=== PATIENT | female | born 1960 | race Caucasian/White ===

== ENCOUNTER → 2016-05-30 | Outpatient (REF) | payer MEDICARE, MEDICAID ==
[~2016-05-30] MED LIST: BIRTH CONTROL PO; CITA20TA4 PO; ECOT81TA5 PO; ELIQ5TAB PO; EUCECRE3 TOP; FOLI1TAB2 PO; LIPI20TA PO; LISI40TA OR; LISI40TAB PO; MEGE40TA PO; MICR10CA PO; NIFE15CA PO; NYST100024 TOP; PROT1TAB2 PO; TRAM50TA2 PO; VITA200016 PO; ZOFR20TA PO
== END ==
LOC: M LAB REF 12:13
PROVIDERS: ATTEND Nurse Practitioner Family
DX: L02.415 Cutaneous abscess of right lower limb (principal)

== ENCOUNTER → 2016-08-08 | Outpatient (REF) | payer MEDICARE, MEDICAID ==
[~2016-08-08] MED LIST changes: -MEGE40TA PO; +MEGE40TA18 PO
== END ==
LOC: M LAB REF 13:10
PROVIDERS: ATTEND Nurse Practitioner Family
DX: R21 Rash and other nonspecific skin eruption (principal)

== ENCOUNTER → 2016-10-31 | Outpatient (REF) | payer MEDICARE, MEDICAID ==
[~2016-10-31] MED LIST changes: +BACI50OI TOP; +BACT800T5 PO; +FERR150C PO; -FOLI1TAB2 PO; +FOLI1TAB4 PO; +FURO40TA2 PO; +MEDR10TA PO; -NYST100024 TOP; +NYST1POW9 TOP; +POTA20TA PO; +TYLE325T5 PO; +VITMTA PO
== END ==
LOC: EEVIPCON 13:06 → M LAB REF 13:06
PROVIDERS: ATTEND Nurse Practitioner Family
DX: R21 Rash and other nonspecific skin eruption (principal)

== ENCOUNTER 2016-12-09 20:48 | Emergency (ER) | payer MEDICARE, MEDICAID ==
[~2016-12-09] VITALS: Ht 162.6 cm; Wt 281.4 kg
[~2016-12-09 20:48] MED LIST changes: -BACI50OI TOP; -BACT800T5 PO; -FERR150C PO; -FURO40TA2 PO; -MEDR10TA PO; -POTA20TA PO; -TYLE325T5 PO; -VITMTA PO
[2016-12-09] MEDS ORDERED: MEDR10TA PO (21:39)
[2016-12-09] MEDS ORDERED: VITMTA PO (21:39)
[2016-12-09] MEDS ORDERED: FERR150C PO (21:39)
[2016-12-09] MEDS ORDERED: FURO40TA2 PO (21:39)
[2016-12-09] MEDS ORDERED: TYLE325T5 PO ×2 (21:39)
[2016-12-09] MEDS ORDERED: BACI50OI TOP (21:39)
[2016-12-09] MEDS ORDERED: POTA20TA PO (21:41)
[2016-12-09] MEDS ORDERED: BACT800T5 PO (22:23)
[2016-12-09 22:30] VITALS: BP 149/64
[2016-12-09] MEDS ORDERED: BACTRIM 160MG/800MG DS TAB PO ONE (22:30)
== END 2016-12-09 23:04 | disposition home or self-care (01) ==
LOC: M ED 22:09
DX: L02.415 Cutaneous abscess of right lower limb (principal); L02.416 Cutaneous abscess of left lower limb; L03.115 Cellulitis of right lower limb; L03.116 Cellulitis of left lower limb; I11.9 Hypertensive heart disease without heart failure; Z88.0 Allergy status to penicillin; Z79.899 Other long term (current) drug therapy; Z79.01 Long term (current) use of anticoagulants

== ENCOUNTER 2016-12-28 10:00 | Outpatient (RCR) | payer MEDICARE, MEDICAID ==
[~2016-12-28 10:00] MED LIST changes: +BACI50OI TOP; +BACT800T5 PO; +FERR150C PO; +FURO40TA2 PO; +MEDR10TA PO; +POTA20TA PO; +TYLE325T5 PO; +VITMTA PO
== END 2017-01-23 ==
LOC: M PT 10:00
PROVIDERS: ATTEND Surgery
DX: Z51.89 Encounter for other specified aftercare (principal); S81.002A Unspecified open wound, left knee, initial encounter; X58.XXXA Exposure to other specified factors, initial encounter; Y92.89 Other specified places as the place of occurrence of the external cause; Y93.89 Activity, other specified; Y99.8 Other external cause status
CPT/HCPCS: 97162; G8990; G8991

== ENCOUNTER → 2017-03-02 | Outpatient (CLI) | payer MEDICARE, MEDICAID ==
--- NOTE | 2017-03-02 16:51 | REPMRS ---
Patient History The patient states she had a clinical breast exam in 01/09 Patient is postmenopausal and is nulliparous. No known family history of cancer. Took hormonal contraceptives for 20 years. Digital Woman Screen Mammo: March 02, 2017 - Exam #: [id number] Bilateral MLO, CC, and XCCL view(s) were taken. Technologist: Ramona Morocho, Technologist Prior study comparison: March 01, 2016, digital woman screen mammo performed at [facility]. January 20, 2015, digital woman screen mammo performed at [facility] to [facility]. FINDINGS: The breast tissue is almost entirely fat. There has been no change in the appearance of the mammogram from the prior studies. Only scant fibroglandular elements remain in these predominantly fatty breasts. There is no interval development of dominant mass, areas of architectural distortion, or clustered microcalcification typical of malignancy. Scattered lymph nodes are seen in the axilla. No significant changes when compared with prior studies. ASSESSMENT: BI-RADS/ACR category 2 mammogram. Benign finding(s). Recommendation Routine screening mammogram in 1 year. A. Negative x-ray reports should not delay biopsy if a dominant or clinically suspicious mass is present. B. Four to eight percent of cancers are not identified by mammography. C. Adenosis and dense breast may obscure an underlying neoplasm.(for women over age 40). This mammogram was interpreted with the aid of an FDA-approved computer-aided dectection system. Electronically Signed By: Delfino Hargrove MD 03/02/17 0427
== END ==
LOC: M WHC 10:41
PROVIDERS: ATTEND Nurse Practitioner Family
DX: Z12.31 Encounter for screening mammogram for malignant neoplasm of breast (principal)

== ENCOUNTER 2017-03-19 12:40 | Emergency (ER) | payer MEDICARE, MEDICAID ==
[2017-03-19] MEDS: ADACEL/BOOSTRIX VACCINE (DIPHTH/PERTUSS/ACELL/TETANUS)0.5ML SYR (90715) IM (13:15)
[2017-03-19 13:45] LABS: BASO % 0.3 % (0.0-1.0); EOS # 0.1 10^3/uL (0.0-0.50); EOS % 0.6 % (0.0-3.0); IMMATURE GRANULOCYTE # 0.1 10^3/uL (0-0); IMMATURE GRANULOCYTE % 0.4 % (0-0); LYMPH # 0.8 10^3/uL (1.5-4.5); LYMPH % 6.7 % (24.0-44.0); MEAN CORPUSCULAR HEMOGLOBIN 33.3 pg (27.0-33.0); MEAN CORPUSCULAR HGB CONC 35.9 g/dl (32.0-36.5); MEAN CORPUSCULAR VOLUME 92.8 fl (80.0-96.0); MONO # 0.7 10^3/uL (0.0-0.8); MONO % 5.8 % (0.0-5.0); NEUTROPHILS # 10.5 10^3/uL (1.8-7.7); NEUTROPHILS % 86.2 % (36.0-66.0); PLATELET COUNT, AUTOMATED 317 10^3/uL (150-450); RED CELL DISTRIBUTION WIDTH 13.5 % (11.5-14.5); WHITE BLOOD COUNT 12.2 10^3/uL (4.0-10.0)
[2017-03-19 13:58] LABS: INR 1.22
[2017-03-19 14:17] LABS: ANION GAP 9 MEQ/L (8-16); BLOOD UREA NITROGEN 15 MG/DL (7-18); CALCIUM LEVEL 8.8 MG/DL (8.5-10.1); CARBON DIOXIDE LEVEL 24 MEQ/L (21-32); CHLORIDE LEVEL 100 MEQ/L (98-107); CREATININE FOR GFR 0.96 MG/DL (0.55-1.02); GLOMERULAR FILTRATION RATE > 60.0 (>51); POTASSIUM SERUM 4.9 MEQ/L (3.5-5.1); SODIUM LEVEL 133 MEQ/L (136-145)
[2017-03-19 14:24] LABS: GLUCOSE, FASTING 535 MG/DL (70-105)
[2017-03-19] MEDS: HumuLIN R (REGULAR) INSULIN (NovoLIN R) **100U/ML** PER UNIT IV ×2 (15:06→16:30)
[2017-03-19] MEDS: ACETAMINOPHEN TAB 650MG DOSE (2X325MG) PO (15:07)
[2017-03-19] MEDS: LEVEMIR (INSULIN DETEMIR) 1 UNITS/0.01ML SC (17:57)
== END 2017-03-19 18:31 | disposition home or self-care (01) ==
LOC: M ED 12:40
DX: S59.901A Unspecified injury of right elbow, initial encounter (principal); W18.09XA Striking against other object with subsequent fall, initial encounter; Y92.129 Unspecified place in nursing home as the place of occurrence of the external cause; Y93.89 Activity, other specified; Y99.8 Other external cause status; R73.9 Hyperglycemia, unspecified; I12.9 Hypertensive chronic kidney disease with stage 1 through stage 4 chronic kidney disease, or unspecified chronic kidney disease; I87.2 Venous insufficiency (chronic) (peripheral); N18.9 Chronic kidney disease, unspecified; E78.9 Disorder of lipoprotein metabolism, unspecified; M19.90 Unspecified osteoarthritis, unspecified site; R73.01 Impaired fasting glucose; Z79.01 Long term (current) use of anticoagulants; Z79.2 Long term (current) use of antibiotics; Z79.899 Other long term (current) drug therapy; Z88.0 Allergy status to penicillin
CPT/HCPCS: 90715

== ENCOUNTER → 2017-05-29 | Outpatient (REF) | payer MEDICARE, MEDICAID ==
[2017-05-29 10:59] LABS: ALBUMIN 3.5 GM/DL (3.2-5.2); ALBUMIN/GLOBULIN RATIO 0.95 (1.00-1.93); ALKALINE PHOSPHATASE 223 U/L (45-117); ALT/SGPT 18 U/L (12-78); ANION GAP 12 MEQ/L (8-16); AST/SGOT 13 U/L (7-37); BILIRUBIN,TOTAL 0.4 MG/DL (0.2-1.0); BLOOD UREA NITROGEN 15 MG/DL (7-18); CARBON DIOXIDE LEVEL 24 MEQ/L (21-32); CHLORIDE LEVEL 102 MEQ/L (98-107); CREATININE FOR GFR 0.82 MG/DL (0.55-1.30); GLOMERULAR FILTRATION RATE > 60.0 (>51); GLUCOSE, FASTING 253 MG/DL (70-100); POTASSIUM SERUM 3.9 MEQ/L (3.5-5.1); SODIUM LEVEL 138 MEQ/L (136-145); TOTAL PROTEIN 7.2 GM/DL (6.4-8.2)
[2017-05-29 11:10] LABS: ESTIMATED AVERAGE GLUCOSE 286 MG/DL (60-110); HEMOGLOBIN A1c 11.6 %
== END ==
DX: E78.5 Hyperlipidemia, unspecified (principal); I48.91 Unspecified atrial fibrillation; I10 Essential (primary) hypertension; Z79.899 Other long term (current) drug therapy
CPT/HCPCS: 80053

== ENCOUNTER → 2017-09-11 | Outpatient (REF) | payer MEDICARE, MEDICAID ==
[2017-09-11 10:35] LABS: ALBUMIN 3.4 GM/DL (3.2-5.2); ALKALINE PHOSPHATASE 200 U/L (45-117); ALT/SGPT 17 U/L (12-78); ANION GAP 12 MEQ/L (8-16); AST/SGOT 8 U/L (7-37); BILIRUBIN,TOTAL 0.4 MG/DL (0.2-1.0); BLOOD UREA NITROGEN 18 MG/DL (7-18); CARBON DIOXIDE LEVEL 27 MEQ/L (21-32); CHLORIDE LEVEL 101 MEQ/L (98-107); CREATININE FOR GFR 0.84 MG/DL (0.55-1.30); GLOMERULAR FILTRATION RATE > 60.0 (>51); GLUCOSE, FASTING 227 MG/DL (70-100); POTASSIUM SERUM 4.2 MEQ/L (3.5-5.1); SODIUM LEVEL 140 MEQ/L (136-145); TOTAL PROTEIN 6.8 GM/DL (6.4-8.2)
[2017-09-11 18:10] LABS: ESTIMATED AVERAGE GLUCOSE 249 MG/DL (60-110); HEMOGLOBIN A1c 10.3 %
== END ==
DX: E11.9 Type 2 diabetes mellitus without complications (principal)
CPT/HCPCS: 80053

== ENCOUNTER → 2017-12-11 | Outpatient (REF) | payer MEDICARE, MEDICAID ==
[2017-12-11 10:10] LABS: HEMOGLOBIN 15.2 g/dl (12.0-15.5); MEAN CORPUSCULAR HGB CONC 33.8 g/dl (32.0-36.5); MEAN CORPUSCULAR VOLUME 91.6 fl (80.0-96.0); PLATELET COUNT, AUTOMATED 253 10^3/uL (150-450); RED BLOOD COUNT 4.91 10^6/uL (4.00-5.40); RED CELL DISTRIBUTION WIDTH 13.7 % (11.5-14.5); WHITE BLOOD COUNT 10.4 10^3/uL (4.0-10.0)
[2017-12-11 10:36] LABS: ESTIMATED AVERAGE GLUCOSE 272 MG/DL (60-110); HEMOGLOBIN A1c 11.1 %
[2017-12-11 10:40] LABS: ALBUMIN 3.5 GM/DL (3.2-5.2); ALBUMIN/GLOBULIN RATIO 1.09 (1.00-1.93); ALKALINE PHOSPHATASE 216 U/L (45-117); ALT/SGPT 17 U/L (12-78); ANION GAP 9 MEQ/L (8-16); AST/SGOT 13 U/L (7-37); BILIRUBIN,TOTAL 0.4 MG/DL (0.2-1.0); BLOOD UREA NITROGEN 14 MG/DL (7-18); CALCIUM LEVEL 8.9 MG/DL (8.5-10.1); CARBON DIOXIDE LEVEL 27 MEQ/L (21-32); CHLORIDE LEVEL 100 MEQ/L (98-107); GLOMERULAR FILTRATION RATE > 60.0 (>51); GLUCOSE, FASTING 383 MG/DL (70-100); POTASSIUM SERUM 4.2 MEQ/L (3.5-5.1); SODIUM LEVEL 136 MEQ/L (136-145); TOTAL PROTEIN 6.7 GM/DL (6.4-8.2)
== END ==
DX: E11.9 Type 2 diabetes mellitus without complications (principal)
CPT/HCPCS: 80053

== ENCOUNTER → 2018-05-07 | Outpatient (REF) | payer MEDICARE, MEDICAID ==
[~2018-05-07] MED LIST changes: -CITA20TA4 PO; +CITA20TA6 PO; +FOLI1TAB11 PO; -FOLI1TAB4 PO; +KLOR20TA42 PO; +LANTINJ4 SC; +LISI40TA52 PO; -LISI40TAB PO; -POTA20TA PO; -ZOFR20TA PO; +ZOFR4TAB16 PO; +[UNRECOGNIZED DRUG - CODE] XX
[2018-05-07 09:57] LABS: MEAN CORPUSCULAR HEMOGLOBIN 30.2 pg (27.0-33.0); MEAN CORPUSCULAR VOLUME 88.7 fl (80.0-96.0); PLATELET COUNT, AUTOMATED 330 10^3/uL (150-450)
[2018-05-07 10:15] LABS: ALBUMIN 3.4 GM/DL (3.2-5.2); ALT/SGPT 19 U/L (12-78); BILIRUBIN,TOTAL 0.4 MG/DL (0.2-1.0); BLOOD UREA NITROGEN 23 MG/DL (7-18); CALCIUM LEVEL 8.8 MG/DL (8.5-10.1); CARBON DIOXIDE LEVEL 26 MEQ/L (21-32); CHLORIDE LEVEL 97 MEQ/L (98-107); CHOLESTEROL LEVEL 178 MG/DL (<200); CHOLESTEROL RISK RATIO 4.045 (<5); CREATININE FOR GFR 0.92 MG/DL (0.55-1.30); GLOMERULAR FILTRATION RATE > 60.0 (>51); GLUCOSE, FASTING 235 MG/DL (70-100); HDL CHOLESTEROL 44 MG/DL (>40); LDL CHOLESTEROL 74 MG/DL (<100); NON-HDL-C 134 MG/DL; POTASSIUM SERUM 3.6 MEQ/L (3.5-5.1); SODIUM LEVEL 135 MEQ/L (136-145); TOTAL PROTEIN 6.3 GM/DL (6.4-8.2); TRIGLYCERIDES LEVEL 298 MG/DL (<150)
[2018-05-07 10:57] LABS: HEMOGLOBIN A1c 10.3 %
== END ==
PROVIDERS: ATTEND Nurse Practitioner Family
DX: E78.00 Pure hypercholesterolemia, unspecified (principal); I10 Essential (primary) hypertension; E11.9 Type 2 diabetes mellitus without complications

== ENCOUNTER → 2018-08-20 | Outpatient (CLI) | payer MEDICARE, MEDICAID ==
--- NOTE | 2018-08-20 15:17 | REPMRS ---
Patient History The patient states she had a clinical breast exam in 07/2018. No known family history of cancer. Took hormonal contraceptives for 20 years. 3D TOMOSYNTHESIS WAS PERFORMED. Digital Woman Screen Mammo: August 20, 2018 - Exam #: [id number] Bilateral CC and MLO view(s) were taken. Technologist: Concepcion Bauer, Technologist Prior study comparison: March 02, 2017, digital woman screen mammo performed at [facility]. March 01, 2016, digital woman screen mammo performed at [facility]. FINDINGS: There are scattered fibroglandular densities. There has been no change in the appearance of the mammogram from the prior studies. There is a mild amount of residual fibroglandular tissue which is fairly symmetric. There is no interval development of dominant mass, architectural distortion, or clustered microcalcification suggestive of malignancy. Assessment: BI-RADS/ACR category 1 mammogram. Negative Mammogram. Recommendation Routine screening mammogram in 1 year (for women over age 40). This mammogram was interpreted with the aid of an FDA-approved computer-aided dectection system. Electronically Signed By: Ruddy Gutierrez MD 08/20/18 [id number]
== END ==
LOC: M WHC 13:41
PROVIDERS: ATTEND Nurse Practitioner Women's Health
DX: Z12.31 Encounter for screening mammogram for malignant neoplasm of breast (principal); Z92.0 Personal history of contraception
CPT/HCPCS: 77063; 77067; G0463

== ENCOUNTER → 2018-10-23 | Outpatient (REF) | payer MEDICARE, MEDICAID ==
[2018-10-23 11:26] LABS: HEMATOCRIT 46.1 % (36.0-47.0); HEMOGLOBIN 14.7 g/dl (12.0-15.5); MEAN CORPUSCULAR HEMOGLOBIN 29.1 pg (27.0-33.0); MEAN CORPUSCULAR HGB CONC 31.9 g/dl (32.0-36.5); MEAN CORPUSCULAR VOLUME 91.3 fl (80.0-96.0); PLATELET COUNT, AUTOMATED 288 10^3/uL (150-450); RED BLOOD COUNT 5.05 10^6/uL (4.00-5.40); WHITE BLOOD COUNT 12.3 10^3/uL (4.0-10.0)
[2018-10-23 11:50] LABS: HEMOGLOBIN A1c 8.5 %
[2018-10-23 12:05] LABS: ALBUMIN 3.4 GM/DL (3.2-5.2); ALT/SGPT 15 U/L (12-78); BILIRUBIN,TOTAL 0.5 MG/DL (0.2-1.0); BLOOD UREA NITROGEN 17 MG/DL (7-18); CALCIUM LEVEL 9.1 MG/DL (8.5-10.1); CARBON DIOXIDE LEVEL 25 MEQ/L (21-32); CHLORIDE LEVEL 107 MEQ/L (98-107); CREATININE FOR GFR 0.74 MG/DL (0.55-1.30); FERRITIN 45 NG/ML (8-252); GLOMERULAR FILTRATION RATE > 60.0 (>51); GLUCOSE, FASTING 158 MG/DL (70-100); IRON (FE) 51 UG/DL (50-170); PERCENT SATURATION 18.5 % (13.2-45.0); POTASSIUM SERUM 3.9 MEQ/L (3.5-5.1); SODIUM LEVEL 141 MEQ/L (136-145); TOTAL IRON BINDING CAPACITY 276 UG/DL (250-450); TOTAL PROTEIN 6.5 GM/DL (6.4-8.2)
[2018-10-23 12:09] LABS: TOTAL 25(OH) VITAMIN D 42.1 NG/ML (30.0-100.0)
== END ==
PROVIDERS: ATTEND Nurse Practitioner Adult Health
DX: Z00.00 Encounter for general adult medical examination without abnormal findings (principal); D50.9 Iron deficiency anemia, unspecified; E11.65 Type 2 diabetes mellitus with hyperglycemia; E55.9 Vitamin D deficiency, unspecified; Z79.899 Other long term (current) drug therapy

== ENCOUNTER 2019-03-24 13:12 | Inpatient (IN) | payer MEDICARE, MEDICAID ==
[~2019-03-24] VITALS: Ht 162.6 cm; Wt 124.1 kg
[2019-03-24] MEDS ORDERED: ACETAMINOPHEN 325 MG TAB PO ONE (14:00)
[2019-03-24] MEDS ORDERED: [UNRECOGNIZED DRUG - CODE] PO (14:08)
[2019-03-24] MEDS ORDERED: HUMA100I5 SC (14:08)
[2019-03-24] MEDS ORDERED: TRAM50TA2 PO (14:08)
[2019-03-24] MEDS ORDERED: VITA200015 PO (14:08)
[2019-03-24] MEDS ORDERED: [UNRECOGNIZED DRUG - CODE] PO (14:08)
[2019-03-24] MEDS ORDERED: PROV10TA PO (14:08)
[2019-03-24] MEDS ORDERED: ACET-907 PO ×2 (14:08)
[2019-03-24] MEDS ORDERED: VITMTA PO (14:08)
[2019-03-24] MEDS ORDERED: JANU100T PO (14:08)
[2019-03-24] MEDS ORDERED: BACI28.43 TOP (14:08)
[2019-03-24] MEDS ORDERED: INVO300T PO (14:08)
[2019-03-24] MEDS ORDERED: FLUC150T PO (14:08)
[2019-03-24] MEDS ORDERED: CVS13CRE TOP (14:08)
[2019-03-24] MEDS ORDERED: FOLI1TAB11 PO (14:08)
[2019-03-24] MEDS ORDERED: TEMO0.0520 TOP (14:08)
[2019-03-24] MEDS ORDERED: ATOR1TAB21 PO (14:08)
[2019-03-24] MEDS ORDERED: ELIQ5TAB PO (14:08)
[2019-03-24] MEDS ORDERED: GLUM1000 PO (14:08)
[2019-03-24] MEDS ORDERED: POTA20EL PO (14:08)
[2019-03-24] MEDS ORDERED: FURO40TA2 PO (14:08)
[2019-03-24] MEDS ORDERED: LANTINJ4 SC (14:08)
[2019-03-24] MEDS ORDERED: CELE20TA PO (14:08)
[2019-03-24] MEDS ORDERED: PROT1TAB2 PO (14:08)
[2019-03-24] MEDS ORDERED: NS 1,000 ML IV ONE (14:15)
[2019-03-24 15:15] LABS: BASO # 0.1 10^3/uL (0.0-0.2); BASO % 0.3 % (0.0-1.0); EOS # 0.1 10^3/uL (0.0-0.5); EOS % 0.2 % (0.0-3.0); HEMATOCRIT 44.8 % (36.0-47.0); HEMOGLOBIN 14.1 g/dl (12.0-15.5); LYMPH % 4.7 % (24.0-44.0); MEAN CORPUSCULAR HEMOGLOBIN 27.6 pg (27.0-33.0); MEAN CORPUSCULAR HGB CONC 31.5 g/dl (32.0-36.5); MEAN CORPUSCULAR VOLUME 87.8 fl (80.0-96.0); MONO # 1.2 10^3/uL (0.0-0.8); MONO % 5.3 % (0.0-5.0); NEUTROPHILS # 19.5 10^3/uL (1.5-8.5); NEUTROPHILS % 88.5 % (36.0-66.0); PLATELET COUNT, AUTOMATED 369 10^3/uL (150-450)
[2019-03-24 15:45] LABS: ALBUMIN 3.1 GM/DL (3.2-5.2); ALT/SGPT 17 U/L (12-78); BILIRUBIN,DIRECT 0.1 MG/DL (0.0-0.2); BILIRUBIN,TOTAL 0.2 MG/DL (0.2-1.0); BLOOD UREA NITROGEN 25 MG/DL (7-18); CALCIUM LEVEL 9.4 MG/DL (8.5-10.1); CARBON DIOXIDE LEVEL 22 MEQ/L (21-32); CHLORIDE LEVEL 107 MEQ/L (98-107); CK-MB VALUE MASS 1.4 NG/ML (<3.6); CPK CREATINE PHOSPHOKINASE 73 U/L (26-192); CREATININE FOR GFR 0.82 MG/DL (0.55-1.30); FREE THYROXINE INDEX 3.6 % (1.3-4.8); GLOMERULAR FILTRATION RATE > 60.0 (>51); GLUCOSE, FASTING 144 MG/DL (70-100); MB/CK RELATIVE INDEX 1.92 (< OR =4); SODIUM LEVEL 140 MEQ/L (136-145); T UPTAKE 35 % (30-39); THYROXINE (T4) 10.3 UG/DL (4.5-12.0); TOTAL PROTEIN 6.2 GM/DL (6.4-8.2); TROPONIN I < 0.02 NG/ML (< 0.10)
--- NOTE | 2019-03-24 15:45 | REP ---
Clinical: Trauma. Fall. Technique: AP, lateral, bilateral oblique views of the left knee. Findings: There is a comminuted oblique fracture involving the distal femoral metaphysis. Osteopenia and degenerative changes noted. Impression: Comminuted oblique fracture of the distal femoral metaphysis. Electronically Signed by Karthikeyan Parra MD 03/24/2019 03:36 P
--- NOTE | 2019-03-24 15:45 | REP ---
Clinical: Preoperative assessment. Status post fall with femur fracture. Comparison: 03/19/2017 . Technique: PA and lateral. Findings: The mediastinum and cardiac silhouette are normal. The lung lopez are clear and without acute consolidation, effusion, or pneumothorax. The skeletal structures are intact and normal. Impression: 1. No acute cardiopulmonary process. Electronically Signed by Karthikeyan Parra MD 03/24/2019 03:37 P
[2019-03-24] MEDS ORDERED: MORPHINE 4 MG/ML 1ML VIAL/SYRINGE (J2270) As Ordered ONE (16:25)
[2019-03-24] MEDS ORDERED: MORPHINE 4 MG/ML 1ML VIAL/SYRINGE (J2270) IV ONE (16:30)
--- NOTE | 2019-03-24 17:12 | REP ---
Three views pelvis/left hip: 03/24/2019. Indication: Left hip trauma. Comparison: CT dated 07/14/2014. Findings: There is no acute fracture, subluxation or dislocation. Severe bilateral osteoarthritic sequelae of the hips are present more pronounced on the right. No lytic or blastic lesions are present. Impression: No acute osseous injuries of the left hip or pelvis. Marked osteoarthritic sequelae of the right greater than left hip joints. In the Electronically Signed by Roldan Monteiro DO 03/24/2019 05:03 P
--- NOTE | 2019-03-24 17:22 | REP ---
Clinical: Femur fracture. Technique: Axial images through the left knee with coronal and sagittal re-formations. Findings: There is a comminuted fracture through the distal femoral metaphysis with extension to the articular surface. Associated traumatic effusion and surrounding subcutaneous infiltration noted. Impression: Comminuted fracture of the distal femoral metaphysis extending to the articular surface with effusion and surrounding infiltration. Electronically Signed by Karthikeyan Parra MD 03/24/2019 05:13 P
--- NOTE | 2019-03-24 18:17 | HPEPDOC ---
General Date of Admission Mar 24, 2019 at 17:38 Date of Service: Mar 24, 2019 Chief Complaint The patient is a 58-year-old female admitted with a reason for visit of Fall, Fracture Of Distal End Of Left Femur. Source: Patient Exam Limitations: No limitations Timing/Duration: 4-6 hours Severity: Moderate Associated Symptoms: Mechanical fall History of Present Illness Patient is 58 years old female with past medical history of hypertension, hyperlipidemia, morbid obesity, diabetes, pulmonary embolism, DVT presented hospital with left distal femur fracture. Patient stated that she developed mechanical fall, she didn't hit her head, she didn't loss consciousness. In emergency room patient was found to have fracture of the distal femoral metaphysis extending to the articular surface with effusion and surrounding infiltration. Of note, patient took Eliquis in the morning around 8 am. Also patient was found to have white blood count of 22, glucose level 144. Patient is afebrile, tachycardic with BP 164/72. Patient denies fever, chills, nausea, vomiting, chest pain, palpitations, diarrhea or dysuria Home Medications Scheduled Apixaban (Eliquis) 5 Mg Tablet, 5 MG PO BID Atorvastatin Calcium (Atorvastatin Calcium) 20 Mg Tablet, 20 MG PO QHS, (Reported) Canagliflozin (Invokana) 300 Mg Tablet, 300 MG PO QPM, (Reported) Cholecalciferol (Vitamin D3) (Vitamin D3) 2,000 Unit Tablet, 2,000 UNIT PO DAILY, (Reported) Citalopram Hydrobromide (Celexa) 20 Mg Tablet, 20 MG PO DAILY, (Reported) Clobetasol Propionate (Temovate) 30 Gm Cream..g., 1 DOSE TOP BID, (Reported) APPLY TO LEFT EAR Fluconazole (Fluconazole) 150 Mg Tablet, 150 MG PO QWEEK, (Reported) SUNDAY AT BEDTIME Folic Acid (Folic Acid) 1 Mg Tablet, 1 MG PO DAILY, (Reported) Furosemide (Furosemide) 40 Mg Tablet, 40 MG PO DAILY, (Reported) Insulin Glargine,Hum.rec.anlog (Lantus Solostar) 100 Unit/1 Ml Insuln.pen, 60 UNITS SC QAM, (Reported) Insulin Lispro (Humalog Kwikpen U-100) 100 Unit/1 Ml Insuln.pen, 8 UNITS SC AC, (Reported) Iron Polysaccharide Complex (Polysaccharide Iron) 150 Mg Capsule, 150 MG PO DAILY, (Reported) Lisinopril (Lisinopril) 20 Mg Tablet, 40 MG PO DAILY Medroxyprogesterone Acetate (Provera) 10 Mg Tablet, 10 MG PO DAILY, (Reported) Metformin HCl (Glumetza) 1,000 Mg Sosloaz49j, 1,000 MG PO QPM, (Reported) 1500MG TOTAL DAILY Metformin HCl (Glumetza) 500 Mg Loniads85k, 500 MG PO QPM, (Reported) 1500MG TOTAL DAILY Metoprolol Tartrate (Lopressor) 50 Mg Tablet, 50 MG PO BID Multivitamins (Thera M Plus Tablet) 1 Each Tablet, 1 TAB PO DAILY, (Reported) Pantoprazole Sodium (Protonix) 40 Mg Tablet.dr, 40 MG PO DAILY, (Reported) Potassium Chloride (Potassium Chloride) 20 Meq/15 Ml Liquid, 15 ML PO BID, (Reported) MIX WITH 8OZ OF WATER Sitagliptin Phosphate (Januvia) 100 Mg Tablet, 100 MG PO DAILY, (Reported) Scheduled PRN Acetaminophen (Tylenol) 325 Mg Tablet, 650 MG PO Q4H PRN for PAIN / FEVER, (Reported) Bacitracin (Bacitracin) 28.4 Gm Oint...g., 1 DOSE TOP BID PRN for EXCORIATION, (Reported) APPLY TO EXCORIATED AREAS Tramadol HCl (Tramadol HCl) 50 Mg Tablet, 50 MG PO TID PRN for PAIN, (Reported) Tramadol HCl (Tramadol HCl) 50 Mg Tablet, 1-2 TAB PO Q4H PRN for PAIN Zinc Oxide (Diaper Rash) 113 Gm Cream..g., 1 DOSE TOP BID PRN for RASH, (Reported) APPLY TO INGUINAL FOLDS AND INNER THIGHS Allergies Coded Allergies: Penicillins (Verified Allergy, Unknown, 03/24/19) Past Medical History Medical History OBESITY, MORBID HYPERLIPIDEMIA 2B HYPERTENSION MENORRHAGIA-ENDOMETRIAL HYPERPLASIA 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 He within the last few years. Her mother is 78 years old and very active and healthy. Social History * Smoker: Denies Alcohol: Denies Drugs: denies A-FIB/CHADSVASC A-FIB History Current/History of A-Fib/PAF?: No Current PO Anticoag Therapy: No Review of Systems Constitutional: Denies: Chills, Fever Eyes: Denies: Pain, Vision change ENT: Denies: Head Aches Skin: Denies: Rash, Lesions Pulmonary: Denies: Dyspnea, Cough Gastrointestinal: Denies: Nausea, Vomiting Genitourinary: Denies: Dysuria, Frequency Endocrine: Denies: Polydipsia Musculoskeletal: Reports: Leg Pain Neurological: Denies: Weakness Psych: Reports: Mood Normal Physical Examination General Exam: Positive: Alert, Cooperative Eye Exam: Positive: PERRLA, Conjunctiva & lids normal, EOMI, Sclera icteric ENT Exam: Positive: Atraumatic Neck Exam: Positive: Supple; Negative: JVD Heart Exam: Positive: Tachycardic; Negative: Rate Normal Telemetry: Positive: Tachycardia Abdomen Exam: Positive: Normal bowel sounds Extremity Exam: Positive: Other (left distal hip tenderness, limited range of motion); Negative: Clubbing Skin Exam: Positive: Nl turgor and temperature Neuro Exam: Positive: Normal Gait, Cranial Nerves 3-12 NL Psych Exam: Positive: Mental status NL Vital Signs Vital Signs Date Time Temp Pulse Resp B/P (MAP) Pulse Ox O2 Delivery O2 Flow Rate FiO2 03/24/19 17:15 98.2 126 20 164/72 (102) 95 Room Air Laboratory Data Labs 24H Laboratory Tests 2 03/24/19 14:36: Immature Granulocyte % (Auto) 1.0, Neutrophils (%) (Auto) 88.5H, Lymphocytes (%) (Auto) 4.7L, Monocytes (%) (Auto) 5.3H, Eosinophils (%) (Auto) 0.2, Basophils (%) (Auto) 0.3, Neutrophils # (Auto) 19.5H, Lymphocytes # (Auto) 1.0L, Monocytes # (Auto) 1.2H, Eosinophils # (Auto) 0.1, Basophils # (Auto) 0.1, Nucleated Red Blood Cells % (auto) 0.0, Anion Gap 11, Glomerular Filtration Rate > 60.0, Calcium Level 9.4, Total Bilirubin 0.2, Direct Bilirubin 0.1, Aspartate Amino Transf (AST/SGOT) 19, Alanine Aminotransferase (ALT/SGPT) 17, Alkaline Phosp hatase 150H, Total Creatine Kinase 73, Creatine Kinase MB 1.4, Creatine Kinase MB Relative Index 1.92, Troponin I < 0.02, Total Protein 6.2L, Albumin 3.1L, Albumin/Globulin Ratio 1.00, Thyroid Stimulating Hormone (TSH) 2.390, Free Thyroxine Index 3.6, Thyroxine (T4) 10.3, Triiodothyronine (T3) Uptake 35 03/24/19 16:26: Urine Color STRAW, Urine Appearance CLEAR, Urine pH 6.0, Urine Specific [place] 1.009, Urine Protein NEGATIVE, Urine Glucose (UA) 3+H, Urine Ketones NEGATIVE, Urine Blood 1+H, Urine Nitrite NEGATIVE, Urine Bilirubin NEGATIVE, Urine Urobilinogen 0.2, Urine Leukocyte Esterase NEGATIVE, Urine WBC (Auto) 0, Urine RBC (Auto) 2, Urine Hyaline Casts (Auto) 0, Urine Bacteria (Auto) NEGATIVE, Urine Squamous Epithelial Cells 0, Urine Sperm (Auto) CBC/BMP Laboratory Tests 03/24/19 14:36 Assessment/Plan Patient is 58 years old female with past medical history of hypertension, hyperlipidemia, morbid obesity, diabetes, pulmonary embolism, DVT presented hospital with left distal femur fracture. Patient stated that she developed mechanical fall, she didn't hit her head, she didn't loss consciousness. In emergency room patient was found to have fracture of the distal femoral metaphysis extending to the articular surface with effusion and surrounding infiltration. Of note, patient took Eliquis in the morning around 8 am. Also patient was found to have white blood count of 22, glucose level 144. Patient is afebrile, tachycardic with BP 164/72. Patient denies fever, chills, nausea, vomiting, chest pain, palpitations, diarrhea or dysuria Problems (1) Fracture of distal end of left femur Status: Acute Problem Text: Pt took Eliquis at 8 am. The surgical intervention is contraindicated, pt should 3 days off Eliquis before hip surgery PT/OT Pain management (2) Diabetes mellitus Status: Chronic Problem Text: diabetes diet Levemir 30 u bid Insulin sliding scale (3) Hypertension Status: Chronic Problem Text: Patient was not on any antihypertensive medication I added metoprolol tartrate 25 mg twice a day to her medical regimen and lisinopril 20 mg (4) ANGI (obstructive sleep apnea) Status: Chronic Problem Text: CPAP overnight Plan / VTE VTE Prophylaxis Ordered?: Yes ALICIA FIERRO DO Mar 24, 2019 18:17
--- NOTE | 2019-03-24 19:26 | ECGEPIP ---
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
[2019-03-24 19:46] LABS: INR 1.37; PROTHROMBIN TIME 16.6 SECONDS (11.8-14.0)
[2019-03-24 19:47] LABS: PARTIAL THROMBOPLASTIN TIME 31.5 SECONDS (25.0-38.4)
[2019-03-24] MEDS ORDERED: DEXTROSE 50% 50 ML SYRINGE IV PRN (20:00)
[2019-03-24] MEDS ORDERED: GLUCOSE 4 GM CHEW TABLET PO PRN (20:00)
[2019-03-24] MEDS ORDERED: BACITRACIN OINT 30GM TOP PRN (20:00)
[2019-03-24] MEDS ORDERED: GLUCAGON FOR INJ 1 MG VIAL (J1610) SC PRN (20:00)
[2019-03-24] MEDS ORDERED: METOPROLOL 5 MG/5 ML VIAL IV STA (20:21)
[2019-03-24] MEDS ORDERED: lisinopriL 20 MG TAB PO ONE (20:30)
[2019-03-24] MEDS: HumaLOG INSULIN (NovoLOG) PER UNIT SC SCH (20:39)
[2019-03-24] MEDS: METOPROLOL TART 25 MG TABLET PO SCH (20:53)
[2019-03-24] MEDS: LEVEMIR (INSULIN DETEMIR) 1 UNITS/0.01ML SC SCH (21:00)
[2019-03-24] MEDS: CLOBETASOL PROP 0.05% OINT 30 GM TOP SCH (21:00)
[2019-03-24] MEDS: traMADol 50 MG TAB PO PRN ×2 (21:06→23:10)
[2019-03-24 22:25] VITALS: BP 127/58
[2019-03-24] MEDS: NS 1,000 ML IV SCH (23:03)
[2019-03-24] MEDS: ATORVASTATIN 20 MG TAB PO SCH (23:04)
[2019-03-24] MEDS: POTASSIUM CHLORIDE 10% LIQ 20 MEQ/15 ML UDC PO SCH (23:04)
[2019-03-24] MEDS: HEPARIN SOD (PORCINE) 5000 UNITS/ML VIAL SC SCH (23:05)
[2019-03-24 23:23] VITALS: O2SAT 98
[2019-03-25] MEDS: traMADol 50 MG TAB PO PRN ×2 (05:24→18:14)
[2019-03-25] MEDS: NS 1,000 ML IV SCH ×3 (05:25→23:08)
[2019-03-25 05:54] LABS: HEMATOCRIT 35.1 % (36.0-47.0); MEAN CORPUSCULAR HEMOGLOBIN 27.7 pg (27.0-33.0); MEAN CORPUSCULAR HGB CONC 31.3 g/dl (32.0-36.5); MEAN CORPUSCULAR VOLUME 88.4 fl (80.0-96.0); PLATELET COUNT, AUTOMATED 299 10^3/uL (150-450); RED BLOOD COUNT 3.97 10^6/uL (4.00-5.40); WHITE BLOOD COUNT 16.9 10^3/uL (4.0-10.0)
[2019-03-25 06:00] VITALS: BP 144/67
[2019-03-25 06:19] LABS: BLOOD UREA NITROGEN 23 MG/DL (7-18); CALCIUM LEVEL 9.1 MG/DL (8.5-10.1); CARBON DIOXIDE LEVEL 25 MEQ/L (21-32); CHLORIDE LEVEL 111 MEQ/L (98-107); CREATININE FOR GFR 0.67 MG/DL (0.55-1.30); GLOMERULAR FILTRATION RATE > 60.0 (>51); GLUCOSE, FASTING 113 MG/DL (70-100); MAGNESIUM LEVEL 2.1 MG/DL (1.8-2.4); POTASSIUM SERUM 3.7 MEQ/L (3.5-5.1); SODIUM LEVEL 143 MEQ/L (136-145)
[2019-03-25] MEDS: HumaLOG INSULIN (NovoLOG) PER UNIT SC SCH ×4 (07:30→20:22)
[2019-03-25] MEDS ORDERED: CLINDAMYCIN 900 MG in IV 1 EA IV ONE (08:15)
--- NOTE | 2019-03-25 08:48 | REP ---
Clinical: Fracture. Technique: AP and frog lateral views of the left femur. Findings: There is a angulated displaced comminuted fracture involving the distal femoral metaphysis extending to the articular surface. Early advanced arthritic changes at the left hip noted. Impression: Distal left femur fracture. Electronically Signed by Karthikeyan Parra MD 03/25/2019 08:39 A
[2019-03-25] MEDS ORDERED: FUROSEMIDE 40 MG TAB PO SCH (09:00)
--- NOTE | 2019-03-25 09:46 | REP ---
Clinical: Femur fracture. Technique: AP and cross-table lateral views of the left tibia / fibula. Findings: Distal femoral metaphyseal fracture noted. Osteopenia and degenerative changes at the knee and ankle joint noted. No further acute fracture or dislocation identified. Impression: 1. Osteopenia and degenerative changes. 2. No tibia / fibula fracture appreciated. Electronically Signed by Karthikeyan Parra MD 03/25/2019 09:38 A
[2019-03-25] MEDS: HEPARIN SOD (PORCINE) 5000 UNITS/ML VIAL SC SCH ×2 (10:11→20:17)
[2019-03-25] MEDS: POTASSIUM CHLORIDE 10% LIQ 20 MEQ/15 ML UDC PO SCH ×2 (10:11→20:16)
[2019-03-25] MEDS: PANTOPRAZOLE 40MG TAB (PROTONIX) PO SCH (10:12)
[2019-03-25] MEDS: VITAMIN D 1,000 INTERNATIONAL UNITS TABLET PO SCH (10:12)
[2019-03-25] MEDS: LEVEMIR (INSULIN DETEMIR) 1 UNITS/0.01ML SC SCH ×2 (10:13→20:17)
[2019-03-25] MEDS: lisinopriL 20 MG TAB PO SCH (10:13)
[2019-03-25] MEDS: CitaloPRAM (CeleXA) 20 MG TAB PO SCH (10:13)
[2019-03-25] MEDS: METOPROLOL TART 25 MG TABLET PO SCH ×2 (10:13→20:21)
[2019-03-25] MEDS: CLOBETASOL PROP 0.05% OINT 30 GM TOP SCH ×2 (10:14→20:17)
[2019-03-25] MEDS: FOLIC ACID 1 MG TAB PO SCH (10:14)
--- NOTE | 2019-03-25 13:46 | CR ---
DATE OF CONSULTATION: 03/24/2019 CHIEF COMPLAINT: Left knee pain. The patient presents today as a transfer from [facility] with left knee pain. The patient was ambulating today when she had a trip and fall. She immediately appreciated sharp left knee pain that was 10 out of 10, made worse with range of motion or mobilization and pain improved only with immobilization and pain medication. She denied hitting her head or loss of consciousness. Denies any pain elsewhere. She denies any fevers, chills, nausea, or vomiting. The patient took Eliquis around 8:00 a.m. for prior deep vein thrombosis (DVT). REVIEW OF SYSTEMS: Complete 10-system review was conducted and pertinent positives and negatives in the history of present illness. All other systems negative. HOME MEDICATIONS: - acetaminophen - Eliquis - atorvastatin - citalopram - clobetasol propionate - fluconazole - folic acid - furosemide - insulin glargine - insulin Lispro - medroxyprogesterone - metformin - pantoprazole - sitagliptin ALLERGIES: PENICILLIN. PAST MEDICAL HISTORY: 1. Obesity, morbid. 2. Hyperlipidemia. 3. Hypertension. 4. Menorrhagia. 5. Right hip arthritis. 6. Degenerative disc disease. 7. Chronic kidney disease. 8. Factor V Leiden negative. 9. Pulmonary embolism. 10. Obstructive sleep apnea. PAST SURGICAL HISTORY: 1. Colonoscopy. SOCIAL HISTORY: Lives at [facility]. Denies smoking, alcohol or drugs. PHYSICAL EXAMINATION: The patient is awake, alert, oriented. Well dressed, appropriate affect. Breathing comfortably in room air. Normocephalic, atraumatic. Morbidly obese. EXTREMITIES: Bilateral upper extremities with no tenderness to palpation. Full range of motion of the fingers, wrists, elbows without any pain. Skin is intact. Radial pulse 2+. Regular rate. Skin is intact. Sensation intact to light touch in superficial sensory branch, radial nerve, median nerve and ulnar nerve. Positive AIN, PIN, and ulnar motor nerve function. Radial pulse 2+ regular rate. Right lower extremity no tenderness to palpation. Full range of motion of the ankle and knee without pain. Skin is intact. Posterior tibial pulse 2+, regular rate, skin intact. Positive extensor hallucis longus (EHL), flexor hallucis longus (FHL), tibialis, gastroc motor function. Sensation is intact to light touch in superficial, peroneal, deep peroneal, sural, saphenous, and tibial distributions. Posterior tibial pulse 2+ regular rate. Skin is intact. Left lower extremity is tender to palpation about the knee. Skin is intact. Posterior tibial pulse 2+ regular rate. Positive EHL, FHL, tibialis, and gastroc motor function. Sensation is intact to light touch in superficial, peroneal, deep peroneal, sural, saphenous, and tibial distributions. IMAGING: Reviewed and demonstrating distal femur fracture and extension into the notch. DIAGNOSIS: 1. Left distal femur intrachondral femur fracture. I discussed with the and the mother that despite all of her medical comorbidities, I do unfortunately believe that surgery is the treatment of choice and given that without surgery the distal femur fracture unfortunately has a complication of eroding through the skin and becoming an open fracture leading to sepsis. Also, without operative intervention, I do not believe that the patient would ambulate again and has a significant malunion if healed. The patient and her mother expressed understanding. We discussed the risks, benefits, including infection, damage to surrounding structures, incomplete relief, malunion, nonunion, blood loss. I discussed with the patient that with her history of Eliquis and blood clots that she is at serious risk of developing another with her diabetes and obesity, infection and nonunion are a serious concern as well. Due to the Eliquis being taken, we should wait for 3 days. Therefore, the plan is to do the surgery of her left distal femur on afternoon. Please make her nothing by mouth Sunday night. Appreciate medicine for admission and preoperative clearance.
[2019-03-25 14:00] VITALS: BP 155/84
--- NOTE | 2019-03-25 15:38 | IPNPDOC ---
Text Note Date of Service The patient was seen on 03/25/19. NOTE Subjective: Patient stated that she has mild left leg pain. Patient denies fever, chills, nausea, vomiting, chest pain, palpitations, diarrhea or dysuria Objective: GENERAL APPEARANCE: Obese female HEENT: Normocephalic, atraumatic. Mucous members moist and pink CARDIOVASCULAR: Regular rate and rhythm. No murmurs, rubs or gallops. Radial pulses are intact. There is no lower extremity edema LUNGS: Diminished lung sounds, ABDOMEN: Abdomen is soft and nontender. MUSCULOSKELETAL: Limited range of motion of left leg NEUROLOGICAL: Cranial nerves II-12 are grossly intact. Speech is not dysarthric Patient is 58 years old female with past medical history of hypertension, h yperlipidemia, morbid obesity, diabetes, pulmonary embolism, DVT presented hospital with left distal femur fracture. Patient stated that she developed mechanical fall, she didn't hit her head, she didn't loss consciousness. In emergency room patient was found to have fracture of the distal femoral metaphysis extending to the articular surface with effusion and surrounding infiltration. Of note, patient took Eliquis in the morning around 8 am. Also patient was found to have white blood count of 22, glucose level 144. Patient is afebrile, tachycardic with BP 164/72. Patient denies fever, chills, nausea, vomiting, chest pain, palpitations, diarrhea or dysuria (1) Fracture of distal end of left femur Pt took Eliquis before admission Hip surgery planned on afternoon PT/OT Pain management (2) Diabetes mellitus Glucose levels under control diabetes diet Levemir 30 u bid Insulin sliding scale (3) Hypertension Patient was not on any antihypertensive medication I added metoprolol tartrate 25 mg twice a day to her medical regimen and lisinopril 20 mg (4) ANGI (obstructive sleep apnea) Status: Chronic Problem Text: CPAP overnight VS,Fishbone, I+O VS, Fishbone, I+O Laboratory Tests 03/25/19 05:14 Vital Signs Date Time Temp Pulse Resp B/P (MAP) Pulse Ox O2 Delivery O2 Flow Rate FiO2 03/25/19 10:13 96 03/25/19 06:06 17 NIPPV (BIPAP/CPAP) 03/25/19 06:00 97.3 144/67 (92) 95 03/24/19 23:23 2.0 28 I&O- Last 24 Hours up to 6 AM 03/25/19 05:59 Intake Total 100 ml Output Total 1000 ml Balance -900 ml ALICIA FIERRO DO Mar 25, 2019 15:38
[2019-03-25 19:00] VITALS: O2SAT 96
[2019-03-25] MEDS: ATORVASTATIN 20 MG TAB PO SCH (20:17)
[2019-03-25 22:00] VITALS: BP 141/67
[2019-03-26 06:00] VITALS: BP 145/65
[2019-03-26] MEDS: HumaLOG INSULIN (NovoLOG) PER UNIT SC SCH ×4 (07:30→21:00)
[2019-03-26] MEDS: LEVEMIR (INSULIN DETEMIR) 1 UNITS/0.01ML SC SCH ×2 (09:43→21:19)
[2019-03-26] MEDS: POTASSIUM CHLORIDE 10% LIQ 20 MEQ/15 ML UDC PO SCH ×2 (09:43→21:18)
[2019-03-26] MEDS: HEPARIN SOD (PORCINE) 5000 UNITS/ML VIAL SC SCH ×2 (09:43→21:18)
[2019-03-26] MEDS: VITAMIN D 1,000 INTERNATIONAL UNITS TABLET PO SCH (09:44)
[2019-03-26] MEDS: METOPROLOL TART 25 MG TABLET PO SCH ×3 (09:45→21:18)
[2019-03-26] MEDS: FOLIC ACID 1 MG TAB PO SCH (09:45)
[2019-03-26] MEDS: FUROSEMIDE 40 MG TAB PO SCH (09:45)
[2019-03-26] MEDS: PANTOPRAZOLE 40MG TAB (PROTONIX) PO SCH (09:45)
[2019-03-26] MEDS: lisinopriL 20 MG TAB PO SCH (09:45)
[2019-03-26] MEDS: CLOBETASOL PROP 0.05% OINT 30 GM TOP SCH ×2 (09:45→21:19)
[2019-03-26] MEDS: CitaloPRAM (CeleXA) 20 MG TAB PO SCH (09:45)
[2019-03-26] MEDS: NS 1,000 ML IV SCH ×2 (09:47→22:30)
[2019-03-26 10:00] VITALS: O2SAT 93
--- NOTE | 2019-03-26 11:49 | IPNPDOC ---
Text Note Date of Service The patient was seen on 03/26/19. NOTE Subjective: Patient stated that her left leg pain subsided. Patient denies fever, chills, nausea, vomiting, chest pain, palpitations, diarrhea or dysuria Objective: GENERAL APPEARANCE: Obese female HEENT: Normocephalic, atraumatic. Mucous members moist and pink CARDIOVASCULAR: Regular rate and rhythm. No murmurs, rubs or gallops. Radial pulses are intact. There is no lower extremity edema LUNGS: Diminished lung sounds, ABDOMEN: Abdomen is soft and nontender. MUSCULOSKELETAL: Limited range of motion of left leg NEUROLOGICAL: Cranial nerves II-12 are grossly intact. Speech is not dysarthric Patient is 58 years old female with past medical history of hypertension, hyperlipidemia, morbid obesity, diabetes, pulmonary embolism, DVT presented hospital with left distal femur fracture. Patient stated that she developed mechanical fall, she didn't hit her head, she didn't loss consciousness. In emergency room patient was found to have fracture of the distal femoral metaphysis extending to the articular surface with effusion and surrounding infiltration. Of note, patient took Eliquis in the morning around 8 am. Also patient was found to have white blood count of 22, glucose level 144. Patient is afebrile, tachycardic with BP 164/72. Patient denies fever, chills, nausea, vomiting, chest pain, palpitations, diarrhea or dysuria (1) Fracture of distal end of left femur Pt took Eliquis before admission Hip surgery planned on afternoon PT/OT Pain management (2) Diabetes mellitus Glucose levels under control diabetes diet Levemir 30 u bid Insulin sliding scale (3) Hypertension Patient was not on any antihypertensive medication I added metoprolol tartrate 25 mg twice a day to her medical regimen and lisinopril 20 mg (4) ANGI (obstructive sleep apnea) Status: Chronic Problem Text: CPAP overnight VS,Fishbone, I+O VS, Fishbone, I+O Vital Signs Date Time Temp Pulse Resp B/P (MAP) Pulse Ox O2 Delivery O2 Flow Rate FiO2 03/26/19 10:00 93 Room Air 03/26/19 09:45 105 165/81 03/26/19 06:00 97.8 20 03/26/19 04:01 28 03/25/19 21:42 2.0 I&O- Last 24 Hours up to 6 AM 03/26/19 06:00 Intake Total 2600 ml Output Total 1450 ml Balance 1150 ml LAICIA FIEROR DO Mar 26, 2019 11:49
[2019-03-26 11:54] VITALS: BP 183/90
[2019-03-26 14:30] VITALS: BP 181/87
[2019-03-26] MEDS: traMADol 50 MG TAB PO PRN (16:24)
[2019-03-26 20:27] VITALS: BP 175/84
[2019-03-26] MEDS: ATORVASTATIN 20 MG TAB PO SCH (21:17)
[2019-03-26] MEDS: ACETAMINOPHEN TAB 650MG DOSE (2X325MG) PO PRN (21:17)
[2019-03-27] MEDS ORDERED: CLINDAMYCIN 900 MG in IV 1 EA IV ONE (06:00)
[2019-03-27 06:08] VITALS: BP 170/84
[2019-03-27] MEDS: HumaLOG INSULIN (NovoLOG) PER UNIT SC SCH ×4 (07:24→21:00)
[2019-03-27] MEDS: PANTOPRAZOLE 40MG TAB (PROTONIX) PO SCH (08:07)
[2019-03-27] MEDS: VITAMIN D 1,000 INTERNATIONAL UNITS TABLET PO SCH (08:07)
[2019-03-27] MEDS: amLODIPine 5 MG TAB PO SCH (08:09)
[2019-03-27] MEDS: FUROSEMIDE 40 MG TAB PO SCH (08:10)
[2019-03-27] MEDS: POTASSIUM CHLORIDE 10% LIQ 20 MEQ/15 ML UDC PO SCH ×2 (08:10→21:27)
[2019-03-27] MEDS: FOLIC ACID 1 MG TAB PO SCH (08:10)
[2019-03-27] MEDS: lisinopriL 20 MG TAB PO SCH (08:10)
[2019-03-27] MEDS: METOPROLOL TART 25 MG TABLET PO SCH ×3 (08:11→21:28)
[2019-03-27] MEDS: CitaloPRAM (CeleXA) 20 MG TAB PO SCH (08:11)
[2019-03-27] MEDS: HEPARIN SOD (PORCINE) 5000 UNITS/ML VIAL SC SCH ×2 (08:12→21:27)
[2019-03-27] MEDS: CLOBETASOL PROP 0.05% OINT 30 GM TOP SCH ×2 (08:15→21:29)
[2019-03-27] MEDS: NS 1,000 ML IV SCH ×2 (08:30→21:27)
[2019-03-27 09:00] LABS: HEMATOCRIT 33.2 % (36.0-47.0); HEMOGLOBIN 10.4 g/dl (12.0-15.5); MEAN CORPUSCULAR HEMOGLOBIN 27.9 pg (27.0-33.0); MEAN CORPUSCULAR HGB CONC 31.3 g/dl (32.0-36.5); PLATELET COUNT, AUTOMATED 294 10^3/uL (150-450); RED BLOOD COUNT 3.73 10^6/uL (4.00-5.40); WHITE BLOOD COUNT 15.3 10^3/uL (4.0-10.0)
[2019-03-27 09:22] LABS: BLOOD UREA NITROGEN 14 MG/DL (7-18); CALCIUM LEVEL 8.7 MG/DL (8.5-10.1); CARBON DIOXIDE LEVEL 24 MEQ/L (21-32); CHLORIDE LEVEL 112 MEQ/L (98-107); CREATININE FOR GFR 0.54 MG/DL (0.55-1.30); GLOMERULAR FILTRATION RATE > 60.0 (>51); GLUCOSE, FASTING 84 MG/DL (70-100); POTASSIUM SERUM 4.6 MEQ/L (3.5-5.1); SODIUM LEVEL 143 MEQ/L (136-145)
--- NOTE | 2019-03-27 09:44 | IPNPDOC ---
Text Note Date of Service The patient was seen on 03/27/19. NOTE Subjective: Patient stated that she has mild left leg pain. Patient denies f ever, chills, nausea, vomiting, chest pain, palpitations, diarrhea or dysuria Objective: GENERAL APPEARANCE: Obese female HEENT: Normocephalic, atraumatic. Mucous members moist and pink CARDIOVASCULAR: Regular rate and rhythm. No murmurs, rubs or gallops. Radial pulses are intact. There is no lower extremity edema LUNGS: Diminished lung sounds, ABDOMEN: Abdomen is soft and nontender. MUSCULOSKELETAL: Limited range of motion of left leg NEUROLOGICAL: Cranial nerves II-12 are grossly intact. Speech is not dysarthric Patient is 58 years old female with past medical history of hypertension, hy perlipidemia, morbid obesity, diabetes, pulmonary embolism, DVT presented hospital with left distal femur fracture. Patient stated that she developed mechanical fall, she didn't hit her head, she didn't loss consciousness. In emergency room patient was found to have fracture of the distal femoral m etaphysis extending to the articular surface with effusion and surrounding infiltration. Of note, patient took Eliquis in the morning around 8 am. Also patient was found to have white blood count of 22, glucose level 144. Patient is afebrile, tachycardic with BP 164/72. Patient denies fever, chills, nausea, vomiting, chest pain, palpitations, diarrhea or dysuria (1) Fracture of distal end of left femur Pt took Eliquis before admission Hip surgery planned today afternoon PT/OT Pain management Patient is hemodynamically stable. Ortho team can proceed with surgery (2) Diabetes mellitus Glucose levels under control diabetes diet Levemir bid Insulin sliding scale (3) Hypertension Patient was not on any antihypertensive medication. Blood pressure has been elevated for past 24 hours. I increased the dose of antihypertensive medications - metoprolol tartrate 25 mg TID and lisinopril 40 mg -Amlodipine 5 mg daily (4) ANGI (obstructive sleep apnea) Status: Chronic Problem Text: CPAP overnight Leukocytosis Most likely reactive secondary to hip fracture Patient is afebrile, does not have cough, sputum, diarrhea, dysuria VS,Fishbone, I+O VS, Fishbone, I+O Laboratory Tests 03/27/19 08:40 Vital Signs Date Time Temp Pulse Resp B/P (MAP) Pulse Ox O2 Delivery O2 Flow Rate FiO2 1/2/20 08:11 97 142/67 03/27/19 06:08 98.1 16 95 Room Air 03/26/19 04:01 28 03/25/19 21:42 2.0 I&O- Last 24 Hours up to 6 AM 03/27/19 06:00 Intake Total 1980 ml Output Total 2900 ml Balance -920 ml ALICIA FIERRO DO Mar 27, 2019 09:44
[2019-03-27 14:00] VITALS: BP 167/82
[2019-03-27] MEDS ORDERED: ROCURONIUM BROMIDE 50 MG/5 ML VIAL As Ordered ONE (14:39)
[2019-03-27] MEDS ORDERED: MIDAZOLAM INJ 2 MG/2 ML VIAL (J2250) As Ordered ONE (14:39)
[2019-03-27] MEDS ORDERED: PROPOFOL 200 MG/20 ML VIAL As Ordered ONE (14:39)
[2019-03-27] MEDS ORDERED: LIDOCAINE 2% INJ 100 MG/5 ML SDV (FOR ANES.) As Ordered ONE (14:39)
[2019-03-27] MEDS ORDERED: dexameTHASONE 4 MG/ML 1ML VIAL (J1100) As Ordered ONE (14:39)
[2019-03-27] MEDS ORDERED: ONDANSETRON 4MG/2ML VIAL (J2405) As Ordered ONE ×2 (14:39→20:21)
[2019-03-27] MEDS ORDERED: fentaNYL 100 MCG/2 ML INJECTION (J3010) As Ordered ONE ×2 (14:40→20:21)
[2019-03-27] MEDS ORDERED: PROPOFOL 500 MG/50 ML VIAL As Ordered ONE (15:57)
[2019-03-27] MEDS ORDERED: KETAMINE HCL 200 MG/20 ML VIAL As Ordered ONE (15:57)
[2019-03-27] MEDS ORDERED: ceFAZolin 1GM INJ (J0690 PER 500MG) As Ordered ONE (17:07)
[2019-03-27] MEDS ORDERED: ceFAZolin 2 GM/D5W 50 ML IV BAG (J0690 PER 500MG) As Ordered ONE (17:07)
[2019-03-27] MEDS ORDERED: PHENYLephrine HCL 500 MCG/5 ML (100MCG/ML) SYRINGE (J2370) As Ordered ONE (17:33)
[2019-03-27] MEDS ORDERED: PHENYLEPHRINE INJ 10MG/ML VIAL (J2370) As Ordered ONE (17:33)
[2019-03-27] MEDS ORDERED: ePHEDrine SULFATE 25 MG/5 ML(5MG/ML) SYRINGE As Ordered ONE (17:33)
[2019-03-27] MEDS ORDERED: PERCOCET 5MG/325MG TAB As Ordered ONE ×2 (20:21→20:40)
[2019-03-27] MEDS: fentaNYL 100 MCG/2 ML INJECTION (J3010) IV PRN ×4 (20:23→20:45)
[2019-03-27] MEDS: PERCOCET 5MG/325MG TAB PO PRN ×2 (20:23→20:47)
[2019-03-27 20:30] VITALS: O2SAT 95
[2019-03-27] MEDS ORDERED: LR 1,000 ML IV SCH (20:30)
[2019-03-27] MEDS ORDERED: ONDANSETRON 4MG/2ML VIAL (J2405) IV PRN (20:30)
--- NOTE | 2019-03-27 20:30 | REP ---
HISTORY: ORIF distal femoral fracture. Eight spot views were obtained using a portable C-Arm device in my absent[place] during ORIF distal femoral fracture. The previously described distal femoral fracture has been openly reduced and internally fixed. The fixation plate and screws are noted. The alignment appears to be near anatomical. 3 minutes and 28 seconds of fluoroscopy time was provided for the procedure. Electronically Signed by Sid Connelly DO 03/28/2019 12:33 P
[2019-03-27 21:15] VITALS: BP 154/95
[2019-03-27] MEDS: ATORVASTATIN 20 MG TAB PO SCH (21:27)
[2019-03-27 21:45] VITALS: BP 145/65
[2019-03-27 22:45] VITALS: BP 145/66
--- NOTE | 2019-03-28 00:39 | RO ---
DATE OF PROCEDURE: 03/27/2019 PREOPERATIVE DIAGNOSIS: Left distal femur fracture, intra-articular. POSTOPERATIVE DIAGNOSIS: Left distal femur fracture, intra-articular. PROCEDURE: Open reduction, internal fixation of left distal femur fracture. SURGEON: Ervin Reid MD RECONCILIATION COORDINATOR: None. ANESTHESIA: Spinal. COMPLICATIONS: None. BLOOD LOSS: 350 mL. INDICATIONS: This is a 58-year-old female who suffered this fracture while at [facility]. We discussed operative and nonoperative intervention. Unfortunately, in order to increase mobility and also decrease the risk of this eroding through skin in anteriorly, discussed operative intervention. Patient and family agreed. We discussed the risks and benefits, including, but not limited to, infection, damage to surrounding structures, malunion, nonunion. Patient expressed understanding and wished to proceed. DESCRIPTION OF PROCEDURE: Patient was brought back to the operating room (OR) in the supine position, underwent spinal anesthesia, at which point the left leg was prepped and draped in the usual fashion. We then had a time-out confirming site, side, and surgery. Once in agreement, due to the patient's severe obesity, we had to use x-ray in order to identify the knee joint. Once this was done, we made a longitudinal incision along the line of femur, dissecting sharply through subcutaneous tissue, careful to identify and coagulate any superficial bleeding. We the encountered the iliotibial (IT) band. We split this in line with the fibers. We then did a subvastus approach, elevating, being careful for any sort of perforating bleeders and appropriately coagulating them, at which point we identified the fracture site, irrigated, and debrided it thoroughly. We then used a turkey claw reduction clamp to obtain the fracture of the medial spike to the proximal shaft using x-ray, AP and lateral. Once this was adequately done, we used two cerclage cables and secured them and tensioned them to replace the clamp. This was once again confirmed on AP and lateral. We then chose our 10-hole distal femur variable angle [employer]ynthe[employer] plate. I used the conical pin to align the plate distally, parallel to the femoral condyles. We then formed a box by inserting the percutaneous guide after sliding the plate submuscularly more proximally while we made a stab incision and secured our box with a K-wire. We then placed our distal locking screws under guidance on C-arm, confirming the placement outside the joint and in good bone, at which point we then secured the plate to the bone through a cortical screw. We were happy with this. We placed three additional locking screws in place. We confirmed our reduction and fixation on AP and lateral films. We were quite happy with this. We irrigated the wound thoroughly, closed the IT band with #0 Vicryl and deep fat stitches. We then did superficial stitch with #2-0 Vicryl and teo for skin. We also placed a negative pressure vacuum over the incision to help with wound healing given the patient's long history of diabetes and obesity, increased risk for infection and fluid collections. This was set to mmHg continuously and will be taken off after 5 days. At that point, the patient was taken to the postanesthesia care unit (PACU) in stable condition. POSTOPERATIVE PLAN: The patient will be nonweightbearing on the affected leg, resume her Eliquis, placed on Surgical Care Improvement Project (SCIP) antibiotic prophylaxis, and work on ambulation with physical therapy. The incisional VAC will be removed in 5 days.
[2019-03-28 00:45] VITALS: BP 146/68
[2019-03-28] MEDS: traMADol 50 MG TAB PO PRN ×3 (01:02→18:37)
[2019-03-28 01:45] VITALS: BP 144/65
[2019-03-28] MEDS: ceFAZolin SOD 1 GM in D5W MINI-BAG PLUS 50 ML IV SCH ×3 (02:28→18:36)
[2019-03-28 05:21] VITALS: BP 144/69
[2019-03-28] MEDS: ACETAMINOPHEN TAB 650MG DOSE (2X325MG) PO PRN (05:27)
[2019-03-28] MEDS: NS 1,000 ML IV SCH (05:28)
[2019-03-28] MEDS: MOM 30ML SUSPENSION UDC PO SCH ×3 (06:32→14:09)
[2019-03-28] MEDS: HumaLOG INSULIN (NovoLOG) PER UNIT SC SCH ×4 (07:30→20:48)
[2019-03-28 08:29] LABS: HEMATOCRIT 33.3 % (36.0-47.0); HEMOGLOBIN 10.1 g/dl (12.0-15.5); MEAN CORPUSCULAR HEMOGLOBIN 27.4 pg (27.0-33.0); MEAN CORPUSCULAR HGB CONC 30.3 g/dl (32.0-36.5); MEAN CORPUSCULAR VOLUME 90.2 fl (80.0-96.0); PLATELET COUNT, AUTOMATED 324 10^3/uL (150-450); RED BLOOD COUNT 3.69 10^6/uL (4.00-5.40); WHITE BLOOD COUNT 18.1 10^3/uL (4.0-10.0)
[2019-03-28 08:49] LABS: BLOOD UREA NITROGEN 14 MG/DL (7-18); CALCIUM LEVEL 8.7 MG/DL (8.5-10.1); CARBON DIOXIDE LEVEL 24 MEQ/L (21-32); CHLORIDE LEVEL 109 MEQ/L (98-107); CREATININE FOR GFR 0.64 MG/DL (0.55-1.30); GLOMERULAR FILTRATION RATE > 60.0 (>51); GLUCOSE, FASTING 159 MG/DL (70-100); POTASSIUM SERUM 4.3 MEQ/L (3.5-5.1); SODIUM LEVEL 141 MEQ/L (136-145)
[2019-03-28] MEDS: APIXABAN 5 MG TAB (ELIQUIS) PO SCH ×2 (09:50→20:54)
[2019-03-28] MEDS: VITAMIN D 1,000 INTERNATIONAL UNITS TABLET PO SCH (09:50)
[2019-03-28] MEDS: PANTOPRAZOLE 40MG TAB (PROTONIX) PO SCH (09:50)
[2019-03-28] MEDS: SENOKOT S TAB PO SCH ×2 (09:50→20:54)
[2019-03-28] MEDS: POTASSIUM CHLORIDE 10% LIQ 20 MEQ/15 ML UDC PO SCH ×2 (09:50→20:54)
[2019-03-28] MEDS: METOPROLOL TART 50 MG TAB PO SCH ×2 (09:51→20:58)
[2019-03-28] MEDS: CitaloPRAM (CeleXA) 20 MG TAB PO SCH (09:51)
[2019-03-28] MEDS: lisinopriL 20 MG TAB PO SCH (09:51)
[2019-03-28] MEDS: FOLIC ACID 1 MG TAB PO SCH (09:51)
[2019-03-28] MEDS: CLOBETASOL PROP 0.05% OINT 30 GM TOP SCH ×2 (09:52→20:55)
[2019-03-28] MEDS: MIRALAX *UNIT DOSE* 17GM PACKET PO SCH (09:52)
[2019-03-28] MEDS: LEVEMIR (INSULIN DETEMIR) 1 UNITS/0.01ML SC SCH ×2 (09:52→20:55)
[2019-03-28] MEDS: amLODIPine 5 MG TAB PO SCH (09:52)
[2019-03-28] MEDS: FUROSEMIDE 40 MG TAB PO SCH (09:54)
[2019-03-28 10:00] VITALS: BP 118/46
[2019-03-28 14:51] VITALS: BP 135/60
[2019-03-28] MEDS: ATORVASTATIN 20 MG TAB PO SCH (20:54)
[2019-03-28] MEDS: NYSTATIN 100,000 UNITS/GM TOPICAL PWD 15 GM TOP SCH (20:55)
[2019-03-28 22:00] VITALS: BP 137/66
[2019-03-29 06:00] VITALS: BP 127/57
[2019-03-29] MEDS: HumaLOG INSULIN (NovoLOG) PER UNIT SC SCH ×4 (07:30→20:54)
[2019-03-29] MEDS: MIRALAX *UNIT DOSE* 17GM PACKET PO SCH (09:01)
[2019-03-29] MEDS: VITAMIN D 1,000 INTERNATIONAL UNITS TABLET PO SCH (09:01)
[2019-03-29] MEDS: POTASSIUM CHLORIDE 10% LIQ 20 MEQ/15 ML UDC PO SCH ×2 (09:01→21:04)
[2019-03-29] MEDS: MOM 30ML SUSPENSION UDC PO SCH (09:01)
[2019-03-29] MEDS: lisinopriL 20 MG TAB PO SCH (09:01)
[2019-03-29] MEDS: SENOKOT S TAB PO SCH ×2 (09:02→20:03)
[2019-03-29] MEDS: METOPROLOL TART 50 MG TAB PO SCH ×2 (09:02→21:08)
[2019-03-29] MEDS: CitaloPRAM (CeleXA) 20 MG TAB PO SCH (09:02)
[2019-03-29] MEDS: amLODIPine 5 MG TAB PO SCH (09:02)
[2019-03-29] MEDS: APIXABAN 5 MG TAB (ELIQUIS) PO SCH ×2 (09:02→21:05)
[2019-03-29] MEDS: PANTOPRAZOLE 40MG TAB (PROTONIX) PO SCH (09:02)
[2019-03-29] MEDS: FOLIC ACID 1 MG TAB PO SCH (09:02)
[2019-03-29] MEDS: NYSTATIN 100,000 UNITS/GM TOPICAL PWD 15 GM TOP SCH ×2 (09:02→21:03)
[2019-03-29] MEDS: FUROSEMIDE 40 MG TAB PO SCH (09:02)
[2019-03-29 10:02] VITALS: O2SAT 98
[2019-03-29] MEDS: CLOBETASOL PROP 0.05% OINT 30 GM TOP SCH ×2 (10:53→21:04)
[2019-03-29 14:12] VITALS: BP 126/57
[2019-03-29] MEDS ORDERED: MAGNESIUM CITRATE 300 ML BTL PO ONE ×2 (15:30→20:00)
[2019-03-29] MEDS: LEVEMIR (INSULIN DETEMIR) 1 UNITS/0.01ML SC SCH (21:03)
[2019-03-29] MEDS: ATORVASTATIN 20 MG TAB PO SCH (21:05)
[2019-03-29 22:00] VITALS: BP 137/70
[2019-03-30] MEDS: ACETAMINOPHEN TAB 650MG DOSE (2X325MG) PO PRN (05:43)
[2019-03-30 06:00] VITALS: BP 137/68
[2019-03-30 08:14] VITALS: O2SAT 94
[2019-03-30] MEDS: POTASSIUM CHLORIDE 10% LIQ 20 MEQ/15 ML UDC PO SCH ×2 (08:25→21:10)
[2019-03-30] MEDS: FOLIC ACID 1 MG TAB PO SCH (08:25)
[2019-03-30] MEDS: APIXABAN 5 MG TAB (ELIQUIS) PO SCH ×2 (08:25→21:11)
[2019-03-30] MEDS: PANTOPRAZOLE 40MG TAB (PROTONIX) PO SCH (08:25)
[2019-03-30] MEDS: FUROSEMIDE 40 MG TAB PO SCH (08:26)
[2019-03-30] MEDS: lisinopriL 20 MG TAB PO SCH (08:26)
[2019-03-30] MEDS: VITAMIN D 1,000 INTERNATIONAL UNITS TABLET PO SCH (08:26)
[2019-03-30] MEDS: amLODIPine 5 MG TAB PO SCH (08:26)
[2019-03-30] MEDS: METOPROLOL TART 50 MG TAB PO SCH ×2 (08:26→21:11)
[2019-03-30] MEDS: CitaloPRAM (CeleXA) 20 MG TAB PO SCH (08:26)
[2019-03-30] MEDS: LEVEMIR (INSULIN DETEMIR) 1 UNITS/0.01ML SC SCH ×2 (08:27→21:10)
[2019-03-30] MEDS: HumaLOG INSULIN (NovoLOG) PER UNIT SC SCH ×4 (08:27→21:00)
[2019-03-30] MEDS: NYSTATIN 100,000 UNITS/GM TOPICAL PWD 15 GM TOP SCH ×2 (08:28→21:11)
[2019-03-30] MEDS: MIRALAX *UNIT DOSE* 17GM PACKET PO SCH (08:28)
[2019-03-30] MEDS: SENOKOT S TAB PO SCH ×2 (08:28→21:11)
[2019-03-30] MEDS: CLOBETASOL PROP 0.05% OINT 30 GM TOP SCH ×2 (08:28→21:12)
[2019-03-30] MEDS: MOM 30ML SUSPENSION UDC PO SCH (08:28)
[2019-03-30 14:00] VITALS: BP 119/52
[2019-03-30 19:56] VITALS: BP 141/76
[2019-03-30] MEDS: ATORVASTATIN 20 MG TAB PO SCH (21:11)
[2019-03-31 06:00] VITALS: BP 135/67
[2019-03-31] MEDS ORDERED: TRAM50TA2 PO (07:23)
[2019-03-31] MEDS: HumaLOG INSULIN (NovoLOG) PER UNIT SC SCH ×4 (07:30→20:26)
[2019-03-31] MEDS: POTASSIUM CHLORIDE 10% LIQ 20 MEQ/15 ML UDC PO SCH ×2 (08:42→20:21)
[2019-03-31] MEDS: VITAMIN D 1,000 INTERNATIONAL UNITS TABLET PO SCH (08:42)
[2019-03-31] MEDS: CitaloPRAM (CeleXA) 20 MG TAB PO SCH (08:42)
[2019-03-31] MEDS: SENOKOT S TAB PO SCH ×2 (08:43→20:22)
[2019-03-31] MEDS: PANTOPRAZOLE 40MG TAB (PROTONIX) PO SCH (08:43)
[2019-03-31] MEDS: amLODIPine 5 MG TAB PO SCH (08:43)
[2019-03-31] MEDS: FOLIC ACID 1 MG TAB PO SCH (08:43)
[2019-03-31] MEDS: APIXABAN 5 MG TAB (ELIQUIS) PO SCH ×2 (08:43→20:22)
[2019-03-31] MEDS: METOPROLOL TART 50 MG TAB PO SCH ×2 (08:43→20:22)
[2019-03-31] MEDS: NYSTATIN 100,000 UNITS/GM TOPICAL PWD 15 GM TOP SCH ×3 (08:44→20:26)
[2019-03-31] MEDS: LEVEMIR (INSULIN DETEMIR) 1 UNITS/0.01ML SC SCH ×2 (08:44→20:22)
[2019-03-31] MEDS: lisinopriL 20 MG TAB PO SCH (08:44)
[2019-03-31] MEDS: FUROSEMIDE 40 MG TAB PO SCH (08:44)
[2019-03-31] MEDS: CLOBETASOL PROP 0.05% OINT 30 GM TOP SCH ×2 (08:48→20:23)
[2019-03-31] MEDS: MOM 30ML SUSPENSION UDC PO SCH (08:48)
[2019-03-31] MEDS: MIRALAX *UNIT DOSE* 17GM PACKET PO SCH (08:48)
[2019-03-31 20:07] VITALS: BP 139/80
[2019-03-31] MEDS: ATORVASTATIN 20 MG TAB PO SCH (20:22)
[2019-03-31] MEDS: ACETAMINOPHEN TAB 650MG DOSE (2X325MG) PO PRN (20:37)
[2019-04-01 06:34] VITALS: BP 139/79
[2019-04-01] MEDS: HumaLOG INSULIN (NovoLOG) PER UNIT SC SCH (08:17)
[2019-04-01] MEDS: LEVEMIR (INSULIN DETEMIR) 1 UNITS/0.01ML SC SCH (08:17)
[2019-04-01] MEDS: POTASSIUM CHLORIDE 10% LIQ 20 MEQ/15 ML UDC PO SCH (08:18)
[2019-04-01] MEDS: METOPROLOL TART 50 MG TAB PO SCH (08:18)
[2019-04-01] MEDS: VITAMIN D 1,000 INTERNATIONAL UNITS TABLET PO SCH (08:18)
[2019-04-01] MEDS: FUROSEMIDE 40 MG TAB PO SCH (08:18)
[2019-04-01] MEDS: lisinopriL 20 MG TAB PO SCH (08:18)
[2019-04-01] MEDS: FOLIC ACID 1 MG TAB PO SCH (08:18)
[2019-04-01] MEDS: CitaloPRAM (CeleXA) 20 MG TAB PO SCH (08:18)
[2019-04-01] MEDS: PANTOPRAZOLE 40MG TAB (PROTONIX) PO SCH (08:18)
[2019-04-01 08:19] VITALS: BP 139/79
[2019-04-01] MEDS: amLODIPine 5 MG TAB PO SCH (08:19)
[2019-04-01] MEDS: CLOBETASOL PROP 0.05% OINT 30 GM TOP SCH (08:19)
[2019-04-01] MEDS: MOM 30ML SUSPENSION UDC PO SCH (08:19)
[2019-04-01] MEDS: MIRALAX *UNIT DOSE* 17GM PACKET PO SCH (08:19)
[2019-04-01] MEDS: APIXABAN 5 MG TAB (ELIQUIS) PO SCH (08:19)
[2019-04-01] MEDS: SENOKOT S TAB PO SCH (08:19)
[2019-04-01] MEDS: NYSTATIN 100,000 UNITS/GM TOPICAL PWD 15 GM TOP SCH (08:19)
[2019-04-01 09:48] LABS: HEMATOCRIT 35.1 % (36.0-47.0); HEMOGLOBIN 10.6 g/dl (12.0-15.5); MEAN CORPUSCULAR HEMOGLOBIN 26.8 pg (27.0-33.0); MEAN CORPUSCULAR HGB CONC 30.2 g/dl (32.0-36.5); MEAN CORPUSCULAR VOLUME 88.9 fl (80.0-96.0); PLATELET COUNT, AUTOMATED 506 10^3/uL (150-450); RED BLOOD COUNT 3.95 10^6/uL (4.00-5.40); WHITE BLOOD COUNT 16.7 10^3/uL (4.0-10.0)
[2019-04-01] MEDS ORDERED: LOPR1TAB6 PO (10:11)
[2019-04-01] MEDS ORDERED: ELIQ5TAB PO (10:11)
[2019-04-01] MEDS ORDERED: LISI-538 PO (10:11)
--- NOTE | 2019-04-01 16:29 | DS.PDOC ---
Discharge Summary General Date of Admission Mar 24, 2019 at 17:38 Date of Discharge 04/01/19 Discharge Summary PROCEDURES PERFORMED DURING STAY: surgical treatment of Left distal femur intrachondral femur fracture ADMITTING DIAGNOSES: Fracture of distal end of left femur Diabetes mellitus Hypertension ANGI (obstructive sleep apnea) Leukocytosis DISCHARGE DIAGNOSES: Fracture of distal end of left femur Diabetes mellitus Hypertension ANGI (obstructive sleep apnea) Leukocytosis COMPLICATIONS/CHIEF COMPLAINT: Fall, Fracture Of Distal End Of Left Femur. HISTORY OF PRESENT ILLNESS: Patient is 58 years old female with past medical history of hypertension, hyperlipidemia, morbid obesity, diabetes, pulmonary embolism, DVT presented hospital with left distal femur fracture. Patient stated that she developed mechanical fall, she didn't hit her head, she didn't loss consciousness. In emergency room patient was found to have fracture of the distal femoral metaphysis extending to the articular surface with effusion and surrounding infiltration. Of note, patient took Eliquis in the morning around 8 am. Also patient was found to have white blood count of 22, glucose level 144. Patient is afebrile, tachycardic with BP 164/72. Patient denies fever, chills, nausea, vomiting, chest pain, palpitations, diarrhea or dysuria HOSPITAL COURSE: During hospital stay surgical treatment of Left distal femur intrachondral femur fracture was done. Postoperative was w/o any complications During hospital stay the following issue addressed (1) Fracture of distal end of left femur surgical treatment of Left distal femur intrachondral femur fracture was done. Postoperative was w/o any complications (2) Diabetes mellitus Glucose levels under control diabetes diet Levemir bid Insulin sliding scale (3) Hypertension Patient was not on any antihypertensive medication. Blood pressure has been elevated for past 24 hours. I increased the dose of antihypertensive medications - metoprolol tartrate 25 mg TID and lisinopril 40 mg -Amlodipine 5 mg daily (4) ANGI (obstructive sleep apnea) Status: Chronic Problem Text: CPAP overnight Leukocytosis Most likely reactive secondary to hip fracture Patient is afebrile, does not have cough, sputum, diarrhea, dysuria DISCHARGE MEDICATIONS: Please see below. ALLERGIES: Please see below. PHYSICAL EXAMINATION ON DISCHARGE: VITAL SIGNS: Please see below. GENERAL APPEARANCE: Obese female HEENT: Normocephalic, atraumatic. Mucous members moist and pink CARDIOVASCULAR: Regular rate and rhythm. No murmurs, rubs or gallops. Radial pulses are intact. There is no lower extremity edema LUNGS: Diminished lung sounds, ABDOMEN: Abdomen is soft and nontender. MUSCULOSKELETAL: Limited range of motion of left leg NEUROLOGICAL: Cranial nerves II-12 are grossly intact. Speech is not dysarthric LABORATORY DATA: Please see below. IMAGING: Clinical: Femur fracture. Technique: Axial images through the left knee with coronal and sagittal re-formations. Findings: There is a comminuted fracture through the distal femoral metaphysis with extension to the articular surface. Associated traumatic effusion and surrounding subcutaneous infiltration noted. Impression: Comminuted fracture of the distal femoral metaphysis extending to the articular surface with effusion and surrounding infiltration. PROGNOSIS: Favorable ACTIVITY:As tolerated] DIET: Cardiac DISPOSITION: [facility]. DISCHARGE INSTRUCTIONS: Given by orthopedic team ITEMS TO FOLLOWUP ON ON OUTPATIENT: With PCP DISCHARGE CONDITION:Stable TIME SPENT ON DISCHARGE: Greater than 20 minutes. Vital Signs/I&Os Vital Signs Date Time Temp Pulse Resp B/P (MAP) Pulse Ox O2 Delivery O2 Flow Rate FiO2 04/01/19 08:19 98 139/79 04/01/19 06:34 96.5 18 96 Room Air 03/27/19 20:06 3 03/26/19 04:01 28 I&O- Last 24 Hours up to 6 AM 04/01/19 06:00 Intake Total 1410 ml Output Total 0 ml Balance 1410 ml Laboratory Data Labs 24H Laboratory Tests 2 03/31/19 17:09: Bedside Glucose (Misc Panel) 117H 03/31/19 20:10: Bedside Glucose (Misc Panel) 140H 04/01/19 08:11: Bedside Glucose (Misc Panel) 116H 04/01/19 09:39: Nucleated Red Blood Cells % (auto) 0.0 CBC/BMP Laboratory Tests 04/01/19 09:39 FSBS Laboratory Tests Test 03/31/19 17:09 03/31/19 20:10 04/01/19 08:11 Range/Units Bedside Glucose (Misc Panel) 117 140 116 70-105 MG/DL Discharge Medications Scheduled Apixaban (Eliquis) 5 Mg Tablet, 5 MG PO BID Atorvastatin Calcium (Atorvastatin Calcium) 20 Mg Tablet, 20 MG PO QHS, (Reported) Canagliflozin (Invokana) 300 Mg Tablet, 300 MG PO QPM, (Reported) Cholecalciferol (Vitamin D3) (Vitamin D3) 2,000 Unit Tablet, 2,000 UNIT PO DAILY, (Reported) Citalopram Hydrobromide (Celexa) 20 Mg Tablet, 20 MG PO DAILY, (Reported) Clobetasol Propionate (Temovate) 30 Gm Cream..g., 1 DOSE TOP BID, (Reported) APPLY TO LEFT EAR Fluconazole (Fluconazole) 150 Mg Tablet, 150 MG PO QWEEK, (Reported) SUNDAY AT BEDTIME Folic Acid (Folic Acid) 1 Mg Tablet, 1 MG PO DAILY, (Reported) Furosemide (Furosemide) 40 Mg Tablet, 40 MG PO DAILY, (Reported) Insulin Glargine,Hum.rec.anlog (Lantus Solostar) 100 Unit/1 Ml Insuln.pen, 60 UNITS SC QAM, (Reported) Insulin Lispro (Humalog Kwikpen U-100) 100 Unit/1 Ml Insuln.pen, 8 UNITS SC AC, (Reported) Iron Polysaccharide Complex (Polysaccharide Iron) 150 Mg Capsule, 150 MG PO DAILY, (Reported) Lisinopril (Lisinopril) 20 Mg Tablet, 40 MG PO DAILY Medroxyprogesterone Acetate (Provera) 10 Mg Tablet, 10 MG PO DAILY, (Reported) Metformin HCl (Glumetza) 1,000 Mg [id number], 1,000 MG PO QPM, (Reported) 1500MG TOTAL DAILY Metformin HCl (Glumetza) 500 Mg [id number], 500 MG PO QPM, (Reported) 1500MG TOTAL DAILY Metoprolol Tartrate (Lopressor) 50 Mg Tablet, 50 MG PO BID Multivitamins (Thera M Plus Tablet) 1 Each Tablet, 1 TAB PO DAILY, (Reported) Pantoprazole Sodium (Protonix) 40 Mg Tablet.dr, 40 MG PO DAILY, (Reported) Potassium Chloride (Potassium Chloride) 20 Meq/15 Ml Liquid, 15 ML PO BID, (Reported) MIX WITH 8OZ OF WATER Sitagliptin Phosphate (Januvia) 100 Mg Tablet, 100 MG PO DAILY, (Reported) Scheduled PRN Acetaminophen (Tylenol) 325 Mg Tablet, 650 MG PO Q4H PRN for PAIN / FEVER, (Reported) Bacitracin (Bacitracin) 28.4 Gm Oint...g., 1 DOSE TOP BID PRN for EXCORIATION, (Reported) APPLY TO EXCORIATED AREAS Tramadol HCl (Tramadol HCl) 50 Mg Tablet, 50 MG PO TID PRN for PAIN, (Reported) Tramadol HCl (Tramadol HCl) 50 Mg Tablet, 1-2 TAB PO Q4H PRN for PAIN Zinc Oxide (Diaper Rash) 113 Gm Cream..g., 1 DOSE TOP BID PRN for RASH, (Reported) APPLY TO INGUINAL FOLDS AND INNER THIGHS Allergies Coded Allergies: Penicillins (Verified Allergy, Unknown, 03/24/19) ALICIA FIERRO DO Apr 01, 2019 16:29
== END 2019-04-01 11:15 | DRG 481 ==
LOC: EDBD 13:12 → M ED 13:12 → M ED INP 17:38 → M MSPAV 22:25 → M MS5PR 03-26 11:17
PROVIDERS: ADMIT Internal Medicine; ATTEND Internal Medicine
PROC: 0QSC04Z Reposition Left Lower Femur with Internal Fixation Device, Open Approach (ICD-10-PCS; principal; 2019-03-27 16:00)
DX: S72.352A Displaced comminuted fracture of shaft of left femur, initial encounter for closed fracture (principal); Z68.42 Body mass index [BMI] 45.0-49.9, adult; I10 Essential (primary) hypertension; E78.5 Hyperlipidemia, unspecified; E66.01 Morbid (severe) obesity due to excess calories; G47.33 Obstructive sleep apnea (adult) (pediatric); M51.36 Other intervertebral disc degeneration, lumbar region; D72.829 Elevated white blood cell count, unspecified; N18.3 Chronic kidney disease, stage 3 (moderate); M16.11 Unilateral primary osteoarthritis, right hip; E11.22 Type 2 diabetes mellitus with diabetic chronic kidney disease; Z86.711 Personal history of pulmonary embolism; Z86.718 Personal history of other venous thrombosis and embolism; Z79.01 Long term (current) use of anticoagulants; Z79.4 Long term (current) use of insulin; Z79.899 Other long term (current) drug therapy; Z88.0 Allergy status to penicillin; Z86.14 Personal history of Methicillin resistant Staphylococcus aureus infection; W18.09XA Striking against other object with subsequent fall, initial encounter; Y92.129 Unspecified place in nursing home as the place of occurrence of the external cause

== ENCOUNTER → 2019-04-02 | Outpatient (REF) ==
[~2019-04-02] MED LIST changes: +ACET-907 PO; +ATOR1TAB21 PO; +BACI28.43 TOP; +CELE20TA PO; +CVS13CRE TOP; +FLUC150T PO; +GLUM1000 PO; +HUMA100I5 SC; +INVO300T PO; +JANU100T PO; +LISI-538 PO; +LOPR1TAB6 PO; +POTA20EL PO; +PROV10TA PO; +TEMO0.0520 TOP; +VITA200015 PO; +[UNRECOGNIZED DRUG - CODE] PO; +[UNRECOGNIZED DRUG - CODE] PO
== END ==
PROVIDERS: ATTEND Family Medicine
DX: Z22.322 Carrier or suspected carrier of Methicillin resistant Staphylococcus aureus (principal)

== ENCOUNTER → 2019-04-08 | Outpatient (REF) ==
[2019-04-08 11:38] LABS: HEMATOCRIT 39.8 % (36.0-47.0); HEMOGLOBIN 12.4 g/dl (12.0-15.5); MEAN CORPUSCULAR HEMOGLOBIN 27.2 pg (27.0-33.0); MEAN CORPUSCULAR HGB CONC 31.2 g/dl (32.0-36.5); MEAN CORPUSCULAR VOLUME 87.3 fl (80.0-96.0); PLATELET COUNT, AUTOMATED 671 10^3/uL (150-450); RED BLOOD COUNT 4.56 10^6/uL (4.00-5.40); WHITE BLOOD COUNT 17.3 10^3/uL (4.0-10.0)
[2019-04-08 12:37] LABS: CALCIUM LEVEL 9.7 MG/DL (8.5-10.1); CREATININE FOR GFR 2.13 MG/DL (0.55-1.30); GLOMERULAR FILTRATION RATE 25.4 (>51); POTASSIUM SERUM 6.1 MEQ/L (3.5-5.1)
== END ==
PROVIDERS: ATTEND Family Medicine
DX: I10 Essential (primary) hypertension (principal)

== ENCOUNTER → 2019-04-09 | Outpatient (REF) ==
[2019-04-09 08:48] LABS: HEMATOCRIT 37.8 % (36.0-47.0); HEMOGLOBIN 11.5 g/dl (12.0-15.5); MEAN CORPUSCULAR HEMOGLOBIN 27.1 pg (27.0-33.0); MEAN CORPUSCULAR HGB CONC 30.4 g/dl (32.0-36.5); MEAN CORPUSCULAR VOLUME 89.2 fl (80.0-96.0); PLATELET COUNT, AUTOMATED 575 10^3/uL (150-450); RED BLOOD COUNT 4.24 10^6/uL (4.00-5.40); WHITE BLOOD COUNT 12.5 10^3/uL (4.0-10.0)
[2019-04-09 09:02] LABS: CALCIUM LEVEL 9.2 MG/DL (8.5-10.1); CREATININE FOR GFR 1.95 MG/DL (0.55-1.30); GLOMERULAR FILTRATION RATE 28.1 (>51); POTASSIUM SERUM 5.1 MEQ/L (3.5-5.1)
== END ==
PROVIDERS: ATTEND Family Medicine
DX: N17.9 Acute kidney failure, unspecified (principal)

== ENCOUNTER → 2019-04-10 | Outpatient (REF) ==
[2019-04-10 10:17] LABS: CALCIUM LEVEL 8.7 MG/DL (8.5-10.1); CREATININE FOR GFR 1.23 MG/DL (0.55-1.30); GLOMERULAR FILTRATION RATE 47.9 (>51); POTASSIUM SERUM 4.9 MEQ/L (3.5-5.1)
== END ==
PROVIDERS: ATTEND Family Medicine
DX: N17.9 Acute kidney failure, unspecified (principal)

== ENCOUNTER → 2019-04-11 | Outpatient (REF) ==
[2019-04-11 10:18] LABS: BLOOD UREA NITROGEN 36 MG/DL (7-18); CALCIUM LEVEL 9.1 MG/DL (8.5-10.1); CARBON DIOXIDE LEVEL 19 MEQ/L (21-32); CHLORIDE LEVEL 112 MEQ/L (98-107); CREATININE FOR GFR 0.88 MG/DL (0.55-1.30); GLOMERULAR FILTRATION RATE > 60.0 (>51); GLUCOSE, FASTING 115 MG/DL (70-100); POTASSIUM SERUM 5.2 MEQ/L (3.5-5.1); SODIUM LEVEL 141 MEQ/L (136-145)
== END ==
PROVIDERS: ATTEND Family Medicine
DX: N17.9 Acute kidney failure, unspecified (principal)

== ENCOUNTER → 2019-04-12 | Outpatient (REF) | PROVIDERS: ATTEND Family Medicine | DX: E87.5 Hyperkalemia (principal) ==

== ENCOUNTER → 2019-04-14 | Outpatient (REF) ==
[2019-04-14 13:47] LABS: BLOOD UREA NITROGEN 20 MG/DL (7-18); CALCIUM LEVEL 9.8 MG/DL (8.5-10.1); CARBON DIOXIDE LEVEL 22 MEQ/L (21-32); CHLORIDE LEVEL 106 MEQ/L (98-107); CREATININE FOR GFR 0.92 MG/DL (0.55-1.30); GLOMERULAR FILTRATION RATE > 60.0 (>51); GLUCOSE, FASTING 150 MG/DL (70-100); POTASSIUM SERUM 4.9 MEQ/L (3.5-5.1); SODIUM LEVEL 139 MEQ/L (136-145)
== END ==
PROVIDERS: ATTEND Family Medicine
DX: N17.9 Acute kidney failure, unspecified (principal)

== ENCOUNTER → 2019-04-17 | Outpatient (REF) ==
[2019-04-17 10:01] LABS: HEMATOCRIT 42.2 % (36.0-47.0); HEMOGLOBIN 12.5 g/dl (12.0-15.5); MEAN CORPUSCULAR HEMOGLOBIN 27.2 pg (27.0-33.0); MEAN CORPUSCULAR HGB CONC 29.6 g/dl (32.0-36.5); MEAN CORPUSCULAR VOLUME 91.9 fl (80.0-96.0); PLATELET COUNT, AUTOMATED 349 10^3/uL (150-450); RED BLOOD COUNT 4.59 10^6/uL (4.00-5.40); WHITE BLOOD COUNT 8.9 10^3/uL (4.0-10.0)
[2019-04-17 10:41] LABS: BLOOD UREA NITROGEN 37 MG/DL (7-18); CALCIUM LEVEL 9.8 MG/DL (8.5-10.1); CARBON DIOXIDE LEVEL 23 MEQ/L (21-32); CHLORIDE LEVEL 106 MEQ/L (98-107); CREATININE FOR GFR 0.86 MG/DL (0.55-1.30); GLOMERULAR FILTRATION RATE > 60.0 (>51); GLUCOSE, FASTING 113 MG/DL (70-100); POTASSIUM SERUM 4.7 MEQ/L (3.5-5.1); SODIUM LEVEL 140 MEQ/L (136-145)
== END ==
PROVIDERS: ATTEND Family Medicine
DX: I10 Essential (primary) hypertension (principal)

== ENCOUNTER → 2019-04-24 | Outpatient (REF) ==
[2019-04-24 12:14] LABS: HEMOGLOBIN 11.8 g/dl (12.0-15.5); MEAN CORPUSCULAR HEMOGLOBIN 27.8 pg (27.0-33.0); MEAN CORPUSCULAR HGB CONC 30.3 g/dl (32.0-36.5); PLATELET COUNT, AUTOMATED 291 10^3/uL (150-450); RED BLOOD COUNT 4.24 10^6/uL (4.00-5.40); WHITE BLOOD COUNT 9.5 10^3/uL (4.0-10.0)
[2019-04-24 13:06] LABS: BLOOD UREA NITROGEN 44 MG/DL (7-18); CALCIUM LEVEL 9.3 MG/DL (8.5-10.1); CARBON DIOXIDE LEVEL 26 MEQ/L (21-32); CHLORIDE LEVEL 107 MEQ/L (98-107); CREATININE FOR GFR 0.91 MG/DL (0.55-1.30); GLOMERULAR FILTRATION RATE > 60.0 (>51); GLUCOSE, FASTING 130 MG/DL (70-100); SODIUM LEVEL 140 MEQ/L (136-145)
== END ==
PROVIDERS: ATTEND Family Medicine
DX: Z79.899 Other long term (current) drug therapy (principal)

== ENCOUNTER → 2019-04-30 | Outpatient (REF) ==
[2019-04-30 10:15] LABS: BLOOD UREA NITROGEN 30 MG/DL (7-18); CALCIUM LEVEL 9.1 MG/DL (8.5-10.1); CARBON DIOXIDE LEVEL 26 MEQ/L (21-32); CHLORIDE LEVEL 107 MEQ/L (98-107); GLOMERULAR FILTRATION RATE > 60.0 (>51); GLUCOSE, FASTING 156 MG/DL (70-100); POTASSIUM SERUM 4.6 MEQ/L (3.5-5.1); SODIUM LEVEL 140 MEQ/L (136-145)
== END ==
PROVIDERS: ATTEND Family Medicine
DX: Z79.899 Other long term (current) drug therapy (principal)

== ENCOUNTER → 2019-05-07 | Outpatient (REF) ==
[2019-05-07 11:42] LABS: BLOOD UREA NITROGEN 38 MG/DL (7-18); CALCIUM LEVEL 9.5 MG/DL (8.5-10.1); CARBON DIOXIDE LEVEL 27 MEQ/L (21-32); CHLORIDE LEVEL 103 MEQ/L (98-107); CREATININE FOR GFR 0.85 MG/DL (0.55-1.30); GLOMERULAR FILTRATION RATE > 60.0 (>51); GLUCOSE, FASTING 126 MG/DL (70-100); POTASSIUM SERUM 4.4 MEQ/L (3.5-5.1); SODIUM LEVEL 139 MEQ/L (136-145)
== END ==
PROVIDERS: ATTEND Family Medicine
DX: E11.9 Type 2 diabetes mellitus without complications (principal)

== ENCOUNTER → 2019-05-14 | Outpatient (REF) ==
[2019-05-14 13:09] LABS: BLOOD UREA NITROGEN 23 MG/DL (7-18); CALCIUM LEVEL 9.4 MG/DL (8.5-10.1); CARBON DIOXIDE LEVEL 26 MEQ/L (21-32); CHLORIDE LEVEL 103 MEQ/L (98-107); CREATININE FOR GFR 0.79 MG/DL (0.55-1.30); GLOMERULAR FILTRATION RATE > 60.0 (>51); GLUCOSE, FASTING 143 MG/DL (70-100); POTASSIUM SERUM 4.6 MEQ/L (3.5-5.1); SODIUM LEVEL 135 MEQ/L (136-145)
== END ==
PROVIDERS: ATTEND Family Medicine
DX: E11.9 Type 2 diabetes mellitus without complications (principal)

== ENCOUNTER 2019-05-17 02:13 | Inpatient (IN) | payer MEDICARE, MEDICAID ==
[2019-05-17] VITALS (8 sets, daily range): BP systolic 104–114; BP diastolic 52–64
[~2019-05-17] VITALS: Ht 160 cm; Wt 118.4 kg
[2019-05-17] MEDS ORDERED: [UNRECOGNIZED DRUG - CODE] PR (03:14)
[2019-05-17] MEDS ORDERED: GLUC1KIT IM (03:14)
[2019-05-17] MEDS ORDERED: OSEL75CA PO (03:14)
[2019-05-17] MEDS ORDERED: LISI10TA4 PO (03:14)
[2019-05-17] MEDS ORDERED: FURO20TA2 PO (03:14)
[2019-05-17] MEDS ORDERED: ELIQ5TAB PO (03:14)
[2019-05-17] MEDS ORDERED: MILKSUS3 PO (03:14)
[2019-05-17] MEDS ORDERED: PROV10TA PO (03:14)
[2019-05-17] MEDS ORDERED: METO50TA7 PO (03:14)
[2019-05-17] MEDS ORDERED: VITA1CHW7 PO (03:14)
[2019-05-17] MEDS ORDERED: GLUC1LIQ18 PO (03:14)
[2019-05-17] MEDS ORDERED: DULC10SU2 PR (03:14)
[2019-05-17] MEDS ORDERED: FERR150C PO (03:14)
[2019-05-17] MEDS ORDERED: SITA50TAB PO (03:14)
[2019-05-17] MEDS ORDERED: JUVEPOW4 PO (03:14)
[2019-05-17] MEDS ORDERED: NS 1,000 ML IV ONE ×4 (03:15→08:00)
[2019-05-17 03:16] LABS: BASO # 0.1 10^3/uL (0.0-0.2); BASO % 0.4 % (0.0-1.0); EOS # 0.2 10^3/uL (0.0-0.5); EOS % 0.8 % (0.0-3.0); HEMATOCRIT 30.2 % (36.0-47.0); HEMOGLOBIN 9.8 g/dl (12.0-15.5); LYMPH # 0.9 10^3/uL (1.5-5.0); LYMPH % 4.8 % (24.0-44.0); MEAN CORPUSCULAR HEMOGLOBIN 28.9 pg (27.0-33.0); MEAN CORPUSCULAR HGB CONC 32.5 g/dl (32.0-36.5); MEAN CORPUSCULAR VOLUME 89.1 fl (80.0-96.0); MONO # 1.1 10^3/uL (0.0-0.8); MONO % 5.8 % (0.0-5.0); NEUTROPHILS # 16.8 10^3/uL (1.5-8.5); NEUTROPHILS % 86.2 % (36.0-66.0); PLATELET COUNT, AUTOMATED 449 10^3/uL (150-450); RED BLOOD COUNT 3.39 10^6/uL (4.00-5.40); WHITE BLOOD COUNT 19.5 10^3/uL (4.0-10.0)
[2019-05-17 03:27] LABS: INR 2.01; PROTHROMBIN TIME 22.5 SECONDS (11.8-14.0)
[2019-05-17] MEDS ORDERED: VANCOMYCIN HCL 1,000 MG, VIAL MATE ADAPTER 1 EACH in D5W 250 ML IV ONE ×3 (03:30→07:00)
[2019-05-17] MEDS ORDERED: cefTRIAXone SOD 2 GM in D5W MINI-BAG PLUS 50 ML IV ONE (03:30)
[2019-05-17 04:00] LABS: ERYTHROCYTE SEDIMENTATION RATE > 140 mm/hr (0-30)
[2019-05-17 04:02] LABS: ALBUMIN 1.7 GM/DL (3.2-5.2); ALT/SGPT 46 U/L (12-78); BILIRUBIN,DIRECT 0.2 MG/DL (0.0-0.2); BILIRUBIN,TOTAL 0.4 MG/DL (0.2-1.0); BLOOD UREA NITROGEN 29 MG/DL (7-18); CALCIUM LEVEL 9.9 MG/DL (8.5-10.1); CARBON DIOXIDE LEVEL 24 MEQ/L (21-32); CHLORIDE LEVEL 102 MEQ/L (98-107); CREATININE FOR GFR 0.77 MG/DL (0.55-1.30); GLOMERULAR FILTRATION RATE > 60.0 (>51); GLUCOSE, FASTING 96 MG/DL (70-100); POTASSIUM SERUM 4.3 MEQ/L (3.5-5.1); SODIUM LEVEL 134 MEQ/L (136-145); TOTAL PROTEIN 5.1 GM/DL (6.4-8.2)
--- NOTE | 2019-05-17 04:03 | REPVR ---
PROCEDURE INFORMATION: Exam: CT Left Lower Extremity Without Contrast; Thigh Exam date and time: 05/17/2019 3:29 AM Age: 58 years old Clinical indication: Pain; Thigh; Left; Patient HX: Recent ortho; Additional info: Pain, discharge, recent rodding TECHNIQUE: Imaging protocol: CT of the Left lower extremity without contrast was performed. Exam focused on the thigh. Radiation optimization: All CT scans at this facility use at least one of these dose optimization techniques: automated exposure control; mA and/or kV adjustment per patient size (includes targeted exams where dose is matched to clinical indication); or iterative reconstruction. COMPARISON: CR Femur 03/25/2019 8:29 AM FINDINGS: Bones/joints: There is a plate along the distal femur with a wire banding and multiple screws extending through the plate and into the distal femoral condyles with slight displacement of some fragments. Degenerative narrowing and remodeling of the knee joint. Prominent degenerative joint narrowing of the left hip with subchondral sclerosis and cystic changes and near ecva-do-tana articulation both medially and superiorly. Soft tissues: Mild fat filled umbilical hernia. Evidence of the an incision lateral to the distal femur with soft tissue confluence and induration and foci of gas consistent with recent procedure. Infection is not excluded. Bowel: Colonic diverticulosis. IMPRESSION: 1. Residua of distal femoral comminuted fracture with ORIF. There is a plate along the lateral aspect with screws extending through the femoral condyles and metallic bands and screws along the diaphysis. There is suggestion of an incision laterally with soft tissue confluence and induration and foci of gas suggesting recent procedure. Infection is not excluded. 2. Degenerative osteoarthritis of the left knee and left hip. Electronically signed by: David Delacruz On 05/17/2019 04:03:05 AM
[2019-05-17] MEDS ORDERED: NS 3,350 ML in IV 1 EA IV ONE (04:30)
[2019-05-17] MEDS ORDERED: GLUCOSE 4 GM CHEW TABLET PO PRN (05:30)
[2019-05-17] MEDS ORDERED: MOM 30ML SUSPENSION UDC PO PRN (05:30)
[2019-05-17] MEDS ORDERED: DEXTROSE 50% 50 ML SYRINGE IV PRN (05:30)
[2019-05-17] MEDS ORDERED: BISACODYL 10 MG SUPP PR PRN (05:30)
[2019-05-17] MEDS ORDERED: GLUCAGON FOR INJ 1 MG VIAL (J1610) IM SCH (05:30)
[2019-05-17] MEDS ORDERED: FLEET ENEMA PR PRN (05:30)
[2019-05-17] MEDS ORDERED: NOREPINEPHRINE BITARTRATE 8 MG in D5W 492 ML IV SCH (05:30)
[2019-05-17] MEDS ORDERED: MORPHINE 4 MG/ML 1ML VIAL/SYRINGE (J2270) IV ONE (06:15)
[2019-05-17] MEDS ORDERED: traMADol 50 MG TAB PO ONE (06:15)
[2019-05-17] MEDS ORDERED: KETOROLAC 30 MG/ML VIAL (J1885) IV ONE (06:15)
[2019-05-17] MEDS: traMADol 50 MG TAB PO PRN ×2 (06:16→13:50)
--- NOTE | 2019-05-17 07:19 | PHACANCOPD ---
PHARMACY VANCOMYCIN DOSING Pt Demographics Demographics Patient Age:58 , Weight:111.820 , Gender: female Adjusted Body Weight Date: 05/17/19, Adjusted Body Weight: [76.2] Kg Vancomycin Vancomycin indication: SEPTIC JOINT/ABCESS Vancomycin Target Ranges: 15-20 mcg/ml Vancomycin Load Y/N: Yes Load Dose Date Time Vancomycin Load Dose: 2GM Date: 05/17 Time:04-0600 Vancomycin Dose Date: 05/17/19. Current Vancomycin Dose: [1GM Q8H] Intermittent Dosing?: No Labs Micro Microbiology 05/17/19 Blood Culture, Received Pending 05/17/19 Blood Culture, Received Pending 05/17/19 Gram Stain - Final, Resulted 05/17/19 Wound Culture, Resulted Pending Creatinine Clearance Date:05/17/19. Creatinine Clearance: [96.9].CALCULATED USING ABW Assessment and Plan Maintaining Current Dose?: Yes Reason for dose change: No Dose Change Pharmacist Note Pharmacist Note Date: 05/17/19. Pharmacist note:[id number] ADMITTED W/SEPTIC JOINT/ABCESS.HT:63",WT:111.82KG,ALLERGY:PENICILLIN,scr=0.77,crcl=96.9(YANNI CULATED)(TROUGH GOAL=15-20),vANCO 2GM ADMINISTERED IN ed 04:00-06:00, THEN WILL BEGIN 1 GRAM IV Q8h REGIMEN @1500. fIRST TROUGH IS SCHEDULED FOR 05/18@0600 (PRIOR TO THE 4TH DOSE) [facility] May 17, 2019 07:19
[2019-05-17] MEDS: HumaLOG INSULIN (NovoLOG) PER UNIT SC SCH ×7 (07:30→21:00)
[2019-05-17] MEDS ORDERED: MEROPENEM INJ 1 GM in IV 1 EA IV SCH (08:00)
[2019-05-17] MEDS: PANTOPRAZOLE 40MG TAB (PROTONIX) PO SCH (08:36)
[2019-05-17] MEDS: CitaloPRAM (CeleXA) 20 MG TAB PO SCH (08:36)
[2019-05-17] MEDS: FOLIC ACID 1 MG TAB PO SCH (08:37)
[2019-05-17] MEDS: MULTIVITAMINS/MINERALS THERAP 1 TAB PO SCH (08:37)
[2019-05-17] MEDS: CLOBETASOL PROP 0.05% OINT 30 GM TOP SCH ×2 (09:00→21:00)
--- NOTE | 2019-05-17 09:03 | HPE ---
DATE OF ADMISSION: 05/17/2019 CHIEF COMPLAINT: Left leg abscess. HISTORY OF PRESENT ILLNESS: This is a 58-year-old developmentally delayed female who lives at [facility] who was brought in due to purulent drainage at the left suture site with yellow-brownish malodorous purulent discharge which was noted yesterday. Patient denied any fever or chills. She was seen by Dr. Reid on with pain at the suture site, but was told everything was okay. She was afebrile. She had an episode of vomiting at that time. She now presented to the emergency room with a blood pressure of 78/40, white count of 19.5 with infected hardware and purulent drainage. CT of the left lower extremity shows soft tissue confluence and induration with foci of gas suggesting a recent procedure on the lateral aspect of the left distal femur. Hospitalist was asked to admit for infected hardware status post left hip fracture ORIF (open reduction internal fixation). Patient denies any abdominal pain, diarrhea, dysuria, urgency, or frequency, shortness of breath, chest pain, pressure, tightness, or cough. Denies weight gain or weight loss. Stated that the area was reddened with a 2 cm circular lesion that was very painful and tender that burst yesterday with purulent and brownish material exuding out of area. Patient did not receive any antibiotics at [facility]. Was given tramadol for pain. The pain was 6 out of 10, diminishes to about 5 out of 10 with tramadol prompting her to come to the ER for evaluation of the abscess. After 2 liters of intravenous fluids patient's blood pressure improved to 143/63. She was given a dose of vancomycin and ceftriaxone due to prior history of methicillin-resistant Staphylococcus aureus (MRSA) and Klebsiella in the past. Wound culture had been sent. Hospitalist was called to admit for postoperative infection. PAST MEDICAL HISTORY: Factor V Leiden mutation with recurrent deep venous thromboses (DVT) on chronic Warfarin. History of pulmonary embolisms (PEs). Hypertension. Hyperlipidemia. Developmental delayed. Morbid obesity. Diabetes. Left hip fracture secondary to fall. Menorrhagia with endometrial hyperplasia. Chronic venous insufficiency. Right hip osteoarthritis. 2010 lumbar disc disease at L4-S1 with anterolisthesis L4-L5. Chronic kidney disease stage 3. Obstructive sleep apnea on continuous positive airway pressure (CPAP). Methicillin-resistant Staphylococcus aureus (MRSA) infection of the left thigh in 2017 along with Klebsiella. PAST SURGICAL HISTORY: 03/28/2019 - open reduction internal fixation of left distal femoral fracture. Colonoscopy 2011 and 2014. EGD 2104. ALLERGIES: PENICILLIN - causing hives. HOME MEDICATIONS: - tramadol 50 mg by mouth every 4 hours as needed for pain - atorvastatin 20 mg at bedtime - acetaminophen 650 every 4 as needed - Lipitor 20 at bedtime - Dulcolax 10 mg per rectum daily as needed - Celexa 20 mg daily - clobetasol topically twice a day - folic acid 1 mg daily - lispro insulin 8 units before food - Milk of Magnesium 10 mL daily as needed - multivitamin one tablet daily - Tamiflu 75 mg at bedtime prophylactically - Protonix 40 daily - Fleet enema daily as needed - Invokana 300 mg every evening - Reinaldo one packet twice a day - vitamin D 2000 units daily - Ferrex 150 mg daily - Provera 10 mg daily -Glucerna twice a day - zinc oxide topically twice a day as needed - Januvia 50 daily - metoprolol 50 twice a day - lisinopril 10 mg at bedtime - Lantus insulin 60 units every morning - Lasix 20 mg daily - fluconazole 150 weekly - Eliquis 5 mg twice a day REVIEW OF SYSTEMS: Per history of present illness. Twelve point system otherwise negative. SOCIAL HISTORY: Denies any smoking history. Drinks beer about twice a month. Previously worked in [employer] in the [employer]. Worked for [employer] in [place]. FAMILY HISTORY: Mother alive age 78 with hypercholesteremia, hypertension and anxiety. Father age 76 with congestive heart failure, systolic dysfunction, had a defibrillator and biventricular pacer placed and of heart failure with kidney failure. Two brothers age 61 and 52 with hypercholesteremia and hypertension. Sister age 60 with hypertension. PHYSICAL EXAMINATION: VITALS: Temperature 98.2, pulse 91, respiratory rate 18, blood pressure 78/40, 95% on room air. GENERALLY: Patient is awake, alert, oriented to person, place, and time. Dry mucous membranes. Poor dentition. Patient is developmentally delayed, but is appropriately with speaking, but is appropriate in answering questions. She has a thick neck. No jugular venous distention (JVD). No thyromegaly. No cervical lymphadenopathy. No tonsil exudates. LUNGS: Clear to auscultation; no wheezing, rales, or rhonchi. HEART: S1, S2, sinus rhythm. No murmurs, rubs, or gallops. ABDOMEN: Obese, soft, nontender, nondistended, positive bowel sounds in all four quadrants. No rebound or guarding. No hepatosplenomegaly. No abdominal bruits. EXTREMITIES: Chronic venous insufficiency with 1+ edema. Patient has a 2 cm open lesion with purulent drainage along the lateral aspect of her leg where she had significant erythema from the mid leg to the mid thigh. MICROBIOLOGY: Blood cultures, wound culture shows gram positive cocci in pairs and clusters. IMAGING STUDY: 05/15/2019 - residual of distal femoral comminuted fracture with ORIF (open reduction internal fixation). There is a plate along the lateral aspect with screws extending through the femoral condyles and metallic bands and screws along the diaphysis. There is suggestion of an incision laterally with soft tissue confluence and induration and foci of gas suggesting a recent procedure and infection is not excluded. Degenerative osteoarthritis of the left knee and left hip. LABORATORY DATA: White count 19.5, hemoglobin 9.8, hematocrit 30, platelet count 449, 86% neutrophils, sed rate greater than 140, sodium 134, potassium 4.3, chloride 102, bicarbonate 24, BUN 29, creatinine 0.77, glucose of 96, lactic acid of 1, calcium 9.9, total bilirubin 0.4, direct bilirubin 0.2, AST 40, ALT 46, alkaline phosphatase 203, c reactive protein 23.3, total protein 5.1, albumin 1.7. ASSESSMENT AND PLAN: This is a 58-year-old, developmentally delayed, female with history of Factor V Leiden mutation with recurrent deep venous thrombosis (DVT), pulmonary embolism (PE) on chronic Warfarin had a left open reduction internal fixation of femoral fracture in the distal femur presents with 2 day history of redness, swelling, and purulent drainage along the left lateral leg at the site of her previous ORIF (open reduction internal fixation) with pain rated at 6 out of 10 and unable to ambulate well. Active issues are as follows: 1. Left ORIF (open reduction internal fixation) postoperative wound infection. Patient had a history of methicillin-resistant Staphylococcus aureus (MRSA) and Klebsiella infection. She has been given intravenous vancomycin and ceftriaxone by the emergency room. 3 liters of IV fluids have been ordered. She had improvement with 1-1/2 liters increasing to 90s systolic. Continue with broad spectrum antibiotics until wound culture has been finalized. Orthopedic surgeon, Dr. Cm Flores, has been consulted by the emergency room to see the patient for acceleration of infected hardware washout and patient has been kept nothing by mouth due to INR of 2.0 from known history of Factor V Leiden mutation as well as recurrent deep venous thrombosis (DVT) and pulmonary embolism (PE). Patient is to be reversed with FSP and placed on intravenous Heparin drip depending on the operating room (OR) schedule and plans by orthopedic surgery. The morning attending physician for hospitalist will coordinate this with the patient's surgeon. Patient will be given tramadol 50 mg as needed for pain. She has been given morphine and Percocet if there is no improvement, one dose of Toradol. 2. Factor V Leiden mutation with her current pulmonary embolism (PE) and deep venous thrombosis (DVT) due to recent infected hardware with abscess. Patient's Warfarin has been held. She will need to be placed on intravenous Heparin which is to be held prior to surgery. At this time she is off of the Warfarin and we will continue to recheck the INR and we will need consent from her healthcare proxy for fresh frozen plasma transfusion if patient is going to the operating room today. 3. Hypertension. Patient came in with severe sepsis from and infected hardware. Patient's blood pressure medications lisinopril, metoprolol, and Lasix have be held. 4. Diabetes. Patient's oral hyperglycemics will be held. She will be placed on an insulin sliding scale, due to nothing by mouth status we will not resume her long acting insulin at this time. We will continue to monitor with a sliding scale and may resume a low dose long acting insulin if glucose levels are above 200. 5. Flu prophylaxis at [facility]. She is to be continued on Tamiflu. MTDD
--- NOTE | 2019-05-17 13:15 | HPE ---
DATE OF ADMISSION: 05/17/2019 CHIEF COMPLAINT: Left femur wound drainage and dehiscence. HISTORY OF PRESENT ILLNESS: This 58-year-old female appears to have had a distal femur fracture fixed by lateral open reduction internal fixation, tight plating, and cerclage wiring by Dr. Reid on March 27, 2019 now about 7 weeks ago. The patient's a little bit of a poor historian, but it sounds like she has had wound dehiscence and drainage now over the last 24 hours distally. She does say that she has no fevers, chills, sweats or other constitutional symptoms. She feels perfectly fine. She normally lives at the [facility]. PAST MEDICAL HISTORY: Includes: Developmental delay, Factor V Leiden, recurrent deep venous thrombosis (DVT) on chronic warfarin, history of pulmonary embolisms (PEs), hypertension, hyperlipidemia, morbid obesity, diabetes, left hip fracture secondary to fall, menorrhagia, with endometrial hyperplasia, chronic venous insufficiency, right hip osteoarthritis, 2010 lumbar disc disease at L4-S1 with anterolisthesis at L4-L5, chronic kidney disease stage 2, obstructive sleep apnea (ANGI) on continuous positive airway pressure (CPAP), methicillin-resistant Staphylococcus aureus (MRSA) infection left thigh in 2016 with Klebsiella. HOME MEDICATIONS: Include: - tramadol - atorvastatin - acetaminophen - Lipitor - Dulcolax - Celexa - clobetasol - folic acid - lispro - insulin - Milk of Magnesia - multivitamin - Protonix - Fleet's enema - Invokana - Reinaldo - vitamin D - Ferrex - Provera - Glucerna - zinc oxide - Januvia - metoprolol - lisinopril - Lantus insulin - Lasix - fluconazole - Eliquis ALLERGIES: PENICILLIN with hives. PAST SURGICAL HISTORY: ORIF (open reduction internal fixation) left distal femur fracture on 03/27/2019. Colonoscopy and EGD. SOCIAL HISTORY: Denies smoking. Previously worked at [employer] and [employer]. PHYSICAL EXAMINATION: Vital signs: Temperature 97.4. Pulse rate 93. Blood pressure 99/49. She is alert and oriented times three. She appears comfortable. She responds appropriately. In terms of the left lower extremities there is a incision on the lateral distal aspect of the femur. It has an area of wound dehiscence distally about an inch long. There is mild surrounding redness and copious amount of brown purulent foul-smelling drainage. There is no obvious pain to palpation and the thigh compartments are soft. Normal sensation in her foot. Foot is warm and well perfused. Good pedal pulses. She does wiggle her toes, dorsiflex, plantar flex her foot. CT scan has been performed of her left femur. This shows hardware to be in good position, free of complication. There is soft tissue confluence and induration, postoperative gas suggesting a recent procedure laterally. Hardware does not appear to have failed nor is there any screw backing out. ASSESSMENT AND PLAN: 58-year-old female who would benefit from irrigation and debridement given the active purulent infection. She has history of methicillin-resistant Staphylococcus aureus (MRSA). She will likely need quite strong antibiotics to try and treat this infection. We will have infectious disease actively involved in her care as well as the hospitalist service. We will see if she is an appropriate candidate to get an anesthetic today to perform the washout although she does not appear septic, it would be in her best interest to perform this as soon as possible. She has been placed on vancomycin for now. We will send cultures during surgery, although I suspect if she had an MRSA infection in the past this may be something similar. She is also on meropenem. Her INR is high at 2.0 so ideally that would come down but if she were to become more septic not holding her blood pressure then she would benefit from urgent debridement. I will be in active communication with the practice or student teacher team to see what the best course of action from their opinion would be as well.
[2019-05-17] MEDS ORDERED: ONDANSETRON 4MG/2ML VIAL (J2405) As Ordered ONE (14:23)
[2019-05-17] MEDS ORDERED: fentaNYL 100 MCG/2 ML INJECTION (J3010) As Ordered ONE (14:23)
[2019-05-17] MEDS ORDERED: LIDOCAINE 2% INJ 100 MG/5 ML SDV (FOR ANES.) As Ordered ONE (14:23)
[2019-05-17] MEDS ORDERED: MIDAZOLAM INJ 2 MG/2 ML VIAL (J2250) As Ordered ONE (14:23)
[2019-05-17] MEDS ORDERED: propofoL 200 MG/20 ML VIAL As Ordered ONE ×2 (14:23→16:28)
[2019-05-17] MEDS: VANCOMYCIN HCL 1,000 MG, VIAL MATE ADAPTER 1 EACH in D5W 250 ML IV SCH ×2 (15:58→23:46)
[2019-05-17] MEDS: PHENYLephrine HCL 500 MCG/5 ML (100MCG/ML) SYRINGE (J2370) IV SCH ×3 (16:54→17:04)
[2019-05-17] MEDS: ePHEDrine SULFATE 25 MG/5 ML(5MG/ML) SYRINGE IV PRN ×5 (17:11→17:24)
[2019-05-17] MEDS ORDERED: fentaNYL 100 MCG/2 ML INJECTION (J3010) IV PRN (17:15)
[2019-05-17] MEDS ORDERED: ONDANSETRON 4MG/2ML VIAL (J2405) IV PRN (17:15)
[2019-05-17] MEDS ORDERED: LR 1,000 ML IV SCH (17:15)
[2019-05-17] MEDS ORDERED: LR 500 ML IV SCH (17:30)
[2019-05-17] MEDS ORDERED: ePHEDrine SULFATE 25 MG/5 ML(5MG/ML) SYRINGE ONE (20:11)
[2019-05-17] MEDS: OSELTAMIVIR PHOSPHATE 75 MG CAP (TAMIFLU) PO SCH (21:54)
[2019-05-17] MEDS: MEROPENEM INJ 1 GM in IV 1 EA IV SCH (21:54)
[2019-05-17] MEDS: ATORVASTATIN 20 MG TAB PO SCH (21:54)
[2019-05-18 02:00] VITALS: BP 108/57
[2019-05-18] MEDS: traMADol 50 MG TAB PO PRN ×2 (02:27→10:10)
[2019-05-18] MEDS: MEROPENEM INJ 1 GM in IV 1 EA IV SCH ×3 (04:55→21:32)
[2019-05-18 06:00] VITALS: BP 107/59
[2019-05-18] MEDS: VANCOMYCIN HCL 1,000 MG, VIAL MATE ADAPTER 1 EACH in D5W 250 ML IV SCH (06:23)
[2019-05-18 06:33] LABS: BASO # 0.1 10^3/uL (0.0-0.2); BASO % 0.4 % (0.0-1.0); EOS # 0.1 10^3/uL (0.0-0.5); HEMATOCRIT 27.3 % (36.0-47.0); HEMOGLOBIN 8.6 g/dl (12.0-15.5); LYMPH # 0.9 10^3/uL (1.5-5.0); LYMPH % 6.1 % (24.0-44.0); MEAN CORPUSCULAR HEMOGLOBIN 29.2 pg (27.0-33.0); MEAN CORPUSCULAR HGB CONC 31.5 g/dl (32.0-36.5); MEAN CORPUSCULAR VOLUME 92.5 fl (80.0-96.0); MONO # 0.7 10^3/uL (0.0-0.8); MONO % 5.1 % (0.0-5.0); NEUTROPHILS # 11.9 10^3/uL (1.5-8.5); NEUTROPHILS % 84.9 % (36.0-66.0); PLATELET COUNT, AUTOMATED 388 10^3/uL (150-450); RED BLOOD COUNT 2.95 10^6/uL (4.00-5.40)
[2019-05-18 06:43] LABS: INR 1.57; PROTHROMBIN TIME 18.5 SECONDS (11.8-14.0)
[2019-05-18 06:48] LABS: BLOOD UREA NITROGEN 17 MG/DL (7-18); CALCIUM LEVEL 9.1 MG/DL (8.5-10.1); CARBON DIOXIDE LEVEL 24 MEQ/L (21-32); CHLORIDE LEVEL 108 MEQ/L (98-107); CREATININE FOR GFR 0.68 MG/DL (0.55-1.30); GLOMERULAR FILTRATION RATE > 60.0 (>51); GLUCOSE, FASTING 93 MG/DL (70-100); POTASSIUM SERUM 4.3 MEQ/L (3.5-5.1); SODIUM LEVEL 138 MEQ/L (136-145)
[2019-05-18 06:51] LABS: VANCOMYCIN LEVEL TROUGH 25.9 UG/ML (10.0-20.0)
--- NOTE | 2019-05-18 07:11 | PHACANCOPD ---
PHARMACY VANCOMYCIN DOSING Pt Demographics Demographics Patient Age:58 , Weight:118.400 , Gender: female Adjusted Body Weight Date: 05/17/19, Adjusted Body Weight: [76.2] Kg Vancomycin Vancomycin indication: SEPTIC JOINT/ABCESS Vancomycin Target Ranges: 15-20 mcg/ml Vancomycin Load Y/N: Yes Load Dose Date Time Vancomycin Load Dose: 2GM Date: 05/17 Time:04-0600 Vancomycin Dose Date: 05/18/19. Current Vancomycin Dose: [1 GM Q12] Date: 05/17/19. Current Vancomycin Dose: [1GM Q8H] Intermittent Dosing?: No Labs Micro Microbiology 05/17/19 Gram Stain - Final, Resulted 05/17/19 Wound Culture, Resulted Pending 05/17/19 Anaerobic Culture, Resulted Pending 05/17/19 Gram Stain - Final, Resulted 05/17/19 Wound Culture, Resulted Pending 05/17/19 Anaerobic Culture, Resulted Pending 05/17/19 Blood Culture - Preliminary, Resulted No growth after 24 hours . All specim... 05/17/19 Blood Culture - Preliminary, Resulted No growth after 24 hours . All specim... 05/17/19 Gram Stain - Final, Resulted 05/17/19 Wound Culture - Preliminary, Resulted Staphylococcus Aureus Creatinine Clearance Date:05/17/19. Creatinine Clearance: [96.9].CALCULATED USING ABW Assessment and Plan Maintaining Current Dose?: No Reason for dose change: Trough too high Pharmacist Note Pharmacist Note Date: 05/18/19. Pharmacist note:VANCOMYCIN TROUGH DRAWN THIS MORNING REPORTED 25.9(GOAL=15-20)(RN ADMINISTERED 0700 DOSE)WILL ADJUST CURRENT REGIMEN TO 1 GRAM IV Q12H TO BEGIN TONIGHT@2200-RANDOM LEVEL IS SCHEDULED FOR 2099-WILL CONTINUE TO FOLLOW Date: 05/17/19. Pharmacist note:[id number] ADMITTED W/SEPTIC JOINT/ABCESS.HT:63",WT:111.82KG,ALLERGY:PENICILLIN,scr=0.77,crcl=96.9(CALCULATED )(TROUGH GOAL=15-20),vANCO 2GM ADMINISTERED IN ed 04:00-06:00, THEN WILL BEGIN 1 GRAM IV Q8h REGIMEN @1500. fIRST TROUGH IS SCHEDULED FOR 05/18@0600 (PRIOR TO THE 4TH DOSE) LETICIA HARMAN [facility] May 18, 2019 07:11
[2019-05-18] MEDS: HumaLOG INSULIN (NovoLOG) PER UNIT SC SCH ×7 (07:30→21:00)
[2019-05-18] MEDS: FOLIC ACID 1 MG TAB PO SCH (10:09)
[2019-05-18] MEDS: MULTIVITAMINS/MINERALS THERAP 1 TAB PO SCH (10:09)
[2019-05-18] MEDS: PANTOPRAZOLE 40MG TAB (PROTONIX) PO SCH (10:09)
[2019-05-18] MEDS: MIRALAX *UNIT DOSE* 17GM PACKET PO SCH (10:09)
[2019-05-18] MEDS: SENOKOT S TAB PO SCH ×2 (10:09→21:26)
[2019-05-18] MEDS: CitaloPRAM (CeleXA) 20 MG TAB PO SCH (10:09)
[2019-05-18] MEDS: CLOBETASOL PROP 0.05% OINT 30 GM TOP SCH ×2 (10:10→21:27)
--- NOTE | 2019-05-18 10:39 | RO ---
DATE OF PROCEDURE: 05/17/2019 PREPROCEDURE DIAGNOSIS: Left femur postoperative infection after open reduction, internal fixation (ORIF). POSTPROCEDURE DIAGNOSIS: Left femur postoperative infection after open reduction, internal fixation (ORIF). PLANNED PROCEDURE: Left femur irrigation, debridement and vacuum dressing negative pressure wound application. PROCEDURE PERFORMED: Left femur irrigation, debridement and vacuum dressing negative pressure wound application. SURGEON: Cm Flores MD ENGRAVER WOOD: Dr. Ferraro ANESTHESIA: Sedation. OPERATIVE PREAMBLE: This 58-year-old female underwent left distal femur fracture ORIF now about 7 weeks ago. Over the last 24 hours she developed wound dehiscence and purulent drainage. We talked about pros, cons, risks, benefits of going ahead with irrigation, debridement, vacuum dressing application. She wished to proceed. I signed consent form for surgery and marked left lower extremity. DESCRIPTION OF PROCEDURE: The patient was brought to the operating theater, placed supine on the operating table. All bony prominences were padded. Bump placed under the left hip. Sedation was achieved by the anesthesiology team. The patient was already on IV antibiotics. Preoperative time-out was performed to confirm the site, the patient, the surgery. I began by taking two wound swabs and these await for cultures. I then probed the area of dehiscence, which was about an inch long in the distal aspect of the incision. I evacuated about 20 mL of purulent fluid. I took superficial and deep cultures and sent these away for Gram stain, culture and sensitivity, as well as aerobes, anaerobes and fungus. I thoroughly irrigated the wound using copious amounts of normal saline. There was about 30 mL of a hematoma that came out as well. With the wound dehiscence and infection, I probed down deep down to the plate and I slid my finger up proximally to the area where this stopped. I then placed a negative pressure dressing inside the wound and then using the clear plastic, placed a dressing over top of that and then made a small hole over top of the foam and placed the wound VAC suction hose to set up over top of that. She had good suction without leaks. The patient was transferred off the operating table and taken to the postanesthesia care unit (PACU) in stable condition. PLAN: The patient is be followed by the hospitalist service and readmitted under them, followed by the infectious disease team. Remain on the antibiotics that she is on. Followup on the wound cultures. I have already communicated to the surgeon, who will perform the next case, Dr. Reid, about this case. She will need a secondary irrigation debridement in the operating room and possible wound closure at some point in the future as well.
--- NOTE | 2019-05-18 10:45 | IPN ---
DATE: 05/18/2019 CHIEF COMPLAINT: Postoperative day #1 left distal femur incision and drainage negative pressure wound dressing application. HISTORY OF PRESENT ILLNESS: This 58-year-old female underwent open reduction, internal fixation (ORIF) left femur fracture with long plate. She developed postoperative wound infection about 7 weeks after. I performed irrigation and debridement yesterday. She is seen today on the hui [facility] at [facility]. She is doing well. No concerns or complaints. PHYSICAL EXAMINATION: Well-appearing 58-year-old female. She is lying supine in bed. The vacuum dressing is functioning well. There is no drainage or loss of suction from around the negative pressure dressing. She is able to wiggle toes, dorsiflex and plantar flex the foot. The foot is warm and well perfused. She had unfortunately urinated in the bed but there was no leakage from the dressing. She also has a right heel ulcer that was apparently present on admission. This is about 1 inch in diameter on the right heel, it is black. No drainage or surrounding redness. ASSESSMENT/PLAN: This is a 58-year-old female. We will keep the vacuum dressing in place for the next at least few days. Plan for Dr. Reid to see and assess the patient on Sunday as he is apparently branch operations coordinator tomorrow. She will need a repeat irrigation and debridement, follow up on the cultures, consult from infectious disease specialist, as well as a consult to wound care, which we have asked the nursing staff to put in, as well as a heel float boot on her right side. The patient had no further questions.
[2019-05-18 14:00] VITALS: BP 109/59
[2019-05-18] MEDS ORDERED: HEPARIN DRIP 25,000 UNITS in IV 1 EA IV SCH ×4 (19:58)
[2019-05-18] MEDS ORDERED: HEPARIN SOD (PORCINE) 5000 UNITS/ML VIAL (J1644 PER 1000UNITS) IV PRN (20:00)
[2019-05-18] MEDS ORDERED: HEPARIN SOD (PORCINE) 5000 UNITS/ML VIAL (J1644 PER 1000UNITS) IV ONE (20:00)
--- NOTE | 2019-05-18 20:47 | IPNPDOC ---
Date Seen The patient was seen on 05/18/19. Progress Note SUBJECTIVE: 58-year-old female with past medical history of factor V Leiden deficiency, (on Eliquis), DVT/PE, diabetes, hypertension and hyperlipidemia was admitted for postop hardware infection. Patient had a left hip fracture and underwent ORIF and presented with wound dehiscence and pustular discharge. Patient underwent washout yesterday, seen in the morning, without any complaints at this time. Patient has a wound VAC in place, denies any shortness of breath, chest pain, nausea, vomiting, abdominal pain or diarrhea. 10 point review of system is negative except for above PHYSICAL EXAMINATION: VITAL SIGNS: Please see below. GENERAL: Morbidly obese HEENT: Normocephalic, atraumatic, moist mucous membranes NECK: Supple CARDIOVASCULAR EXAMINATION: S1, S2, no murmurs RESPIRATORY EXAMINATION: Diminished, scattered rhonchi ABDOMINAL EXAMINATION: Soft, nontender, nondistended, positive bowel sounds EXTREMITIES: Left lower extremity range of motion limited due to pain, wound VAC in place, pitting edema SKIN: Right heel with pressure ulcer NEUROLOGICAL EXAMINATION: Alert and oriented 3, no focal deficits PSYCHIATRIC EXAMINATION: Calm and cooperative LABORATORY DATA, IMAGING STUDIES, MICROBIOLOGY: Please see below. ASSESSMENT AND PLAN: 58-year-old female with past medical history of factor V Leiden deficiency, DVT/PE, hypertension, diabetes and hyperlipidemia who underwent recent ORIF presented with postop hardware infection. PROBLEMS: 1. Recent ORIF hardware infection: Status post washout yesterday, cultures pending, continue empiric antibiotics, may require repeat washout, orthopedic surgery following, wound VAC in place. 2. Factor V Leiden deficiency: History of DVT/PE, on Eliquis in the outpatient setting, will start heparin GTT for now as patient may require further surgery. 3. Diabetes mellitus: Slightly scaliness and coverage with meals and at bedtime. 4. Hypertension: Start home lisinopril and metoprolol 5. Hyperlipidemia: Continue atorvastatin DVT prophylaxis: On heparin drip. GI prophylaxis: PPI VS, I&O, 24H, Fishbone Vital Signs/I&O Vital Signs Date Time Temp Pulse Resp B/P (MAP) Pulse Ox O2 Delivery O2 Flow Rate FiO2 05/18/19 14:00 98.2 102 17 109/59 (76) 97 Room Air 05/18/19 08:00 2.0 I&O- Last 24 Hours up to 6 AM 05/18/19 06:00 Intake Total 2360.0 ml Output Total 825 ml Balance 1535.0 ml Laboratory Data 24H LABS Laboratory Tests 2 05/17/19 20:47: Bedside Glucose (Misc Panel) 123H 05/18/19 06:02: Immature Granulocyte % (Auto) 2.5, Neutrophils (%) (Auto) 84.9H, Lymphocytes (%) (Auto) 6.1L, Monocytes (%) (Auto) 5.1H, Eosinophils (%) (Auto) 1.0, Basophils (%) (Auto) 0.4, Neutrophils # (Auto) 11.9H, Lymphocytes # (Auto) 0.9L, Monocytes # (Auto) 0.7, Eosinophils # (Auto) 0.1, Basophils # (Auto) 0.1, Nucleated Red Blood Cells % (auto) 0.0, Prothrombin Time 18.5H, Prothromb Time International Ratio 1.57, Anion Gap 6L, Glomerular Filtration Rate > 60.0, Calcium Level 9.1, Vancomycin Level Trough 25.9*H 05/18/19 11:47: Bedside Glucose (Misc Panel) 120H 05/18/19 17:10: Bedside Glucose (Misc Panel) 87 CBC/BMP Laboratory Tests 05/18/19 06:02 Microbiology Microbiology 05/17/19 Gram Stain - Final, Resulted 05/17/19 Wound Culture - Preliminary, Resulted Staphylococcus Aureus 05/17/19 Anaerobic Culture, Resulted Pending 05/17/19 Gram Stain - Final, Resulted 05/17/19 Wound Culture - Preliminary, Resulted Staphylococcus Aureus 05/17/19 Anaerobic Culture, Resulted Pending 05/17/19 Blood Culture - Preliminary, Resulted No growth after 24 hours . All specim... 05/17/19 Blood Culture - Preliminary, Resulted No growth after 24 hours . All specim... 05/17/19 Gram Stain - Final, Resulted 05/17/19 Wound Culture - Preliminary, Resulted Staphylococcus Aureus ZANA LINDSEY MD May 18, 2019 20:47
[2019-05-18 21:03] LABS: HEMATOCRIT 30.8 % (36.0-47.0); HEMOGLOBIN 9.5 g/dl (12.0-15.5); MEAN CORPUSCULAR HEMOGLOBIN 28.6 pg (27.0-33.0); MEAN CORPUSCULAR HGB CONC 30.8 g/dl (32.0-36.5); MEAN CORPUSCULAR VOLUME 92.8 fl (80.0-96.0); PLATELET COUNT, AUTOMATED 418 10^3/uL (150-450); RED BLOOD COUNT 3.32 10^6/uL (4.00-5.40); WHITE BLOOD COUNT 14.2 10^3/uL (4.0-10.0)
[2019-05-18] MEDS: ATORVASTATIN 20 MG TAB PO SCH (21:26)
[2019-05-18] MEDS: OSELTAMIVIR PHOSPHATE 75 MG CAP (TAMIFLU) PO SCH (21:27)
[2019-05-18] MEDS: METOPROLOL TART 50 MG TAB PO SCH (21:38)
[2019-05-18] MEDS: lisinopriL 10 MG TAB PO SCH (21:38)
[2019-05-18 22:00] VITALS: BP 111/64
[2019-05-18] MEDS ORDERED: VANCOMYCIN HCL 1,000 MG, VIAL MATE ADAPTER 1 EACH in D5W 250 ML IV SCH (22:00)
[2019-05-19] VITALS (9 sets, daily range): BP systolic 104–122; BP diastolic 44–78
[2019-05-19] MEDS ORDERED: VANCOMYCIN HCL 1,000 MG, VIAL MATE ADAPTER 1 EACH in D5W 250 ML IV SCH ×3
--- NOTE | 2019-05-19 03:29 | IPNPDOC ---
Date Seen The patient was seen on 05/19/19. Progress Note LOST IV ACCESS PLAN: -midline insertion for iv antibiotics and ivf. VS, I&O, 24H, [facility] Vital Signs/I&O Vital Signs Date Time Temp Pulse Resp B/P (MAP) Pulse Ox O2 Delivery O2 Flow Rate FiO2 05/19/19 02:00 98.0 86 18 108/58 (75) 98 NIPPV (BIPAP/CPAP) 05/18/19 21:35 2.0 I&O- Last 24 Hours up to 6 AM 05/19/19 06:00 Intake Total 1590 ml Balance 1590 ml Laboratory Data 24H LABS Laboratory Tests 2 05/18/19 06:02: Immature Granulocyte % (Auto) 2.5, Neutrophils (%) (Auto) 84.9H, Lymphocytes (%) (Auto) 6.1L, Monocytes (%) (Auto) 5.1H, Eosinophils (%) (Auto) 1.0, Basophils (%) (Auto) 0.4, Neutrophils # (Auto) 11.9H, Lymphocytes # (Auto) 0.9L, Monocytes # (Auto) 0.7, Eosinophils # (Auto) 0.1, Basophils # (Auto) 0.1, Nucleated Red Blood Cells % (auto) 0.0, Prothrombin Time 18.5H, Prothromb Time International Ratio 1.57, Anion Gap 6L, Glomerular Filtration Rate > 60.0, Calcium Level 9.1, Vancomycin Level Trough 25.9*H 05/18/19 11:47: Bedside Glucose (Misc Panel) 120H 05/18/19 17:10: Bedside Glucose (Misc Panel) 87 05/18/19 20:55: Nucleated Red Blood Cells % (auto) 0.0, Vancomycin Level Trough 20.7H, Activated Partial Thromboplast Time 31.8 05/18/19 21:29: Bedside Glucose (Misc Panel) 129H CBC/BMP Laboratory Tests 05/18/19 06:02 05/18/19 20:55 Microbiology Microbiology 05/17/19 Gram Stain - Final, Resulted 05/17/19 Wound Culture - Preliminary, Resulted Staphylococcus Aureus 05/17/19 Anaerobic Culture, Resulted Pending 05/17/19 Gram Stain - Final, Resulted 05/17/19 Wound Culture - Preliminary, Resulted Staphylococcus Aureus 05/17/19 Anaerobic Culture, Resulted Pending 05/17/19 Blood Culture - Preliminary, Resulted No Growth after 48 hours. All Specime... 05/17/19 Blood Culture - Preliminary, Resulted No Growth after 48 hours. All Specime... 05/17/19 Gram Stain - Final, Resulted 05/17/19 Wound Culture - Preliminary, Resulted Staphylococcus Aureus XAVIER RODRIGUEZ MD May 19, 2019 03:29
[2019-05-19] MEDS: MEROPENEM INJ 1 GM in IV 1 EA IV SCH (04:05)
[2019-05-19 06:51] LABS: BASO # 0.1 10^3/uL (0.0-0.2); BASO % 0.6 % (0.0-1.0); EOS # 0.2 10^3/uL (0.0-0.5); EOS % 1.2 % (0.0-3.0); HEMATOCRIT 30.7 % (36.0-47.0); HEMOGLOBIN 9.6 g/dl (12.0-15.5); LYMPH # 1.3 10^3/uL (1.5-5.0); LYMPH % 8.2 % (24.0-44.0); MEAN CORPUSCULAR HEMOGLOBIN 28.8 pg (27.0-33.0); MEAN CORPUSCULAR HGB CONC 31.3 g/dl (32.0-36.5); MEAN CORPUSCULAR VOLUME 92.2 fl (80.0-96.0); MONO # 0.8 10^3/uL (0.0-0.8); MONO % 4.7 % (0.0-5.0); NEUTROPHILS % 81.2 % (36.0-66.0); PLATELET COUNT, AUTOMATED 477 10^3/uL (150-450); RED BLOOD COUNT 3.33 10^6/uL (4.00-5.40)
[2019-05-19 07:30] LABS: BLOOD UREA NITROGEN 12 MG/DL (7-18); CALCIUM LEVEL 9.4 MG/DL (8.5-10.1); CARBON DIOXIDE LEVEL 26 MEQ/L (21-32); CHLORIDE LEVEL 105 MEQ/L (98-107); CREATININE FOR GFR 0.63 MG/DL (0.55-1.30); GLOMERULAR FILTRATION RATE > 60.0 (>51); GLUCOSE, FASTING 115 MG/DL (70-100); POTASSIUM SERUM 4.7 MEQ/L (3.5-5.1); SODIUM LEVEL 137 MEQ/L (136-145)
[2019-05-19] MEDS: HumaLOG INSULIN (NovoLOG) PER UNIT SC SCH ×7 (07:30→22:01)
[2019-05-19] MEDS: METOPROLOL TART 50 MG TAB PO SCH ×2 (08:47→21:50)
[2019-05-19] MEDS: CLOBETASOL PROP 0.05% OINT 30 GM TOP SCH ×2 (08:47→21:00)
[2019-05-19] MEDS: CitaloPRAM (CeleXA) 20 MG TAB PO SCH (08:47)
[2019-05-19] MEDS: MULTIVITAMINS/MINERALS THERAP 1 TAB PO SCH (08:47)
[2019-05-19] MEDS: PANTOPRAZOLE 40MG TAB (PROTONIX) PO SCH (08:47)
[2019-05-19] MEDS: FOLIC ACID 1 MG TAB PO SCH (08:47)
[2019-05-19] MEDS: SENOKOT S TAB PO SCH ×2 (08:48→21:50)
[2019-05-19] MEDS: MIRALAX *UNIT DOSE* 17GM PACKET PO SCH (08:48)
[2019-05-19] MEDS ORDERED: fentaNYL 100 MCG/2 ML INJECTION (J3010) As Ordered ONE ×3 (13:04→16:24)
[2019-05-19] MEDS ORDERED: propofoL 200 MG/20 ML VIAL As Ordered ONE (13:04)
[2019-05-19] MEDS ORDERED: LIDOCAINE 2% INJ 100 MG/5 ML SDV (FOR ANES.) As Ordered ONE (13:04)
[2019-05-19] MEDS ORDERED: MIDAZOLAM INJ 2 MG/2 ML VIAL (J2250) As Ordered ONE (13:04)
[2019-05-19] MEDS ORDERED: ONDANSETRON 4MG/2ML VIAL (J2405) As Ordered ONE (13:04)
[2019-05-19] MEDS: ceFAZolin SOD 2 GM in IV 1 EA IV SCH ×2 (13:23→21:51)
[2019-05-19] MEDS ORDERED: dexameTHASONE 4 MG/ML 1ML VIAL (J1100) As Ordered ONE (14:47)
[2019-05-19] MEDS ORDERED: PHENYLephrine HCL 500 MCG/5 ML (100MCG/ML) SYRINGE (J2370) As Ordered ONE (14:56)
[2019-05-19] MEDS ORDERED: KETAMINE HCL 200 MG/20 ML VIAL As Ordered ONE (15:02)
[2019-05-19] MEDS ORDERED: LACRILUBE (AKWA TEARS) OPHTH OINT 3.5 GM As Ordered ONE (15:17)
--- NOTE | 2019-05-19 15:32 | IPNPDOC ---
Date Seen The patient was seen on 05/19/19. Progress Note SUBJECTIVE: 58-year-old female with past medical history of factor V Leiden deficiency, (on Eliquis), DVT/PE, diabetes, hypertension and hyperlipidemia was admitted for postop hardware infection. Patient had a left hip fracture and underwent ORIF and presented with wound dehiscence and pustular discharge. Patient underwent washout yesterday, seen in the morning, without any complaints at this time. Patient has a wound VAC in place, denies any shortness of breath, chest pain, nausea, vomiting, abdominal pain or diarrhea. 05/19/19 Patient seen in the morning, without complaints, scheduled for repeat washout later today, heparin drip being held, cultures grew MSSA. 10 point review of system is negative except for above PHYSICAL EXAMINATION: VITAL SIGNS: Please see below. GENERAL: Morbidly obese HEENT: Normocephalic, atraumatic, moist mucous membranes NECK: Supple CARDIOVASCULAR EXAMINATION: S1, S2, no murmurs RESPIRATORY EXAMINATION: Diminished, scattered rhonchi ABDOMINAL EXAMINATION: Soft, nontender, nondistended, positive bowel sounds EXTREMITIES: Left lower extremity range of motion limited due to pain, wound VAC in place, pitting edema SKIN: Right heel with pressure ulcer NEUROLOGICAL EXAMINATION: Alert and oriented 3, no focal deficits PSYCHIATRIC EXAMINATION: Calm and cooperative LABORATORY DATA, IMAGING STUDIES, MICROBIOLOGY: Please see below. ASSESSMENT AND PLAN: 58-year-old female with past medical history of factor V Leiden deficiency, DVT/PE, hypertension, diabetes and hyperlipidemia who underwent recent ORIF presented with postop hardware infection. PROBLEMS: 1. Recent ORIF with hardware infection: Status post washout 1, scheduled for repeat washout later today, heparin drip, being held, cultures grew MSSA, antibiotics, switched to Ancef, orthopedic surgery following, wound VAC in place. 2. Factor V Leiden deficiency: History of DVT/PE, on Eliquis in the outpatient setting, was on heparin GTT, currently being held for procedure. 3. Diabetes mellitus: Sliding scale insulin coverage with meals and at bedtime. 4. Hypertension: Continue lisinopril and metoprolol 5. Hyperlipidemia: Continue atorvastatin DVT prophylaxis: None GI prophylaxis: PPI VS, I&O, 24H, Fishbone Vital Signs/I&O Vital Signs Date Time Temp Pulse Resp B/P (MAP) Pulse Ox O2 Delivery O2 Flow Rate FiO2 05/19/19 10:00 98.6 80 17 106/44 (64) 96 Room Air 05/19/19 09:00 2.0 I&O- Last 24 Hours up to 6 AM 05/19/19 06:00 Intake Total 2276 ml Output Total 1100 ml Balance 1176 ml Laboratory Data 24H LABS Laboratory Tests 2 05/18/19 17:10: Bedside Glucose (Misc Panel) 87 05/18/19 20:55: Nucleated Red Blood Cells % (auto) 0.0, Activated Partial Thromboplast Time 31.8, Vancomycin Level Trough 20.7H 05/18/19 21:29: Bedside Glucose (Misc Panel) 129H 05/19/19 03:27: Activated Partial Thromboplast Time 52.7H 05/19/19 06:33: Immature Granulocyte % (Auto) 4.1H, Neutrophils (%) (Auto) 81.2H, Lymphocytes (%) (Auto) 8.2L, Monocytes (%) (Auto) 4.7, Eosinophils (%) (Auto) 1.2, Basophils (%) (Auto) 0.6, Neutrophils # (Auto) 13.0H, Lymphocytes # (Auto) 1.3L, Monocytes # (Auto) 0.8, Eosinophils # (Auto) 0.2, Basophils # (Auto) 0.1, Nucleated Red Blood Cells % (auto) 0.0, Activated Partial Thromboplast Time 88.5H, Anion Gap 6L, Glomerular Filtration Rate > 60.0, Calcium Level 9.4 05/19/19 10:57: Vancomycin Level Trough 28.3*H 05/19/19 11:36: Bedside Glucose (Misc Panel) 103 05/19/19 14:01: Bedside Glucose (Misc Panel) 95 CBC/BMP Laboratory Tests 05/18/19 20:55 05/19/19 06:33 Microbiology Microbiology 05/17/19 Gram Stain - Final, Complete 05/17/19 Wound Culture - Final, Complete Staphylococcus Aureus 05/17/19 Anaerobic Culture - Final, Complete 05/17/19 Gram Stain - Final, Complete 05/17/19 Wound Culture - Final, Complete Staphylococcus Aureus 05/17/19 Anaerobic Culture - Final, Complete 05/17/19 Blood Culture - Preliminary, Resulted No Growth after 48 hours. All Specime... 05/17/19 Blood Culture - Preliminary, Resulted No Growth after 48 hours. All Specime... 05/17/19 Gram Stain - Final, Complete 05/17/19 Wound Culture - Final, Complete Staphylococcus Aureus ZANA LINDSEY MD May 19, 2019 15:32
[2019-05-19] MEDS: fentaNYL 100 MCG/2 ML INJECTION (J3010) IV PRN ×4 (16:26→16:41)
[2019-05-19] MEDS ORDERED: LR 1,000 ML IV SCH (16:30)
[2019-05-19] MEDS ORDERED: ONDANSETRON 4MG/2ML VIAL (J2405) IV PRN (16:30)
[2019-05-19] MEDS ORDERED: HEPARIN DRIP 25,000 UNITS in IV 1 EA IV SCH (18:04)
[2019-05-19] MEDS ORDERED: HEPARIN SOD (PORCINE) 5000 UNITS/ML VIAL (J1644 PER 1000UNITS) IV PRN (18:15)
[2019-05-19] MEDS ORDERED: HEPARIN SOD (PORCINE) 5000 UNITS/ML VIAL (J1644 PER 1000UNITS) IV ONE (18:15)
[2019-05-19] MEDS: traMADol 50 MG TAB PO PRN (19:12)
[2019-05-19] MEDS: ATORVASTATIN 20 MG TAB PO SCH (21:50)
[2019-05-19] MEDS: lisinopriL 10 MG TAB PO SCH (21:51)
[2019-05-19] MEDS: OSELTAMIVIR PHOSPHATE 75 MG CAP (TAMIFLU) PO SCH (21:51)
[2019-05-20 02:29] VITALS: BP 117/78
[2019-05-20] MEDS: ceFAZolin SOD 2 GM in IV 1 EA IV SCH ×3 (05:34→21:13)
[2019-05-20 06:15] VITALS: BP 114/75
[2019-05-20] MEDS: HumaLOG INSULIN (NovoLOG) PER UNIT SC SCH ×7 (07:30→21:00)
[2019-05-20 08:33] LABS: BASO # 0.1 10^3/uL (0.0-0.2); BASO % 0.3 % (0.0-1.0); HEMATOCRIT 29.4 % (36.0-47.0); HEMOGLOBIN 9.4 g/dl (12.0-15.5); LYMPH # 0.9 10^3/uL (1.5-5.0); LYMPH % 3.8 % (24.0-44.0); MEAN CORPUSCULAR HEMOGLOBIN 29.2 pg (27.0-33.0); MEAN CORPUSCULAR VOLUME 91.3 fl (80.0-96.0); MONO # 0.6 10^3/uL (0.0-0.8); MONO % 2.7 % (0.0-5.0); NEUTROPHILS # 20.6 10^3/uL (1.5-8.5); NEUTROPHILS % 89.6 % (36.0-66.0); PLATELET COUNT, AUTOMATED 538 10^3/uL (150-450); RED BLOOD COUNT 3.22 10^6/uL (4.00-5.40); WHITE BLOOD COUNT 22.9 10^3/uL (4.0-10.0)
[2019-05-20 08:52] LABS: BLOOD UREA NITROGEN 18 MG/DL (7-18); CALCIUM LEVEL 9.7 MG/DL (8.5-10.1); CARBON DIOXIDE LEVEL 25 MEQ/L (21-32); CHLORIDE LEVEL 105 MEQ/L (98-107); CREATININE FOR GFR 0.76 MG/DL (0.55-1.30); GLOMERULAR FILTRATION RATE > 60.0 (>51); GLUCOSE, FASTING 193 MG/DL (70-100); MAGNESIUM LEVEL 2.1 MG/DL (1.8-2.4); PHOSPHORUS LEVEL 3.1 MG/DL (2.5-4.9); POTASSIUM SERUM 4.5 MEQ/L (3.5-5.1); SODIUM LEVEL 137 MEQ/L (136-145)
[2019-05-20] MEDS: MIRALAX *UNIT DOSE* 17GM PACKET PO SCH (09:00)
[2019-05-20] MEDS: CLOBETASOL PROP 0.05% OINT 30 GM TOP SCH ×2 (09:00→21:00)
[2019-05-20] MEDS: SENOKOT S TAB PO SCH ×2 (09:00→21:16)
[2019-05-20] MEDS: CitaloPRAM (CeleXA) 20 MG TAB PO SCH (09:54)
[2019-05-20] MEDS: FOLIC ACID 1 MG TAB PO SCH (09:54)
[2019-05-20] MEDS: PANTOPRAZOLE 40MG TAB (PROTONIX) PO SCH (09:55)
[2019-05-20] MEDS: METOPROLOL TART 50 MG TAB PO SCH ×2 (09:55→21:16)
[2019-05-20] MEDS: MULTIVITAMINS/MINERALS THERAP 1 TAB PO SCH (09:55)
[2019-05-20 10:00] VITALS: BP 117/62
[2019-05-20] MEDS ORDERED: HEPARIN DRIP 25,000 UNITS in IV 1 EA IV SCH (11:07)
[2019-05-20] MEDS ORDERED: HEPARIN SOD (PORCINE) 5000 UNITS/ML VIAL (J1644 PER 1000UNITS) IV ONE (11:15)
[2019-05-20 11:37] LABS: HEMATOCRIT 29.6 % (36.0-47.0); HEMOGLOBIN 9.2 g/dl (12.0-15.5); MEAN CORPUSCULAR HEMOGLOBIN 28.8 pg (27.0-33.0); MEAN CORPUSCULAR HGB CONC 31.1 g/dl (32.0-36.5); MEAN CORPUSCULAR VOLUME 92.8 fl (80.0-96.0); PLATELET COUNT, AUTOMATED 554 10^3/uL (150-450); RED BLOOD COUNT 3.19 10^6/uL (4.00-5.40); WHITE BLOOD COUNT 22.8 10^3/uL (4.0-10.0)
[2019-05-20] MEDS: HEPARIN DRIP 25,000 UNITS in IV 1 EA IV SCH (11:44)
[2019-05-20] MEDS ORDERED: LIDOCAINE 1% MDV 20ML VIAL As Ordered ONE (13:13)
[2019-05-20 14:30] VITALS: BP 99/49
--- NOTE | 2019-05-20 16:06 | RO ---
DATE OF PROCEDURE: 05/19/2019 PREPROCEDURE DIAGNOSIS: Postoperative infection approximately 2 months status post open reduction internal fixation of her left intra-articular femur fracture. POSTPROCEDURE DIAGNOSIS: Postoperative infection approximately 2 months status post open reduction internal fixation of her left intra-articular femur fracture. PROCEDURE: Irrigation and debridement of left femur postoperative wound, skin, subcutaneous tissue, muscle and bone along with arthrotomy and irrigation and debridement of the joints. SURGEON: Ervin Reid MD GANG KNIFE [employer] CHOPPER: None. ANESTHESIA: INDICATIONS: This is a 58-year-old female who suffered an intra-articular distal femur fracture approximately 2 months ago with a notable history of Factor V Leiden, morbidly obese, deep vein thrombosis (DVT), pulmonary embolism (PE), long-term on Eliquis, currently on a heparin drip, hypertension, hyperlipidemia, is a long-term resident of [facility]. Underwent operative fixation 2 months ago; however, this past weekend she presented to the emergency room (ER) after having wound dehiscence distally and purulent drainage. She was taken back by my partner for irrigation and debridement, and we agreed to a second look today to work on our local control of the infection. We discussed the risks and benefits, including, but not limited to, infection, damage to surrounding structures, incomplete relief, malunion, nonunion, and patient consented to proceed. PREOPERATIVE ANTIBIOTICS: The patient was given any scheduled antibiotics that she was due. COMPLICATIONS: None. BLOOD LOSS: 100 mL. DESCRIPTION OF PROCEDURE: The patient was brought back to the operating room in the supine position. She underwent general anesthesia at which point the wound VAC from the previous surgery was removed. There was approximately a 2 cm incision at the distal extent of the healed scar. When we pulled out the sponge, purulence readily pooled out of the incision. We then prepped and draped the left leg in the usual fashion. At this point, the decision was made to extend to the full length of the incision plus an additional 1-2 cm on each proximally and distally. We sharply went through subcutaneous tissue. This was easy to do given the amount of fat necrosis we encountered. Distally the wound went straight down to the plate, proximally the iliotibial (IT) band has healed; however, we could liberate this in order to irrigate and debride along the plate. Once the wound was thoroughly opened, we then removed the skin edges, took it to healing bleeding skin, and used a combination of curettes, Dixon elevator, and rongeur to debride the subcutaneous tissue, muscle, tendon, and bone, along with knife sharply in order to obtain local control. Once we had gone the entire length of the plate, we investigated distally at which point we used a Dixon to elevate the suprapatellar pouch into the knee joint where we encountered more purulence, at which point we irrigated 9 liters of saline through the wound to adequately debride the area and cleanse it with intermittent sharp debridement of skin, muscle, subcutaneous tissue and bone. Once the 9 liters was complete, we placed a deep sponge deep to the IT band along the plate and over top of the femur and distal patellar pouch, and then careful not to damage articular cartilage, we then placed a second sponge over top of the IT band in the subcutaneous tissue. This was then stapled to the surrounding skin and placed an Ioban dressing over top with a wound VAC suction set to 125 mmHg. We had good seal at this point and draining well. Preps and drapes were removed and the patient was awakened and taken to the post-anesthesia care unit (PACU) in stable condition. POSTOPERATIVE PLAN: Will obtain a peripherally inserted central catheter (PICC) line for long-term IV antibiotics. At this point, will work on suppression of the infection. The long-term goal is fracture union. If we are able to unite at least a portion of the fracture, we can discuss either alternative hardware versus removal of hardware in the distant future. However, currently we need more local control. Will return to the operating room (OR) within a week for another irrigation and debridement, and make a decision on wound closure at that point. The patient can be weightbearing as tolerated and will continue the IV antibiotics per infectious disease. ADDENDUM: Wound VAC placement, wound description is 18 cm in length and 12 cm in width, and a depth of about 4 cm was placed at the end of the surgery. HERNANDEZ
[2019-05-20] MEDS: SODIUM CHLORIDE 0.9% INJ 10 ML SYR IV SCH (17:43)
--- NOTE | 2019-05-20 17:52 | REP ---
PICC line insertion under ultrasound guidance. The procedure was performed by GABRIELLE Magaña, under the direct supervision of Dr. Harkins. The risks and benefits of the procedure were explained to the patient and informed consent was obtained both verbally and written. Directly prior to the start of the procedure, a formal timeout was completed in the procedure room. The right basilic vein was localized using ultrasound guidance. The skin was prepped and draped in the sterile fashion. 1 ml 1% lidocaine 10 mg/ml was used as a local anesthetic. Using ultrasound guidance the right basilic vein was cannulated and a 0.018 guidewire was inserted and advanced to the SVC using fluoroscopic guidance. The needle was removed and a 5.5 Martiniquais dilator and peel-away sheath was inserted over the guidewire. A 5.5 Martiniquais dual lumen catheter was cut to the length of 40 cm. The dilator was removed and the catheter was inserted over the guide wire with the tip ending in the SVC. The peel-away sheath was removed and the catheter was flushed with heparinized saline as per hospital protocol. The catheter was affixed to the skin and a sterile dressing was applied. The patient tolerated the procedure well and there were no immediate complications. 0.3 minutes of fluoroscopy time was utilized for this procedure. Some fluoroscopic images are performed with last image hold technology. These images require no additional radiation. Reviewed by GABRIELLE Iraheta 05/20/2019 03:49 P Electronically Signed by Raimundo Harkins MD 05/20/2019 05:43 P
--- NOTE | 2019-05-20 18:12 | CR ---
DATE OF CONSULTATION: 05/20/2019 CONSULTATION REPORT FOR: Dr. Reid REASON FOR CONSULTATION: Evaluation of postoperative wound infection status post open reduction internal fixation (ORIF) of the left femur. HISTORY OF PRESENT ILLNESS: Nelsy is a 58-year-old female with a history of morbid obesity who fell on 03/27/2019, had a comminuted intra-articular distal femur fracture. She underwent a left ORIF on 03/27/[address] Reid. The patient was at [facility] for rehabilitation when she developed wound dehiscence, increased purulence, and was hypotensive. She had a white count of 19,000. There was a copious amount of purulent drainage. She was taken to the operating room (OR) by Dr. Flores initially and again on 05/19/[address] Reid for incision and drainage. There was purulence all the way into the intra-articular space of the knee joint. CT of the lower extremity showed soft tissue confluence, induration and foci of gas. The fracture was not completely healed yet and therefore the hardware could not be removed. She denied any nausea, vomiting, diarrhea, abdominal pain, fever or chills. She has remained afebrile throughout this admission. She has no chest pain or shortness of breath. PAST MEDICAL HISTORY: The patient has a past medical history of factor V Leiden mutation with recurrent deep vein thromboses (DVTs) on chronic warfarin, history of pulmonary embolism currently on heparin, hypertension, hyperlipidemia, developmental delay, morbid obesity, diabetes, left hip fracture after a fall, endometrial hyperplasia, sleep apnea, history of methicillin-resistant Staphylococcus aureus (MRSA) infection of the left thigh in 2017. PAST SURGICAL HISTORY: Open reduction internal fixation (ORIF) done on 03/27/2019 of the left distal femur fracture, colonoscopy 2011 and 2014, and esophagogastroduodenoscopy (EGD) in 2014. ALLERGIES: PENICILLIN causing hives. MEDICATIONS: - cefazolin 2 grams IV every eight hours - lisinopril 10 mg by mouth at bedtime - metoprolol 50 mg by mouth twice a day - Senokot one tablet by mouth twice a day - MiraLax one packet by mouth daily, patient has refused - Lipitor 20 mg by mouth at bedtime - citalopram 20 mg by mouth daily - clobetasol twice a day, patient refused - folic acid 1 mg daily - multivitamin one tablet daily - pantoprazole 40 mg daily - insulin 88 units before meals and at bedtime - tramadol 50 mg by mouth every four hours as needed PHYSICAL EXAMINATION: GENERAL APPEARANCE: She is a pleasant female, morbidly obese, in no acute distress, looks older than stated age. HEART: Normal S1, S2. No murmurs, rubs or gallops. LUNGS: Clear. No wheezes, rales, or rhonchi. ABDOMEN: Morbidly obese, soft, nontender. EXTREMITIES: No clubbing, cyanosis or edema. She has a decubitus ulcer on the right heel measuring about 6 x 4 cm, necrotic, black eschar, dry. No surrounding cellulitis. Left knee has a wound vacuum-assisted closure (VAC) in place. She has tenderness to touch but the wound could not be seen underneath the wound VAC dressing. The patient is not able to bend her left knee. She has limited range of motion of the right hip and knee as well due to her morbid obesity. NECK: Supple. No jugular venous distention (JVD). No carotid bruits. No adenopathy. Oropharynx is clear with no thrush. Pupils equal and reactive. LABORATORY DATA: White count on admission was 14,000, today it was 22.8, hemoglobin 9.2, hematocrit 29.6, platelets 554. ESR was over 140. Sodium 137, potassium 4.5, chloride 105, bicarbonate 25, BUN 18, creatinine 0.76, glucose 193, calcium 9.7, phosphorus 3.1, magnesium 2.1, CRP 23.3, albumin 1.7, vancomycin trough was 28.3 today. Her last dose of vancomycin was 224 at midnight. Meropenem 05/17/2019 to 05/19/2019, the patient received a total of four doses. IMAGING STUDIES: Extremity CT shows distal femoral comminuted fracture with ORIF placed along the lateral aspect with screws. There is soft tissue induration and foci of gas suggestive of infection, degenerative osteoarthritis of the left knee. IMPRESSION: This is a 58-year-old morbidly obese female with developmental delay status post left knee intra-articular fracture of the distal femur, status post open reduction internal fixation (ORIF) who presents with a postoperative wound infection. Blood cultures two sets were negative on 05/17/2019, left femur culture was positive for methicillin-sensitive Staphylococcus aureus (MSSA) on all three specimens resistant to penicillin G. The patient has been switched from IV vancomycin and meropenem to cefazolin 2 grams every eight hours. A peripherally inserted central catheter (PICC) line has been placed by interventional radiology in the right arm. The patient had a septic arthritis postoperatively with Staphylococcus aureus and will need prolonged IV antibiotic. She also has hardware in place and is at risk of developing acute osteomyelitis. She will be treated with at least 4-6 weeks of IV cefazolin. PLAN: Case has been discussed with Dr. Reid who agrees with the plan. Cefazolin 2 grams IV every eight hours. Peripherally inserted central catheter (PICC) line has been placed today. Monitor complete blood count (CBC), basic, C-reactive protein (CRP), sedimentation rate weekly. The patient is going back to the operating room (OR) for another change of wound vacuum-assisted vacuum (VAC) and debridement in a couple of days. HERNANDEZ
[2019-05-20 18:30] VITALS: BP 103/48
--- NOTE | 2019-05-20 20:52 | IPNPDOC ---
Date Seen The patient was seen on 05/20/19. Progress Note SUBJECTIVE: 58-year-old female with past medical history of factor V Leiden deficiency, (on Eliquis), DVT/PE, diabetes, hypertension and hyperlipidemia was admitted for postop hardware infection. Patient had a left hip fracture and underwent ORIF and presented with wound dehiscence and pustular discharge. Patient underwent washout yesterday, seen in the morning, without any complaints at this time. Patient has a wound VAC in place, denies any shortness of breath, chest pain, nausea, vomiting, abdominal pain or diarrhea. 05/19/19 Patient seen in the morning, without complaints, scheduled for repeat washout later today, heparin drip being held, cultures grew MSSA. 05/20/19 Resting comfortably in bed, no acute events overnight, no complaints at this time, hesitant to work w/ PT & getting out of bed. 10 point review of system is negative except for above PHYSICAL EXAMINATION: VITAL SIGNS: Please see below. GENERAL: Morbidly obese HEENT: Normocephalic, atraumatic, moist mucous membranes NECK: Supple CARDIOVASCULAR EXAMINATION: S1, S2, no murmurs RESPIRATORY EXAMINATION: Limited anteriorly, diminished ABDOMINAL EXAMINATION: Soft, nontender, nondistended, positive bowel sounds EXTREMITIES: Left lower extremity range of motion limited due to pain, wound VAC in place, pitting edema SKIN: Right heel with pressure ulcer NEUROLOGICAL EXAMINATION: Alert and oriented 3, no focal deficits PSYCHIATRIC EXAMINATION: Calm and cooperative LABORATORY DATA, IMAGING STUDIES, MICROBIOLOGY: Please see below. ASSESSMENT AND PLAN: 58-year-old female with past medical history of factor V Le iden deficiency, DVT/PE, hypertension, diabetes and hyperlipidemia who underwent recent ORIF presented with postop hardware infection. PROBLEMS: 1. Septic arthritis: recent ORIF now admitted w/ infected hardware, status post washout 2, cultures grew MSSA, continue Ancef, now with wound vac, orthopedic surgery & ID following. PICC line placed, will require 4-6 weeks of antibiotics. 2. Factor V Leiden deficiency: History of DVT/PE, on Eliquis in the outpatient setting, continue heparin gtt for now in case more surgical intervention is needed. 3. Diabetes mellitus: Sliding scale insulin coverage with meals and at bedtime. 4. Hypertension: Continue lisinopril and metoprolol 5. Hyperlipidemia: Continue atorvastatin DVT prophylaxis: on heparin gtt GI prophylaxis: PPI VS, I&O, 24H, Fishbone Vital Signs/I&O Vital Signs Date Time Temp Pulse Resp B/P (MAP) Pulse Ox O2 Delivery O2 Flow Rate FiO2 05/20/19 18:30 98.3 79 18 103/48 (66) 98 Room Air 05/20/19 14:45 0.0 I&O- Last 24 Hours up to 6 AM 05/20/19 06:00 Intake Total 1809 ml Output Total 125 ml Balance 1684 ml Laboratory Data 24H LABS Laboratory Tests 2 05/19/19 22:01: Bedside Glucose (Misc Panel) 198H 05/20/19 01:30: Activated Partial Thromboplast Time 64.8H 05/20/19 08:04: Bedside Glucose (Misc Panel) 183H 05/20/19 08:20: Immature Granulocyte % (Auto) 3.6H, Neutrophils (%) (Auto) 89.6H, Lymphocytes (%) (Auto) 3.8L, Monocytes (%) (Auto) 2.7, Eosinophils (%) (Auto) 0.0, Basophils (%) (Auto) 0.3, Neutrophils # (Auto) 20.6H, Lymphocytes # (Auto) 0.9L, Monocytes # (Auto) 0.6, Eosinophils # (Auto) 0.0, Basophils # (Auto) 0.1, Nucleated Red Blood Cells % (auto) 0.0, Anion Gap 7L, Glomerular Filtration Rate > 60.0, Calcium Level 9.7, Phosphorus Level 3.1, Magnesium Level 2.1 05/20/19 11:23: Nucleated Red Blood Cells % (auto) 0.0, Activated Partial Thromboplast Time 28.7 05/20/19 11:32: Bedside Glucose (Misc Panel) 147H 05/20/19 16:25: Bedside Glucose (Misc Panel) 249H CBC/BMP Laboratory Tests 05/20/19 08:20 05/20/19 11:23 Microbiology Microbiology 05/20/19 Stool Occult Blood (MACI) - Final, Complete 05/17/19 Gram Stain - Final, Complete 05/17/19 Wound Culture - Final, Complete Staphylococcus Aureus 05/17/19 Anaerobic Culture - Final, Complete 05/17/19 Gram Stain - Final, Complete 05/17/19 Wound Culture - Final, Complete Staphylococcus Aureus 05/17/19 Anaerobic Culture - Final, Complete 05/17/19 Blood Culture - Preliminary, Resulted No Growth after 72 hours. All specime... 05/17/19 Blood Culture - Preliminary, Resulted No Growth after 72 hours. All specime... 05/17/19 Gram Stain - Final, Complete 05/17/19 Wound Culture - Final, Complete Staphylococcus Aureus ZANA LINDSEY MD May 20, 2019 20:52
[2019-05-20] MEDS: lisinopriL 10 MG TAB PO SCH (21:15)
[2019-05-20] MEDS: ATORVASTATIN 20 MG TAB PO SCH (21:16)
[2019-05-20 22:00] VITALS: BP 103/51
[2019-05-20] MEDS: HEPARIN SOD (PORCINE) 5000 UNITS/ML VIAL (J1644 PER 1000UNITS) IV PRN (22:01)
[2019-05-21] VITALS (8 sets, daily range): BP systolic 95–123; BP diastolic 50–63
[2019-05-21 04:00] LABS: BASO % 0.3 % (0.0-1.0); EOS # 0.1 10^3/uL (0.0-0.5); EOS % 0.4 % (0.0-3.0); HEMATOCRIT 27.5 % (36.0-47.0); HEMOGLOBIN 8.8 g/dl (12.0-15.5); LYMPH # 2.2 10^3/uL (1.5-5.0); LYMPH % 14.6 % (24.0-44.0); MEAN CORPUSCULAR VOLUME 90.8 fl (80.0-96.0); MONO # 1.2 10^3/uL (0.0-0.8); NEUTROPHILS # 10.7 10^3/uL (1.5-8.5); NEUTROPHILS % 72.4 % (36.0-66.0); PLATELET COUNT, AUTOMATED 514 10^3/uL (150-450); RED BLOOD COUNT 3.03 10^6/uL (4.00-5.40); WHITE BLOOD COUNT 14.8 10^3/uL (4.0-10.0)
[2019-05-21 04:52] LABS: BLOOD UREA NITROGEN 19 MG/DL (7-18); CALCIUM LEVEL 8.7 MG/DL (8.5-10.1); CARBON DIOXIDE LEVEL 27 MEQ/L (21-32); CHLORIDE LEVEL 107 MEQ/L (98-107); CREATININE FOR GFR 0.66 MG/DL (0.55-1.30); GLOMERULAR FILTRATION RATE > 60.0 (>51); GLUCOSE, FASTING 145 MG/DL (70-100); POTASSIUM SERUM 4.2 MEQ/L (3.5-5.1); SODIUM LEVEL 140 MEQ/L (136-145)
[2019-05-21] MEDS: ceFAZolin SOD 2 GM in IV 1 EA IV SCH ×3 (05:02→21:31)
[2019-05-21] MEDS: SODIUM CHLORIDE 0.9% INJ 10 ML SYR IV SCH ×2 (06:02→17:23)
[2019-05-21] MEDS: HEPARIN DRIP 25,000 UNITS in IV 1 EA IV SCH ×2 (06:49→21:51)
[2019-05-21] MEDS: HumaLOG INSULIN (NovoLOG) PER UNIT SC SCH ×7 (07:30→21:00)
[2019-05-21] MEDS: SENOKOT S TAB PO SCH ×2 (08:43→21:30)
[2019-05-21] MEDS: CitaloPRAM (CeleXA) 20 MG TAB PO SCH (08:43)
[2019-05-21] MEDS: MULTIVITAMINS/MINERALS THERAP 1 TAB PO SCH (08:43)
[2019-05-21] MEDS: PANTOPRAZOLE 40MG TAB (PROTONIX) PO SCH (08:43)
[2019-05-21] MEDS: FOLIC ACID 1 MG TAB PO SCH (08:43)
[2019-05-21] MEDS: METOPROLOL TART 50 MG TAB PO SCH ×2 (08:44→21:30)
[2019-05-21] MEDS: ACETAMINOPHEN TAB 650MG DOSE (2X325MG) PO PRN (09:59)
[2019-05-21] MEDS: CLOBETASOL PROP 0.05% OINT 30 GM TOP SCH ×2 (09:59→21:00)
[2019-05-21] MEDS: HEPARIN SOD (PORCINE) 5000 UNITS/ML VIAL (J1644 PER 1000UNITS) IV PRN (11:57)
--- NOTE | 2019-05-21 21:22 | IPNPDOC ---
Date Seen The patient was seen on 05/21/19. Progress Note SUBJECTIVE: 58-year-old female with past medical history of factor V Leiden deficiency, (on Eliquis), DVT/PE, diabetes, hypertension and hyperlipidemia was admitted for postop hardware infection. Patient had a left hip fracture and underwent ORIF and presented with wound dehiscence and pustular discharge. Patient underwent washout yesterday, seen in the morning, without any complaints at this time. Patient has a wound VAC in place, denies any shortness of breath, chest pain, nausea, vomiting, abdominal pain or diarrhea. 05/19/19 Patient seen in the morning, without complaints, scheduled for repeat washout later today, heparin drip being held, cultures grew MSSA. 05/20/19 Resting comfortably in bed, no acute events overnight, no complaints at this time, hesitant to work w/ PT & getting out of bed. 05/21/19 Comfortable in bed, no acute events overnight, no complaints, scheduled for fu rther surgery tomorrow. 10 point review of system is negative except for above PHYSICAL EXAMINATION: VITAL SIGNS: Please see below. GENERAL: Morbidly obese HEENT: Normocephalic, atraumatic, moist mucous membranes NECK: Supple CARDIOVASCULAR EXAMINATION: S1, S2, no murmurs RESPIRATORY EXAMINATION: Limited anteriorly, diminished ABDOMINAL EXAMINATION: Soft, nontender, nondistended, positive bowel sounds EXTREMITIES: Left lower extremity range of motion limited due to pain, wound VAC in place, pitting edema SKIN: Right heel with pressure ulcer NEUROLOGICAL EXAMINATION: Alert and oriented 3, no focal deficits PSYCHIATRIC EXAMINATION: Calm and cooperative LABORATORY DATA, IMAGING STUDIES, MICROBIOLOGY: Please see below. ASSESSMENT AND PLAN: 58-year-old female with past medical history of factor V Leiden deficiency, DVT/PE, hypertension, diabetes and hyperlipidemia who underwent recent ORIF presented with postop hardware infection. PROBLEMS: 1. Septic arthritis: recent ORIF now admitted w/ infected hardware, status post washout 2, cultures grew MSSA, continue Ancef, wound vac, further surgical intervention as per orthopedic surgery, ID following. PICC line placed, will require 4-6 weeks of antibiotics. 2. Factor V Leiden deficiency: History of DVT/PE, on Eliquis in the outpatient setting, continue heparin gtt for now as long as surgical intervention is needed. 3. Diabetes mellitus: Sliding scale insulin coverage with meals and at bedtime. 4. Hypertension: Continue lisinopril and metoprolol w/ hold parameters 5. Hyperlipidemia: Continue atorvastatin DVT prophylaxis: on heparin gtt GI prophylaxis: PPI VS, I&O, 24H, Fishbone Vital Signs/I&O Vital Signs Date Time Temp Pulse Resp B/P (MAP) Pulse Ox O2 Delivery O2 Flow Rate FiO2 05/21/19 18:00 97.9 97 17 120/53 (75) 97 05/21/19 14:01 Room Air 05/20/19 14:45 0.0 I&O- Last 24 Hours up to 6 AM 05/21/19 06:00 Intake Total 1894 ml Balance 1894 ml Laboratory Data 24H LABS Laboratory Tests 2 05/21/19 03:51: Immature Granulocyte % (Auto) 4.3H, Neutrophils (%) (Auto) 72.4H, Lymphocytes (%) (Auto) 14.6L, Monocytes (%) (Auto) 8.0H, Eosinophils (%) (Auto) 0.4, Basophils (%) (Auto) 0.3, Neutrophils # (Auto) 10.7H, Lymphocytes # (Auto) 2.2, Monocytes # (Auto) 1.2H, Eosinophils # (Auto) 0.1, Basophils # (Auto) 0.0, Nucleated Red Blood Cells % (auto) 0.0, Activated Partial Thromboplast Time 100.5H, Anion Gap 6L, Glomerular Filtration Rate > 60.0, Calcium Level 8.7 05/21/19 05:59: Bedside Glucose (Misc Panel) 127H 05/21/19 10:18: Activated Partial Thromboplast Time 51.2H 05/21/19 12:29: Bedside Glucose (Misc Panel) 115H 05/21/19 16:46: Bedside Glucose (Misc Panel) 127H 05/21/19 17:54: Activated Partial Thromboplast Time 96.4H CBC/BMP Laboratory Tests 05/21/19 03:51 Microbiology Microbiology 05/20/19 Stool Occult Blood (MACI) - Final, Complete 05/17/19 Gram Stain - Final, Complete 05/17/19 Wound Culture - Final, Complete Staphylococcus Aureus 05/17/19 Anaerobic Culture - Final, Complete 05/17/19 Gram Stain - Final, Complete 05/17/19 Wound Culture - Final, Complete Staphylococcus Aureus 05/17/19 Anaerobic Culture - Final, Complete 05/17/19 Blood Culture - Preliminary, Resulted No Growth after 72 hours. All specime... 05/17/19 Blood Culture - Preliminary, Resulted No Growth after 72 hours. All specime... 05/17/19 Gram Stain - Final, Complete 05/17/19 Wound Culture - Final, Complete Staphylococcus Aureus ZANA LINDSEY MD May 21, 2019 21:22
[2019-05-21] MEDS: lisinopriL 10 MG TAB PO SCH (21:30)
[2019-05-21] MEDS: ATORVASTATIN 20 MG TAB PO SCH (21:31)
[2019-05-21] MEDS: traMADol 50 MG TAB PO PRN (21:31)
[2019-05-22] MEDS ORDERED: ONDANSETRON 4 MG ORAL DISINTEGRATING TAB (Q0162 PER 1MG) PO ONE
[2019-05-22 02:00] VITALS: BP 121/66
[2019-05-22] MEDS: ceFAZolin SOD 2 GM in IV 1 EA IV SCH ×3 (05:02→20:09)
[2019-05-22] MEDS: SODIUM CHLORIDE 0.9% INJ 10 ML SYR IV SCH ×2 (05:53→20:00)
[2019-05-22 06:00] VITALS: BP 130/67
[2019-05-22 06:47] LABS: BASO # 0.1 10^3/uL (0.0-0.2); BASO % 0.5 % (0.0-1.0); EOS # 0.1 10^3/uL (0.0-0.5); EOS % 0.8 % (0.0-3.0); HEMATOCRIT 27.5 % (36.0-47.0); HEMOGLOBIN 8.7 g/dl (12.0-15.5); LYMPH # 1.8 10^3/uL (1.5-5.0); LYMPH % 13.3 % (24.0-44.0); MEAN CORPUSCULAR HGB CONC 31.6 g/dl (32.0-36.5); MEAN CORPUSCULAR VOLUME 91.7 fl (80.0-96.0); MONO # 0.9 10^3/uL (0.0-0.8); MONO % 6.5 % (0.0-5.0); NEUTROPHILS # 9.9 10^3/uL (1.5-8.5); NEUTROPHILS % 74.4 % (36.0-66.0); PLATELET COUNT, AUTOMATED 499 10^3/uL (150-450); WHITE BLOOD COUNT 13.3 10^3/uL (4.0-10.0)
[2019-05-22 07:12] LABS: BLOOD UREA NITROGEN 12 MG/DL (7-18); CALCIUM LEVEL 9.5 MG/DL (8.5-10.1); CARBON DIOXIDE LEVEL 26 MEQ/L (21-32); CHLORIDE LEVEL 105 MEQ/L (98-107); CREATININE FOR GFR 0.65 MG/DL (0.55-1.30); GLOMERULAR FILTRATION RATE > 60.0 (>51); GLUCOSE, FASTING 136 MG/DL (70-100); POTASSIUM SERUM 4.1 MEQ/L (3.5-5.1); SODIUM LEVEL 136 MEQ/L (136-145)
[2019-05-22] MEDS: FOLIC ACID 1 MG TAB PO SCH (08:46)
[2019-05-22] MEDS: CitaloPRAM (CeleXA) 20 MG TAB PO SCH (08:46)
[2019-05-22] MEDS: PANTOPRAZOLE 40MG TAB (PROTONIX) PO SCH (08:46)
[2019-05-22] MEDS: MULTIVITAMINS/MINERALS THERAP 1 TAB PO SCH (08:46)
[2019-05-22] MEDS: SENOKOT S TAB PO SCH ×2 (08:46→20:09)
[2019-05-22] MEDS: METOPROLOL TART 50 MG TAB PO SCH ×2 (08:46→20:09)
[2019-05-22] MEDS: HumaLOG INSULIN (NovoLOG) PER UNIT SC SCH ×4 (08:46→20:11)
[2019-05-22] MEDS: NYSTATIN 100,000 UNITS/GM TOPICAL PWD 15 GM TOP SCH ×3 (08:47→20:12)
[2019-05-22] MEDS: CLOBETASOL PROP 0.05% OINT 30 GM TOP SCH ×2 (08:47→20:12)
[2019-05-22] MEDS ORDERED: fentaNYL 100 MCG/2 ML INJECTION (J3010) As Ordered ONE ×3 (14:31→16:54)
[2019-05-22] MEDS ORDERED: MIDAZOLAM INJ 2 MG/2 ML VIAL (J2250) As Ordered ONE (14:31)
[2019-05-22] MEDS ORDERED: propofoL 200 MG/20 ML VIAL As Ordered ONE ×2 (14:31→16:07)
[2019-05-22] MEDS ORDERED: dexameTHASONE 4 MG/ML 1ML VIAL (J1100) As Ordered ONE (14:32)
[2019-05-22] MEDS ORDERED: LIDOCAINE 2% INJ 100 MG/5 ML SDV (FOR ANES.) As Ordered ONE (14:32)
[2019-05-22] MEDS ORDERED: ONDANSETRON 4MG/2ML VIAL (J2405) As Ordered ONE (14:32)
[2019-05-22] MEDS ORDERED: KETAMINE HCL 200 MG/20 ML VIAL As Ordered ONE ×2 (15:31→16:45)
[2019-05-22] MEDS ORDERED: PHENYLephrine HCL 500 MCG/5 ML (100MCG/ML) SYRINGE (J2370) As Ordered ONE (16:10)
[2019-05-22] MEDS: fentaNYL 100 MCG/2 ML INJECTION (J3010) IV PRN ×4 (16:57→17:13)
[2019-05-22] MEDS ORDERED: LR 1,000 ML IV SCH (17:30)
[2019-05-22] MEDS ORDERED: ONDANSETRON 4MG/2ML VIAL (J2405) IV PRN (17:30)
--- NOTE | 2019-05-22 17:48 | RO ---
DATE OF PROCEDURE: 05/22/2019 PREPROCEDURE DIAGNOSIS: Left distal femur postoperative infection, status post multiple debridements. POSTPROCEDURE DIAGNOSIS: Left distal femur postoperative infection, status post multiple debridements. PROCEDURE: SURGEON: Ervin Reid MD DIRECTOR MEDICAL WRITING: None. ANESTHESIA: Sedation. ESTIMATED BLOOD LOSS: 50 mL. COMPLICATIONS: None. SPECIMENS: None. INDICATIONS: This is a 58-year-old female who suffered a distal femur fracture approximately 2 months ago. After approximately 2 months, had a distal wound dehiscence and subsequent purulent drainage. Cultures came back methicillin-sensitive Staphylococcus aureus (MSSA). Unfortunately, at this point, the fracture is not healed; therefore, we are attempting antibiotic suppression but first we need to do local control. At this point, she has already been washed out and back twice, so today's endeavor is to return to the operating room (OR) for an irrigation and debridement to obtain local control. We discussed the risks and benefits, including, but not limited, to infection, damage to surrounding structures, incomplete relief, need for further surgery, and nonunion, malunion, patient agreed. PREOPERATIVE ANTIBIOTICS: The patient is currently on cefazolin for her MSSA bacteria. DESCRIPTION OF PROCEDURE: The patient was brought back to the OR in the supine position and under monitored sedation, the left leg was prepped and draped in the usual fashion. We then removed the wound VAC, at which point we took a Dixon curette and elevator and rongeur to debride the surrounding tissue. Overall the subcutaneous tissue and fascia appear to be healthy and bleeding. There were no signs of necrotic muscle. We used the Dixon to go the entire extent of the plate. We removed some film along the femur and the plate as well. The cerclage wires at this point appeared to be somewhat loose, so at this point we decided to remove this portion of the hardware, which allowed better access to both sides of the plate and the bone to debride it. We irrigated it with 9 liters of saline. Once this was done, we packed one large sponge deep and one long sponge superficially with a measurement of about 20 cm in length x 10 cm anterior to posterior and about 5 cm deep. We placed a wound VAC at 125 mmHg. The patient was awakened and taken to the post-anesthesia care unit (PACU) in stable condition. POSTOPERATIVE PLAN: The patient will be getting antibiotic suppression with a plan to return to the OR next Sunday for repeat debridement and hopeful starting of wound closure, pain control, and patient's heparin drip will be restarted.
[2019-05-22 19:53] VITALS: BP 136/65
--- NOTE | 2019-05-22 20:05 | IPN ---
DATE OF SERVICE: 05/22/2019 The patient's pain under control in bed with a functioning wound vacuum-assisted closure (VAC). Does complain of some right heel pain where she has the heel ulcer. The patient's vital signs most recently are afebrile 98.8, pulse 84, blood pressure 130/67, on room air 97 pulse oximetry. PHYSICAL EXAMINATION: The patient is awake, alert and oriented, well-dressed, appropriate affect. Breathing unlabored on room air. Normocephalic, atraumatic. Left lower extremity: Wound VAC is in place and functioning well with some serosanguineous drainage from the wound. Neurovascularly intact distally. Right lower extremity: Neurovascularly intact. However, a large area of eschar on the back of the right heel. RECENT LABORATORY WORK: Most recently today is at 6:30 a.m. 13.3 white count down from 22.8 two days prior. Cultures are positive for methicillin-susceptible Staphylococcus aureus (MSSA). ASSESSMENT: This is a 58-year-old female with a postoperative infection after undergoing an open reduction, internal fixation of the left femur. At this point, the patient may remain weightbearing as tolerated left lower extremity. Will keep the wound VAC in place for 125 mg of mercury for suction. Change the canisters as needed but do not change the sponge. This will be done in the operating room (OR). She is currently nothing by mouth for planned incision and drainage (I and D) and wound VAC change today. If the tissues look nice and healthy today, then will take her back early next week on Sunday for a repeat I and D and wound VAC change with planned closure, then placement of an incisional wound VAC. I appreciate the infectious disease (ID) evaluating the patient. Thank you, Dr. Howell, who has recommended 2 grams of cefazolin every 8 hours. Peripherally inserted central catheter (PICC) line is in place. Our plan will be for antibiotic suppression of the distal femur fracture until we can get fracture union or at least improved fracture healing prior to any removal of any hardware at this point. Also appreciate the hospitalist's admission and medical management. The heparin drip has been held today and will be restarted postoperatively. With regard to her right heel ulcer, I will place a consult out to wound care.
[2019-05-22] MEDS: ATORVASTATIN 20 MG TAB PO SCH (20:09)
[2019-05-22] MEDS: traMADol 50 MG TAB PO PRN (20:10)
[2019-05-22] MEDS: lisinopriL 10 MG TAB PO SCH (20:10)
--- NOTE | 2019-05-22 20:10 | IPNPDOC ---
Date Seen The patient was seen on 05/22/19. Progress Note SUBJECTIVE: 58-year-old female with past medical history of factor V Leiden deficiency, (on Eliquis), DVT/PE, diabetes, hypertension and hyperlipidemia was admitted for postop hardware infection. Patient had a left hip fracture and underwent ORIF and presented with wound dehiscence and pustular discharge. Patient underwent washout yesterday, seen in the morning, without any complaints at this time. Patient has a wound VAC in place, denies any shortness of breath, chest pain, nausea, vomiting, abdominal pain or diarrhea. 05/19/19 Patient seen in the morning, without complaints, scheduled for repeat washout later today, heparin drip being held, cultures grew MSSA. 05/20/19 Resting comfortably in bed, no acute events overnight, no complaints at this time, hesitant to work w/ PT & getting out of bed. 05/21/19 Comfortable in bed, no acute events overnight, no complaints, scheduled for fu rther surgery tomorrow. 05/22/19 Resting in bed, no complaints at this time, no acute events overnight, scheduled for OR later today. 10 point review of system is negative except for above PHYSICAL EXAMINATION: VITAL SIGNS: Please see below. GENERAL: Morbidly obese HEENT: Normocephalic, atraumatic, moist mucous membranes NECK: Supple CARDIOVASCULAR EXAMINATION: S1, S2, no murmurs RESPIRATORY EXAMINATION: Limited anteriorly, diminished ABDOMINAL EXAMINATION: Soft, nontender, nondistended, positive bowel sounds EXTREMITIES: Left lower extremity range of motion limited due to pain, wound VAC in place, pitting edema SKIN: Right heel with pressure ulcer NEUROLOGICAL EXAMINATION: Alert and oriented 3, no focal deficits PSYCHIATRIC EXAMINATION: Calm and cooperative LABORATORY DATA, IMAGING STUDIES, MICROBIOLOGY: Please see below. ASSESSMENT AND PLAN: 58-year-old female with past medical history of factor V Leiden deficiency, DVT/PE, hypertension, diabetes and hyperlipidemia who underw ent recent ORIF presented with postop hardware infection. PROBLEMS: 1. Septic arthritis: recent ORIF now admitted w/ infected hardware, status post washout 2, cultures grew MSSA, continue Ancef, wound vac, scheduled for OR today, ID following. PICC line placed, will require 4-6 weeks of antibiotics. 2. Factor V Leiden deficiency: History of DVT/PE, on Eliquis in the outpatient setting, heparin gtt held last night for procedure, will start after procedure. 3. Diabetes mellitus: Sliding scale insulin coverage with meals and at bedtime. 4. Hypertension: Continue lisinopril and metoprolol w/ hold parameters 5. Hyperlipidemia: Continue atorvastatin DVT prophylaxis: anti-coagulated GI prophylaxis: PPI VS, I&O, 24H, Fishbone Vital Signs/I&O Vital Signs Date Time Temp Pulse Resp B/P (MAP) Pulse Ox O2 Delivery O2 Flow Rate FiO2 05/22/19 17:30 77 18 167/58 (94) 96 Room Air 05/22/19 17:15 96.8 05/22/19 16:33 10 I&O- Last 24 Hours up to 6 AM 05/22/19 06:00 Intake Total 2638 ml Output Total 450 ml Balance 2188 ml Laboratory Data 24H LABS Laboratory Tests 2 05/21/19 21:12: Bedside Glucose (Misc Panel) 139H 05/22/19 01:06: Activated Partial Thromboplast Time 71.2H 05/22/19 06:26: Activated Partial Thromboplast Time 90.3H, Immature Granulocyte % (Auto) 4.5H, Neutrophils (%) (Auto) 74.4H, Lymphocytes (%) (Auto) 13.3L, Monocytes (%) (Auto) 6.5H, Eosinophils (%) (Auto) 0.8, Basophils (%) (Auto) 0.5, Neutrophils # (Auto) 9.9H, Lymphocytes # (Auto) 1.8, Monocytes # (Auto) 0.9H, Eosinophils # (Auto) 0.1, Basophils # (Auto) 0.1, Nucleated Red Blood Cells % (auto) 0.0, Anion Gap 5L, Glomerular Filtration Rate > 60.0, Calcium Level 9.5 05/22/19 12:01: Bedside Glucose (Misc Panel) 114H 05/22/19 12:14: Activated Partial Thromboplast Time > 240.0*H 05/22/19 17:00: Bedside Glucose (Misc Panel) 135H 05/22/19 18:32: Activated Partial Thromboplast Time 26.7 CBC/BMP Laboratory Tests 05/22/19 06:26 Microbiology Microbiology 05/22/19 Stool Occult Blood (MACI) - Final, Complete 05/20/19 Stool Occult Blood (MACI) - Final, Complete 05/17/19 Gram Stain - Final, Complete 05/17/19 Wound Culture - Final, Complete Staphylococcus Aureus 05/17/19 Anaerobic Culture - Final, Complete 05/17/19 Gram Stain - Final, Complete 05/17/19 Wound Culture - Final, Complete Staphylococcus Aureus 05/17/19 Anaerobic Culture - Final, Complete 05/17/19 Blood Culture - Final, Complete NO GROWTH AFTER 5 DAYS 05/17/19 Blood Culture - Final, Complete NO GROWTH AFTER 5 DAYS 05/17/19 Gram Stain - Final, Complete 05/17/19 Wound Culture - Final, Complete Staphylococcus Aureus ZANA LINDSEY MD May 22, 2019 20:10
[2019-05-22 21:17] VITALS: BP 135/70
[2019-05-22 22:08] VITALS: BP 130/66
[2019-05-22 23:00] VITALS: BP 127/65
[2019-05-23] MEDS: HEPARIN DRIP 25,000 UNITS in IV 1 EA IV SCH ×3 (00:44→14:35)
[2019-05-23] MEDS: traMADol 50 MG TAB PO PRN ×3 (00:48→21:22)
[2019-05-23 02:00] VITALS: BP 125/63
[2019-05-23] MEDS: ceFAZolin SOD 2 GM in IV 1 EA IV SCH ×3 (05:04→21:12)
[2019-05-23 06:00] VITALS: BP 119/58
[2019-05-23] MEDS: SODIUM CHLORIDE 0.9% INJ 10 ML SYR IV SCH ×2 (06:27→18:15)
--- NOTE | 2019-05-23 08:31 | IPNPDOC ---
Date Seen The patient was seen on 05/23/19. Progress Note SUBJECTIVE: 58-year-old female with past medical history of factor V Leiden deficiency, (on Eliquis), DVT/PE, diabetes, hypertension and hyperlipidemia was admitted for postop hardware infection. Patient had a left hip fracture and underwent ORIF and presented with wound dehiscence and pustular discharge. Patient underwent washout yesterday, seen in the morning, without any complaints at this time. Patient has a wound VAC in place, denies any shortness of breath, chest pain, nausea, vomiting, abdominal pain or diarrhea. 05/19/19 Patient seen in the morning, without complaints, scheduled for repeat washout later today, heparin drip being held, cultures grew MSSA. 05/20/19 Resting comfortably in bed, no acute events overnight, no complaints at this time, hesitant to work w/ PT & getting out of bed. 05/21/19 Comfortable in bed, no acute events overnight, no complaints, scheduled for further surgery tomorrow. 05/22/19 Resting in bed, no complaints at this time, no acute events overnight, scheduled for OR later today. 05/23/19 Patient seen in the morning, resting comfortably in bed, no acute events overnight, underwent surgical debridement yesterday, reports mild to moderate left leg pain, no other complaints, heparin drip has been restarted. 10 point review of system is negative except for above PHYSICAL EXAMINATION: VITAL SIGNS: Please see below. GENERAL: Morbidly obese HEENT: Normocephalic, atraumatic, moist mucous membranes NECK: Supple CARDIOVASCULAR EXAMINATION: S1, S2, no murmurs RESPIRATORY EXAMINATION: Limited anteriorly, clear to auscultation ABDOMINAL EXAMINATION: Soft, nontender, nondistended, positive bowel sounds EXTREMITIES: Left lower extremity range of motion limited due to pain, wound VAC in place, mild pitting edema SKIN: Right heel with pressure ulcer NEUROLOGICAL EXAMINATION: Alert and oriented 3, no focal deficits PSYCHIATRIC EXAMINATION: Calm and cooperative LABORATORY DATA, IMAGING STUDIES, MICROBIOLOGY: Please see below. ASSESSMENT AND PLAN: 58-year-old female with past medical history of factor V Leiden deficiency, DVT/PE, hypertension, diabetes and hyperlipidemia who underwent recent ORIF presented with postop hardware infection. PROBLEMS: 1. Septic arthritis: recent ORIF now admitted w/ infected hardware, status post washout/debridement 3, cultures grew MSSA, continue Ancef, wound vac, next debridement tentatively scheduled for Sunday, ID following. PICC line placed, will require 4-6 weeks of antibiotics. 2. Factor V Leiden deficiency: History of DVT/PE, on Eliquis in the outpatient setting, continue heparin GTT. 3. Diabetes mellitus: Sliding scale insulin coverage with meals and at bedtime. 4. Hypertension: Continue lisinopril and metoprolol w/ hold parameters 5. Hyperlipidemia: Continue atorvastatin DVT prophylaxis: On heparin GTT GI prophylaxis: PPI VS, I&O, 24H, Fishbone Vital Signs/I&O Vital Signs Date Time Temp Pulse Resp B/P (MAP) Pulse Ox O2 Delivery O2 Flow Rate FiO2 05/23/19 06:00 97.9 73 18 119/58 (78) 96 Room Air 05/22/19 16:33 10 I&O- Last 24 Hours up to 6 AM 05/23/19 06:00 Intake Total 1010 ml Output Total 975 ml Balance 35 ml Laboratory Data 24H LABS Laboratory Tests 2 05/22/19 12:01: Bedside Glucose (Misc Panel) 114H 05/22/19 12:14: Activated Partial Thromboplast Time > 240.0*H 05/22/19 17:00: Bedside Glucose (Misc Panel) 135H 05/22/19 18:32: Activated Partial Thromboplast Time 26.7 05/22/19 20:07: Bedside Glucose (Misc Panel) 223H 05/23/19 01:41: Activated Partial Thromboplast Time 82.9H Microbiology Microbiology 05/22/19 Stool Occult Blood (MACI) - Final, Complete 05/20/19 Stool Occult Blood (MACI) - Final, Complete 05/17/19 Gram Stain - Final, Complete 05/17/19 Wound Culture - Final, Complete Staphylococcus Aureus 05/17/19 Anaerobic Culture - Final, Complete 05/17/19 Gram Stain - Final, Complete 05/17/19 Wound Culture - Final, Complete Staphylococcus Aureus 05/17/19 Anaerobic Culture - Final, Complete 05/17/19 Blood Culture - Final, Complete NO GROWTH AFTER 5 DAYS 05/17/19 Blood Culture - Final, Complete NO GROWTH AFTER 5 DAYS 05/17/19 Gram Stain - Final, Complete 05/17/19 Wound Culture - Final, Complete Staphylococcus Aureus ZANA LINDSEY MD May 23, 2019 08:31
[2019-05-23 08:44] LABS: BASO # 0.1 10^3/uL (0.0-0.2); BASO % 0.2 % (0.0-1.0); EOS % 0.1 % (0.0-3.0); HEMATOCRIT 24.1 % (36.0-47.0); HEMOGLOBIN 7.8 g/dl (12.0-15.5); LYMPH # 1.8 10^3/uL (1.5-5.0); LYMPH % 7.9 % (24.0-44.0); MEAN CORPUSCULAR HEMOGLOBIN 29.4 pg (27.0-33.0); MEAN CORPUSCULAR HGB CONC 32.4 g/dl (32.0-36.5); MEAN CORPUSCULAR VOLUME 90.9 fl (80.0-96.0); MONO # 1.1 10^3/uL (0.0-0.8); MONO % 4.7 % (0.0-5.0); NEUTROPHILS # 19.4 10^3/uL (1.5-8.5); NEUTROPHILS % 84.4 % (36.0-66.0); PLATELET COUNT, AUTOMATED 521 10^3/uL (150-450); RED BLOOD COUNT 2.65 10^6/uL (4.00-5.40)
[2019-05-23 09:02] LABS: BLOOD UREA NITROGEN 12 MG/DL (7-18); CALCIUM LEVEL 8.6 MG/DL (8.5-10.1); CARBON DIOXIDE LEVEL 24 MEQ/L (21-32); CHLORIDE LEVEL 104 MEQ/L (98-107); CREATININE FOR GFR 0.67 MG/DL (0.55-1.30); GLOMERULAR FILTRATION RATE > 60.0 (>51); GLUCOSE, FASTING 239 MG/DL (70-100); POTASSIUM SERUM 3.9 MEQ/L (3.5-5.1); SODIUM LEVEL 135 MEQ/L (136-145)
[2019-05-23] MEDS: METOPROLOL TART 50 MG TAB PO SCH ×2 (09:31→21:36)
[2019-05-23] MEDS: PANTOPRAZOLE 40MG TAB (PROTONIX) PO SCH (09:31)
[2019-05-23] MEDS: CitaloPRAM (CeleXA) 20 MG TAB PO SCH (09:31)
[2019-05-23] MEDS: HumaLOG INSULIN (NovoLOG) PER UNIT SC SCH ×4 (09:31→20:44)
[2019-05-23] MEDS: MULTIVITAMINS/MINERALS THERAP 1 TAB PO SCH (09:31)
[2019-05-23] MEDS: FOLIC ACID 1 MG TAB PO SCH (09:32)
[2019-05-23] MEDS: SENOKOT S TAB PO SCH ×2 (09:32→21:20)
[2019-05-23] MEDS: NYSTATIN 100,000 UNITS/GM TOPICAL PWD 15 GM TOP SCH ×2 (09:32→21:12)
[2019-05-23] MEDS: CLOBETASOL PROP 0.05% OINT 30 GM TOP SCH ×2 (09:33→21:00)
[2019-05-23 14:00] VITALS: BP 120/58
[2019-05-23 15:53] LABS: HEMATOCRIT 24.5 % (36.0-47.0); HEMOGLOBIN 7.8 g/dl (12.0-15.5); MEAN CORPUSCULAR HGB CONC 31.8 g/dl (32.0-36.5); MEAN CORPUSCULAR VOLUME 91.1 fl (80.0-96.0); PLATELET COUNT, AUTOMATED 540 10^3/uL (150-450); RED BLOOD COUNT 2.69 10^6/uL (4.00-5.40); WHITE BLOOD COUNT 26.3 10^3/uL (4.0-10.0)
[2019-05-23 16:15] LABS: HEMOGLOBIN A1c 6.3 %
[2019-05-23] MEDS: ATORVASTATIN 20 MG TAB PO SCH (21:19)
[2019-05-23 21:28] VITALS: BP 104/56
[2019-05-23] MEDS: lisinopriL 10 MG TAB PO SCH (21:36)
[2019-05-23 22:00] VITALS: BP 118/58
[2019-05-23] MEDS: SODIUM CHLORIDE 0.9% INJ 10 ML SYR IV PRN (22:37)
[2019-05-24 02:00] VITALS: BP 109/53
[2019-05-24] MEDS: ceFAZolin SOD 2 GM in IV 1 EA IV SCH ×3 (04:29→20:58)
[2019-05-24] MEDS: HEPARIN DRIP 25,000 UNITS in IV 1 EA IV SCH ×3 (05:15→23:26)
[2019-05-24] MEDS: SODIUM CHLORIDE 0.9% INJ 10 ML SYR IV SCH ×2 (05:16→17:36)
[2019-05-24 06:00] VITALS: BP 114/53
[2019-05-24 06:42] LABS: BASO # 0.1 10^3/uL (0.0-0.2); BASO % 0.4 % (0.0-1.0); EOS # 0.1 10^3/uL (0.0-0.5); EOS % 0.6 % (0.0-3.0); HEMOGLOBIN 7.5 g/dl (12.0-15.5); LYMPH # 1.9 10^3/uL (1.5-5.0); MEAN CORPUSCULAR HEMOGLOBIN 29.2 pg (27.0-33.0); MEAN CORPUSCULAR HGB CONC 31.3 g/dl (32.0-36.5); MEAN CORPUSCULAR VOLUME 93.4 fl (80.0-96.0); MONO # 1.1 10^3/uL (0.0-0.8); MONO % 6.4 % (0.0-5.0); NEUTROPHILS # 13.7 10^3/uL (1.5-8.5); NEUTROPHILS % 79.4 % (36.0-66.0); PLATELET COUNT, AUTOMATED 499 10^3/uL (150-450); RED BLOOD COUNT 2.57 10^6/uL (4.00-5.40); WHITE BLOOD COUNT 17.2 10^3/uL (4.0-10.0)
[2019-05-24 07:00] LABS: INR 1.45; PROTHROMBIN TIME 17.3 SECONDS (11.8-14.0)
[2019-05-24 07:02] LABS: PARTIAL THROMBOPLASTIN TIME 119.8 SECONDS (25.0-38.4)
[2019-05-24 07:26] LABS: BLOOD UREA NITROGEN 13 MG/DL (7-18); CALCIUM LEVEL 8.9 MG/DL (8.5-10.1); CARBON DIOXIDE LEVEL 27 MEQ/L (21-32); CHLORIDE LEVEL 107 MEQ/L (98-107); CREATININE FOR GFR 0.69 MG/DL (0.55-1.30); GLOMERULAR FILTRATION RATE > 60.0 (>51); GLUCOSE, FASTING 158 MG/DL (70-100); POTASSIUM SERUM 4.3 MEQ/L (3.5-5.1); SODIUM LEVEL 140 MEQ/L (136-145)
[2019-05-24] MEDS: PANTOPRAZOLE 40MG TAB (PROTONIX) PO SCH (07:56)
[2019-05-24] MEDS: MULTIVITAMINS/MINERALS THERAP 1 TAB PO SCH (07:56)
[2019-05-24] MEDS: FOLIC ACID 1 MG TAB PO SCH (07:56)
[2019-05-24] MEDS: CitaloPRAM (CeleXA) 20 MG TAB PO SCH (07:56)
[2019-05-24] MEDS: SENOKOT S TAB PO SCH ×2 (07:58→20:57)
[2019-05-24] MEDS: NYSTATIN 100,000 UNITS/GM TOPICAL PWD 15 GM TOP SCH ×2 (07:59→21:00)
[2019-05-24] MEDS: HumaLOG INSULIN (NovoLOG) PER UNIT SC SCH ×4 (07:59→20:46)
[2019-05-24] MEDS: CLOBETASOL PROP 0.05% OINT 30 GM TOP SCH ×2 (08:00→21:00)
[2019-05-24] MEDS: METOPROLOL TART 50 MG TAB PO SCH ×2 (08:02→21:00)
[2019-05-24 10:00] VITALS: BP 108/43
--- NOTE | 2019-05-24 12:32 | CR ---
DATE OF CONSULTATION: 05/23/2019 CONSULTATION REQUESTED BY: CHAVA Barraza for Dr. Reid, the orthopedic surgeon involved in this case. She called me directly requesting this consultation regarding advanced wound care. The reason for the consult stated left hip wound and heel ulcer. This was entered on 05/22/2019 The patient is on [address] and when I spoke to them about arranging telemedicine, there was confusion with the camera operation and the ability to utilize it. With this in mind, I called the attending physician directly to discuss the case. Dr. Reid indicated that he was treating a surgical site infection related to a recent orthopedic procedure for a fractured left femur. He wished to handle this himself and indicated that the consult was only for treatment recommendations regarding the patient's right heel wound. I referred him to the wound [employer] company's bellperson's recommendations and guidelines for its use if he had any questions. In terms of the patient's left heel wound it was described by the nurse in attendance as a black,fixed eschar which measures 3.0 cm x 3.0 cm. She stated that it was dry, nonfluctuant and without drainage. The periwound did not show any erythema. This is an unstageable pressure injury of the left heel. Treatment for this type of wound is offloading using a heel float boot at all times, paint the eschar with Betadine and cover the eschar with a protective foam dressing.. Dressing change can be performed on an every other day basis or as needed. This wound requires continual observation as it has the potential for further deterioration. Indication for surgical debridement and removal of the eschar would be erythema involving the periwound, local drainage from the wound and fluctuation involving the eschar itself. This would indicate liquefication and underlying necrosis of the wound base. It should be noted that an unstageable pressure injury when debrided often results in a deep, advanced wound such as a stage III or 4 pressure injury and that wound progression does not always follow numerical order. For example when an unstageable pressure injury is debrided could result in a stage III or IV pressure injury The patient is also an uncontrolled diabetic with a fasting glucose of 235 and no hemoglobin A1c on the chart. This test should be ordered. Optimal wound healing requires a patient's blood glucose to be 180 or less. Her diet should be supplemented with Glucerna and Reinaldo, protein and amino acid supplements. A smoking cessation program should be started in an effort to control her smoking habit. HERNANDEZ
[2019-05-24 14:00] VITALS: BP 110/44
[2019-05-24] MEDS: HEPARIN SOD (PORCINE) 5000 UNITS/ML VIAL (J1644 PER 1000UNITS) IV PRN (19:22)
[2019-05-24 20:47] VITALS: BP 112/45
[2019-05-24] MEDS: traMADol 50 MG TAB PO PRN (20:58)
[2019-05-24] MEDS: ATORVASTATIN 20 MG TAB PO SCH (20:58)
[2019-05-24] MEDS: lisinopriL 10 MG TAB PO SCH (21:01)
--- NOTE | 2019-05-24 21:37 | IPNPDOC ---
Date Seen The patient was seen on 05/24/19. Progress Note SUBJECTIVE: 58-year-old female with past medical history of factor V Leiden deficiency, (on Eliquis), DVT/PE, diabetes, hypertension and hyperlipidemia was admitted for postop hardware infection. Patient had a left hip fracture and underwent ORIF and presented with wound dehiscence and pustular discharge. Patient underwent washout yesterday, seen in the morning, without any complaints at this time. Patient has a wound VAC in place, denies any shortness of breath, chest pain, nausea, vomiting, abdominal pain or diarrhea. 05/24/19 No acute events overnight, comfortable in bed, without complaints at this time, pain is well controlled. 10 point review of system is negative except for above PHYSICAL EXAMINATION: VITAL SIGNS: Please see below. GENERAL: Morbidly obese HEENT: Normocephalic, atraumatic, moist mucous membranes NECK: Supple CARDIOVASCULAR EXAMINATION: S1, S2, no murmurs RESPIRATORY EXAMINATION: Limited anteriorly, clear to auscultation ABDOMINAL EXAMINATION: Soft, nontender, nondistended, positive bowel sounds EXTREMITIES: Left lower extremity range of motion limited due to pain, wound VAC in place, mild pitting edema SKIN: Right heel with pressure ulcer NEUROLOGICAL EXAMINATION: Alert and oriented 3, no focal deficits PSYCHIATRIC EXAMINATION: Calm and cooperative LABORATORY DATA, IMAGING STUDIES, MICROBIOLOGY: Please see below. ASSESSMENT AND PLAN: 58-year-old female with past medical history of factor V Leiden deficiency, DVT/PE, hypertension, diabetes and hyperlipidemia who underwent recent ORIF presented with postop hardware infection. PROBLEMS: 1. Septic arthritis: recent ORIF now admitted w/ infected hardware, status post washout/debridement 3, cultures grew MSSA, continue Ancef, wound vac, next debridement tentatively scheduled for Sunday, following. PICC line placed, will require 4-6 weeks of antibiotics. 2. Factor V Leiden deficiency: History of DVT/PE, on Eliquis in the outpatient setting, continue heparin GTT. 3. Diabetes mellitus: Sliding scale insulin coverage with meals and at bedtime. 4. Hypertension: Continue lisinopril and metoprolol w/ hold parameters 5. Hyperlipidemia: Continue atorvastatin DVT prophylaxis: On heparin GTT GI prophylaxis: PPI VS, I&O, 24H, Fishbone Vital Signs/I&O Vital Signs Date Time Temp Pulse Resp B/P (MAP) Pulse Ox O2 Delivery O2 Flow Rate FiO2 05/24/19 21:01 131/63 05/24/19 21:00 86 05/24/19 20:58 16 05/24/19 20:47 97.8 100 Room Air 05/22/19 16:33 10 I&O- Last 24 Hours up to 6 AM 05/24/19 06:00 Intake Total 1740 ml Output Total 2750 ml Balance -1010 ml Laboratory Data 24H LABS Laboratory Tests 2 05/24/19 06:27: Immature Granulocyte % (Auto) 2.2, Neutrophils (%) (Auto) 79.4H, Lymphocytes (%) (Auto) 11.0L, Monocytes (%) (Auto) 6.4H, Eosinophils (%) (Auto) 0.6, Basophils (%) (Auto) 0.4, Neutrophils # (Auto) 13.7H, Lymphocytes # (Auto) 1.9, Monocytes # (Auto) 1.1H, Eosinophils # (Auto) 0.1, Basophils # (Auto) 0.1, Nucleated Red Blood Cells % (auto) 0.1H, Prothrombin Time 17.3H, Prothromb Time International Ratio 1.45, Activated Partial Thromboplast Time 119.8H, Anion Gap 6L, Glomerular Filtration Rate > 60.0, Calcium Level 8.9 05/24/19 13:47: Bedside Glucose (Misc Panel) 167H 05/24/19 15:08: Activated Partial Thromboplast Time 62.8H 05/24/19 16:45: Bedside Glucose (Misc Panel) 127H 05/24/19 20:45: Bedside Glucose (Misc Panel) 165H CBC/BMP Laboratory Tests 05/24/19 06:27 Microbiology Microbiology 05/22/19 Stool Occult Blood (MACI) - Final, Complete 05/20/19 Stool Occult Blood (MACI) - Final, Complete 05/17/19 Gram Stain - Final, Complete 05/17/19 Wound Culture - Final, Complete Staphylococcus Aureus 05/17/19 Anaerobic Culture - Final, Complete 05/17/19 Gram Stain - Final, Complete 05/17/19 Wound Culture - Final, Complete Staphylococcus Aureus 05/17/19 Anaerobic Culture - Final, Complete 05/17/19 Blood Culture - Final, Complete NO GROWTH AFTER 5 DAYS 05/17/19 Blood Culture - Final, Complete NO GROWTH AFTER 5 DAYS 05/17/19 Gram Stain - Final, Complete 05/17/19 Wound Culture - Final, Complete Staphylococcus Aureus ZANA LINDSEY MD May 24, 2019 21:37
[2019-05-25] MEDS: ceFAZolin SOD 2 GM in IV 1 EA IV SCH ×3 (05:02→21:13)
[2019-05-25 05:54] VITALS: BP 126/64
[2019-05-25] MEDS: SODIUM CHLORIDE 0.9% INJ 10 ML SYR IV SCH ×2 (06:00→17:39)
[2019-05-25] MEDS: HumaLOG INSULIN (NovoLOG) PER UNIT SC SCH ×4 (08:22→21:00)
[2019-05-25] MEDS: MULTIVITAMINS/MINERALS THERAP 1 TAB PO SCH (08:23)
[2019-05-25] MEDS: PANTOPRAZOLE 40MG TAB (PROTONIX) PO SCH (08:23)
[2019-05-25] MEDS: CitaloPRAM (CeleXA) 20 MG TAB PO SCH (08:23)
[2019-05-25] MEDS: SENOKOT S TAB PO SCH ×2 (08:23→21:00)
[2019-05-25] MEDS: FOLIC ACID 1 MG TAB PO SCH (08:23)
[2019-05-25] MEDS: CLOBETASOL PROP 0.05% OINT 30 GM TOP SCH ×2 (08:25→21:00)
[2019-05-25] MEDS: NYSTATIN 100,000 UNITS/GM TOPICAL PWD 15 GM TOP SCH ×2 (08:25→21:00)
[2019-05-25] MEDS: METOPROLOL TART 50 MG TAB PO SCH ×2 (08:27→21:13)
[2019-05-25] MEDS: HEPARIN SOD (PORCINE) 5000 UNITS/ML VIAL (J1644 PER 1000UNITS) IV PRN (10:27)
[2019-05-25] MEDS: HEPARIN DRIP 25,000 UNITS in IV 1 EA IV SCH ×2 (10:29→17:35)
[2019-05-25 14:00] VITALS: BP 112/59
--- NOTE | 2019-05-25 20:45 | IPNPDOC ---
Date Seen The patient was seen on 05/25/19. Progress Note SUBJECTIVE: 58-year-old female with past medical history of factor V Leiden deficiency, (on Eliquis), DVT/PE, diabetes, hypertension and hyperlipidemia was admitted for postop hardware infection. Patient had a left hip fracture and underwent ORIF and presented with wound dehiscence and pustular discharge. Patient underwent washout yesterday, seen in the morning, without any complaints at this time. Patient has a wound VAC in place, denies any shortness of breath, chest pain, nausea, vomiting, abdominal pain or diarrhea. 05/24/19 No acute events overnight, comfortable in bed, without complaints at this time, pain is well controlled. 05/25/19 No acute events overnight, tolerated breakfast, working w/ PT, comfortable, no complaints at this time, awaiting further surgery on Sunday. 10 point review of system is negative except for above PHYSICAL EXAMINATION: VITAL SIGNS: Please see below. GENERAL: Morbidly obese HEENT: Normocephalic, atraumatic, moist mucous membranes NECK: Supple CARDIOVASCULAR EXAMINATION: S1, S2, no murmurs RESPIRATORY EXAMINATION: Limited anteriorly, clear to auscultation ABDOMINAL EXAMINATION: Soft, nontender, nondistended, positive bowel sounds EXTREMITIES: Left lower extremity range of motion limited due to pain, wound VAC in place, mild pitting edema SKIN: Right heel with pressure ulcer NEUROLOGICAL EXAMINATION: Alert and oriented 3, no focal deficits PSYCHIATRIC EXAMINATION: Calm and cooperative LABORATORY DATA, IMAGING STUDIES, MICROBIOLOGY: Please see below. ASSESSMENT AND PLAN: 58-year-old female with past medical history of factor V Leiden deficiency, DVT/PE, hypertension, diabetes and hyperlipidemia who underwent recent ORIF presented with postop hardware infection. PROBLEMS: 1. Septic arthritis: recent ORIF now admitted w/ infected hardware, status post washout/debridement 3, cultures grew MSSA, continue Ancef, wound vac, next debridement tentatively scheduled for Sunday, ID following. PICC line placed, will require 4-6 weeks of antibiotics. 2. Factor V Leiden deficiency: History of DVT/PE, on Eliquis in the outpatient setting, continue heparin GTT. 3. Diabetes mellitus: Sliding scale insulin coverage with meals and at bedtime. 4. Hypertension: Continue lisinopril and metoprolol w/ hold parameters 5. Hyperlipidemia: Continue atorvastatin DVT prophylaxis: On heparin GTT GI prophylaxis: PPI VS, I&O, 24H, Fishbone Vital Signs/I&O Vital Signs Date Time Temp Pulse Resp B/P (MAP) Pulse Ox O2 Delivery O2 Flow Rate FiO2 05/25/19 14:00 97.9 71 18 112/59 (76) 100 Room Air 05/22/19 16:33 10 I&O- Last 24 Hours up to 6 AM 05/25/19 06:00 Intake Total 2276 ml Output Total 1000 ml Balance 1276 ml Laboratory Data 24H LABS Laboratory Tests 2 05/24/19 20:45: Bedside Glucose (Misc Panel) 165H 05/25/19 01:35: Activated Partial Thromboplast Time 131.7*H 05/25/19 07:56: Bedside Glucose (Misc Panel) 216H 05/25/19 09:50: Activated Partial Thromboplast Time 26.9 05/25/19 11:23: Bedside Glucose (Misc Panel) 142H 05/25/19 16:44: Activated Partial Thromboplast Time 100.0H 05/25/19 17:05: Bedside Glucose (Misc Panel) 220H Microbiology Microbiology 05/25/19 Stool Occult Blood (MACI) - Final, Complete 05/22/19 Stool Occult Blood (MACI) - Final, Complete 05/20/19 Stool Occult Blood (MACI) - Final, Complete 05/17/19 Gram Stain - Final, Complete 05/17/19 Wound Culture - Final, Complete Staphylococcus Aureus 05/17/19 Anaerobic Culture - Final, Complete 05/17/19 Gram Stain - Final, Complete 05/17/19 Wound Culture - Final, Complete Staphylococcus Aureus 05/17/19 Anaerobic Culture - Final, Complete 05/17/19 Blood Culture - Final, Complete NO GROWTH AFTER 5 DAYS 05/17/19 Blood Culture - Final, Complete NO GROWTH AFTER 5 DAYS 05/17/19 Gram Stain - Final, Complete 05/17/19 Wound Culture - Final, Complete Staphylococcus Aureus ZANA LINDSEY MD May 25, 2019 20:45
[2019-05-25 20:46] VITALS: BP 117/60
[2019-05-25] MEDS: ATORVASTATIN 20 MG TAB PO SCH (21:13)
[2019-05-25] MEDS: lisinopriL 10 MG TAB PO SCH (21:13)
[2019-05-26] MEDS: SODIUM CHLORIDE 0.9% INJ 10 ML SYR IV PRN (03:34)
[2019-05-26] MEDS: ceFAZolin SOD 2 GM in IV 1 EA IV SCH ×3 (05:40→20:51)
[2019-05-26 05:55] VITALS: BP 148/71
[2019-05-26] MEDS: SODIUM CHLORIDE 0.9% INJ 10 ML SYR IV SCH ×2 (06:41→18:16)
[2019-05-26] MEDS: MULTIVITAMINS/MINERALS THERAP 1 TAB PO SCH (08:13)
[2019-05-26] MEDS: PANTOPRAZOLE 40MG TAB (PROTONIX) PO SCH (08:13)
[2019-05-26] MEDS: CLOBETASOL PROP 0.05% OINT 30 GM TOP SCH ×2 (08:13→20:52)
[2019-05-26] MEDS: SENOKOT S TAB PO SCH ×2 (08:13→20:51)
[2019-05-26] MEDS: METOPROLOL TART 50 MG TAB PO SCH ×2 (08:13→20:52)
[2019-05-26] MEDS: CitaloPRAM (CeleXA) 20 MG TAB PO SCH (08:13)
[2019-05-26] MEDS: FOLIC ACID 1 MG TAB PO SCH (08:13)
[2019-05-26] MEDS: HumaLOG INSULIN (NovoLOG) PER UNIT SC SCH ×4 (08:13→20:28)
[2019-05-26] MEDS: NYSTATIN 100,000 UNITS/GM TOPICAL PWD 15 GM TOP SCH ×2 (08:14→20:51)
[2019-05-26] MEDS: HEPARIN DRIP 25,000 UNITS in IV 1 EA IV SCH ×2 (08:28→23:20)
--- NOTE | 2019-05-26 08:37 | IPNPDOC ---
Date Seen The patient was seen on 05/26/19. Progress Note SUBJECTIVE: 58-year-old female with past medical history of factor V Leiden deficiency, (on Eliquis), DVT/PE, diabetes, hypertension and hyperlipidemia was admitted for postop hardware infection. Patient had a left hip fracture and underwent ORIF and presented with wound dehiscence and pustular discharge. Patient underwent washout yesterday, seen in the morning, without any complaints at this time. Patient has a wound VAC in place, denies any shortness of breath, chest pain, nausea, vomiting, abdominal pain or diarrhea. 05/24/19 No acute events overnight, comfortable in bed, without complaints at this time, pain is well controlled. 05/25/19 No acute events overnight, tolerated breakfast, working w/ PT, comfortable, no complaints at this time, awaiting further surgery on Sunday. 05/26/19 No acute events overnight, tolerated CPAP, no complaints at this time, scheduled for surgery tomorrow, heparin drip will be held prior to procedure. 10 point review of system is negative except for above PHYSICAL EXAMINATION: VITAL SIGNS: Please see below. GENERAL: Morbidly obese HEENT: Normocephalic, atraumatic, moist mucous membranes NECK: Supple CARDIOVASCULAR EXAMINATION: S1, S2, no murmurs RESPIRATORY EXAMINATION: Limited anteriorly, clear to auscultation ABDOMINAL EXAMINATION: Soft, nontender, nondistended, positive bowel sounds EXTREMITIES: Left lower extremity range of motion limited due to pain, wound VAC in place, mild pitting edema SKIN: Right heel with pressure ulcer NEUROLOGICAL EXAMINATION: Alert and oriented 3, no focal deficits PSYCHIATRIC EXAMINATION: Calm and cooperative LABORATORY DATA, IMAGING STUDIES, MICROBIOLOGY: Please see below. ASSESSMENT AND PLAN: 58-year-old female with past medical history of factor V Leiden deficiency, DVT/PE, hypertension, diabetes and hyperlipidemia who underwent recent ORIF presented with postop hardware infection. PROBLEMS: 1. Septic arthritis: recent ORIF now admitted w/ infected hardware, status post washout/debridement 3, cultures grew MSSA, continue Ancef, wound vac, next debridement tentatively scheduled for Sunday, ID following. PICC line placed, will require 4-6 weeks of antibiotics. 2. Factor V Leiden deficiency: History of DVT/PE, on Eliquis in the outpatient setting, continue heparin GTT. 3. Diabetes mellitus: Sliding scale insulin coverage with meals and at bedtime. 4. Hypertension: Continue lisinopril and metoprolol w/ hold parameters 5. Hyperlipidemia: Continue atorvastatin DVT prophylaxis: On heparin GTT GI prophylaxis: PPI VS, I&O, 24H, Fishbone Vital Signs/I&O Vital Signs Date Time Temp Pulse Resp B/P (MAP) Pulse Ox O2 Delivery O2 Flow Rate FiO2 05/26/19 08:13 81 148/71 05/26/19 05:55 97.6 20 100 Room Air 05/22/19 16:33 10 I&O- Last 24 Hours up to 6 AM 05/26/19 06:00 Intake Total 2580 ml Output Total 2675 ml Balance -95 ml Laboratory Data 24H LABS Laboratory Tests 2 05/25/19 09:50: Activated Partial Thromboplast Time 26.9 05/25/19 11:23: Bedside Glucose (Misc Panel) 142H 05/25/19 16:44: Activated Partial Thromboplast Time 100.0H 05/25/19 17:05: Bedside Glucose (Misc Panel) 220H 05/25/19 20:50: Bedside Glucose (Misc Panel) 169H 05/26/19 03:29: Activated Partial Thromboplast Time 78.3H 05/26/19 05:42: Bedside Glucose (Misc Panel) 158H Microbiology Microbiology 05/26/19 Stool Occult Blood (MACI) - Final, Complete 05/25/19 Stool Occult Blood (MACI) - Final, Complete 05/22/19 Stool Occult Blood (MACI) - Final, Complete 05/20/19 Stool Occult Blood (MACI) - Final, Complete 05/17/19 Gram Stain - Final, Complete 05/17/19 Wound Culture - Final, Complete Staphylococcus Aureus 05/17/19 Anaerobic Culture - Final, Complete 05/17/19 Gram Stain - Final, Complete 05/17/19 Wound Culture - Final, Complete Staphylococcus Aureus 05/17/19 Anaerobic Culture - Final, Complete 05/17/19 Blood Culture - Final, Complete NO GROWTH AFTER 5 DAYS 05/17/19 Blood Culture - Final, Complete NO GROWTH AFTER 5 DAYS 05/17/19 Gram Stain - Final, Complete 05/17/19 Wound Culture - Final, Complete Staphylococcus Aureus ZANA LINDSEY MD May 26, 2019 08:37
--- NOTE | 2019-05-26 09:52 | IPN ---
DATE OF SERVICE: 05/26/2019 The patient is complaining of no significant pain today. She is in bed, comfortable. There are no acute issues and no issues with her wound vacuum-assisted closure (VAC) as yet. Vital signs most recently from 8 a.m. this morning are pulse 81, blood pressure of 148/71, pulse oximetry 100% on room air. She has been afebrile for the last few days. PHYSICAL EXAM: The patient is awake, alert and oriented, well-dressed, appropriate affect. Breathing unlabored on room air. Normocephalic, atraumatic. Left lower extremity wound VAC is intact and functioning well, serosanguineous drainage in the canister, neurovascularly intact distally. There is a right heel eschar pressure ulcer. LABORATORY VALUES: White count postoperatively most recent white count on 05/24/2019 of 17.2. They have been up to 26.3 on 05/23/2019. ASSESSMENT AND PLAN: This is a 58-year-old female with postoperative infection after open reduction, internal fixation (ORIF) of her left distal femur has undergone numerous operative debridement and wound VAC placement. Plan at this point is to take her back to the operating room (OR) tomorrow, Sunday, around noon, for repeat irrigation, debridement, possibly wound closure versus repeat wound VAC depending on the wound VAC. Cultures have grown methicillin-susceptible Staphylococcus aureus (MSSA). Appreciate Dr. Howell's involvement for long-term antibiotics. The patient has a peripherally inserted central catheter (PICC) line in place. Our goal will be for antibiotic suppression of the infection in order to obtain fracture healing. I appreciate Dr. Arshad's advisement for right knee heel ulcer and also his guidance for wound VAC care on the left leg. However, throughout my training standard of care was wound VAC to be placed for 4-5 days. I understand this is longer than recommended within the seat joiner's guidelines but this is how I was trained through the orthopedic and plastic departments at [facility]. Also, for the surgery tomorrow we will not hold the heparin drip as I believe the risk of repeatedly holding her heparin drip is greater than the risk of blood loss during the wound VAC procedure and irrigation, debridement procedure. So, she will be nothing by mouth at midnight with planned operative intervention tomorrow. HERNANDEZ
[2019-05-26 10:00] VITALS: BP 117/58
[2019-05-26 11:24] LABS: HEMOGLOBIN 7.8 g/dl (12.0-15.5); MEAN CORPUSCULAR HEMOGLOBIN 29.4 pg (27.0-33.0); MEAN CORPUSCULAR HGB CONC 31.2 g/dl (32.0-36.5); MEAN CORPUSCULAR VOLUME 94.3 fl (80.0-96.0); PLATELET COUNT, AUTOMATED 575 10^3/uL (150-450); RED BLOOD COUNT 2.65 10^6/uL (4.00-5.40)
[2019-05-26 14:00] VITALS: BP 114/56
[2019-05-26 16:00] VITALS: BP 120/62
[2019-05-26] MEDS: ATORVASTATIN 20 MG TAB PO SCH (20:51)
[2019-05-26] MEDS: lisinopriL 10 MG TAB PO SCH (20:52)
[2019-05-26 22:00] VITALS: BP 112/57
[2019-05-27] VITALS (13 sets, daily range): BP systolic 95–137; BP diastolic 53–108
[2019-05-27] MEDS: ceFAZolin SOD 2 GM in IV 1 EA IV SCH ×3 (05:21→20:55)
[2019-05-27] MEDS: SODIUM CHLORIDE 0.9% INJ 10 ML SYR IV SCH ×2 (05:22→16:45)
[2019-05-27 07:02] LABS: HEMATOCRIT 22.4 % (36.0-47.0); HEMOGLOBIN 7.1 g/dl (12.0-15.5); MEAN CORPUSCULAR HEMOGLOBIN 29.3 pg (27.0-33.0); MEAN CORPUSCULAR HGB CONC 31.7 g/dl (32.0-36.5); MEAN CORPUSCULAR VOLUME 92.6 fl (80.0-96.0); PLATELET COUNT, AUTOMATED 512 10^3/uL (150-450); RED BLOOD COUNT 2.42 10^6/uL (4.00-5.40); WHITE BLOOD COUNT 15.7 10^3/uL (4.0-10.0)
--- NOTE | 2019-05-27 07:23 | IPN ---
DATE: 05/26/2019 Mrs. Crews is doing well. She denies any complaint except for some pain in her left knee. She has no nausea, vomiting or diarrhea. No abdominal pain, fever or chills. Her appetite is good. No rashes. She has been afebrile throughout this admission. Temperature is 98.5, pulse 76, respirations 20, blood pressure 117/58, O2 sat 99% on room air. Heart: Normal S1, S2. No murmurs. Lungs are clear. No wheezes or rhonchi. Abdomen: Morbidly obese, soft, nontender. Extremities: Trace ankle edema. Decubitus heel ulcer on the right heel with a black eschar measuring about 4 x 3 cm, dry with no purulent discharge and no surrounding cellulitis left heel. No open sores. She has a bilateral heel floats. Left knee has a wound VAC in place with some tenderness to touch. The incision measures about 10 cm. I have not seen the wound opened because the wound VAC gets changed in the OR. LABS: White count 17, hemoglobin 7.8, hematocrit 25, platelets 575, CRP 8.19. Sodium 140, potassium 4.3, chloride 107, bicarb 27, BUN 13, creatinine 0.69, glucose 159. HbA1c 6.3, CRP is down from 23.3 to 8.19. Wound culture was positive for MSSA on 05/17/2019 three sets. Stool hemoccult has been negative times three. IMPRESSION: 1. Septic arthritis of the left knee status post open reduction internal fixation (ORIF), culture positive for methicillin sensitive Staphylococcus aureus (MSSA) on IV cefazolin 2 grams every 8 hours. The patient will need 4-6 weeks of IV antibiotics at the snf. The dose will remain at every 8 hours. I did discuss the case with Dr. Luque who stated that he will make sure the snf is able to give her every 8-hour dosing. 2. Persistent leukocytosis: Probably related to persistent infection. 3. Anemia most likely due to blood loss from surgery and anemia of chronic disease. No evidence of GI bleeding. PLAN: Continue IV cefazolin for at least 4 weeks from surgical date on 05/17/2019 and until CRP and sed rate are normal. Monitor CBC, ESR, CRP weekly while at the snf. MTDD
[2019-05-27 07:27] LABS: ERYTHROCYTE SEDIMENTATION RATE 127 mm/hr (0-30)
[2019-05-27] MEDS: HumaLOG INSULIN (NovoLOG) PER UNIT SC SCH ×4 (07:30→20:57)
[2019-05-27] MEDS ORDERED: fentaNYL 100 MCG/2 ML INJECTION (J3010) As Ordered ONE ×3 (08:28→14:35)
[2019-05-27] MEDS ORDERED: MIDAZOLAM INJ 2 MG/2 ML VIAL (J2250) As Ordered ONE (08:28)
[2019-05-27] MEDS ORDERED: ONDANSETRON 4MG/2ML VIAL (J2405) As Ordered ONE (08:29)
[2019-05-27] MEDS ORDERED: LIDOCAINE 2% INJ 100 MG/5 ML SDV (FOR ANES.) As Ordered ONE (08:29)
[2019-05-27] MEDS ORDERED: dexameTHASONE 4 MG/ML 1ML VIAL (J1100) As Ordered ONE (08:29)
[2019-05-27] MEDS ORDERED: propofoL 200 MG/20 ML VIAL As Ordered ONE ×2 (08:29→11:52)
[2019-05-27] MEDS: METOPROLOL TART 50 MG TAB PO SCH ×2 (09:00→20:56)
[2019-05-27] MEDS: CLOBETASOL PROP 0.05% OINT 30 GM TOP SCH ×2 (09:00→20:58)
[2019-05-27] MEDS: NYSTATIN 100,000 UNITS/GM TOPICAL PWD 15 GM TOP SCH ×2 (09:00→20:56)
[2019-05-27] MEDS: SENOKOT S TAB PO SCH ×2 (09:00→20:56)
[2019-05-27] MEDS: MULTIVITAMINS/MINERALS THERAP 1 TAB PO SCH (10:24)
[2019-05-27] MEDS: FOLIC ACID 1 MG TAB PO SCH (10:24)
[2019-05-27] MEDS: PANTOPRAZOLE 40MG TAB (PROTONIX) PO SCH (10:24)
[2019-05-27] MEDS: CitaloPRAM (CeleXA) 20 MG TAB PO SCH (10:24)
[2019-05-27] MEDS ORDERED: ACETAMINOPHEN 1000MG 100ML IV BTL (OFIRMEV) (J0131 PER 10MG) As Ordered ONE (12:55)
[2019-05-27] MEDS ORDERED: ceFAZolin 2 GM/D5W 50 ML IV BAG (J0690 PER 500MG) As Ordered ONE (13:13)
[2019-05-27] MEDS ORDERED: PHENYLephrine HCL 500 MCG/5 ML (100MCG/ML) SYRINGE (J2370) As Ordered ONE (13:26)
[2019-05-27] MEDS ORDERED: KETOROLAC 60 MG/2 ML VIAL (J1885) As Ordered ONE (13:47)
[2019-05-27] MEDS: fentaNYL 100 MCG/2 ML INJECTION (J3010) IV PRN ×4 (14:39→14:56)
[2019-05-27] MEDS ORDERED: LR 1,000 ML IV SCH (14:45)
--- NOTE | 2019-05-27 17:35 | IPNPDOC ---
Date Seen The patient was seen on 05/27/19. Progress Note SUBJECTIVE: 58-year-old female with past medical history of factor V Leiden deficiency, (on Eliquis), DVT/PE, diabetes, hypertension and hyperlipidemia was admitted for postop hardware infection. Patient had a left hip fracture and underwent ORIF and presented with wound dehiscence and pustular discharge. Patient underwent washout yesterday, seen in the morning, without any complaints at this time. Patient has a wound VAC in place, denies any shortness of breath, chest pain, nausea, vomiting, abdominal pain or diarrhea. 05/24/19 No acute events overnight, comfortable in bed, without complaints at this time, pain is well controlled. 05/25/19 No acute events overnight, tolerated breakfast, working w/ PT, comfortable, no complaints at this time, awaiting further surgery on Sunday. 05/26/19 No acute events overnight, tolerated CPAP, no complaints at this time, scheduled for surgery tomorrow, heparin drip will be held prior to procedure. 05/27/19 Comfortable, without complaints, hgb down to 7.1, persistent low/moderate volume bloody fluid draining from wound vac, scheduled for debridement later today. 10 point review of system is negative except for above PHYSICAL EXAMINATION: VITAL SIGNS: Please see below. GENERAL: Morbidly obese HEENT: Normocephalic, atraumatic, moist mucous membranes NECK: Supple CARDIOVASCULAR EXAMINATION: S1, S2, no murmurs RESPIRATORY EXAMINATION: Limited anteriorly, clear to auscultation ABDOMINAL EXAMINATION: Soft, nontender, nondistended, positive bowel sounds EXTREMITIES: Left lower extremity range of motion limited due to pain, wound VAC in place SKIN: Right heel with pressure ulcer NEUROLOGICAL EXAMINATION: Alert and oriented 3, no focal deficits PSYCHIATRIC EXAMINATION: Calm and cooperative LABORATORY DATA, IMAGING STUDIES, MICROBIOLOGY: Please see below. ASSESSMENT AND PLAN: 58-year-old female with past medical history of factor V L eiden deficiency, DVT/PE, hypertension, diabetes and hyperlipidemia who underwent recent ORIF presented with postop hardware infection. PROBLEMS: 1. Septic arthritis: recent ORIF now admitted w/ infected hardware, status post washout/debridement 3, cultures grew MSSA, continue Ancef, wound vac, next debridement/washout later today, ID following. PICC line placed, will require 4- 6 weeks of antibiotics. 2. Factor V Leiden deficiency: History of DVT/PE, on Eliquis in the outpatient setting, heparin held prior to surgery today as patient has had bloody drainage from wound vac w/ persistent drop in hemoglobin. Will transfuse 2 units of PRBC to be given prior/during procedure. 3. Diabetes mellitus: Sliding scale insulin coverage with meals and at bedtime. 4. Hypertension: Continue lisinopril and metoprolol w/ hold parameters 5. Hyperlipidemia: Continue atorvastatin DVT prophylaxis: anti-coagulated w/ heparin GI prophylaxis: PPI VS, I&O, 24H, Fishbone Vital Signs/I&O Vital Signs Date Time Temp Pulse Resp B/P (MAP) Pulse Ox O2 Delivery O2 Flow Rate FiO2 05/27/19 15:15 97.2 85 14 101/57 (72) 98 Room Air 05/27/19 14:56 10.0 I&O- Last 24 Hours up to 6 AM 05/27/19 05:59 Intake Total 2007 ml Output Total 950 ml Balance 1057 ml Laboratory Data 24H LABS Laboratory Tests 2 05/26/19 20:00: Bedside Glucose (Misc Panel) 141H 05/27/19 06:52: Nucleated Red Blood Cells % (auto) 0.0, Erythrocyte Sedimentation Rate 127H 05/27/19 08:56: Activated Partial Thromboplast Time 88.7H 05/27/19 09:03: Bedside Glucose (Misc Panel) 152H 05/27/19 16:26: Bedside Glucose (Misc Panel) 226H CBC/BMP Laboratory Tests 05/27/19 06:52 Microbiology Microbiology 05/27/19 Stool Occult Blood (MACI) - Final, Complete 05/26/19 Stool Occult Blood (MACI) - Final, Complete 05/25/19 Stool Occult Blood (MACI) - Final, Complete 05/22/19 Stool Occult Blood (MACI) - Final, Complete 05/20/19 Stool Occult Blood (MACI) - Final, Complete 05/17/19 Gram Stain - Final, Complete 05/17/19 Wound Culture - Final, Complete Staphylococcus Aureus 05/17/19 Anaerobic Culture - Final, Complete 05/17/19 Gram Stain - Final, Complete 05/17/19 Wound Culture - Final, Complete Staphylococcus Aureus 05/17/19 Anaerobic Culture - Final, Complete 05/17/19 Blood Culture - Final, Complete NO GROWTH AFTER 5 DAYS 05/17/19 Blood Culture - Final, Complete NO GROWTH AFTER 5 DAYS 05/17/19 Gram Stain - Final, Complete 05/17/19 Wound Culture - Final, Complete Staphylococcus Aureus ZANA LINDSEY MD May 27, 2019 17:35
[2019-05-27 17:40] LABS: HEMATOCRIT 29.3 % (36.0-47.0); HEMOGLOBIN 9.5 g/dl (12.0-15.5); MEAN CORPUSCULAR HEMOGLOBIN 29.3 pg (27.0-33.0); MEAN CORPUSCULAR HGB CONC 32.4 g/dl (32.0-36.5); MEAN CORPUSCULAR VOLUME 90.4 fl (80.0-96.0); PLATELET COUNT, AUTOMATED 465 10^3/uL (150-450); RED BLOOD COUNT 3.24 10^6/uL (4.00-5.40); WHITE BLOOD COUNT 26.2 10^3/uL (4.0-10.0)
[2019-05-27] MEDS: HEPARIN DRIP 25,000 UNITS in IV 1 EA IV SCH ×2 (18:03→21:51)
[2019-05-27] MEDS: lisinopriL 10 MG TAB PO SCH (20:56)
[2019-05-27] MEDS: ATORVASTATIN 20 MG TAB PO SCH (20:56)
[2019-05-27] MEDS: traMADol 50 MG TAB PO PRN (20:57)
[2019-05-28 02:00] VITALS: BP 111/60
[2019-05-28] MEDS: ceFAZolin SOD 2 GM in IV 1 EA IV SCH ×3 (05:08→20:13)
[2019-05-28] MEDS: SODIUM CHLORIDE 0.9% INJ 10 ML SYR IV SCH ×2 (05:08→17:49)
[2019-05-28 06:00] VITALS: BP 111/58
[2019-05-28 06:23] LABS: HEMATOCRIT 25.2 % (36.0-47.0); HEMOGLOBIN 8.2 g/dl (12.0-15.5); MEAN CORPUSCULAR HEMOGLOBIN 29.4 pg (27.0-33.0); MEAN CORPUSCULAR HGB CONC 32.5 g/dl (32.0-36.5); MEAN CORPUSCULAR VOLUME 90.3 fl (80.0-96.0); PLATELET COUNT, AUTOMATED 413 10^3/uL (150-450); RED BLOOD COUNT 2.79 10^6/uL (4.00-5.40)
[2019-05-28 06:47] LABS: BLOOD UREA NITROGEN 12 MG/DL (7-18); CALCIUM LEVEL 8.4 MG/DL (8.5-10.1); CARBON DIOXIDE LEVEL 26 MEQ/L (21-32); CHLORIDE LEVEL 106 MEQ/L (98-107); CREATININE FOR GFR 0.79 MG/DL (0.55-1.30); GLOMERULAR FILTRATION RATE > 60.0 (>51); GLUCOSE, FASTING 189 MG/DL (70-100); MAGNESIUM LEVEL 1.8 MG/DL (1.8-2.4); POTASSIUM SERUM 4.6 MEQ/L (3.5-5.1); SODIUM LEVEL 138 MEQ/L (136-145)
[2019-05-28 07:30] VITALS: BP 102/54
[2019-05-28] MEDS: FOLIC ACID 1 MG TAB PO SCH (08:26)
[2019-05-28] MEDS: CitaloPRAM (CeleXA) 20 MG TAB PO SCH (08:27)
[2019-05-28] MEDS: PANTOPRAZOLE 40MG TAB (PROTONIX) PO SCH (08:27)
[2019-05-28] MEDS: MULTIVITAMINS/MINERALS THERAP 1 TAB PO SCH (08:27)
[2019-05-28] MEDS: SENOKOT S TAB PO SCH ×2 (08:27→20:15)
[2019-05-28] MEDS: METOPROLOL TART 50 MG TAB PO SCH ×2 (08:27→20:13)
[2019-05-28] MEDS: NYSTATIN 100,000 UNITS/GM TOPICAL PWD 15 GM TOP SCH ×2 (09:00→21:27)
[2019-05-28] MEDS: CLOBETASOL PROP 0.05% OINT 30 GM TOP SCH ×2 (09:00→21:27)
[2019-05-28] MEDS: HumaLOG INSULIN (NovoLOG) PER UNIT SC SCH ×4 (09:05→20:15)
[2019-05-28 10:29] VITALS: BP 100/52
--- NOTE | 2019-05-28 10:58 | IPN ---
DATE OF SERVICE: 05/28/2019 He is postoperative day one status post irrigation and debridement (I and D) wound Vac removal, wound closure, and IVAC placement. Her pain is well tolerated at this time. She denies any issues with pain. She has been in bed. No acute issues. Her vital signs are stable at 98 degrees, 80 pulse, 18 respiratory rate, 102/54, and 98%. Recent lab work with 20 WBC, hemoglobin 8.2, hematocrit 25. PHYSICAL EXAMINATION: The patient is awake, alert and oriented. Appropriate affect. Breathing in room air. Left lower extremity IVAC is in place and working. There is no output at this time. She has three J-P drains, each one putting out regularly serosanguineous fluid. Most recent emptying recorded at midnight 45, 10 and 30. She is neurovascularly intact distally. I explained to the patient at this point in time her wound is closed. I would like to keep the incisional VAC in place for five days. Will keep the J-P drains in place until the drain output diminishes significantly and until we have multiple shifts of 5 mL or less in each in order to try to prevent a deep collection. At this point, will keep her at bedrest while the IVAC and drains are in place. Of note, the J-P drains are sewn in. Will continue the antibiotic for her deep infection with a plan of antibiotic suppression for effects of healing for MSSA infection. Appreciate the multidisciplinary management of medicine, infectious disease and wound care. Please call if any questions.
[2019-05-28] MEDS: traMADol 50 MG TAB PO PRN ×2 (13:28→20:14)
[2019-05-28 13:49] VITALS: BP 110/58
[2019-05-28] MEDS: HEPARIN SOD (PORCINE) 5000 UNITS/ML VIAL (J1644 PER 1000UNITS) IV PRN (15:39)
[2019-05-28] MEDS: HEPARIN DRIP 25,000 UNITS in IV 1 EA IV SCH (15:43)
[2019-05-28] MEDS: ACETAMINOPHEN TAB 650MG DOSE (2X325MG) PO PRN (15:49)
--- NOTE | 2019-05-28 18:56 | IPNPDOC ---
Date Seen The patient was seen on 05/28/19. Progress Note SUBJECTIVE: 58-year-old female with past medical history of factor V Leiden deficiency, (on Eliquis), DVT/PE, diabetes, hypertension and hyperlipidemia was admitted for postop hardware infection. Patient had a left hip fracture and underwent ORIF and presented with wound dehiscence and pustular discharge. Patient underwent washout yesterday, seen in the morning, without any complaints at this time. Patient has a wound VAC in place, denies any shortness of breath, chest pain, nausea, vomiting, abdominal pain or diarrhea. 05/24/19 No acute events overnight, comfortable in bed, without complaints at this time, pain is well controlled. 05/25/19 No acute events overnight, tolerated breakfast, working w/ PT, comfortable, no complaints at this time, awaiting further surgery on Sunday. 05/26/19 No acute events overnight, tolerated CPAP, no complaints at this time, scheduled for surgery tomorrow, heparin drip will be held prior to procedure. 05/27/19 Comfortable, without complaints, hgb down to 7.1, persistent low/moderate volume bloody fluid draining from wound vac, scheduled for debridement later today. 05/28/19 Underwent debridement yesterday, comfortable in the morning, without any c omplaints other than mild leg discomfort. Patient now has 3 ALYSIA drains with serosanguineous output, in addition to wound VAC. 10 point review of system is negative except for above PHYSICAL EXAMINATION: VITAL SIGNS: Please see below. GENERAL: Morbidly obese HEENT: Normocephalic, atraumatic, moist mucous membranes NECK: Supple CARDIOVASCULAR EXAMINATION: S1, S2, no murmurs RESPIRATORY EXAMINATION: Limited anteriorly, clear to auscultation ABDOMINAL EXAMINATION: Soft, nontender, nondistended, positive bowel sounds EXTREMITIES: Left lower extremity range of motion limited due to pain, 3 ALYSIA drains noted with small amount of serosanguineous drainage, wound VAC in place SKIN: Right heel with pressure ulcer NEUROLOGICAL EXAMINATION: Alert and oriented 3, no focal deficits PSYCHIATRIC EXAMINATION: Calm and cooperative LABORATORY DATA, IMAGING STUDIES, MICROBIOLOGY: Please see below. ASSESSMENT AND PLAN: 58-year-old female with past medical history of factor V Leiden deficiency, DVT/PE, hypertension, diabetes and hyperlipidemia who underwent recent ORIF presented with postop hardware infection. PROBLEMS: 1. Septic arthritis: recent ORIF now admitted w/ infected hardware, status post washout/debridement 4, cultures grew MSSA, continue Ancef, wound vac, further management as per orthopedic surgery, ID following. PICC line placed, will require 4-6 weeks of antibiotics. 2. Factor V Leiden deficiency: History of DVT/PE, on Eliquis in the outpatient setting, continue heparin GTT, H&H has gradually been downtrending, possibly related to intraoperative blood loss along with bloody output from wound VAC, will trend H&H and transfuse as needed. 3. Diabetes mellitus: Sliding scale insulin coverage with meals and at bedtime. 4. Hypertension: Continue lisinopril and metoprolol w/ hold parameters 5. Hyperlipidemia: Continue atorvastatin DVT prophylaxis: anti-coagulated w/ heparin GI prophylaxis: PPI VS, I&O, 24H, Fishbone Vital Signs/I&O Vital Signs Date Time Temp Pulse Resp B/P (MAP) Pulse Ox O2 Delivery O2 Flow Rate FiO2 05/28/19 13:58 18 05/28/19 13:49 97.9 72 110/58 (75) 97 Room Air 05/27/19 14:56 10.0 I&O- Last 24 Hours up to 6 AM 05/28/19 06:00 Intake Total 2474 ml Output Total 1440 ml Balance 1034 ml Laboratory Data 24H LABS Laboratory Tests 2 05/27/19 20:31: Bedside Glucose (Misc Panel) 273H 05/28/19 00:34: Activated Partial Thromboplast Time 96.4H 05/28/19 06:06: Activated Partial Thromboplast Time 118.3H, Nucleated Red Blood Cells % (auto) 0.0, Anion Gap 6L, Glomerular Filtration Rate > 60.0, Calcium Level 8.4L, Magnesium Level 1.8 05/28/19 11:20: Bedside Glucose (Misc Panel) 145H 05/28/19 13:31: Activated Partial Thromboplast Time 42.2H 05/28/19 17:33: Bedside Glucose (Misc Panel) 158H CBC/BMP Laboratory Tests 05/28/19 06:06 Microbiology Microbiology 05/27/19 Stool Occult Blood (MACI) - Final, Complete 05/26/19 Stool Occult Blood (MACI) - Final, Complete 05/25/19 Stool Occult Blood (MACI) - Final, Complete 05/22/19 Stool Occult Blood (MACI) - Final, Complete 05/20/19 Stool Occult Blood (MACI) - Final, Complete ZANA LINDSEY MD May 28, 2019 18:56
[2019-05-28] MEDS: lisinopriL 10 MG TAB PO SCH (20:14)
[2019-05-28] MEDS: ATORVASTATIN 20 MG TAB PO SCH (20:15)
[2019-05-28 22:00] VITALS: BP 105/53
[2019-05-29] MEDS: HEPARIN DRIP 25,000 UNITS in IV 1 EA IV SCH ×3 (02:52→15:56)
[2019-05-29 05:08] VITALS: BP 103/54
[2019-05-29 05:09] VITALS: BP 103/54
[2019-05-29] MEDS: ceFAZolin SOD 2 GM in IV 1 EA IV SCH ×3 (05:56→21:01)
[2019-05-29] MEDS: SODIUM CHLORIDE 0.9% INJ 10 ML SYR IV SCH ×2 (05:56→18:30)
[2019-05-29 07:13] LABS: HEMATOCRIT 25.8 % (36.0-47.0); HEMOGLOBIN 8.3 g/dl (12.0-15.5); MEAN CORPUSCULAR HEMOGLOBIN 29.5 pg (27.0-33.0); MEAN CORPUSCULAR HGB CONC 32.2 g/dl (32.0-36.5); MEAN CORPUSCULAR VOLUME 91.8 fl (80.0-96.0); PLATELET COUNT, AUTOMATED 392 10^3/uL (150-450); RED BLOOD COUNT 2.81 10^6/uL (4.00-5.40); WHITE BLOOD COUNT 13.5 10^3/uL (4.0-10.0)
[2019-05-29] MEDS: HumaLOG INSULIN (NovoLOG) PER UNIT SC SCH ×4 (07:30→21:00)
[2019-05-29 08:16] LABS: BLOOD UREA NITROGEN 10 MG/DL (7-18); CALCIUM LEVEL 8.7 MG/DL (8.5-10.1); CARBON DIOXIDE LEVEL 26 MEQ/L (21-32); CHLORIDE LEVEL 107 MEQ/L (98-107); GLOMERULAR FILTRATION RATE > 60.0 (>51); GLUCOSE, FASTING 161 MG/DL (70-100); POTASSIUM SERUM 4.1 MEQ/L (3.5-5.1); SODIUM LEVEL 139 MEQ/L (136-145)
[2019-05-29 08:30] VITALS: BP 107/54
[2019-05-29] MEDS: CLOBETASOL PROP 0.05% OINT 30 GM TOP SCH ×2 (09:00→21:00)
[2019-05-29] MEDS: SENOKOT S TAB PO SCH ×3 (09:00→21:02)
[2019-05-29] MEDS: traMADol 50 MG TAB PO PRN ×2 (09:48→21:00)
[2019-05-29] MEDS: METOPROLOL TART 50 MG TAB PO SCH ×2 (10:28→21:00)
[2019-05-29] MEDS: FOLIC ACID 1 MG TAB PO SCH (10:29)
[2019-05-29] MEDS: CitaloPRAM (CeleXA) 20 MG TAB PO SCH (10:30)
[2019-05-29] MEDS: MULTIVITAMINS/MINERALS THERAP 1 TAB PO SCH (10:31)
[2019-05-29] MEDS: PANTOPRAZOLE 40MG TAB (PROTONIX) PO SCH (10:31)
[2019-05-29] MEDS: NYSTATIN 100,000 UNITS/GM TOPICAL PWD 15 GM TOP SCH ×2 (10:34→21:00)
[2019-05-29] MEDS: ACETAMINOPHEN TAB 650MG DOSE (2X325MG) PO PRN (12:54)
[2019-05-29] MEDS: SODIUM CHLORIDE 0.9% INJ 10 ML SYR IV PRN ×2 (13:08→14:17)
[2019-05-29 14:00] VITALS: BP 96/56
[2019-05-29 15:20] VITALS: BP 110/60
[2019-05-29] MEDS: HEPARIN SOD (PORCINE) 5000 UNITS/ML VIAL (J1644 PER 1000UNITS) IV PRN (15:53)
--- NOTE | 2019-05-29 20:36 | IPNPDOC ---
Date Seen The patient was seen on 05/29/19. Progress Note SUBJECTIVE: 58-year-old female with past medical history of factor V Leiden deficiency, (on Eliquis), DVT/PE, diabetes, hypertension and hyperlipidemia was admitted for postop hardware infection. Patient had a left hip fracture and underwent ORIF and presented with wound dehiscence and pustular discharge. Patient underwent washout yesterday, seen in the morning, without any complaints at this time. Patient has a wound VAC in place, denies any shortness of breath, chest pain, nausea, vomiting, abdominal pain or diarrhea. 05/24/19 No acute events overnight, comfortable in bed, without complaints at this time, pain is well controlled. 05/25/19 No acute events overnight, tolerated breakfast, working w/ PT, comfortable, no complaints at this time, awaiting further surgery on Sunday. 05/26/19 No acute events overnight, tolerated CPAP, no complaints at this time, scheduled for surgery tomorrow, heparin drip will be held prior to procedure. 05/27/19 Comfortable, without complaints, hgb down to 7.1, persistent low/moderate volume bloody fluid draining from wound vac, scheduled for debridement later today. 05/28/19 Underwent debridement yesterday, comfortable in the morning, without any c omplaints other than mild leg discomfort. Patient now has 3 ALYSIA drains with serosanguineous output, in addition to wound VAC. 05/29/19 Comfortable in bed, without complaints, pain well controlled. 10 point review of system is negative except for above PHYSICAL EXAMINATION: VITAL SIGNS: Please see below. GENERAL: Morbidly obese HEENT: Normocephalic, atraumatic, moist mucous membranes NECK: Supple CARDIOVASCULAR EXAMINATION: S1, S2, no murmurs RESPIRATORY EXAMINATION: Limited anteriorly, clear to auscultation ABDOMINAL EXAMINATION: Soft, nontender, nondistended, positive bowel sounds EXTREMITIES: Left lower extremity range of motion limited due to pain, 3 ALYSIA drains noted with small amount of serosanguineous drainage, wound VAC in place SKIN: Right heel with pressure ulcer NEUROLOGICAL EXAMINATION: Alert and oriented 3, no focal deficits PSYCHIATRIC EXAMINATION: Calm and cooperative LABORATORY DATA, IMAGING STUDIES, MICROBIOLOGY: Please see below. ASSESSMENT AND PLAN: 58-year-old female with past medical history of factor V Leiden deficiency, DVT/PE, hypertension, diabetes and hyperlipidemia who underwent recent ORIF presented with postop hardware infection. PROBLEMS: 1. Septic arthritis: recent ORIF now admitted w/ infected hardware, status post washout/debridement 4, cultures grew MSSA, continue Ancef, wound vac, further management as per orthopedic surgery, ID following. PICC line placed, will require 4-6 weeks of antibiotics. 2. Factor V Leiden deficiency: History of DVT/PE, restart Eliquis. 3. Diabetes mellitus: Sliding scale insulin coverage with meals and at bedtime. 4. Hypertension: Continue lisinopril and metoprolol w/ hold parameters 5. Hyperlipidemia: Continue atorvastatin DVT prophylaxis: on Eliquis GI prophylaxis: PPI VS, I&O, 24H, Fishbone Vital Signs/I&O Vital Signs Date Time Temp Pulse Resp B/P (MAP) Pulse Ox O2 Delivery O2 Flow Rate FiO2 05/29/19 15:20 110/60 (77) 05/29/19 14:00 98.4 86 18 96 Room Air 05/27/19 14:56 10.0 I&O- Last 24 Hours up to 6 AM 05/29/19 06:00 Intake Total 2204 ml Output Total 47338 ml Balance -9136 ml Laboratory Data 24H LABS Laboratory Tests 2 05/28/19 23:50: Activated Partial Thromboplast Time 175.0*H 05/29/19 07:03: Activated Partial Thromboplast Time 77.1H, Nucleated Red Blood Cells % (auto) 0.0, Anion Gap 6L, Glomerular Filtration Rate > 60.0, Calcium Level 8.7 05/29/19 11:21: Bedside Glucose (Misc Panel) 159H 05/29/19 11:57: Activated Partial Thromboplast Time 51.0H 05/29/19 16:25: Bedside Glucose (Misc Panel) 132H CBC/BMP Laboratory Tests 05/29/19 07:03 Microbiology Microbiology 05/29/19 Stool Occult Blood (MACI) - Final, Complete 05/27/19 Stool Occult Blood (MACI) - Final, Complete 05/26/19 Stool Occult Blood (MACI) - Final, Complete 05/25/19 Stool Occult Blood (MACI) - Final, Complete 05/22/19 Stool Occult Blood (MACI) - Final, Complete 05/20/19 Stool Occult Blood (MACI) - Final, Complete ZANA LINDSEY MD May 29, 2019 20:35
[2019-05-29 20:44] VITALS: BP 99/55
[2019-05-29] MEDS: APIXABAN 5 MG TAB (ELIQUIS) PO SCH (20:59)
[2019-05-29] MEDS: lisinopriL 10 MG TAB PO SCH (21:00)
[2019-05-29] MEDS: ATORVASTATIN 20 MG TAB PO SCH (21:01)
[2019-05-30] MEDS: SODIUM CHLORIDE 0.9% INJ 10 ML SYR IV PRN ×2 (00:04→21:02)
--- NOTE | 2019-05-30 05:27 | RO ---
DATE OF PROCEDURE: 05/27/2019 PREOPERATIVE DIAGNOSIS: Left distal femur postoperative infection. POSTOPERATIVE DIAGNOSIS: Left distal femur postoperative infection. PROCEDURE: Left irrigation and debridement of skin, subcutaneous tissue, muscle, and bone along with wound VAC removal and incisional VAC placement. SURGEON: Ervin Reid MD PREDATOR CONTROL TRAPPER: Margarita Soto PA-C, who was essential for retraction of soft tissue. ANESTHESIA: General. INDICATIONS: This is a 58-year-old female who we are working on getting local control of a deep postoperative infection with plans for antibiotic suppression fracture healing. We discussed the risks and benefits of the procedure with the patient including the need for further surgery, infection, damage to surrounding structures, incomplete relief, malunion, nonunion. Patient agreed to proceed. PREOPERATIVE ANTIBIOTICS: None. She did have her routine dose of her cefazolin. BLOOD LOSS: 100 mL. COMPLICATIONS: None. DRAINS: Three Endy-Estrada (ALYSIA) drains were plains, two superficial and one deep. OPERATIVE DESCRIPTION: Patient was brought to the operating room (OR) in the supine position, underwent general anesthesia, at which point the left leg was prepped and draped in the usual fashion. At this point, we had a time-out confirming site, side, and surgery. Once this was done, we removed the wound VAC, exposing deep tissue. Wound measurement 10cmx 20 cmAt this point, about 95% appeared to be nice and healthy with granulation tissue. There was some superficial maceration of the skin. This was quickly excised using a #10 blade of the skin and subcutaneous tissue until we had nice healthy bleeding tissue. Deep did not appear to find anymore purulence or necrotic tissue. Appeared to be good local control, at which point we debrided sharply skin, subcutaneous tissue, muscle, and bone using knife and Dixon. I then used 9 liters of saline to use the Pulsavac to irrigate the wound the entire length of the plate up to deep proximal femur along with distally to the joints within the knee and along with into a subcutaneous pouch at the distal extent of the incision. Once this was complete, we then placed a deep ALYSIA drain deep to the fascia. We then closed the iliotibial (IT) band fascia with #0 Prolene, at which point we placed two superficial drains within the subcutaneous fat as this was a large space given the patient's significant morbid obesity, with one exiting distally and one proximally. We then did a deep subcutaneous layer of adipose tissue with #0 Prolene. We then did trauma vertical sutures through the skin and deep subcutaneous tissue to try to close down the space along with intermittent #2-0 Prolene vertical mattress sutures as well. Once this was complete, we attached our ALYSIA drains, which drained nicely and were sutured into place with #2-0 nylon. We then placed an incisional VAC, the black sponge on top of Adaptic so there was no direct contact of the black sponge on the skin, covered it with Ioban to obtain a tight seal. Once this was done, we took down the drapes. The patient was awakened and taken to postanesthesia care unit (PACU) in stable condition. POSTOPERATIVE PLAN: Patient will have the incisional VAC in place for 5 days, at which point we will make the decision on whether or not to discharge the patient with a Prevena overtop. We will also maintain our three drain placement until we have at least two shifts of zero output. Given that she is on a heparin drip and has significant space, I want to minimize any chance of a collection developing. 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 HERNANDEZ
[2019-05-30] MEDS: SODIUM CHLORIDE 0.9% INJ 10 ML SYR IV SCH ×2 (05:34→17:43)
[2019-05-30] MEDS: ceFAZolin SOD 2 GM in IV 1 EA IV SCH ×3 (05:35→21:02)
[2019-05-30 06:38] VITALS: BP 102/64
[2019-05-30] MEDS: METOPROLOL TART 50 MG TAB PO SCH ×2 (09:00→21:02)
[2019-05-30] MEDS: PANTOPRAZOLE 40MG TAB (PROTONIX) PO SCH (09:39)
[2019-05-30] MEDS: APIXABAN 5 MG TAB (ELIQUIS) PO SCH ×2 (09:39→21:01)
[2019-05-30] MEDS: SENOKOT S TAB PO SCH ×2 (09:39→21:01)
[2019-05-30] MEDS: CitaloPRAM (CeleXA) 20 MG TAB PO SCH (09:42)
[2019-05-30] MEDS: MULTIVITAMINS/MINERALS THERAP 1 TAB PO SCH (09:42)
[2019-05-30] MEDS: FOLIC ACID 1 MG TAB PO SCH (09:42)
[2019-05-30] MEDS: NYSTATIN 100,000 UNITS/GM TOPICAL PWD 15 GM TOP SCH ×2 (09:43→21:03)
[2019-05-30] MEDS: CLOBETASOL PROP 0.05% OINT 30 GM TOP SCH ×2 (09:43→21:03)
[2019-05-30] MEDS: traMADol 50 MG TAB PO PRN ×2 (09:43→17:49)
[2019-05-30] MEDS: HumaLOG INSULIN (NovoLOG) PER UNIT SC SCH ×4 (09:44→20:44)
[2019-05-30 14:00] VITALS: BP 133/62
[2019-05-30 20:06] VITALS: BP 125/57
[2019-05-30] MEDS: lisinopriL 10 MG TAB PO SCH (21:02)
[2019-05-30] MEDS: ATORVASTATIN 20 MG TAB PO SCH (21:02)
--- NOTE | 2019-05-30 21:30 | IPNPDOC ---
Date Seen The patient was seen on 05/30/19. Progress Note SUBJECTIVE: 58-year-old female with past medical history of factor V Leiden deficiency, (on Eliquis), DVT/PE, diabetes, hypertension and hyperlipidemia was admitted for postop hardware infection. Patient had a left hip fracture and underwent ORIF and presented with wound dehiscence and pustular discharge. Patient underwent washout yesterday, seen in the morning, without any complaints at this time. Patient has a wound VAC in place, denies any shortness of breath, chest pain, nausea, vomiting, abdominal pain or diarrhea. 05/24/19 No acute events overnight, comfortable in bed, without complaints at this time, pain is well controlled. 05/25/19 No acute events overnight, tolerated breakfast, working w/ PT, comfortable, no complaints at this time, awaiting further surgery on Sunday. 05/26/19 No acute events overnight, tolerated CPAP, no complaints at this time, scheduled for surgery tomorrow, heparin drip will be held prior to procedure. 05/27/19 Comfortable, without complaints, hgb down to 7.1, persistent low/moderate volume bloody fluid draining from wound vac, scheduled for debridement later today. 05/28/19 Underwent debridement yesterday, comfortable in the morning, without any complaints other than mild leg discomfort. Patient now has 3 ALYSIA drains with serosanguineous output, in addition to wound VAC. 05/29/19 Comfortable in bed, without complaints, pain well controlled. 05/30/19 No acute events overnight, comfortable in bed, without any complaints at this time. 10 point review of system is negative except for above PHYSICAL EXAMINATION: VITAL SIGNS: Please see below. GENERAL: Morbidly obese HEENT: Normocephalic, atraumatic, moist mucous membranes NECK: Supple CARDIOVASCULAR EXAMINATION: S1, S2, no murmurs RESPIRATORY EXAMINATION: Limited anteriorly, clear to auscultation ABDOMINAL EXAMINATION: Soft, nontender, nondistended, positive bowel sounds EXTREMITIES: Left lower extremity range of motion limited due to pain, 3 ALYSIA drains noted with small amount of serosanguineous drainage, wound VAC in place SKIN: Right heel with pressure ulcer NEUROLOGICAL EXAMINATION: Alert and oriented 3, no focal deficits PSYCHIATRIC EXAMINATION: Calm and cooperative LABORATORY DATA, IMAGING STUDIES, MICROBIOLOGY: Please see below. ASSESSMENT AND PLAN: 58-year-old female with past medical history of factor V Leiden deficiency, DVT/PE, hypertension, diabetes and hyperlipidemia who underwent recent ORIF presented with postop hardware infection. PROBLEMS: 1. Septic arthritis: recent ORIF now admitted w/ infected hardware, status post washout/debridement 4, cultures grew MSSA, continue Ancef, wound vac, further management as per orthopedic surgery, ID following. PICC line placed, will require 4-6 weeks of antibiotics. 2. Factor V Leiden deficiency: History of DVT/PE, continue Eliquis. 3. Diabetes mellitus: Sliding scale insulin coverage with meals and at bedtime. 4. Hypertension: Continue lisinopril and metoprolol w/ hold parameters 5. Hyperlipidemia: Continue atorvastatin DVT prophylaxis: on Eliquis GI prophylaxis: PPI VS, I&O, 24H, Fishbone Vital Signs/I&O Vital Signs Date Time Temp Pulse Resp B/P (MAP) Pulse Ox O2 Delivery O2 Flow Rate FiO2 05/30/19 21:02 118 125/57 05/30/19 20:06 98.7 18 99 Room Air 05/27/19 14:56 10.0 I&O- Last 24 Hours up to 6 AM 05/30/19 06:00 Intake Total 2000 ml Output Total 2030 ml Balance -30 ml Laboratory Data 24H LABS Laboratory Tests 2 05/30/19 06:42: Bedside Glucose (Misc Panel) 132H 05/30/19 11:43: Bedside Glucose (Misc Panel) 117H 05/30/19 17:33: Bedside Glucose (Misc Panel) 132H 05/30/19 20:07: Bedside Glucose (Misc Panel) 181H Microbiology Microbiology 05/29/19 Stool Occult Blood (MACI) - Final, Complete 05/27/19 Stool Occult Blood (MACI) - Final, Complete 05/26/19 Stool Occult Blood (MACI) - Final, Complete 05/25/19 Stool Occult Blood (MACI) - Final, Complete 05/22/19 Stool Occult Blood (MACI) - Final, Complete 05/20/19 Stool Occult Blood (MACI) - Final, Complete ZANA LINDSEY MD May 30, 2019 21:30
[2019-05-31] MEDS: ceFAZolin SOD 2 GM in IV 1 EA IV SCH ×3 (05:06→20:14)
[2019-05-31] MEDS: SODIUM CHLORIDE 0.9% INJ 10 ML SYR IV SCH ×2 (05:06→17:34)
[2019-05-31 06:45] VITALS: BP 105/63
[2019-05-31 07:05] LABS: BLOOD UREA NITROGEN 7 MG/DL (7-18); CALCIUM LEVEL 8.1 MG/DL (8.5-10.1); CARBON DIOXIDE LEVEL 23 MEQ/L (21-32); CHLORIDE LEVEL 107 MEQ/L (98-107); CREATININE FOR GFR 0.51 MG/DL (0.55-1.30); GLOMERULAR FILTRATION RATE > 60.0 (>51); GLUCOSE, FASTING 156 MG/DL (70-100); MAGNESIUM LEVEL 1.7 MG/DL (1.8-2.4); PHOSPHORUS LEVEL 2.9 MG/DL (2.5-4.9); POTASSIUM SERUM 4.4 MEQ/L (3.5-5.1); SODIUM LEVEL 138 MEQ/L (136-145)
[2019-05-31 07:44] LABS: HEMATOCRIT 26.3 % (36.0-47.0); HEMOGLOBIN 8.2 g/dl (12.0-15.5); MEAN CORPUSCULAR HEMOGLOBIN 28.7 pg (27.0-33.0); MEAN CORPUSCULAR HGB CONC 31.2 g/dl (32.0-36.5); PLATELET COUNT, AUTOMATED 407 10^3/uL (150-450); RED BLOOD COUNT 2.86 10^6/uL (4.00-5.40); WHITE BLOOD COUNT 8.5 10^3/uL (4.0-10.0)
[2019-05-31] MEDS: HumaLOG INSULIN (NovoLOG) PER UNIT SC SCH ×4 (07:45→20:13)
--- NOTE | 2019-05-31 08:22 | IPN ---
DATE OF SERVICE: 05/30/2019 Nelsy is doing well. She is excited not to have to go back to the operating room and go back to the group home next week. She had no fever or chills. No nausea, vomiting, or diarrhea. No abdominal pain. No chest pain. No shortness of breath. No side effect from medication, including rashes or yeast infection. She has been afebrile. Temperature is 98, pulse 92, respirations 20, blood pressure 102/64, oxygen (O2) saturation 98% on room air. Heart: Normal S1, S2. No murmurs, rubs, or gallops. Lungs: Clear anteriorly. No wheezes, rales, or rhonchi. Abdomen: Morbidly obese, soft, nontender. Extremities: Trace ankle edema with a healed decubitus ulcer on the right side. Dry eschar left knee. Surgical incision wound vacuum-assisted closure (VAC) in place. She has three Endy-Estrada (ALYSIA) drains with serosanguineous fluid. No purulence. Mild tenderness to touch. The wound was not examined as there is a wound VAC. LABORATORIES: White count is 13.5, hemoglobin 8.3, hematocrit 25.8, platelets 392. Sodium 139, potassium 4.1, chloride 107, bicarbonate 26, BUN 10, creatinine 0.7, glucose 161, calcium 8.7. No laboratories from today. IMPRESSION: 1. Postoperative wound infection with secondary septic arthritis, status post open reduction and internal fixation (ORIF) with retained hardware. Has had multiple irrigation and debridement and wound VAC placement in the operating room (OR). Doing well with intravenous (IV) cefazolin 2 grams every 8 hours. White count improving. Pain improving. 2. Factor V Leiden deficiency with a history of deep venous thrombosis (DVT) and pulmonary embolism (PE). The patient had been on IV heparin 3. Multiple comorbidities, including morbid obesity, diabetes, hypertension, hyperlipidemia, increasing her risk of operative infections. PLAN: Continue IV cefazoli for 6weeks from her operative date. End of therapy will be 06/29/2019 with IV cefazolin, and then she may need to be switched to oral antibiotic as she has retained hardware. Please make sure she goes to the group home. She needs to followup with infectious disease in 2-3 weeks. Monitor complete blood count (CBC), sedimentation rate, C-reactive protein (CRP) weekly. Fax to my office at [facility]. [facility] HOSPITALVíctor
[2019-05-31 08:27] VITALS: BP 112/60
[2019-05-31] MEDS: PANTOPRAZOLE 40MG TAB (PROTONIX) PO SCH (09:43)
[2019-05-31] MEDS: CitaloPRAM (CeleXA) 20 MG TAB PO SCH (09:43)
[2019-05-31] MEDS: APIXABAN 5 MG TAB (ELIQUIS) PO SCH ×2 (09:44→20:12)
[2019-05-31] MEDS: MULTIVITAMINS/MINERALS THERAP 1 TAB PO SCH (09:44)
[2019-05-31] MEDS: SENOKOT S TAB PO SCH ×2 (09:44→20:13)
[2019-05-31] MEDS: FOLIC ACID 1 MG TAB PO SCH (09:45)
[2019-05-31] MEDS: ACETAMINOPHEN TAB 650MG DOSE (2X325MG) PO PRN (09:47)
[2019-05-31] MEDS: METOPROLOL TART 50 MG TAB PO SCH ×2 (09:48→20:13)
[2019-05-31] MEDS: NYSTATIN 100,000 UNITS/GM TOPICAL PWD 15 GM TOP SCH ×2 (09:49→20:14)
[2019-05-31] MEDS: MAG SULF 1GM/100ML (MAG RUN) 1 GM in IV 1 EA IV SCH ×2 (09:50→11:27)
[2019-05-31] MEDS: SODIUM CHLORIDE 0.9% INJ 10 ML SYR IV PRN ×3 (09:51→20:14)
[2019-05-31 10:37] VITALS: BP 112/60
[2019-05-31] MEDS: traMADol 50 MG TAB PO PRN ×2 (11:52→20:12)
[2019-05-31 14:00] VITALS: BP 106/53
--- NOTE | 2019-05-31 15:02 | IPNPDOC ---
Date Seen The patient was seen on 05/31/19. Progress Note SUBJECTIVE: 58-year-old female with past medical history of factor V Leiden deficiency, (on Eliquis), DVT/PE, diabetes, hypertension and hyperlipidemia was admitted for postop hardware infection. Patient had a left hip fracture and underwent ORIF and presented with wound dehiscence and pustular discharge. Patient underwent washout yesterday, seen in the morning, without any complaints at this time. Patient has a wound VAC in place, denies any shortness of breath, chest pain, nausea, vomiting, abdominal pain or diarrhea. 05/24/19 No acute events overnight, comfortable in bed, without complaints at this time, pain is well controlled. 05/25/19 No acute events overnight, tolerated breakfast, working w/ PT, comfortable, no complaints at this time, awaiting further surgery on Sunday. 05/26/19 No acute events overnight, tolerated CPAP, no complaints at this time, scheduled for surgery tomorrow, heparin drip will be held prior to procedure. 05/27/19 Comfortable, without complaints, hgb down to 7.1, persistent low/moderate volume bloody fluid draining from wound vac, scheduled for debridement later today. 05/28/19 Underwent debridement yesterday, comfortable in the morning, without any c omplaints other than mild leg discomfort. Patient now has 3 ALYSIA drains with serosanguineous output, in addition to wound VAC. 05/29/19 Comfortable in bed, without complaints, pain well controlled. 05/30/19 No acute events overnight, comfortable in bed, without any complaints at this time. 05/31/19 Unchanged from yesterday, no acute events overnight, comfortable, without any complaints at this time. 10 point review of system is negative except for above PHYSICAL EXAMINATION: VITAL SIGNS: Please see below. GENERAL: Morbidly obese HEENT: Normocephalic, atraumatic, moist mucous membranes NECK: Supple CARDIOVASCULAR EXAMINATION: S1, S2, no murmurs RESPIRATORY EXAMINATION: Limited anteriorly, clear to auscultation ABDOMINAL EXAMINATION: Soft, nontender, nondistended, positive bowel sounds EXTREMITIES: Left lower extremity range of motion limited due to pain, 3 ALYSIA drains noted with small amount of serosanguineous drainage, wound VAC in place SKIN: Right heel with pressure ulcer NEUROLOGICAL EXAMINATION: Alert and oriented 3, no focal deficits PSYCHIATRIC EXAMINATION: Calm and cooperative LABORATORY DATA, IMAGING STUDIES, MICROBIOLOGY: Please see below. ASSESSMENT AND PLAN: 58-year-old female with past medical history of factor V Leiden deficiency, DVT/PE, hypertension, diabetes and hyperlipidemia who underwent recent ORIF presented with postop hardware infection. PROBLEMS: 1. Septic arthritis: recent ORIF now admitted w/ infected hardware, status post washout/debridement 4, cultures grew MSSA, continue Ancef, wound vac, further management as per orthopedic surgery, ID following. PICC line placed, continue Ancef until 06/29/19, may require PO antibiotics afterwards. Likely removal of wound vac & ALYSIA drains on Sunday with discharge back to [facility]. 2. Factor V Leiden deficiency: History of DVT/PE, continue Eliquis. 3. Diabetes mellitus: Sliding scale insulin coverage with meals and at bedtime. 4. Hypertension: Continue lisinopril and metoprolol w/ hold parameters 5. Hyperlipidemia: Continue atorvastatin DVT prophylaxis: on Eliquis GI prophylaxis: PPI VS, I&O, 24H, Fishbone Vital Signs/I&O Vital Signs Date Time Temp Pulse Resp B/P (MAP) Pulse Ox O2 Delivery O2 Flow Rate FiO2 05/31/19 12:22 18 05/31/19 10:37 98.2 112/60 97 Room Air 05/31/19 09:48 92 05/27/19 14:56 10.0 I&O- Last 24 Hours up to 6 AM 05/31/19 06:00 Intake Total 1390 ml Output Total 875 ml Balance 515 ml Laboratory Data 24H LABS Laboratory Tests 2 05/30/19 17:33: Bedside Glucose (Misc Panel) 132H 05/30/19 20:07: Bedside Glucose (Misc Panel) 181H 05/31/19 06:34: Anion Gap 8, Glomerular Filtration Rate > 60.0, Calcium Level 8.1L, Phosphorus Level 2.9, Magnesium Level 1.7L 05/31/19 07:10: Nucleated Red Blood Cells % (auto) 0.0 05/31/19 11:33: Bedside Glucose (Misc Panel) 150H CBC/BMP Laboratory Tests 05/31/19 06:34 05/31/19 07:10 Microbiology Microbiology 05/29/19 Stool Occult Blood (MACI) - Final, Complete 05/27/19 Stool Occult Blood (MACI) - Final, Complete 05/26/19 Stool Occult Blood (MACI) - Final, Complete 05/25/19 Stool Occult Blood (MACI) - Final, Complete 05/22/19 Stool Occult Blood (MACI) - Final, Complete ZANA LINDSEY MD May 31, 2019 15:02
[2019-05-31 20:00] VITALS: BP 118/65
[2019-05-31] MEDS: ATORVASTATIN 20 MG TAB PO SCH (20:12)
[2019-05-31] MEDS: lisinopriL 10 MG TAB PO SCH (20:13)
[2019-06-01 05:53] VITALS: BP 117/68
[2019-06-01] MEDS: ceFAZolin SOD 2 GM in IV 1 EA IV SCH ×3 (06:10→21:13)
[2019-06-01] MEDS: traMADol 50 MG TAB PO PRN ×2 (06:10→21:12)
[2019-06-01] MEDS: SODIUM CHLORIDE 0.9% INJ 10 ML SYR IV SCH ×2 (06:11→17:46)
[2019-06-01] MEDS: HumaLOG INSULIN (NovoLOG) PER UNIT SC SCH ×4 (07:36→21:00)
[2019-06-01] MEDS: PANTOPRAZOLE 40MG TAB (PROTONIX) PO SCH (07:37)
[2019-06-01] MEDS: METOPROLOL TART 50 MG TAB PO SCH ×2 (07:37→21:11)
[2019-06-01] MEDS: CitaloPRAM (CeleXA) 20 MG TAB PO SCH (07:37)
[2019-06-01] MEDS: APIXABAN 5 MG TAB (ELIQUIS) PO SCH ×2 (07:37→21:11)
[2019-06-01] MEDS: SENOKOT S TAB PO SCH ×2 (07:37→21:00)
[2019-06-01] MEDS: FOLIC ACID 1 MG TAB PO SCH (07:37)
[2019-06-01] MEDS: MULTIVITAMINS/MINERALS THERAP 1 TAB PO SCH (07:37)
[2019-06-01] MEDS: NYSTATIN 100,000 UNITS/GM TOPICAL PWD 15 GM TOP SCH ×2 (07:38→21:13)
[2019-06-01 14:00] VITALS: BP 110/59
--- NOTE | 2019-06-01 18:41 | IPNPDOC ---
Date Seen The patient was seen on 06/01/19. Progress Note SUBJECTIVE: 58-year-old female with past medical history of factor V Leiden deficiency, (on Eliquis), DVT/PE, diabetes, hypertension and hyperlipidemia was admitted for postop hardware infection. Patient had a left hip fracture and underwent ORIF and presented with wound dehiscence and pustular discharge. Patient underwent washout yesterday, seen in the morning, without any complaints at this time. Patient has a wound VAC in place, denies any shortness of breath, chest pain, nausea, vomiting, abdominal pain or diarrhea. 05/24/19 No acute events overnight, comfortable in bed, without complaints at this time, pain is well controlled. 05/25/19 No acute events overnight, tolerated breakfast, working w/ PT, comfortable, no complaints at this time, awaiting further surgery on Sunday. 05/26/19 No acute events overnight, tolerated CPAP, no complaints at this time, scheduled for surgery tomorrow, heparin drip will be held prior to procedure. 05/27/19 Comfortable, without complaints, hgb down to 7.1, persistent low/moderate volume bloody fluid draining from wound vac, scheduled for debridement later today. 05/28/19 Underwent debridement yesterday, comfortable in the morning, without any complaints other than mild leg discomfort. Patient now has 3 ALYSIA drains with serosanguineous output, in addition to wound VAC. 05/29/19 Comfortable in bed, without complaints, pain well controlled. 05/30/19 No acute events overnight, comfortable in bed, without any complaints at this time. 05/31/19 Unchanged from yesterday, no acute events overnight, comfortable, without any complaints at this time. 06/01/19 Comfortable in bed, no acute events overnight, awaiting removal of Wound vac/ALYSIA drains tomorrow with discharge back to [facility]. 10 point review of system is negative except for above PHYSICAL EXAMINATION: VITAL SIGNS: Please see below. GENERAL: Morbidly obese HEENT: Normocephalic, atraumatic, moist mucous membranes NECK: Supple CARDIOVASCULAR EXAMINATION: S1, S2, no murmurs RESPIRATORY EXAMINATION: Limited anteriorly, clear to auscultation ABDOMINAL EXAMINATION: Soft, nontender, nondistended, positive bowel sounds EXTREMITIES: Left lower extremity range of motion limited due to pain, 3 ALYSIA drains noted with small amount of serosanguineous drainage, wound VAC in place SKIN: Right heel with pressure ulcer NEUROLOGICAL EXAMINATION: Alert and oriented 3, no focal deficits PSYCHIATRIC EXAMINATION: Calm and cooperative LABORATORY DATA, IMAGING STUDIES, MICROBIOLOGY: Please see below. ASSESSMENT AND PLAN: 58-year-old female with past medical history of factor V Leiden deficiency, DVT/PE, hypertension, diabetes and hyperlipidemia who underwent recent ORIF presented with postop hardware infection. PROBLEMS: 1. Septic arthritis: recent ORIF now admitted w/ infected hardware, status post washout/debridement 4, cultures grew MSSA, continue Ancef, wound vac, further management as per orthopedic surgery, ID following. PICC line placed, continue Ancef until 06/29/19, may require PO antibiotics afterwards. Likely removal of wound vac & ALYSIA drains tomorrow with discharge back to [facility]. 2. Factor V Leiden deficiency: History of DVT/PE, continue Eliquis. 3. Diabetes mellitus: Sliding scale insulin coverage with meals and at bedtime. 4. Hypertension: Continue lisinopril and metoprolol w/ hold parameters 5. Hyperlipidemia: Continue atorvastatin DVT prophylaxis: on Eliquis GI prophylaxis: PPI VS, I&O, 24H, Fishbone Vital Signs/I&O Vital Signs Date Time Temp Pulse Resp B/P (MAP) Pulse Ox O2 Delivery O2 Flow Rate FiO2 06/01/19 14:00 98.6 53 17 110/59 (76) 97 Room Air 05/27/19 14:56 10.0 I&O- Last 24 Hours up to 6 AM 06/01/19 05:59 Intake Total 2330 ml Output Total 2615 ml Balance -285 ml Laboratory Data 24H LABS Laboratory Tests 2 05/31/19 19:44: Bedside Glucose (Misc Panel) 159H 06/01/19 11:18: Bedside Glucose (Misc Panel) 134H 06/01/19 16:40: Bedside Glucose (Misc Panel) 197H Microbiology Microbiology 05/29/19 Stool Occult Blood (MACI) - Final, Complete 05/27/19 Stool Occult Blood (MACI) - Final, Complete 05/26/19 Stool Occult Blood (MACI) - Final, Complete 05/25/19 Stool Occult Blood (MACI) - Final, Complete 05/22/19 Stool Occult Blood (MACI) - Final, Complete ZANA LINDSEY MD Jun 01, 2019 18:41
[2019-06-01] MEDS: lisinopriL 10 MG TAB PO SCH (21:11)
[2019-06-01] MEDS: ATORVASTATIN 20 MG TAB PO SCH (21:12)
[2019-06-01 21:20] VITALS: BP 109/58
[2019-06-02] MEDS: ceFAZolin SOD 2 GM in IV 1 EA IV SCH ×3 (05:28→21:56)
[2019-06-02] MEDS: SODIUM CHLORIDE 0.9% INJ 10 ML SYR IV SCH ×2 (05:29→16:42)
[2019-06-02 06:04] LABS: HEMOGLOBIN 8.2 g/dl (12.0-15.5); MEAN CORPUSCULAR HEMOGLOBIN 28.6 pg (27.0-33.0); MEAN CORPUSCULAR HGB CONC 31.5 g/dl (32.0-36.5); MEAN CORPUSCULAR VOLUME 90.6 fl (80.0-96.0); PLATELET COUNT, AUTOMATED 436 10^3/uL (150-450); RED BLOOD COUNT 2.87 10^6/uL (4.00-5.40); WHITE BLOOD COUNT 11.8 10^3/uL (4.0-10.0)
[2019-06-02 06:27] VITALS: BP 86/63
[2019-06-02 06:29] LABS: BLOOD UREA NITROGEN 9 MG/DL (7-18); CALCIUM LEVEL 9.4 MG/DL (8.5-10.1); CARBON DIOXIDE LEVEL 27 MEQ/L (21-32); CHLORIDE LEVEL 101 MEQ/L (98-107); GLOMERULAR FILTRATION RATE > 60.0 (>51); GLUCOSE, FASTING 120 MG/DL (70-100); POTASSIUM SERUM 4.2 MEQ/L (3.5-5.1); SODIUM LEVEL 132 MEQ/L (136-145)
[2019-06-02] MEDS ORDERED: NS 1,000 ML IV ONE (07:00)
[2019-06-02 08:30] VITALS: BP 130/70
[2019-06-02] MEDS: HumaLOG INSULIN (NovoLOG) PER UNIT SC SCH ×4 (08:50→21:00)
[2019-06-02] MEDS: APIXABAN 5 MG TAB (ELIQUIS) PO SCH ×2 (08:52→21:57)
[2019-06-02] MEDS: PANTOPRAZOLE 40MG TAB (PROTONIX) PO SCH (08:52)
[2019-06-02] MEDS: FOLIC ACID 1 MG TAB PO SCH (08:52)
[2019-06-02] MEDS: CitaloPRAM (CeleXA) 20 MG TAB PO SCH (08:53)
[2019-06-02] MEDS: MULTIVITAMINS/MINERALS THERAP 1 TAB PO SCH (08:53)
[2019-06-02] MEDS: SENOKOT S TAB PO SCH ×2 (08:54→21:00)
[2019-06-02] MEDS: NYSTATIN 100,000 UNITS/GM TOPICAL PWD 15 GM TOP SCH ×2 (08:54→21:56)
[2019-06-02] MEDS: METOPROLOL TART 50 MG TAB PO SCH ×2 (08:54→21:57)
[2019-06-02 09:00] VITALS: BP 130/70
[2019-06-02 10:00] VITALS: BP 96/44
[2019-06-02 14:00] VITALS: BP 113/46
[2019-06-02] MEDS: traMADol 50 MG TAB PO PRN ×2 (14:23→21:56)
--- NOTE | 2019-06-02 18:53 | IPNPDOC ---
Date Seen The patient was seen on 06/02/19. Progress Note SUBJECTIVE: 58-year-old female with past medical history of factor V Leiden deficiency, (on Eliquis), DVT/PE, diabetes, hypertension and hyperlipidemia was admitted for postop hardware infection. Patient had a left hip fracture and underwent ORIF and presented with wound dehiscence and pustular discharge. Patient underwent washout yesterday, seen in the morning, without any complaints at this time. Patient has a wound VAC in place, denies any shortness of breath, chest pain, nausea, vomiting, abdominal pain or diarrhea. 05/24/19 No acute events overnight, comfortable in bed, without complaints at this time, pain is well controlled. 05/25/19 No acute events overnight, tolerated breakfast, working w/ PT, comfortable, no complaints at this time, awaiting further surgery on Sunday. 05/26/19 No acute events overnight, tolerated CPAP, no complaints at this time, scheduled for surgery tomorrow, heparin drip will be held prior to procedure. 05/27/19 Comfortable, without complaints, hgb down to 7.1, persistent low/moderate volume bloody fluid draining from wound vac, scheduled for debridement later today. 05/28/19 Underwent debridement yesterday, comfortable in the morning, without any c omplaints other than mild leg discomfort. Patient now has 3 ALYSIA drains with serosanguineous output, in addition to wound VAC. 05/29/19 Comfortable in bed, without complaints, pain well controlled. 05/30/19 No acute events overnight, comfortable in bed, without any complaints at this time. 05/31/19 Unchanged from yesterday, no acute events overnight, comfortable, without any complaints at this time. 06/01/19 Comfortable in bed, no acute events overnight, awaiting removal of Wound vac/ALYSIA drains tomorrow with discharge back to [facility]. 06/02/19 Patient seen in the morning, comfortable, place at this time, awaiting removal of ALYSIA drains and switching of wound VAC. Patient mildly hypotensive in the morning, received 1 L of IV fluids. 10 point review of system is negative except for above PHYSICAL EXAMINATION: VITAL SIGNS: Please see below. GENERAL: Morbidly obese HEENT: Normocephalic, atraumatic, moist mucous membranes NECK: Supple CARDIOVASCULAR EXAMINATION: S1, S2, no murmurs RESPIRATORY EXAMINATION: Limited anteriorly, clear to auscultation ABDOMINAL EXAMINATION: Soft, nontender, nondistended, positive bowel sounds EXTREMITIES: Left lower extremity range of motion limited due to pain, 3 ALYSIA drains noted with small amount of serosanguineous drainage, wound VAC in place SKIN: Right heel with pressure ulcer NEUROLOGICAL EXAMINATION: Alert and oriented 3, no focal deficits PSYCHIATRIC EXAMINATION: Calm and cooperative LABORATORY DATA, IMAGING STUDIES, MICROBIOLOGY: Please see below. ASSESSMENT AND PLAN: 58-year-old female with past medical history of factor V Leiden deficiency, DVT/PE, hypertension, diabetes and hyperlipidemia who underwent recent ORIF presented with postop hardware infection. PROBLEMS: 1. Septic arthritis: recent ORIF now admitted w/ infected hardware, status post washout/debridement 4, cultures grew MSSA, continue Ancef, wound vac, further management as per orthopedic surgery, ID following. PICC line placed, continue Ancef until 06/29/19, may require PO antibiotics afterwards. Awaiting removal of ALYSIA drains today with replacement of wound VAC and discharge to [facility] tomorrow. 2. Factor V Leiden deficiency: History of DVT/PE, continue Eliquis. 3. Diabetes mellitus: Sliding scale insulin coverage with meals and at bedtime. 4. Hypertension: Continue lisinopril and metoprolol w/ hold parameters 5. Hyperlipidemia: Continue atorvastatin DVT prophylaxis: on Eliquis GI prophylaxis: PPI VS, I&O, 24H, Fishbone Vital Signs/I&O Vital Signs Date Time Temp Pulse Resp B/P (MAP) Pulse Ox O2 Delivery O2 Flow Rate FiO2 06/02/19 14:53 18 Room Air 06/02/19 14:00 98.1 86 113/46 (68) 99 05/27/19 14:56 10.0 I&O- Last 24 Hours up to 6 AM 06/02/19 06:00 Intake Total 1280 ml Output Total 630 ml Balance 650 ml Laboratory Data 24H LABS Laboratory Tests 2 06/01/19 21:22: Bedside Glucose (Misc Panel) 114H 06/02/19 05:30: Nucleated Red Blood Cells % (auto) 0.0, Anion Gap 4L, Glomerular Filtration Rate > 60.0, Calcium Level 9.4#, C-Reactive Protein, Quantitative 17.40H 06/02/19 11:28: Bedside Glucose (Misc Panel) 121H 06/02/19 16:18: Bedside Glucose (Misc Panel) 131H CBC/BMP Laboratory Tests 06/02/19 05:30 Microbiology Microbiology 05/29/19 Stool Occult Blood (MACI) - Final, Complete 05/27/19 Stool Occult Blood (MACI) - Final, Complete 05/26/19 Stool Occult Blood (MACI) - Final, Complete 05/25/19 Stool Occult Blood (MACI) - Final, Complete ZANA LINDSEY MD Jun 02, 2019 18:53
[2019-06-02 20:26] VITALS: BP 127/62
[2019-06-02] MEDS: ATORVASTATIN 20 MG TAB PO SCH (21:57)
[2019-06-02] MEDS: lisinopriL 10 MG TAB PO SCH (21:57)
[2019-06-03] MEDS: SODIUM CHLORIDE 0.9% INJ 10 ML SYR IV SCH (06:09)
[2019-06-03] MEDS: ceFAZolin SOD 2 GM in IV 1 EA IV SCH (06:10)
[2019-06-03 06:13] LABS: BASO # 0.1 10^3/uL (0.0-0.2); BASO % 0.6 % (0.0-1.0); EOS # 0.2 10^3/uL (0.0-0.5); EOS % 1.5 % (0.0-3.0); HEMATOCRIT 25.9 % (36.0-47.0); HEMOGLOBIN 8.3 g/dl (12.0-15.5); LYMPH # 0.8 10^3/uL (1.5-5.0); LYMPH % 7.6 % (24.0-44.0); MEAN CORPUSCULAR HEMOGLOBIN 28.8 pg (27.0-33.0); MEAN CORPUSCULAR VOLUME 89.9 fl (80.0-96.0); MONO # 1.1 10^3/uL (0.0-0.8); MONO % 9.9 % (0.0-5.0); NEUTROPHILS # 8.5 10^3/uL (1.5-8.5); NEUTROPHILS % 79.6 % (36.0-66.0); PLATELET COUNT, AUTOMATED 421 10^3/uL (150-450); RED BLOOD COUNT 2.88 10^6/uL (4.00-5.40); WHITE BLOOD COUNT 10.6 10^3/uL (4.0-10.0)
[2019-06-03 06:27] VITALS: BP 106/65
[2019-06-03] MEDS: FOLIC ACID 1 MG TAB PO SCH (07:56)
[2019-06-03] MEDS: CitaloPRAM (CeleXA) 20 MG TAB PO SCH (07:56)
[2019-06-03] MEDS: MULTIVITAMINS/MINERALS THERAP 1 TAB PO SCH (07:56)
[2019-06-03] MEDS: HumaLOG INSULIN (NovoLOG) PER UNIT SC SCH (07:56)
[2019-06-03] MEDS: PANTOPRAZOLE 40MG TAB (PROTONIX) PO SCH (07:57)
[2019-06-03] MEDS: APIXABAN 5 MG TAB (ELIQUIS) PO SCH (07:57)
[2019-06-03 08:00] VITALS: BP_SYST 114; BP_DIAS 52; BP_DIAS 56
[2019-06-03] MEDS: METOPROLOL TART 50 MG TAB PO SCH (08:00)
[2019-06-03] MEDS: SENOKOT S TAB PO SCH (08:00)
[2019-06-03] MEDS: NYSTATIN 100,000 UNITS/GM TOPICAL PWD 15 GM TOP SCH (08:00)
--- NOTE | 2019-06-03 12:00 | IPN ---
DATE: 06/02/2019 Mrs. Crews is eating her dinner. She is doing well. She has no complaints except some heel pain on the right side. There is no fever or chills. No nausea, vomiting or diarrhea. She is afebrile. Temperature is 98.1, pulse 86, respirations 17, blood pressure 113/46, O2 sat 99% on room air. Heart normal S1-S1, no murmurs, rubs or gallops. Lungs are clear. No wheezes, rales or rhonchi. Abdomen morbidly obese, soft, nontender. Extremities no ankle edema. She has a decubitus ulcer with an eschar on the right heel measuring about 4 x 5 cm with some extension superiorly with tenderness and erythema. Left knee PREVENA VAC is in place. Wound could not be examined. LABORATORIES: White count 11.8, hemoglobin 8.2, hematocrit 26, platelets 436. Sodium 132, potassium 4.2, chloride 101, bicarb 27, BUN 9, creatinine of 0.6, glucose 120, calcium 9.4, CRP 17.4 increased from 8.19, concerning. The last surgery was done on 05/[address] Reid where incision and drainage was done and wound VAC was removed and an incisional VAC was placed. IMPRESSION: 1. Septic arthritis and postoperative wound infection on IV cefazolin 2 grams every 8 hours, with increasing white count and CRP a little concerning. 2. Decubitus ulcer of the right heel, slightly worse. Will need to followup with the wound clinic. PLAN: Patient is to be discharged tomorrow to the correction to continue with IV cefazolin. Patient will need 6 weeks of IV antibiotics. Anticipated end of therapy would be 06/29/2019. Please repeat CBC, CRP tomorrow to make sure that they have not trended up and the patient does not need further debridement or intervention.
--- NOTE | 2019-06-05 23:25 | DS.PDOC ---
Discharge Summary General Date of Admission May 17, 2019 at 05:19 Date of Discharge 06/05/19 Attending Physician: ZANA LINDSEY MD Discharge Summary PROCEDURES PERFORMED DURING STAY: None. ADMITTING DIAGNOSES: 1. . Septic arthritis, postop infection. DISCHARGE DIAGNOSES: 1. Septic arthritis, postop infection. COMPLICATIONS/CHIEF COMPLAINT: Post Op Infection. HISTORY OF PRESENT ILLNESS: 58-year-old female who recently underwent left hip ORIF secondary to fracture was readmitted for septic arthritis and postop in fection. Patient underwent 4, debridement by orthopedic surgery, subsequently had wound VAC and multiple ALYSIA drains in place. Patient's cultures grew MSSA, PICC line has been placed and patient started on Ancef. Patient was evaluated by infectious disease, and date for antibiotics will be 06/29/2019. Patient's ALYSIA drains were removed, wound VAC remains in place. Patient is clinically and hemodynamically stable for discharge back to [facility] with outpatient follow-up with infectious disease and orthopedic surgery. HOSPITAL COURSE: As above. DISCHARGE MEDICATIONS: Please see below. ALLERGIES: Please see below. PHYSICAL EXAMINATION: VITAL SIGNS: Please see below. GENERAL: Morbidly obese HEENT: Normocephalic, atraumatic, moist mucous membranes NECK: Supple CARDIOVASCULAR EXAMINATION: S1, S2, no murmurs RESPIRATORY EXAMINATION: Limited anteriorly, clear to auscultation ABDOMINAL EXAMINATION: Soft, nontender, nondistended, positive bowel sounds EXTREMITIES: Left lower extremity range of motion limited due to pain, wound VAC in place SKIN: Right heel with pressure ulcer NEUROLOGICAL EXAMINATION: Alert and oriented 3, no focal deficits PSYCHIATRIC EXAMINATION: Calm and cooperative LABORATORY DATA: Please see below. PROGNOSIS: Fair ACTIVITY: As tolerated. DIET: Cardiac DISCHARGE PLAN: Follow with wound care, infectious disease, orthopedic surgery and PCP much 2 weeks DISPOSITION: [facility]. DISCHARGE INSTRUCTIONS: 1. As above. ITEMS TO FOLLOWUP ON ON OUTPATIENT: 1. Weekly CBC, ESR and CRP. DISCHARGE CONDITION: Stable. TIME SPENT ON DISCHARGE: Greater than 34 minutes. Vital Signs/I&Os Vital Signs Date Time Temp Pulse Resp B/P (MAP) Pulse Ox O2 Delivery O2 Flow Rate FiO2 06/03/19 08:00 101 114/56 (75) 06/03/19 06:27 98.6 16 98 Room Air Microbiology Microbiology 05/29/19 Stool Occult Blood (MACI) - Final, Complete 05/27/19 Stool Occult Blood (MACI) - Final, Complete 05/26/19 Stool Occult Blood (MACI) - Final, Complete Discharge Medications Scheduled Apixaban (Eliquis) 5 Mg Tablet, 5 MG PO BID, (Reported) Arginine/Glutamine/Calcium Bmb (Reinaldo Packet) 1 Each Powd.pack, 1 PACKET PO BID, (Reported) Atorvastatin Calcium (Atorvastatin Calcium) 20 Mg Tablet, 20 MG PO QHS, (Reported) Canagliflozin (Invokana) 300 Mg Tablet, 300 MG PO QPM, (Reported) Cholecalciferol (Vitamin D3) (Vitamin D3) 2,000 Unit Tab.chew, 2,000 UNIT PO DAILY, (Reported) Citalopram Hydrobromide (Celexa) 20 Mg Tablet, 20 MG PO DAILY, (Reported) Clobetasol Propionate (Temovate) 30 Gm Cream..g., 1 DOSE TOP BID, (Reported) APPLY TO LEFT EAR Fluconazole (Fluconazole) 150 Mg Tablet, 150 MG PO QWEEK, (Reported) SUNDAY AT BEDTIME Folic Acid (Folic Acid) 1 Mg Tablet, 1 MG PO DAILY, (Reported) Furosemide (Furosemide) 20 Mg Tablet, 20 MG PO DAILY, (Reported) Glucagon,Human Recombinant (Glucagon Emergency Kit) 1 Mg Vial, 1 MG IM ASDIRECTED, (Reported) Insulin Glargine,Hum.rec.anlog (Lantus Solostar) 100 Unit/1 Ml Insuln.pen, 60 UNITS SC QAM, (Reported) Insulin Lispro (Humalog Kwikpen U-100) 100 Unit/1 Ml Insuln.pen, 8 UNITS SC AC, (Reported) Iron Polysaccharide Complex (Ferrex 150) 150 Mg Capsule, 150 MG PO DAILY, (Reported) Lisinopril (Lisinopril) 10 Mg Tablet, 10 MG PO QHS, (Reported) Medroxyprogesterone Acetate (Provera) 10 Mg Tablet, 10 MG PO DAILY, (Reported) Metoprolol Tartrate (Metoprolol Tartrate) 50 Mg Tablet, 50 MG PO BID, (Reported) Multivitamins (Thera M Plus Tablet) 1 Each Tablet, 1 TAB PO DAILY, (Reported) Nut.tx.gluc.intoler,Lac-Fr,Soy (Glucerna Therapeutic Nutrition) 237 Ml Liquid, 237 ML PO BID, (Reported) 1000 and 1400 Pantoprazole Sodium (Protonix) 40 Mg Tablet.dr, 40 MG PO DAILY, (Reported) Sitagliptin (Januvia) 50 Mg Tablet, 50 MG PO DAILY, (Reported) Scheduled PRN Acetaminophen (Tylenol) 325 Mg Tablet, 650 MG PO Q4H PRN for PAIN / FEVER, (Reported) Bisacodyl (Dulcolax) 10 Mg Supp.rect, 10 MG KS DAILY PRN for CONSTIPATION, (Reported) Magnesium Hydroxide (Milk of Magnesia) 400 Mg/5 Ml Oral.susp, 10 ML PO DAILY PRN for CONSTIPATION, (Reported) Sodium Phosphate,[place]-Dibasic (Enema Ready To Use) 133 Ml Enema, 1 SYLVIA KS DAILY PRN for CONSTIPATION, (Reported) Tramadol HCl (Tramadol HCl) 50 Mg Tablet, 50 MG PO Q4H PRN for PAIN, (Reported) Zinc Oxide (Diaper Rash) 113 Gm Cream..g., 1 DOSE TOP BID PRN for RASH, (Reported) APPLY TO INGUINAL FOLDS AND INNER THIGHS Allergies Coded Allergies: Penicillins (Verified Allergy, Unknown, 03/24/19) ZANA LINDSEY MD Jun 05, 2019 23:25
== END 2019-06-03 11:50 | DRG 485 ==
LOC: M ED 02:13 → EDBD 02:13 → M ED INP 05:19 → M MS5PR 18:30
PROVIDERS: ADMIT General Practice; ATTEND Internal Medicine
PROC: 0QDC0ZZ Extraction of Left Lower Femur, Open Approach (ICD-10-PCS; 2019-05-17)
PROC: 0QDC0ZZ Extraction of Left Lower Femur, Open Approach (ICD-10-PCS; 2019-05-19)
PROC: 0S9D0ZZ Drainage of Left Knee Joint, Open Approach (ICD-10-PCS; principal; 2019-05-19 16:00)
PROC: 02HV33Z Insertion of Infusion Device into Superior Vena Cava, Percutaneous Approach (ICD-10-PCS; 2019-05-20)
PROC: 0QPC04Z Removal of Internal Fixation Device from Left Lower Femur, Open Approach (ICD-10-PCS; 2019-05-22)
PROC: 0QDC0ZZ Extraction of Left Lower Femur, Open Approach (ICD-10-PCS; 2019-05-22)
PROC: 0QBC0ZZ Excision of Left Lower Femur, Open Approach (ICD-10-PCS; 2019-05-27)
PROC: 0Q9 Lower Bones, Drainage (ICD-10-PCS; 2019-05-27)
DX: T84.621A Infection and inflammatory reaction due to internal fixation device of left femur, initial encounter (principal); A41.9 Sepsis, unspecified organism; D68.2 Hereditary deficiency of other clotting factors; L02.412 Cutaneous abscess of left axilla; T81.31XA Disruption of external operation (surgical) wound, not elsewhere classified, initial encounter; T81.44XA Sepsis following a procedure, initial encounter; M00.052 Staphylococcal arthritis, left hip; Z68.42 Body mass index [BMI] 45.0-49.9, adult; I12.9 Hypertensive chronic kidney disease with stage 1 through stage 4 chronic kidney disease, or unspecified chronic kidney disease; E78.5 Hyperlipidemia, unspecified; E66.01 Morbid (severe) obesity due to excess calories; E11.22 Type 2 diabetes mellitus with diabetic chronic kidney disease; B95.61 Methicillin susceptible Staphylococcus aureus infection as the cause of diseases classified elsewhere; L89.610 Pressure ulcer of right heel, unstageable; I87.2 Venous insufficiency (chronic) (peripheral); M16.11 Unilateral primary osteoarthritis, right hip; N18.3 Chronic kidney disease, stage 3 (moderate); Y83.1 Surgical operation with implant of artificial internal device as the cause of abnormal reaction of the patient, or of later complication, without mention of misadventure at the time of the procedure; Z86.14 Personal history of Methicillin resistant Staphylococcus aureus infection; Z88.0 Allergy status to penicillin; Z79.891 Long term (current) use of opiate analgesic; Z79.899 Other long term (current) drug therapy; Z79.4 Long term (current) use of insulin; Z86.711 Personal history of pulmonary embolism; Z79.01 Long term (current) use of anticoagulants; Z86.718 Personal history of other venous thrombosis and embolism

== ENCOUNTER → 2019-06-09 | Outpatient (REF) ==
[~2019-06-09] MED LIST changes: +DULC10SU2 PR; +FURO20TA2 PO; +GLUC1KIT IM; +GLUC1LIQ18 PO; +JUVEPOW4 PO; +LISI10TA4 PO; +METO50TA7 PO; +MILKSUS3 PO; +OSEL75CA PO; +SITA50TAB PO; +VITA1CHW7 PO; +[UNRECOGNIZED DRUG - CODE] PR
[2019-06-09 10:57] LABS: HEMATOCRIT 27.4 % (36.0-47.0); HEMOGLOBIN 8.3 g/dl (12.0-15.5); MEAN CORPUSCULAR HEMOGLOBIN 27.2 pg (27.0-33.0); MEAN CORPUSCULAR HGB CONC 30.3 g/dl (32.0-36.5); MEAN CORPUSCULAR VOLUME 89.8 fl (80.0-96.0); PLATELET COUNT, AUTOMATED 432 10^3/uL (150-450); RED BLOOD COUNT 3.05 10^6/uL (4.00-5.40)
[2019-06-09 11:22] LABS: ERYTHROCYTE SEDIMENTATION RATE 106 mm/hr (0-30)
[2019-06-09 11:39] LABS: BLOOD UREA NITROGEN 23 MG/DL (7-18); CALCIUM LEVEL 8.8 MG/DL (8.5-10.1); CARBON DIOXIDE LEVEL 25 MEQ/L (21-32); CHLORIDE LEVEL 105 MEQ/L (98-107); CREATININE FOR GFR 0.64 MG/DL (0.55-1.30); GLOMERULAR FILTRATION RATE > 60.0 (>51); GLUCOSE, FASTING 142 MG/DL (70-100); POTASSIUM SERUM 5.1 MEQ/L (3.5-5.1); SODIUM LEVEL 136 MEQ/L (136-145)
== END ==
PROVIDERS: ATTEND Family Medicine
DX: Z98.890 Other specified postprocedural states (principal); M25.552 Pain in left hip

== ENCOUNTER → 2019-06-11 | Outpatient (REF) ==
[2019-06-11 15:21] LABS: CLOSTRIDIUM DIFFICILE PCR POSITIVE (NEGATIVE)
== END ==
PROVIDERS: ATTEND Family Medicine
DX: R19.7 Diarrhea, unspecified (principal)

== ENCOUNTER → 2019-06-16 | Outpatient (REF) ==
[2019-06-17 12:16] LABS: HEMATOCRIT 26.2 % (36.0-47.0); HEMOGLOBIN 7.9 g/dl (12.0-15.5); MEAN CORPUSCULAR HEMOGLOBIN 27.2 pg (27.0-33.0); MEAN CORPUSCULAR HGB CONC 30.2 g/dl (32.0-36.5); MEAN CORPUSCULAR VOLUME 90.3 fl (80.0-96.0); PLATELET COUNT, AUTOMATED 446 10^3/uL (150-450); WHITE BLOOD COUNT 9.8 10^3/uL (4.0-10.0)
[2019-06-17 12:47] LABS: ERYTHROCYTE SEDIMENTATION RATE 127 mm/hr (0-30)
[2019-06-17 12:48] LABS: BLOOD UREA NITROGEN 24 MG/DL (7-18); C REACTIVE PROTEIN QUANTITATIV 7.87 MG/DL (0.00-0.30); CALCIUM LEVEL 8.9 MG/DL (8.5-10.1); CARBON DIOXIDE LEVEL 25 MEQ/L (21-32); CHLORIDE LEVEL 106 MEQ/L (98-107); CREATININE FOR GFR 0.63 MG/DL (0.55-1.30); GLOMERULAR FILTRATION RATE > 60.0 (>51); GLUCOSE, FASTING 98 MG/DL (70-100); POTASSIUM SERUM 5.1 MEQ/L (3.5-5.1); SODIUM LEVEL 137 MEQ/L (136-145)
== END ==
PROVIDERS: ATTEND Family Medicine
DX: K13.70 Unspecified lesions of oral mucosa (principal)

== ENCOUNTER → 2019-06-24 | Outpatient (REF) ==
[2019-06-24 17:44] LABS: HEMOGLOBIN 7.7 g/dl (12.0-15.5); MEAN CORPUSCULAR HEMOGLOBIN 27.4 pg (27.0-33.0); MEAN CORPUSCULAR HGB CONC 29.6 g/dl (32.0-36.5); MEAN CORPUSCULAR VOLUME 92.5 fl (80.0-96.0); PLATELET COUNT, AUTOMATED 445 10^3/uL (150-450); RED BLOOD COUNT 2.81 10^6/uL (4.00-5.40); WHITE BLOOD COUNT 15.3 10^3/uL (4.0-10.0)
[2019-06-24 18:50] LABS: ERYTHROCYTE SEDIMENTATION RATE 108 mm/hr (0-30)
== END ==
PROVIDERS: ATTEND Family Medicine
DX: M00.9 Pyogenic arthritis, unspecified (principal)

== ENCOUNTER → 2019-06-26 | Outpatient (REF) ==
[2019-06-26 11:58] LABS: HEMATOCRIT 27.4 % (36.0-47.0); HEMOGLOBIN 8.3 g/dl (12.0-15.5); MEAN CORPUSCULAR HEMOGLOBIN 27.8 pg (27.0-33.0); MEAN CORPUSCULAR HGB CONC 30.3 g/dl (32.0-36.5); MEAN CORPUSCULAR VOLUME 91.6 fl (80.0-96.0); PLATELET COUNT, AUTOMATED 482 10^3/uL (150-450); RED BLOOD COUNT 2.99 10^6/uL (4.00-5.40); WHITE BLOOD COUNT 10.9 10^3/uL (4.0-10.0)
[2019-06-26 12:15] LABS: BLOOD UREA NITROGEN 28 MG/DL (7-18); C REACTIVE PROTEIN QUANTITATIV 3.52 MG/DL (0.00-0.30); CALCIUM LEVEL 9.4 MG/DL (8.5-10.1); CARBON DIOXIDE LEVEL 23 MEQ/L (21-32); CHLORIDE LEVEL 108 MEQ/L (98-107); GLOMERULAR FILTRATION RATE > 60.0 (>51); GLUCOSE, FASTING 111 MG/DL (70-100); POTASSIUM SERUM 4.9 MEQ/L (3.5-5.1); SODIUM LEVEL 138 MEQ/L (136-145)
[2019-06-26 12:34] LABS: ERYTHROCYTE SEDIMENTATION RATE > 140 mm/hr (0-30)
== END ==
PROVIDERS: ATTEND Family Medicine
DX: M00.9 Pyogenic arthritis, unspecified (principal)

== ENCOUNTER → 2019-07-01 | Outpatient (REF) ==
[2019-07-01 11:53] LABS: HEMATOCRIT 30.7 % (36.0-47.0); HEMOGLOBIN 9.1 g/dl (12.0-15.5); MEAN CORPUSCULAR HEMOGLOBIN 27.1 pg (27.0-33.0); MEAN CORPUSCULAR HGB CONC 29.6 g/dl (32.0-36.5); MEAN CORPUSCULAR VOLUME 91.4 fl (80.0-96.0); PLATELET COUNT, AUTOMATED 486 10^3/uL (150-450); RED BLOOD COUNT 3.36 10^6/uL (4.00-5.40); WHITE BLOOD COUNT 9.2 10^3/uL (4.0-10.0)
[2019-07-01 12:06] LABS: BLOOD UREA NITROGEN 31 MG/DL (7-18); C REACTIVE PROTEIN QUANTITATIV 3.59 MG/DL (0.00-0.30); CALCIUM LEVEL 9.7 MG/DL (8.5-10.1); CARBON DIOXIDE LEVEL 23 MEQ/L (21-32); CHLORIDE LEVEL 105 MEQ/L (98-107); CREATININE FOR GFR 0.73 MG/DL (0.55-1.30); GLOMERULAR FILTRATION RATE > 60.0 (>51); GLUCOSE, FASTING 107 MG/DL (70-100); POTASSIUM SERUM 4.7 MEQ/L (3.5-5.1); SODIUM LEVEL 135 MEQ/L (136-145)
[2019-07-01 12:15] LABS: ERYTHROCYTE SEDIMENTATION RATE 68 mm/hr (0-30)
== END ==
PROVIDERS: ATTEND Family Medicine
DX: M00.9 Pyogenic arthritis, unspecified (principal)

== ENCOUNTER → 2019-07-08 | Outpatient (REF) ==
[2019-07-07 12:13] LABS: HEMATOCRIT 33.9 % (36.0-47.0); HEMOGLOBIN 10.4 g/dl (12.0-15.5); MEAN CORPUSCULAR HEMOGLOBIN 27.9 pg (27.0-33.0); MEAN CORPUSCULAR HGB CONC 30.7 g/dl (32.0-36.5); MEAN CORPUSCULAR VOLUME 90.9 fl (80.0-96.0); PLATELET COUNT, AUTOMATED 491 10^3/uL (150-450); RED BLOOD COUNT 3.73 10^6/uL (4.00-5.40)
[2019-07-07 12:31] LABS: C REACTIVE PROTEIN QUANTITATIV 3.23 MG/DL (0.00-0.30); CALCIUM LEVEL 9.9 MG/DL (8.5-10.1); CREATININE FOR GFR 1.07 MG/DL (0.55-1.30); GLOMERULAR FILTRATION RATE 56.3 (>51); POTASSIUM SERUM 5.2 MEQ/L (3.5-5.1)
[2019-07-07 13:07] LABS: ERYTHROCYTE SEDIMENTATION RATE 74 mm/hr (0-30)
== END ==
PROVIDERS: ATTEND Family Medicine
DX: M00.80 Arthritis due to other bacteria, unspecified joint (principal)

== ENCOUNTER → 2019-07-10 | Outpatient (CLI) | payer MEDICARE, MEDICAID ==
--- NOTE | 2019-07-10 13:50 | REP ---
RIGHT LOWER EXTREMITY DUPLEX DOPPLER ARTERIAL ULTRASOUND: Real-time ultrasound evaluation and duplex Doppler interrogation of the right lower extremity arterial system is performed. CARRIE is 1.02. Mild scattered plaquing is noted, predominantly in the calf arteries. There are diffuse biphasic and triphasic waveforms. There is no definite hemodynamically significant stenosis of the right lower extremity arterial structures. Right Peak Systolic Velocity Common femoral artery 153 cm/s Profunda 125 cm/s Proximal SFA 164 cm/s Mid SFA 71 cm/s Distal SFA 90 cm/s Popliteal 86 cm/s Proximal OSWALDO 93 cm/s Tibial peroneal trunk 78 cm/s Proximal MATERIALS SPECIALIST 64 cm/s Distal MATERIALS SPECIALIST 73 cm/s Distal OSWALDO 72 cm/s Electronically Signed by Ruddy Gutierrez MD 07/10/2019 02:34 P
== END ==
LOC: M RAD 11:24
PROVIDERS: ATTEND Surgery
DX: L97.819 Non-pressure chronic ulcer of other part of right lower leg with unspecified severity (principal)

== ENCOUNTER → 2019-07-10 | Outpatient (REF) ==
[2019-07-10 10:32] LABS: HEMATOCRIT 33.5 % (36.0-47.0); HEMOGLOBIN 10.3 g/dl (12.0-15.5); MEAN CORPUSCULAR HEMOGLOBIN 27.6 pg (27.0-33.0); MEAN CORPUSCULAR HGB CONC 30.7 g/dl (32.0-36.5); MEAN CORPUSCULAR VOLUME 89.8 fl (80.0-96.0); PLATELET COUNT, AUTOMATED 405 10^3/uL (150-450); RED BLOOD COUNT 3.73 10^6/uL (4.00-5.40); WHITE BLOOD COUNT 9.5 10^3/uL (4.0-10.0)
[2019-07-10 10:51] LABS: ERYTHROCYTE SEDIMENTATION RATE 73 mm/hr (0-30)
[2019-07-10 10:58] LABS: BLOOD UREA NITROGEN 45 MG/DL (7-18); C REACTIVE PROTEIN QUANTITATIV 3.36 MG/DL (0.00-0.30); CALCIUM LEVEL 10.2 MG/DL (8.5-10.1); CARBON DIOXIDE LEVEL 24 MEQ/L (21-32); CHLORIDE LEVEL 106 MEQ/L (98-107); CREATININE FOR GFR 0.86 MG/DL (0.55-1.30); GLOMERULAR FILTRATION RATE > 60.0 (>51); GLUCOSE, FASTING 81 MG/DL (70-100); POTASSIUM SERUM 4.8 MEQ/L (3.5-5.1); SODIUM LEVEL 137 MEQ/L (136-145)
== END ==
PROVIDERS: ATTEND Family Medicine
DX: M00.062 Staphylococcal arthritis, left knee (principal); T81.49XA Infection following a procedure, other surgical site, initial encounter; T84.7XXD Infection and inflammatory reaction due to other internal orthopedic prosthetic devices, implants and grafts, subsequent encounter; A49.01 Methicillin susceptible Staphylococcus aureus infection, unspecified site

== ENCOUNTER → 2019-07-14 | Outpatient (REF) ==
[2019-07-14 11:42] LABS: HEMATOCRIT 32.4 % (36.0-47.0); MEAN CORPUSCULAR HGB CONC 30.9 g/dl (32.0-36.5); MEAN CORPUSCULAR VOLUME 90.8 fl (80.0-96.0); PLATELET COUNT, AUTOMATED 400 10^3/uL (150-450); RED BLOOD COUNT 3.57 10^6/uL (4.00-5.40); WHITE BLOOD COUNT 12.5 10^3/uL (4.0-10.0)
[2019-07-14 12:07] LABS: BLOOD UREA NITROGEN 44 MG/DL (7-18); CALCIUM LEVEL 9.9 MG/DL (8.5-10.1); CARBON DIOXIDE LEVEL 23 MEQ/L (21-32); CHLORIDE LEVEL 103 MEQ/L (98-107); CREATININE FOR GFR 0.85 MG/DL (0.55-1.30); GLOMERULAR FILTRATION RATE > 60.0 (>51); GLUCOSE, FASTING 112 MG/DL (70-100); POTASSIUM SERUM 4.3 MEQ/L (3.5-5.1); SODIUM LEVEL 135 MEQ/L (136-145)
== END ==
PROVIDERS: ATTEND Family Medicine
DX: M00.9 Pyogenic arthritis, unspecified (principal)

== ENCOUNTER → 2019-07-21 | Outpatient (REF) ==
[2019-07-21 11:44] LABS: HEMATOCRIT 31.8 % (36.0-47.0); HEMOGLOBIN 9.9 g/dl (12.0-15.5); MEAN CORPUSCULAR HGB CONC 31.1 g/dl (32.0-36.5); MEAN CORPUSCULAR VOLUME 89.8 fl (80.0-96.0); PLATELET COUNT, AUTOMATED 400 10^3/uL (150-450); RED BLOOD COUNT 3.54 10^6/uL (4.00-5.40)
[2019-07-21 12:05] LABS: ERYTHROCYTE SEDIMENTATION RATE 85 mm/hr (0-30)
[2019-07-21 12:07] LABS: BLOOD UREA NITROGEN 38 MG/DL (7-18); C REACTIVE PROTEIN QUANTITATIV 3.98 MG/DL (0.00-0.30); CALCIUM LEVEL 9.7 MG/DL (8.5-10.1); CARBON DIOXIDE LEVEL 22 MEQ/L (21-32); CHLORIDE LEVEL 105 MEQ/L (98-107); CREATININE FOR GFR 0.82 MG/DL (0.55-1.30); GLOMERULAR FILTRATION RATE > 60.0 (>51); GLUCOSE, FASTING 186 MG/DL (70-100); POTASSIUM SERUM 4.5 MEQ/L (3.5-5.1); SODIUM LEVEL 135 MEQ/L (136-145)
== END ==
PROVIDERS: ATTEND Family Medicine
DX: M00.09 Staphylococcal polyarthritis (principal)

== ENCOUNTER → 2019-07-29 | Outpatient (REF) ==
[2019-07-29 12:00] LABS: BLOOD UREA NITROGEN 36 MG/DL (7-18); C REACTIVE PROTEIN QUANTITATIV 5.19 MG/DL (0.00-0.30); CALCIUM LEVEL 10.1 MG/DL (8.5-10.1); CARBON DIOXIDE LEVEL 23 MEQ/L (21-32); CHLORIDE LEVEL 102 MEQ/L (98-107); CREATININE FOR GFR 0.88 MG/DL (0.55-1.30); GLOMERULAR FILTRATION RATE > 60.0 (>51); GLUCOSE, FASTING 100 MG/DL (70-100); POTASSIUM SERUM 4.5 MEQ/L (3.5-5.1); SODIUM LEVEL 135 MEQ/L (136-145)
[2019-07-29 12:01] LABS: HEMOGLOBIN A1c 5.5 %
[2019-07-29 12:04] LABS: HEMATOCRIT 32.4 % (36.0-47.0); HEMOGLOBIN 9.9 g/dl (12.0-15.5); MEAN CORPUSCULAR HEMOGLOBIN 27.9 pg (27.0-33.0); MEAN CORPUSCULAR HGB CONC 30.6 g/dl (32.0-36.5); MEAN CORPUSCULAR VOLUME 91.3 fl (80.0-96.0); PLATELET COUNT, AUTOMATED 414 10^3/uL (150-450); RED BLOOD COUNT 3.55 10^6/uL (4.00-5.40); WHITE BLOOD COUNT 11.5 10^3/uL (4.0-10.0)
[2019-07-29 12:29] LABS: ERYTHROCYTE SEDIMENTATION RATE 99 mm/hr (0-30)
== END ==
PROVIDERS: ATTEND Family Medicine
DX: M00.88 Arthritis due to other bacteria, vertebrae (principal)

== ENCOUNTER → 2019-07-31 | Outpatient (REF) ==
--- NOTE | 2019-07-31 17:25 | REPPI ---
RIGHT FOOT, AP AND LATERAL: AP and lateral views of right foot performed. There is focal erosion of the posterior calcaneus at the cortical surface. There appears to be an overlying soft tissue ulcer. Findings, I suspect, represent focal osteomyelitis at that location. No other fracture or osseous abnormality is seen. IMPRESSION: Suspect osteomyelitis posterior calcaneus. Electronically Signed by Ruddy Gutierrez MD 08/01/2019 11:24 A
== END ==
PROVIDERS: ATTEND Physician Assistant
DX: M79.89 Other specified soft tissue disorders (principal)

== ENCOUNTER → 2019-08-04 | Outpatient (REF) | payer MEDICARE, MEDICAID | LOC: M LAB REF 10:57 | PROVIDERS: ATTEND Surgery | DX: L89.614 Pressure ulcer of right heel, stage 4 (principal) ==

== ENCOUNTER → 2019-08-05 | Outpatient (REF) ==
[2019-08-05 10:55] LABS: HEMOGLOBIN 9.4 g/dl (12.0-15.5); MEAN CORPUSCULAR HEMOGLOBIN 28.2 pg (27.0-33.0); MEAN CORPUSCULAR HGB CONC 31.3 g/dl (32.0-36.5); MEAN CORPUSCULAR VOLUME 90.1 fl (80.0-96.0); PLATELET COUNT, AUTOMATED 393 10^3/uL (150-450); RED BLOOD COUNT 3.33 10^6/uL (4.00-5.40); WHITE BLOOD COUNT 12.2 10^3/uL (4.0-10.0)
[2019-08-05 11:20] LABS: ERYTHROCYTE SEDIMENTATION RATE 81 mm/hr (0-30)
[2019-08-05 11:26] LABS: C REACTIVE PROTEIN QUANTITATIV 3.27 MG/DL (0.00-0.30); CALCIUM LEVEL 9.9 MG/DL (8.5-10.1); CREATININE FOR GFR 1.01 MG/DL (0.55-1.30); GLOMERULAR FILTRATION RATE 59.9 (>51); POTASSIUM SERUM 4.9 MEQ/L (3.5-5.1)
== END ==
PROVIDERS: ATTEND Family Medicine
DX: M00.80 Arthritis due to other bacteria, unspecified joint (principal)

== ENCOUNTER → 2019-08-07 | Outpatient (REF) | PROVIDERS: ATTEND Nurse Practitioner Adult Health | DX: M00.80 Arthritis due to other bacteria, unspecified joint (principal) ==

== ENCOUNTER → 2019-08-11 | Outpatient (REF) | PROVIDERS: ATTEND Internal Medicine | DX: Z03.818 Encounter for observation for suspected exposure to other biological agents ruled out (principal) ==

== ENCOUNTER → 2019-08-12 | Outpatient (REF) ==
[2019-08-12 10:49] LABS: HEMOGLOBIN 9.1 g/dl (12.0-15.5); MEAN CORPUSCULAR HEMOGLOBIN 28.6 pg (27.0-33.0); MEAN CORPUSCULAR HGB CONC 31.4 g/dl (32.0-36.5); MEAN CORPUSCULAR VOLUME 91.2 fl (80.0-96.0); PLATELET COUNT, AUTOMATED 379 10^3/uL (150-450); RED BLOOD COUNT 3.18 10^6/uL (4.00-5.40); WHITE BLOOD COUNT 12.1 10^3/uL (4.0-10.0)
[2019-08-12 11:14] LABS: C REACTIVE PROTEIN QUANTITATIV 3.92 MG/DL (0.00-0.30); CREATININE FOR GFR 1.08 MG/DL (0.55-1.30); GLOMERULAR FILTRATION RATE 55.5 (>51)
[2019-08-12 11:31] LABS: ERYTHROCYTE SEDIMENTATION RATE > 140 mm/hr (0-30)
== END ==
PROVIDERS: ATTEND Family Medicine
DX: M00.9 Pyogenic arthritis, unspecified (principal)

== ENCOUNTER → 2019-08-19 | Outpatient (REF) ==
[2019-08-19 12:04] LABS: HEMATOCRIT 30.6 % (36.0-47.0); HEMOGLOBIN 9.5 g/dl (12.0-15.5); MEAN CORPUSCULAR HEMOGLOBIN 28.4 pg (27.0-33.0); MEAN CORPUSCULAR VOLUME 91.6 fl (80.0-96.0); PLATELET COUNT, AUTOMATED 379 10^3/uL (150-450); RED BLOOD COUNT 3.34 10^6/uL (4.00-5.40); WHITE BLOOD COUNT 11.4 10^3/uL (4.0-10.0)
[2019-08-19 12:32] LABS: ERYTHROCYTE SEDIMENTATION RATE 93 mm/hr (0-30)
[2019-08-21 08:50] LABS: BLOOD UREA NITROGEN 43 MG/DL (7-18); CREATININE FOR GFR 0.98 MG/DL (0.55-1.30); GLOMERULAR FILTRATION RATE > 60.0 (>51); GLUCOSE, FASTING 102 MG/DL (70-100)
[2019-08-21 08:51] LABS: C REACTIVE PROTEIN QUANTITATIV 3.53 MG/DL (0.00-0.30); CALCIUM LEVEL 9.6 MG/DL (8.5-10.1); CARBON DIOXIDE LEVEL 23 mmol/L (20-29); CHLORIDE LEVEL 104 MEQ/L (98-107); SODIUM LEVEL 138 MEQ/L (136-145)
== END ==
PROVIDERS: ATTEND Family Medicine
DX: M00.80 Arthritis due to other bacteria, unspecified joint (principal)

== ENCOUNTER → 2019-08-26 | Outpatient (REF) ==
[2019-08-26 11:51] LABS: HEMATOCRIT 29.5 % (36.0-47.0); HEMOGLOBIN 9.3 g/dl (12.0-15.5); MEAN CORPUSCULAR HEMOGLOBIN 28.4 pg (27.0-33.0); MEAN CORPUSCULAR HGB CONC 31.5 g/dl (32.0-36.5); MEAN CORPUSCULAR VOLUME 90.2 fl (80.0-96.0); PLATELET COUNT, AUTOMATED 381 10^3/uL (150-450); RED BLOOD COUNT 3.27 10^6/uL (4.00-5.40); WHITE BLOOD COUNT 11.6 10^3/uL (4.0-10.0)
[2019-08-26 12:09] LABS: BLOOD UREA NITROGEN 48 MG/DL (7-18); C REACTIVE PROTEIN QUANTITATIV 3.08 MG/DL (0.00-0.30); CALCIUM LEVEL 9.4 MG/DL (8.5-10.1); CARBON DIOXIDE LEVEL 25 MEQ/L (21-32); CHLORIDE LEVEL 102 MEQ/L (98-107); GLOMERULAR FILTRATION RATE > 60.0 (>51); GLUCOSE, FASTING 142 MG/DL (70-100); POTASSIUM SERUM 4.6 MEQ/L (3.5-5.1); SODIUM LEVEL 134 MEQ/L (136-145)
[2019-08-26 12:46] LABS: ERYTHROCYTE SEDIMENTATION RATE 81 mm/hr (0-30)
== END ==
PROVIDERS: ATTEND Family Medicine
DX: M00.9 Pyogenic arthritis, unspecified (principal)

== ENCOUNTER → 2019-09-01 | Outpatient (REF) | payer MEDICARE, MEDICAID | LOC: M LAB REF 12:30 | PROVIDERS: ATTEND Surgery | DX: L89.614 Pressure ulcer of right heel, stage 4 (principal) | CPT/HCPCS: 15271; 87070; 87077; 87186; Q4110 ==

== ENCOUNTER → 2019-09-02 | Outpatient (REF) ==
[2019-09-02 10:54] LABS: HEMOGLOBIN 9.4 g/dl (12.0-15.5); MEAN CORPUSCULAR HEMOGLOBIN 28.2 pg (27.0-33.0); MEAN CORPUSCULAR HGB CONC 31.3 g/dl (32.0-36.5); MEAN CORPUSCULAR VOLUME 90.1 fl (80.0-96.0); PLATELET COUNT, AUTOMATED 362 10^3/uL (150-450); RED BLOOD COUNT 3.33 10^6/uL (4.00-5.40); WHITE BLOOD COUNT 11.8 10^3/uL (4.0-10.0)
[2019-09-02 11:11] LABS: ERYTHROCYTE SEDIMENTATION RATE 85 mm/hr (0-30)
[2019-09-02 11:14] LABS: C REACTIVE PROTEIN QUANTITATIV 3.84 MG/DL (0.00-0.30); CALCIUM LEVEL 9.1 MG/DL (8.5-10.1); CREATININE FOR GFR 1.41 MG/DL (0.55-1.30); GLOMERULAR FILTRATION RATE 40.8 (>51)
== END ==
PROVIDERS: ATTEND Family Medicine
DX: L40.50 Arthropathic psoriasis, unspecified (principal)

== ENCOUNTER → 2019-09-05 | Outpatient (CLI) | payer MEDICARE, MEDICAID ==
--- NOTE | 2019-09-05 09:35 | REP ---
CT LEFT KNEE WITHOUT CONTRAST: CT left knee performed without IV contrast. Comparison made with prior study of 05/17/2019. Metallic sideplate is seen once again along the lateral aspect of the distal femur and is affixed by multiple screws extending through the femoral condyles. Comminuted fracture of the distal femur is noted just above the multiple screws. There is now mild displacement at the fracture site which was not present on the prior exam. Multiple foci of air are seen in the medullary cavity at the fracture site. There is increased callous formation along the medial margin of the fracture site. The previously noted cerclage wiring is no longer visualized. Patella is intact. There is mild arthritic change at the patellofemoral joint. There is severe arthritic change at the knee joint both medially and laterally, with severe joint space narrowing and erosive change along the articulating surfaces of the femoral condyles and tibial plateaus. There is moderate spurring. There are subchondral cystic changes and sclerosis. Proximal tibia and fibula are intact. Electronically Signed by Ruddy Gutierrez MD 09/09/2019 06:21 P
== END ==
LOC: M RAD 08:15
PROVIDERS: ATTEND Orthopaedic Surgery Hand Surgery
DX: S72.462D Displaced supracondylar fracture with intracondylar extension of lower end of left femur, subsequent encounter for closed fracture with routine healing (principal); M17.12 Unilateral primary osteoarthritis, left knee; X58.XXXD Exposure to other specified factors, subsequent encounter; Y92.9 Unspecified place or not applicable

== ENCOUNTER → 2019-09-09 | Outpatient (REF) | payer MEDICARE, MEDICAID ==
[2019-09-09 11:36] LABS: HEMATOCRIT 29.8 % (36.0-47.0); HEMOGLOBIN 9.4 g/dl (12.0-15.5); MEAN CORPUSCULAR HEMOGLOBIN 28.6 pg (27.0-33.0); MEAN CORPUSCULAR HGB CONC 31.5 g/dl (32.0-36.5); MEAN CORPUSCULAR VOLUME 90.6 fl (80.0-96.0); PLATELET COUNT, AUTOMATED 352 10^3/uL (150-450); RED BLOOD COUNT 3.29 10^6/uL (4.00-5.40); WHITE BLOOD COUNT 10.7 10^3/uL (4.0-10.0)
[2019-09-09 12:43] LABS: C REACTIVE PROTEIN QUANTITATIV 1.57 MG/DL (0.00-0.30); CALCIUM LEVEL 9.6 MG/DL (8.5-10.1); CREATININE FOR GFR 1.29 MG/DL (0.55-1.30); GLOMERULAR FILTRATION RATE 45.2 (>51); POTASSIUM SERUM 4.9 MEQ/L (3.5-5.1)
[2019-09-09 13:32] LABS: ERYTHROCYTE SEDIMENTATION RATE 86 mm/hr (0-30)
== END ==
PROVIDERS: ATTEND Family Medicine
DX: M00.80 Arthritis due to other bacteria, unspecified joint (principal)

== ENCOUNTER → 2019-09-16 | Outpatient (REF) ==
[2019-09-16 09:15] LABS: HEMATOCRIT 33.5 % (36.0-47.0); HEMOGLOBIN 10.2 g/dl (12.0-15.5); MEAN CORPUSCULAR HEMOGLOBIN 28.6 pg (27.0-33.0); MEAN CORPUSCULAR HGB CONC 30.4 g/dl (32.0-36.5); MEAN CORPUSCULAR VOLUME 93.8 fl (80.0-96.0); PLATELET COUNT, AUTOMATED 305 10^3/uL (150-450); RED BLOOD COUNT 3.57 10^6/uL (4.00-5.40); WHITE BLOOD COUNT 9.9 10^3/uL (4.0-10.0)
[2019-09-16 09:37] LABS: BLOOD UREA NITROGEN 43 MG/DL (7-18); C REACTIVE PROTEIN QUANTITATIV 3.74 MG/DL (0.00-0.30); CALCIUM LEVEL 9.7 MG/DL (8.5-10.1); CARBON DIOXIDE LEVEL 20 MEQ/L (21-32); CHLORIDE LEVEL 108 MEQ/L (98-107); CREATININE FOR GFR 0.92 MG/DL (0.55-1.30); GLOMERULAR FILTRATION RATE > 60.0 (>51); GLUCOSE, FASTING 116 MG/DL (70-100); POTASSIUM SERUM 4.8 MEQ/L (3.5-5.1); SODIUM LEVEL 139 MEQ/L (136-145)
[2019-09-16 09:55] LABS: ERYTHROCYTE SEDIMENTATION RATE 70 mm/hr (0-30)
== END ==
PROVIDERS: ATTEND Family Medicine
DX: M00.9 Pyogenic arthritis, unspecified (principal)

== ENCOUNTER → 2019-09-19 | Outpatient (CLI) | payer MEDICARE, MEDICAID ==
--- NOTE | 2019-09-19 15:39 | REP ---
BILATERAL MAMMOGRAM WITH 3D TOMOSYNTHESIS: No family history of breast cancer. Tyrer-Cuzick lifetime risk of breast cancer 10.8%. Study is limited as the patient is in a wheelchair and cannot stand for the exam. MLO and CC views of both breasts performed with 3D tomosynthesis. The axillary regions could not be included on the MLO views. Comparison made with multiple prior exams, most recent of which is 08/20/2018. There is mild scattered fibroglandular density symmetrically bilaterally. Volpara breast density is B. No mass or architectural distortion is seen. Small scattered calcifications are seen in the right breast. Some of these appear to be vascular. However, there are two new focal clusters of pleomorphic microcalcifications, at 12-o'clock position and about 1-o'clock position posteriorly. IMPRESSION: BIRADS 4: BI-RADS/ACR category 4 mammogram. Suspicious Abnormality - biopsy should be considered. ACR 4 suspicious. Compared to prior studies, there are new tiny calcifications in the right breast. Some of these appear to be vascular and others appear to be benign ductal calcifications. However, there are two new focal clusters of tiny pleomorphic microcalcifications, one at 12-o'clock position and the other at about 1-o'clock position. Magnification views to further evaluate these calcifications are not possible as the patient is wheelchair bound. Recommend stereotactic or surgical biopsy. This mammogram was interpreted with the aid of an FDA-approved computer-aided detection system. The patient states that she or he has not had a clinical breast exam in over a year. The patient letter being requested is M4.
== END ==
LOC: M WHC 11:27
PROVIDERS: ATTEND Nurse Practitioner Women's Health
DX: Z12.31 Encounter for screening mammogram for malignant neoplasm of breast (principal); R92.0 Mammographic microcalcification found on diagnostic imaging of breast

== ENCOUNTER → 2019-09-23 | Outpatient (REF) ==
[2019-09-23 10:39] LABS: HEMATOCRIT 31.5 % (36.0-47.0); HEMOGLOBIN 9.8 g/dl (12.0-15.5); MEAN CORPUSCULAR HEMOGLOBIN 28.8 pg (27.0-33.0); MEAN CORPUSCULAR HGB CONC 31.1 g/dl (32.0-36.5); MEAN CORPUSCULAR VOLUME 92.6 fl (80.0-96.0); PLATELET COUNT, AUTOMATED 326 10^3/uL (150-450); WHITE BLOOD COUNT 11.4 10^3/uL (4.0-10.0)
[2019-09-23 11:10] LABS: BLOOD UREA NITROGEN 37 MG/DL (7-18); C REACTIVE PROTEIN QUANTITATIV 2.93 MG/DL (0.00-0.30); CALCIUM LEVEL 9.6 MG/DL (8.5-10.1); CARBON DIOXIDE LEVEL 27 MEQ/L (21-32); CHLORIDE LEVEL 104 MEQ/L (98-107); CREATININE FOR GFR 0.88 MG/DL (0.55-1.30); GLOMERULAR FILTRATION RATE > 60.0 (>51); GLUCOSE, FASTING 146 MG/DL (70-100); POTASSIUM SERUM 4.7 MEQ/L (3.5-5.1); SODIUM LEVEL 137 MEQ/L (136-145)
[2019-09-23 11:34] LABS: ERYTHROCYTE SEDIMENTATION RATE 73 mm/hr (0-30)
== END ==
PROVIDERS: ATTEND Family Medicine
DX: M00.9 Pyogenic arthritis, unspecified (principal)

== ENCOUNTER → 2019-09-30 | Outpatient (REF) ==
[2019-09-30 12:53] LABS: HEMATOCRIT 33.6 % (36.0-47.0); HEMOGLOBIN 10.2 g/dl (12.0-15.5); MEAN CORPUSCULAR HEMOGLOBIN 28.8 pg (27.0-33.0); MEAN CORPUSCULAR HGB CONC 30.4 g/dl (32.0-36.5); MEAN CORPUSCULAR VOLUME 94.9 fl (80.0-96.0); PLATELET COUNT, AUTOMATED 396 10^3/uL (150-450); RED BLOOD COUNT 3.54 10^6/uL (4.00-5.40); WHITE BLOOD COUNT 12.2 10^3/uL (4.0-10.0)
[2019-09-30 13:14] LABS: ERYTHROCYTE SEDIMENTATION RATE 72 mm/hr (0-30)
[2019-09-30 13:24] LABS: C REACTIVE PROTEIN QUANTITATIV 3.9 MG/DL (0.00-0.30); CALCIUM LEVEL 10.1 MG/DL (8.5-10.1); CREATININE FOR GFR 1.04 MG/DL (0.55-1.30); GLOMERULAR FILTRATION RATE 57.9 (>51); POTASSIUM SERUM 4.7 MEQ/L (3.5-5.1)
== END ==
PROVIDERS: ATTEND Family Medicine
DX: M00.9 Pyogenic arthritis, unspecified (principal)

== ENCOUNTER → 2019-10-07 | Outpatient (REF) ==
[2019-10-07 11:08] LABS: HEMOGLOBIN 10.1 g/dl (12.0-15.5); MEAN CORPUSCULAR HEMOGLOBIN 28.6 pg (27.0-33.0); MEAN CORPUSCULAR HGB CONC 30.6 g/dl (32.0-36.5); MEAN CORPUSCULAR VOLUME 93.5 fl (80.0-96.0); PLATELET COUNT, AUTOMATED 346 10^3/uL (150-450); RED BLOOD COUNT 3.53 10^6/uL (4.00-5.40); WHITE BLOOD COUNT 11.1 10^3/uL (4.0-10.0)
[2019-10-07 11:27] LABS: ERYTHROCYTE SEDIMENTATION RATE 67 mm/hr (0-30)
[2019-10-07 12:04] LABS: C REACTIVE PROTEIN QUANTITATIV 2.11 MG/DL (0.00-0.30); CALCIUM LEVEL 9.3 MG/DL (8.5-10.1); CREATININE FOR GFR 1.03 MG/DL (0.55-1.30); GLOMERULAR FILTRATION RATE 58.6 (>51); POTASSIUM SERUM 4.5 MEQ/L (3.5-5.1)
== END ==
PROVIDERS: ATTEND Internal Medicine
DX: L89.624 Pressure ulcer of left heel, stage 4 (principal)

== ENCOUNTER → 2019-10-14 | Outpatient (REF) ==
[2019-10-14 10:38] LABS: HEMATOCRIT 34.2 % (36.0-47.0); HEMOGLOBIN 10.5 g/dl (12.0-15.5); MEAN CORPUSCULAR HEMOGLOBIN 28.7 pg (27.0-33.0); MEAN CORPUSCULAR HGB CONC 30.7 g/dl (32.0-36.5); MEAN CORPUSCULAR VOLUME 93.4 fl (80.0-96.0); PLATELET COUNT, AUTOMATED 309 10^3/uL (150-450); RED BLOOD COUNT 3.66 10^6/uL (4.00-5.40); WHITE BLOOD COUNT 11.8 10^3/uL (4.0-10.0)
[2019-10-14 10:52] LABS: C REACTIVE PROTEIN QUANTITATIV 3.08 MG/DL (0.00-0.30); CALCIUM LEVEL 9.5 MG/DL (8.5-10.1); CREATININE FOR GFR 1.01 MG/DL (0.55-1.30); GLOMERULAR FILTRATION RATE 59.9 (>51); POTASSIUM SERUM 4.6 MEQ/L (3.5-5.1)
[2019-10-14 11:04] LABS: ERYTHROCYTE SEDIMENTATION RATE 72 mm/hr (0-30)
== END ==
PROVIDERS: ATTEND Internal Medicine
DX: M00.9 Pyogenic arthritis, unspecified (principal)

== ENCOUNTER → 2019-11-21 | Outpatient (REF) ==
[2019-11-21 09:23] LABS: HEMATOCRIT 35.7 % (36.0-47.0); HEMOGLOBIN 11.3 g/dl (12.0-15.5); MEAN CORPUSCULAR HEMOGLOBIN 29.4 pg (27.0-33.0); MEAN CORPUSCULAR HGB CONC 31.7 g/dl (32.0-36.5); MEAN CORPUSCULAR VOLUME 92.7 fl (80.0-96.0); PLATELET COUNT, AUTOMATED 298 10^3/uL (150-450); RED BLOOD COUNT 3.85 10^6/uL (4.00-5.40); WHITE BLOOD COUNT 10.4 10^3/uL (4.0-10.0)
[2019-11-21 09:40] LABS: BILIRUBIN,TOTAL 0.2 MG/DL (0.2-1.0); C REACTIVE PROTEIN QUANTITATIV 1.85 MG/DL (0.00-0.30); CALCIUM LEVEL 9.8 MG/DL (8.5-10.1); CREATININE FOR GFR 1.03 MG/DL (0.55-1.30); GLOMERULAR FILTRATION RATE 58.6 (>51); POTASSIUM SERUM 4.7 MEQ/L (3.5-5.1); TOTAL PROTEIN 6.1 GM/DL (6.4-8.2)
[2019-11-21 19:42] LABS: ERYTHROCYTE SEDIMENTATION RATE 52 mm/hr (0-30)
== END ==
PROVIDERS: ATTEND Internal Medicine
DX: M00.9 Pyogenic arthritis, unspecified (principal)

== ENCOUNTER → 2019-11-25 | Outpatient (CLI) | payer MEDICARE, MEDICAID ==
[2019-11-25 17:19] VITALS: BP 124/72
--- NOTE | 2019-12-24 08:10 | REP ---
STEREOTACTIC BREAST BIOPSY This procedure was performed by GABRIELLE Magaña, under the direct supervision of Dr. Gutierrez. The risks and benefits of the procedure were explained to the patient, and an informed consent was obtained. Directly prior to the start of the procedure a time-out was done. DESCRIPTION OF PROCEDURE: This is a stereotactic biopsy of the right breast. The patient was biopsied using our upright unit and the craniocaudal approach was utilized. A grouping of calcifications was localized using stereotactic mammographic guidance. 1% Lidocaine was used as a local anesthetic. An 8-gauge suction-assisted Mammotome needle was inserted and six core biopsy samples were obtained. Specimen radiographs demonstrate the presence of multiple microcalcifications to be within the specimens. A marker clip was placed at the biopsy site. When the needle was removed, it appeared that the marker clip did not deploy; so another marker clip was deployed at the biopsy site. The patient had a hard time tolerating this procedure and therefore, the second biopsy was not done. There were no immediate complications and after the appropriate amount of monitored convalescence, the patient was discharged from the department. HERNANDEZ
--- NOTE | 2019-12-24 08:11 | REP ---
POST BIOPSY MAMMOGRAM RIGHT BREAST: HISTORY: Clustered microcalcifications. FINDINGS: Mammographic images are performed of the right breast in multiple projections following stereotactic biopsy of a cluster of microcalcifications in the posterolateral right breast. A second cluster more anteromedially was not biopsied as the patient could not tolerate further procedures. There are 2 biopsy marking clips at the site of the biopsy at the site of the more posterolateral cluster. The calcifications are no longer visualized, indicating successful biopsy of that cluster. The other more anteromedial calcifications remain and may be biopsied at a later date if the patient is willing. THAD
== END ==
LOC: M WHC 11:56
PROVIDERS: ATTEND Surgery
DX: R92.1 Mammographic calcification found on diagnostic imaging of breast (principal)

== ENCOUNTER → 2019-12-18 | Outpatient (CLI) | payer MEDICARE, MEDICAID ==
[2019-12-18 16:06] VITALS: BP 140/80
--- NOTE | 2019-12-25 16:00 | REP ---
POST BIOPSY MAMMOGRAM LEFT BREAST TECHNIQUE: Left breast mammogram performed in the ML and CC projections following ultrasound-guided biopsy of an abnormal structure at about 12 to 1 o'clock left breast. FINDINGS: Metallic clip is seen projecting over the outer left breast. Please note, the abnormality that was biopsied was not seen mammographically on prior study of 09/19/2019. MTDD
--- NOTE | 2019-12-25 16:02 | REP ---
ULTRASOUND-GUIDED LEFT BREAST BIOPSY The procedure was performed under the general supervision of Dr. Gutierrez. CONSENT: The risks and benefits of the procedure were explained to the patient and informed consent was obtained. HISTORY: The patient has a history of a left breast nodule seen on a previous ultrasound dated 11/25/2019. DESCRIPTION OF PROCEDURE: The left breast nodule was localized using ultrasound guidance. The skin was prepped and draped in a sterile fashion. 1% Lidocaine was used as a local anesthetic. Using ultrasound guidance, a 14-gauge coaxial needle biopsy system was inserted and six core biopsy samples were obtained. A marker clip was placed at the biopsy site. The patient tolerated the procedure well and there were no immediate complications. After the appropriate amount of monitored convalescence, the patient was discharged from the department. HERNANDEZ
== END ==
LOC: M WHCPRO 13:46
PROVIDERS: ATTEND Surgery
DX: N60.82 Other benign mammary dysplasias of left breast (principal)

== ENCOUNTER → 2019-12-25 | Outpatient (REF) | payer MEDICARE, MEDICAID ==
[2019-12-25 10:12] LABS: HEMATOCRIT 39.8 % (36.0-47.0); HEMOGLOBIN 12.3 g/dl (12.0-15.5); MEAN CORPUSCULAR HEMOGLOBIN 29.4 pg (27.0-33.0); MEAN CORPUSCULAR HGB CONC 30.9 g/dl (32.0-36.5); PLATELET COUNT, AUTOMATED 339 10^3/uL (150-450); RED BLOOD COUNT 4.19 10^6/uL (4.00-5.40); WHITE BLOOD COUNT 12.5 10^3/uL (4.0-10.0)
[2019-12-25 10:39] LABS: BLOOD UREA NITROGEN 29 MG/DL (7-18); C REACTIVE PROTEIN QUANTITATIV 2.72 MG/DL (0.00-0.30); CALCIUM LEVEL 9.4 MG/DL (8.5-10.1); CARBON DIOXIDE LEVEL 25 MEQ/L (21-32); CHLORIDE LEVEL 108 MEQ/L (98-107); CREATININE FOR GFR 0.92 MG/DL (0.55-1.30); GLOMERULAR FILTRATION RATE > 60.0 (>51); GLUCOSE, FASTING 186 MG/DL (70-100); POTASSIUM SERUM 4.4 MEQ/L (3.5-5.1); SODIUM LEVEL 140 MEQ/L (136-145)
[2019-12-25 10:41] LABS: ERYTHROCYTE SEDIMENTATION RATE 56 mm/hr (0-30)
== END ==
PROVIDERS: ATTEND Nurse Practitioner Adult Health
DX: M00.9 Pyogenic arthritis, unspecified (principal)

== ENCOUNTER → 2020-01-22 | Outpatient (REF) | payer MEDICARE, MEDICAID ==
[2020-01-22 09:46] LABS: HEMATOCRIT 39.8 % (36.0-47.0); HEMOGLOBIN 12.4 g/dl (12.0-15.5); MEAN CORPUSCULAR HEMOGLOBIN 29.1 pg (27.0-33.0); MEAN CORPUSCULAR HGB CONC 31.2 g/dl (32.0-36.5); MEAN CORPUSCULAR VOLUME 93.4 fl (80.0-96.0); PLATELET COUNT, AUTOMATED 277 10^3/uL (150-450); RED BLOOD COUNT 4.26 10^6/uL (4.00-5.40); WHITE BLOOD COUNT 8.7 10^3/uL (4.0-10.0)
[2020-01-22 10:08] LABS: BLOOD UREA NITROGEN 23 MG/DL (7-18); C REACTIVE PROTEIN QUANTITATIV 2.06 MG/DL (0.00-0.30); CALCIUM LEVEL 9.2 MG/DL (8.5-10.1); CARBON DIOXIDE LEVEL 27 MEQ/L (21-32); CHLORIDE LEVEL 106 MEQ/L (98-107); CREATININE FOR GFR 0.92 MG/DL (0.55-1.30); GLOMERULAR FILTRATION RATE > 60.0 (>51); GLUCOSE, FASTING 102 MG/DL (70-100); POTASSIUM SERUM 4.2 MEQ/L (3.5-5.1); SODIUM LEVEL 139 MEQ/L (136-145)
[2020-01-22 10:12] LABS: ERYTHROCYTE SEDIMENTATION RATE 44 mm/hr (0-30)
== END ==
PROVIDERS: ATTEND Nurse Practitioner Adult Health
DX: M00.9 Pyogenic arthritis, unspecified (principal)

== ENCOUNTER → 2020-02-05 | Outpatient (REF) | PROVIDERS: ATTEND Internal Medicine | DX: Z20.828 Contact with and (suspected) exposure to other viral communicable diseases (principal) ==

== ENCOUNTER → 2020-02-12 | Outpatient (REF) | payer MEDICARE, MEDICAID, BC ==
[~2020-02-12] MED LIST changes: -LISI-538 PO; +LISI10TA22 PO; -LISI10TA4 PO; +LISI20TA33 PO
== END ==
LOC: EDSTATUS 03-23 11:57
PROVIDERS: ATTEND Internal Medicine
DX: Z20.828 Contact with and (suspected) exposure to other viral communicable diseases (principal)

== ENCOUNTER → 2020-02-18 | Outpatient (REF) | payer MEDICARE, MEDICAID | PROVIDERS: ATTEND Internal Medicine | DX: Z20.828 Contact with and (suspected) exposure to other viral communicable diseases (principal) ==

== ENCOUNTER → 2020-03-07 | Outpatient (REF) ==
[~2020-03-07] MED LIST changes: +LISI-538 PO; -LISI10TA22 PO; +LISI10TA4 PO; -LISI20TA33 PO
== END ==
PROVIDERS: ATTEND Internal Medicine
DX: Z20.828 Contact with and (suspected) exposure to other viral communicable diseases (principal)

== ENCOUNTER → 2020-03-11 | Outpatient (REF) | PROVIDERS: ATTEND Internal Medicine | DX: Z20.828 Contact with and (suspected) exposure to other viral communicable diseases (principal) ==

== ENCOUNTER → 2020-03-17 | Outpatient (REF) | PROVIDERS: ATTEND Internal Medicine | DX: Z20.828 Contact with and (suspected) exposure to other viral communicable diseases (principal) ==

== ENCOUNTER → 2020-03-23 | Outpatient (REF) | PROVIDERS: ATTEND Internal Medicine | DX: Z20.828 Contact with and (suspected) exposure to other viral communicable diseases (principal) ==

== ENCOUNTER → 2020-03-29 | Outpatient (REF) | payer MEDICARE, MEDICAID, BC | PROVIDERS: ATTEND Internal Medicine | DX: Z20.822 Contact with and (suspected) exposure to COVID-19 (principal) ==

== ENCOUNTER → 2020-04-02 | Outpatient (REF) | payer MEDICARE, MEDICAID, BC | PROVIDERS: ATTEND Internal Medicine | DX: Z20.822 Contact with and (suspected) exposure to COVID-19 (principal) ==

== ENCOUNTER → 2020-04-07 | Outpatient (REF) | payer MEDICARE, MEDICAID, BC | PROVIDERS: ATTEND Internal Medicine | DX: Z20.822 Contact with and (suspected) exposure to COVID-19 (principal) ==

== ENCOUNTER → 2020-04-14 | Outpatient (REF) | payer MEDICARE, MEDICAID, BC | PROVIDERS: ATTEND Internal Medicine | DX: Z20.822 Contact with and (suspected) exposure to COVID-19 (principal) ==

== ENCOUNTER → 2020-04-21 | Outpatient (REF) | payer MEDICARE, MEDICAID, BC | PROVIDERS: ATTEND Internal Medicine | DX: Z20.822 Contact with and (suspected) exposure to COVID-19 (principal) ==

== ENCOUNTER → 2020-04-22 | Outpatient (REF) | payer MEDICARE, MEDICAID, BC ==
[2020-04-22 16:09] LABS: HEMATOCRIT 37.9 % (36.0-47.0); HEMOGLOBIN 12.2 g/dl (12.0-15.5); MEAN CORPUSCULAR HEMOGLOBIN 29.8 pg (27.0-33.0); MEAN CORPUSCULAR HGB CONC 32.2 g/dl (32.0-36.5); MEAN CORPUSCULAR VOLUME 92.7 fl (80.0-96.0); PLATELET COUNT, AUTOMATED 243 10^3/uL (150-450); RED BLOOD COUNT 4.09 10^6/uL (4.00-5.40)
[2020-04-22 17:29] LABS: ERYTHROCYTE SEDIMENTATION RATE 41 mm/hr (0-30)
== END ==
PROVIDERS: ATTEND Nurse Practitioner Adult Health
DX: M00.9 Pyogenic arthritis, unspecified (principal)

== ENCOUNTER → 2020-04-28 | Outpatient (REF) | payer MEDICARE, MEDICAID, BC | PROVIDERS: ATTEND Internal Medicine | DX: Z20.822 Contact with and (suspected) exposure to COVID-19 (principal) ==

== ENCOUNTER → 2020-05-05 | Outpatient (REF) | payer MEDICARE, MEDICAID, BC ==
[~2020-05-05] MED LIST changes: -LISI-538 PO; +LISI10TA22 PO; -LISI10TA4 PO; +LISI20TA33 PO
== END ==
PROVIDERS: ATTEND Internal Medicine
DX: Z20.822 Contact with and (suspected) exposure to COVID-19 (principal)

== ENCOUNTER → 2020-05-11 | Outpatient (REF) | payer MEDICARE, MEDICAID, BC ==
[2020-05-11 12:03] LABS: BLOOD UREA NITROGEN 28 MG/DL (7-18); CALCIUM LEVEL 9.1 MG/DL (8.5-10.1); CARBON DIOXIDE LEVEL 24 MEQ/L (21-32); CHLORIDE LEVEL 104 MEQ/L (98-107); CREATININE FOR GFR 0.93 MG/DL (0.55-1.30); GLOMERULAR FILTRATION RATE > 60.0 (>51); GLUCOSE, FASTING 216 MG/DL (70-100); POTASSIUM SERUM 4.8 MEQ/L (3.5-5.1); SODIUM LEVEL 138 MEQ/L (136-145)
== END ==
PROVIDERS: ATTEND Nurse Practitioner Adult Health
DX: M00.9 Pyogenic arthritis, unspecified (principal)

== ENCOUNTER → 2020-05-12 | Outpatient (REF) | payer MEDICARE, MEDICAID, BC | PROVIDERS: ATTEND Internal Medicine | DX: Z20.822 Contact with and (suspected) exposure to COVID-19 (principal) ==

== ENCOUNTER → 2020-05-12 | Outpatient (CLI) | payer MEDICARE, MEDICAID ==
[~2020-05-12] MED LIST changes: +ISOVUE-370 76% 100ML VIAL As Ordered ONE
--- NOTE | 2020-05-12 10:49 | REP ---
INDICATION: LT KNEE SEPTIC ARTHRITIS, PT ON STRETCHER IN CT AREA. COMPARISON: None. TECHNIQUE: Axial contrast-enhanced images from the distal femoral diaphysis through the proximal tibial diaphysis with coronal and sagittal reformations as well as metal artifact reduction technique. 100 cc Isovue 370 intravenous contrast material administered without complication. FINDINGS: Evidence for prior distal femoral metadiaphyseal fracture with orthopedic plate along the lateral aspect of the femur extending to the lateral condyle where multiple fixation screws are identified traversing the femoral metaphysis. Comminuted cortical breaks through the distal femoral diaphysis extending to the metaphyseal region consistent with non healed comminuted fracture. Underlying osteopenia and somewhat mottled appearance to the medullary space of the visualized osseous structures suggests posttraumatic osteodystrophy. The surrounding soft tissue structures demonstrate a small amount of joint fluid and inflammatory stranding without obvious abscess or drainable collection. Mild posttraumatic muscular atrophy is suggested. IMPRESSION: Posttraumatic changes to the osseous structures and surrounding soft tissues as described above. No significant joint effusion or drainable collection/abscess appreciated. <Electronically signed by Karthikeyan Parra > 05/12/20 [id number]
== END ==
LOC: M RAD 09:56
PROVIDERS: ATTEND Nurse Practitioner Adult Health
DX: M00.9 Pyogenic arthritis, unspecified (principal); M85.88 Other specified disorders of bone density and structure, other site; Z20.822 Contact with and (suspected) exposure to COVID-19
CPT/HCPCS: 73701; Q9967; U0003

== ENCOUNTER → 2020-05-19 | Outpatient (REF) | payer MEDICARE, MEDICAID ==
[~2020-05-19] MED LIST changes: -ISOVUE-370 76% 100ML VIAL As Ordered ONE
== END ==
PROVIDERS: ATTEND Internal Medicine
DX: Z20.822 Contact with and (suspected) exposure to COVID-19 (principal)

== ENCOUNTER → 2020-05-26 | Outpatient (REF) | payer MEDICARE, MEDICAID | PROVIDERS: ATTEND Internal Medicine | DX: Z20.822 Contact with and (suspected) exposure to COVID-19 (principal) ==

== ENCOUNTER → 2020-06-02 | Outpatient (REF) | payer MEDICARE, MEDICAID ==
[2020-06-02 13:46] LABS: HEMOGLOBIN A1c 7.1 %
== END ==
PROVIDERS: ATTEND Internal Medicine
DX: Z20.822 Contact with and (suspected) exposure to COVID-19 (principal); E11.9 Type 2 diabetes mellitus without complications
CPT/HCPCS: 36415; 83036; U0003

== ENCOUNTER → 2020-06-11 | Outpatient (CLI) | payer MEDICARE, MEDICAID ==
--- NOTE | 2020-06-11 16:43 | REP ---
INDICATION: DISPL SUPRCDL FX W INTRCNDL EXTN LOW AND 1 FEMR 7T. Evaluate healing of distal femur fracture. COMPARISON: Comparison CT study May 12, 2020. Comparison CT study September 05, 2019.. TECHNIQUE: Helical scanning is acquired. 3 mm axial images re-formatted. Coronal and sagittal MPR images are generated and reviewed. FINDINGS: Digital caster operator view demonstrates a screw plate fixation device in the distal femur. There are 4 fixation screws proximally and multiple fixation screws distally through the femoral condyles. A In the distal femoral metaphysis there is an nonunited fracture with a fairly large radiolucency extending down to the femoral condyle level from the fracture in the intramedullary bone. There is thinning of the lateral cortex adjacent to this fixation plate distally at the level of the lucency. There is a disruption of the medial cortex at the level of the fracture and erosion of the posterior cortex and anterior cortex is seen at the distal metaphyseal lucency. These changes are similar to the appearance on the May 12, 2020 study. At the superior extent of the periosteal reaction at the level of the fracture in the medial cortex there may be a small sequestrum visible, 4 mm in diameter. There is no abnormal fluid collection in the adjacent soft tissues. No evidence of mass or adenopathy. IMPRESSION: Status post screw plate fixation nonunited fracture distal femoral metaphysis with a fairly large intraosseous radiolucency and probable tiny bony sequestrum. <Electronically signed by Amandeep Harkins > 06/11/20 [id number]
== END ==
LOC: M RAD 13:25
PROVIDERS: ATTEND Physician Assistant Surgical
DX: S72.462D Displaced supracondylar fracture with intracondylar extension of lower end of left femur, subsequent encounter for closed fracture with routine healing (principal); X58.XXXD Exposure to other specified factors, subsequent encounter; Z97.8 Presence of other specified devices

== ENCOUNTER → 2020-06-28 | Outpatient (REF) | payer MEDICARE, MEDICAID ==
[2020-06-28 11:30] LABS: BASO # 0.1 10^3/uL (0.0-0.2); BASO % 0.4 % (0.0-1.0); EOS # 0.1 10^3/uL (0.0-0.5); HEMATOCRIT 36.5 % (36.0-47.0); HEMOGLOBIN 12.2 g/dl (12.0-15.5); LYMPH % 7.8 % (24.0-44.0); MEAN CORPUSCULAR HEMOGLOBIN 31.9 pg (27.0-33.0); MEAN CORPUSCULAR HGB CONC 33.4 g/dl (32.0-36.5); MEAN CORPUSCULAR VOLUME 95.5 fl (80.0-96.0); MONO # 0.7 10^3/uL (0.0-0.8); MONO % 5.9 % (2.0-8.0); NEUTROPHILS # 10.6 10^3/uL (1.5-8.5); NEUTROPHILS % 84.3 % (36.0-66.0); PLATELET COUNT, AUTOMATED 232 10^3/uL (150-450); RED BLOOD COUNT 3.82 10^6/uL (4.00-5.40); WHITE BLOOD COUNT 12.6 10^3/uL (4.0-10.0)
[2020-06-28 12:11] LABS: ALBUMIN 2.8 GM/DL (3.2-5.2); ALT/SGPT 14 U/L (12-78); BILIRUBIN,DIRECT 0.1 MG/DL (0.0-0.2); BILIRUBIN,TOTAL 0.3 MG/DL (0.2-1.0); BLOOD UREA NITROGEN 16 MG/DL (7-18); CARBON DIOXIDE LEVEL 24 MEQ/L (21-32); CHLORIDE LEVEL 101 MEQ/L (98-107); CREATININE FOR GFR 0.76 MG/DL (0.55-1.30); GLOMERULAR FILTRATION RATE > 60.0 (>51); GLUCOSE, FASTING 200 MG/DL (70-100); POTASSIUM SERUM 4.5 MEQ/L (3.5-5.1); SODIUM LEVEL 135 MEQ/L (136-145); TOTAL PROTEIN 5.4 GM/DL (6.4-8.2)
== END ==
PROVIDERS: ATTEND Internal Medicine
DX: R11.2 Nausea with vomiting, unspecified (principal)

== ENCOUNTER → 2020-06-29 | Outpatient (REF) | payer MEDICARE, MEDICAID ==
[2020-06-29 09:29] LABS: HEMATOCRIT 37.6 % (36.0-47.0); HEMOGLOBIN 12.4 g/dl (12.0-15.5); MEAN CORPUSCULAR HEMOGLOBIN 31.5 pg (27.0-33.0); MEAN CORPUSCULAR VOLUME 95.4 fl (80.0-96.0); PLATELET COUNT, AUTOMATED 230 10^3/uL (150-450); RED BLOOD COUNT 3.94 10^6/uL (4.00-5.40)
== END ==
PROVIDERS: ATTEND Internal Medicine
DX: R11.2 Nausea with vomiting, unspecified (principal)

== ENCOUNTER → 2020-06-30 | Outpatient (REF) | payer MEDICARE, MEDICAID ==
[2020-06-30 09:51] LABS: BASO # 0.1 10^3/uL (0.0-0.2); BASO % 0.5 % (0.0-1.0); EOS # 0.1 10^3/uL (0.0-0.5); EOS % 0.8 % (0.0-3.0); HEMATOCRIT 35.8 % (36.0-47.0); HEMOGLOBIN 11.9 g/dl (12.0-15.5); LYMPH # 1.2 10^3/uL (1.5-5.0); LYMPH % 10.6 % (24.0-44.0); MEAN CORPUSCULAR HEMOGLOBIN 31.8 pg (27.0-33.0); MEAN CORPUSCULAR HGB CONC 33.2 g/dl (32.0-36.5); MEAN CORPUSCULAR VOLUME 95.7 fl (80.0-96.0); MONO # 0.6 10^3/uL (0.0-0.8); MONO % 5.5 % (2.0-8.0); NEUTROPHILS # 8.8 10^3/uL (1.5-8.5); NEUTROPHILS % 81.7 % (36.0-66.0); PLATELET COUNT, AUTOMATED 219 10^3/uL (150-450); RED BLOOD COUNT 3.74 10^6/uL (4.00-5.40); WHITE BLOOD COUNT 10.8 10^3/uL (4.0-10.0)
== END ==
PROVIDERS: ATTEND Internal Medicine
DX: D72.829 Elevated white blood cell count, unspecified (principal)

== ENCOUNTER → 2020-07-06 | Outpatient (REF) | payer MEDICARE, MEDICAID ==
[~2020-07-06] MED LIST changes: +[UNRECOGNIZED DRUG - CODE] PR; -[UNRECOGNIZED DRUG - CODE] PR
== END ==
PROVIDERS: ATTEND Internal Medicine
DX: Z20.822 Contact with and (suspected) exposure to COVID-19 (principal)

== ENCOUNTER → 2020-07-06 | Outpatient (CLI) | payer MEDICARE, MEDICAID ==
--- NOTE | 2020-07-06 19:11 | REP ---
INDICATION: R92.1 BREAST CALC-RIGHT. COMPARISON: 09/19/2019. TECHNIQUE: MLO and CC views right breast. FINDINGS: There is mild scattered fibroglandular tissue with no new mass or architectural distortion. Scattered benign-appearing calcifications are again present, unchanged. Two biopsy clips are seen at the site of the previous negative stereotactic biopsy in the posterolateral right breast. At the site of the 2nd cluster of microcalcifications more anteromedially only 4 tiny calcifications are visualized, and therefore this does not constitute a suspicious cluster. The Volpara volumetric breast density pattern is B. IMPRESSION: BIRADS/ACR category 2, benign. No new mass or suspicious clusters of microcalcifications. Two biopsy clips at the site of the prior negative stereotactic biopsy in the posterolateral right breast with no recurrent calcifications. The other area of tiny calcifications more anteromedially does not appear suspicious. Follow-up bilateral mammogram recommended August 2020. This patient's Tyrer-Cuzick lifetime breast cancer risk assessment score is 10.8%. This mammogram was interpreted with the aid of an FDA-approved computer-aided detection system. The patient states she had a clinical breast exam in November 2019. The patient letter being requested is M1. RECOMMENDATION: Follow-up bilateral mammogram recommended August 2020. <Electronically signed by Ruddy Gutierrez > 07/06/20 [id number]
== END ==
LOC: M WHC 11:22
PROVIDERS: ATTEND Surgery
DX: R92.1 Mammographic calcification found on diagnostic imaging of breast (principal); Z20.822 Contact with and (suspected) exposure to COVID-19
CPT/HCPCS: 76642; 77065; U0003

== ENCOUNTER → 2020-07-13 | Outpatient (REF) | payer MEDICARE, MEDICAID | PROVIDERS: ATTEND Internal Medicine | DX: Z20.822 Contact with and (suspected) exposure to COVID-19 (principal) ==

== ENCOUNTER → 2020-07-15 | Outpatient (REF) | payer MEDICARE, MEDICAID ==
[2020-07-15 12:20] LABS: HEMOGLOBIN 13.6 g/dl (12.0-15.5); MEAN CORPUSCULAR HEMOGLOBIN 31.7 pg (27.0-33.0); MEAN CORPUSCULAR HGB CONC 33.2 g/dl (32.0-36.5); MEAN CORPUSCULAR VOLUME 95.6 fl (80.0-96.0); PLATELET COUNT, AUTOMATED 252 10^3/uL (150-450); RED BLOOD COUNT 4.29 10^6/uL (4.00-5.40); WHITE BLOOD COUNT 9.2 10^3/uL (4.0-10.0)
[2020-07-15 12:37] LABS: BLOOD UREA NITROGEN 18 MG/DL (7-18); C REACTIVE PROTEIN QUANTITATIV 2.45 MG/DL (0.00-0.30); CARBON DIOXIDE LEVEL 23 MEQ/L (21-32); CHLORIDE LEVEL 106 MEQ/L (98-107); CREATININE FOR GFR 0.73 MG/DL (0.55-1.30); GLOMERULAR FILTRATION RATE > 60.0 (>51); GLUCOSE, FASTING 234 MG/DL (70-100); POTASSIUM SERUM 4.3 MEQ/L (3.5-5.1); SODIUM LEVEL 137 MEQ/L (136-145)
[2020-07-15 12:50] LABS: ERYTHROCYTE SEDIMENTATION RATE 42 mm/hr (0-30)
== END ==
PROVIDERS: ATTEND Nurse Practitioner Adult Health
DX: E11.9 Type 2 diabetes mellitus without complications (principal); M19.90 Unspecified osteoarthritis, unspecified site

== ENCOUNTER → 2020-07-20 | Outpatient (REF) | payer MEDICARE, MEDICAID ==
[2020-07-20 11:04] LABS: HEMOGLOBIN 12.6 g/dl (12.0-15.5); MEAN CORPUSCULAR HEMOGLOBIN 31.7 pg (27.0-33.0); MEAN CORPUSCULAR HGB CONC 33.2 g/dl (32.0-36.5); MEAN CORPUSCULAR VOLUME 95.5 fl (80.0-96.0); PLATELET COUNT, AUTOMATED 242 10^3/uL (150-450); RED BLOOD COUNT 3.98 10^6/uL (4.00-5.40); WHITE BLOOD COUNT 9.8 10^3/uL (4.0-10.0)
[2020-07-20 11:28] LABS: BLOOD UREA NITROGEN 18 MG/DL (7-18); C REACTIVE PROTEIN QUANTITATIV 3.69 MG/DL (0.00-0.30); CALCIUM LEVEL 9.3 MG/DL (8.5-10.1); CARBON DIOXIDE LEVEL 27 MEQ/L (21-32); CHLORIDE LEVEL 103 MEQ/L (98-107); CREATININE FOR GFR 0.76 MG/DL (0.55-1.30); GLOMERULAR FILTRATION RATE > 60.0 (>51); GLUCOSE, FASTING 234 MG/DL (70-100); POTASSIUM SERUM 4.3 MEQ/L (3.5-5.1); SODIUM LEVEL 138 MEQ/L (136-145)
[2020-07-20 11:34] LABS: ERYTHROCYTE SEDIMENTATION RATE 42 mm/hr (0-30)
== END ==
PROVIDERS: ATTEND Internal Medicine
DX: E11.9 Type 2 diabetes mellitus without complications (principal); Z20.822 Contact with and (suspected) exposure to COVID-19
CPT/HCPCS: 36415; 80048; 85027; 85652; 86140; U0003

== ENCOUNTER → 2020-09-21 | Outpatient (CLI) | payer MEDICARE, MEDICAID ==
--- NOTE | 2020-09-21 12:42 | REPMRS ---
Patient History The patient states she has not had a clinical breast exam in over a year. No known family history of cancer. Benign US guided breast biopsy. of the left breast, December 18, 2019. Benign stereotatic loc for ea lesion. of the right breast, November 25, 2019. Benign radio exam breast specimen. of the right breast, November 25, 2019. Took hormonal contraceptives for 20 years. Patient states no breast complaints today. Patient has signed MRS History Sheet. Digital Woman Screen Mammo: September 21, 2020 - Exam #: [id number] Bilateral CC and MLO view(s) were taken. Technologist: Ramona Morocho, Technologist Prior study comparison: July 06, 2020, right breast diagnostic unilateral mammo performed at [facility]. December 18, 2019, left breast diagnostic unilateral mammo performed at [facility]. August 20, 2018, bilateral digital woman screen mammo performed at [facility]. FINDINGS: The breast tissue is almost entirely fat. The Volpara volumetric breast density category is: A. There are scattered stable calcifications in each breast. There are needle biopsy marker clips noted bilaterally in stable nodular densities. The nodular density may be related to the HydroMARK device retaining tissue fluid are or post biopsy hematoma seroma. There has been no change in the appearance of the mammogram from the prior studies. There is no interval development of dominant mass, architectural distortion, or grouped microcalcification typical of malignancy. 3-D tomosynthesis shows no additional findings. Assessment: BI-RADS/ACR category 2 mammogram. Benign Findings. Recommendation Routine screening mammogram of both breasts in 1 year (for women over age 40). This patient's [facility] Lifetime Breast Cancer RIsk is estimated at 10.5 %. This mammogram was interpreted with the aid of an FDA-approved computer-aided dectection system. Electronically Signed By: Amandeep Harkins MD 09/21/20 [id number]
== END ==
LOC: M WHC 08:50
PROVIDERS: ATTEND Nurse Practitioner Women's Health
DX: Z12.31 Encounter for screening mammogram for malignant neoplasm of breast (principal)

== ENCOUNTER → 2020-10-13 | Outpatient (REF) | payer MEDICARE, MEDICAID ==
[~2020-10-13] MED LIST changes: -FLUC150T PO; +FLUC150T9 PO; -KLOR20TA42 PO; +POTA-141 PO
[2020-10-13 12:58] LABS: HEMOGLOBIN 15.6 g/dl (12.0-15.5); MEAN CORPUSCULAR HGB CONC 31.8 g/dl (32.0-36.5); MEAN CORPUSCULAR VOLUME 97.4 fl (80.0-96.0); PLATELET COUNT, AUTOMATED 355 10^3/uL (150-450); RED BLOOD COUNT 5.03 10^6/uL (4.00-5.40); WHITE BLOOD COUNT 17.7 10^3/uL (4.0-10.0)
[2020-10-13 13:22] LABS: HEMOGLOBIN A1c 7.3 %
[2020-10-13 13:30] LABS: ALBUMIN 3.7 GM/DL (3.2-5.2); ALT/SGPT 20 U/L (12-78); BILIRUBIN,TOTAL 0.5 MG/DL (0.2-1.0); BLOOD UREA NITROGEN 22 MG/DL (7-18); CALCIUM LEVEL 9.8 MG/DL (8.5-10.1); CARBON DIOXIDE LEVEL 23 MEQ/L (21-32); CHLORIDE LEVEL 104 MEQ/L (98-107); CHOLESTEROL LEVEL 163 MG/DL (<200); CHOLESTEROL RISK RATIO 4.179 (<5); CREATININE FOR GFR 0.97 MG/DL (0.55-1.30); FERRITIN 94 NG/ML (8-252); GLOMERULAR FILTRATION RATE > 60.0 (>51); GLUCOSE, FASTING 128 MG/DL (70-100); HDL CHOLESTEROL 39 MG/DL (>40); IRON (FE) 56 UG/DL (50-170); LDL CHOLESTEROL 82 MG/DL (<100); NON-HDL-C 124 MG/DL; PERCENT SATURATION 19.3 % (13.2-45.0); POTASSIUM SERUM 4.5 MEQ/L (3.5-5.1); SODIUM LEVEL 138 MEQ/L (136-145); TOTAL IRON BINDING CAPACITY 290 UG/DL (250-450); TRIGLYCERIDES LEVEL 211 MG/DL (<150)
[2020-10-13 13:59] LABS: FOLATE > 24.0 NG/ML (>5.4); TOTAL 25(OH) VITAMIN D 42.4 NG/ML (30.0-100.0); VITAMIN B12 LEVEL 822 PG/ML (247-911)
== END ==
PROVIDERS: ATTEND Nurse Practitioner Adult Health
DX: E11.9 Type 2 diabetes mellitus without complications (principal); D50.9 Iron deficiency anemia, unspecified; Z79.899 Other long term (current) drug therapy

== ENCOUNTER → 2020-11-24 | Outpatient (REF) | payer MEDICARE, MEDICAID ==
[~2020-11-24] MED LIST changes: +FLUC150T PO; -FLUC150T9 PO; +KLOR20TA42 PO; -POTA-141 PO
[2020-11-24 11:07] LABS: HEMATOCRIT 40.3 % (36.0-47.0); HEMOGLOBIN 13.1 g/dl (12.0-15.5); MEAN CORPUSCULAR HEMOGLOBIN 31.6 pg (27.0-33.0); MEAN CORPUSCULAR HGB CONC 32.5 g/dl (32.0-36.5); MEAN CORPUSCULAR VOLUME 97.1 fl (80.0-96.0); PLATELET COUNT, AUTOMATED 266 10^3/uL (150-450); RED BLOOD COUNT 4.15 10^6/uL (4.00-5.40); WHITE BLOOD COUNT 13.4 10^3/uL (4.0-10.0)
[2020-11-24 12:33] LABS: ERYTHROCYTE SEDIMENTATION RATE 45 mm/hr (0-30)
== END ==
PROVIDERS: ATTEND Internal Medicine
DX: B99.9 Unspecified infectious disease (principal); B95.61 Methicillin susceptible Staphylococcus aureus infection as the cause of diseases classified elsewhere

== ENCOUNTER → 2020-12-21 | Outpatient (REF) | payer MEDICARE, MEDICAID ==
[~2020-12-21] MED LIST changes: -KLOR20TA42 PO; +POTA-141 PO
== END ==
PROVIDERS: ATTEND Internal Medicine
DX: Z20.822 Contact with and (suspected) exposure to COVID-19 (principal)

== ENCOUNTER → 2020-12-24 | Outpatient (REF) | payer MEDICARE, MEDICAID, BC | PROVIDERS: ATTEND Nurse Practitioner Adult Health | DX: Z53.8 Procedure and treatment not carried out for other reasons (principal) ==

== ENCOUNTER → 2021-01-24 | Outpatient (REF) | payer MEDICARE, MEDICAID, BC | PROVIDERS: ATTEND Nurse Practitioner Adult Health | DX: E78.2 Mixed hyperlipidemia (principal); E11.65 Type 2 diabetes mellitus with hyperglycemia; D50.9 Iron deficiency anemia, unspecified; E55.9 Vitamin D deficiency, unspecified; Z53.8 Procedure and treatment not carried out for other reasons ==

== ENCOUNTER → 2021-03-02 | Outpatient (REF) | payer MEDICARE, MEDICAID ==
[~2021-03-02] MED LIST changes: -FLUC150T PO; +FLUC150T9 PO
[2021-03-02 12:35] LABS: BASO # 0.1 10^3/uL (0.0-0.2); BASO % 0.4 % (0.0-1.0); EOS # 0.1 10^3/uL (0.0-0.5); EOS % 0.4 % (0.0-3.0); HEMATOCRIT 39.4 % (36.0-47.0); HEMOGLOBIN 12.2 g/dl (12.0-15.5); LYMPH # 0.8 10^3/uL (1.5-5.0); LYMPH % 6.6 % (24.0-44.0); MEAN CORPUSCULAR HEMOGLOBIN 30.3 pg (27.0-33.0); MONO # 0.7 10^3/uL (0.0-0.8); MONO % 5.6 % (2.0-8.0); NEUTROPHILS # 10.8 10^3/uL (1.5-8.5); NEUTROPHILS % 86.5 % (36.0-66.0); PLATELET COUNT, AUTOMATED 245 10^3/uL (150-450); RED BLOOD COUNT 4.02 10^6/uL (4.00-5.40); WHITE BLOOD COUNT 12.5 10^3/uL (4.0-10.0)
[2021-03-02 13:24] LABS: ERYTHROCYTE SEDIMENTATION RATE 53 mm/hr (0-30)
[2021-03-02 13:44] LABS: ALBUMIN 2.8 GM/DL (3.2-5.2); ALT/SGPT 13 U/L (12-78); BILIRUBIN,TOTAL 0.4 MG/DL (0.2-1.0); BLOOD UREA NITROGEN 20 MG/DL (7-18); C REACTIVE PROTEIN QUANTITATIV 2.53 MG/DL (0.00-0.30); CALCIUM LEVEL 9.2 MG/DL (8.5-10.1); CARBON DIOXIDE LEVEL 25 MEQ/L (21-32); CHLORIDE LEVEL 105 MEQ/L (98-107); CREATININE FOR GFR 0.91 MG/DL (0.55-1.30); GLOMERULAR FILTRATION RATE > 60.0 (>51); GLUCOSE, FASTING 179 MG/DL (70-100); POTASSIUM SERUM 4.3 MEQ/L (3.5-5.1); SODIUM LEVEL 140 MEQ/L (136-145); TOTAL PROTEIN 5.7 GM/DL (6.4-8.2)
== END ==
PROVIDERS: ATTEND Internal Medicine Infectious Disease
DX: M00.062 Staphylococcal arthritis, left knee (principal)

== ENCOUNTER → 2021-04-05 | Outpatient (CLI) | payer MEDICARE, MEDICAID ==
[2021-04-05 13:36] LABS: BASO # 0.1 10^3/uL (0.0-0.2); BASO % 0.5 % (0.0-1.0); EOS # 0.1 10^3/uL (0.0-0.5); EOS % 0.7 % (0.0-3.0); HEMATOCRIT 42.4 % (36.0-47.0); HEMOGLOBIN 13.6 g/dl (12.0-15.5); LYMPH # 1.2 10^3/uL (1.5-5.0); LYMPH % 8.8 % (24.0-44.0); MEAN CORPUSCULAR HEMOGLOBIN 30.8 pg (27.0-33.0); MEAN CORPUSCULAR HGB CONC 32.1 g/dl (32.0-36.5); MEAN CORPUSCULAR VOLUME 96.1 fl (80.0-96.0); MONO # 0.8 10^3/uL (0.0-0.8); MONO % 5.8 % (2.0-8.0); NEUTROPHILS # 11.4 10^3/uL (1.5-8.5); NEUTROPHILS % 83.8 % (36.0-66.0); PLATELET COUNT, AUTOMATED 284 10^3/uL (150-450); RED BLOOD COUNT 4.41 10^6/uL (4.00-5.40); WHITE BLOOD COUNT 13.6 10^3/uL (4.0-10.0)
[2021-04-05 14:16] LABS: ERYTHROCYTE SEDIMENTATION RATE 52 mm/hr (0-30)
== END ==
LOC: M PLAIMG 10:34
PROVIDERS: ATTEND Internal Medicine Infectious Disease
DX: M00.062 Staphylococcal arthritis, left knee (principal)

== ENCOUNTER → 2021-04-14 | Outpatient (REF) | payer MEDICARE, MEDICAID | LOC: M SFHCWAGY 12:40 | PROVIDERS: ATTEND Nurse Practitioner Women's Health | DX: Z12.4 Encounter for screening for malignant neoplasm of cervix (principal) ==

== ENCOUNTER → 2021-09-08 | Outpatient (CLI) | payer MEDICARE, MEDICAID | LOC: M SLEEP 20:00 | PROVIDERS: ATTEND Nurse Practitioner Adult Health | DX: G47.33 Obstructive sleep apnea (adult) (pediatric) (principal) ==

== ENCOUNTER → 2021-10-05 | Outpatient (REF) | payer MEDICARE, MEDICAID ==
[2021-10-05 13:11] LABS: BASO # 0.1 10^3/uL (0.0-0.2); BASO % 0.6 % (0.0-1.0); EOS # 0.1 10^3/uL (0.0-0.5); EOS % 0.8 % (0.0-3.0); HEMATOCRIT 44.8 % (36.0-47.0); HEMOGLOBIN 14.1 g/dl (12.0-15.5); LYMPH # 1.1 10^3/uL (1.5-5.0); LYMPH % 9.4 % (24.0-44.0); MEAN CORPUSCULAR HEMOGLOBIN 30.1 pg (27.0-33.0); MEAN CORPUSCULAR HGB CONC 31.5 g/dl (32.0-36.5); MEAN CORPUSCULAR VOLUME 95.7 fl (80.0-96.0); MONO # 0.7 10^3/uL (0.0-0.8); MONO % 5.8 % (2.0-8.0); NEUTROPHILS # 9.8 10^3/uL (1.5-8.5); PLATELET COUNT, AUTOMATED 262 10^3/uL (150-450); RED BLOOD COUNT 4.68 10^6/uL (4.00-5.40); WHITE BLOOD COUNT 11.7 10^3/uL (4.0-10.0)
[2021-10-05 13:51] LABS: ERYTHROCYTE SEDIMENTATION RATE 35 mm/hr (0-30)
== END ==
PROVIDERS: ATTEND Internal Medicine Infectious Disease
DX: M00.062 Staphylococcal arthritis, left knee (principal)

== ENCOUNTER → 2021-11-14 | Outpatient (REF) | payer MEDICARE, MEDICAID ==
[2021-11-14 10:55] LABS: HEP C VIRUS AB INDEX SOURCE PT < 0.0 INDEX (0.0-0.8); HEPATITIS B SURFACE ANTIGEN NEGATIVE (NEGATIVE)
[2021-11-14 11:06] LABS: HIV SCREEN CENTAUR SOURCE NEGATIVE (NEGATIVE)
== END ==
PROVIDERS: ATTEND Nurse Practitioner Adult Health
DX: Z11.4 Encounter for screening for human immunodeficiency virus [HIV] (principal); Z11.59 Encounter for screening for other viral diseases; W46.1XXA Contact with contaminated hypodermic needle, initial encounter

== ENCOUNTER → 2021-12-05 | Outpatient (REF) | payer MEDICARE, MEDICAID ==
[2021-12-05 10:06] LABS: BASO # 0.1 10^3/uL (0.0-0.2); BASO % 0.6 % (0.0-1.0); EOS # 0.1 10^3/uL (0.0-0.5); EOS % 0.5 % (0.0-3.0); HEMATOCRIT 41.8 % (36.0-47.0); HEMOGLOBIN 13.1 g/dl (12.0-15.5); LYMPH # 0.9 10^3/uL (1.5-5.0); LYMPH % 8.4 % (24.0-44.0); MEAN CORPUSCULAR HEMOGLOBIN 30.4 pg (27.0-33.0); MEAN CORPUSCULAR HGB CONC 31.3 g/dl (32.0-36.5); MONO # 0.5 10^3/uL (0.0-0.8); MONO % 5.1 % (2.0-8.0); NEUTROPHILS # 8.8 10^3/uL (1.5-8.5); PLATELET COUNT, AUTOMATED 239 10^3/uL (150-450); RED BLOOD COUNT 4.31 10^6/uL (4.00-5.40); WHITE BLOOD COUNT 10.3 10^3/uL (4.0-10.0)
[2021-12-05 11:11] LABS: ERYTHROCYTE SEDIMENTATION RATE 43 mm/hr (0-30)
== END ==
PROVIDERS: ATTEND Internal Medicine Infectious Disease
DX: M00.062 Staphylococcal arthritis, left knee (principal)

== ENCOUNTER → 2022-01-18 | Outpatient (REF) | payer MEDICARE, MEDICAID ==
[2022-01-18 10:46] LABS: ALBUMIN 2.8 GM/DL (3.2-5.2); ALT/SGPT 16 U/L (12-78); BILIRUBIN,TOTAL 0.4 MG/DL (0.2-1.0); BLOOD UREA NITROGEN 26 MG/DL (7-18); CALCIUM LEVEL 9.2 MG/DL (8.8-10.2); CARBON DIOXIDE LEVEL 26 MEQ/L (21-32); CHLORIDE LEVEL 108 MEQ/L (98-107); CHOLESTEROL LEVEL 120 MG/DL (<200); CHOLESTEROL RISK RATIO 3.333 (<5); GLOMERULAR FILTRATION RATE > 60.0 (>45); GLUCOSE, FASTING 135 MG/DL (70-100); HDL CHOLESTEROL 36 MG/DL (>40); LDL CHOLESTEROL 58 MG/DL (<100); NON-HDL-C 84 MG/DL; POTASSIUM SERUM 4.5 MEQ/L (3.5-5.1); SODIUM LEVEL 141 MEQ/L (136-145); TOTAL PROTEIN 5.6 GM/DL (6.4-8.2); TRIGLYCERIDES LEVEL 129 MG/DL (<150)
[2022-01-18 11:16] LABS: HEMOGLOBIN A1c 5.6 %
[2022-01-18 20:37] LABS: TOTAL 25(OH) VITAMIN D 49.2 NG/ML (30.0-100.0)
== END ==
PROVIDERS: ATTEND Nurse Practitioner Adult Health
DX: E11.65 Type 2 diabetes mellitus with hyperglycemia (principal); E78.2 Mixed hyperlipidemia; E55.9 Vitamin D deficiency, unspecified; Z79.899 Other long term (current) drug therapy

== ENCOUNTER → 2022-04-03 | Outpatient (CLI) | payer MEDICARE, MEDICAID ==
[~2022-04-03] MED LIST changes: -MEDR10TA PO; +MEDR10TA9 PO
[2022-04-03 15:00] LABS: BASO # 0.1 10^3/uL (0.0-0.2); BASO % 0.5 % (0.0-1.0); EOS # 0.1 10^3/uL (0.0-0.5); EOS % 0.7 % (0.0-3.0); HEMATOCRIT 41.4 % (36.0-47.0); HEMOGLOBIN 12.9 g/dl (12.0-15.5); LYMPH # 0.9 10^3/uL (1.5-5.0); LYMPH % 7.5 % (24.0-44.0); MEAN CORPUSCULAR HEMOGLOBIN 29.9 pg (27.0-33.0); MEAN CORPUSCULAR HGB CONC 31.2 g/dl (32.0-36.5); MEAN CORPUSCULAR VOLUME 96.1 fl (80.0-96.0); MONO # 0.8 10^3/uL (0.0-0.8); MONO % 6.7 % (2.0-8.0); NEUTROPHILS # 10.3 10^3/uL (1.5-8.5); NEUTROPHILS % 84.1 % (36.0-66.0); PLATELET COUNT, AUTOMATED 345 10^3/uL (150-450); RED BLOOD COUNT 4.31 10^6/uL (4.00-5.40); WHITE BLOOD COUNT 12.2 10^3/uL (4.0-10.0)
[2022-04-03 15:19] LABS: ERYTHROCYTE SEDIMENTATION RATE 72 mm/hr (0-30)
== END ==
LOC: M PLALAB 09:26
PROVIDERS: ATTEND Internal Medicine Infectious Disease
DX: M00.062 Staphylococcal arthritis, left knee (principal)

== ENCOUNTER → 2022-06-12 | Outpatient (REF) | payer MEDICARE, MEDICAID ==
[2022-06-12 13:08] LABS: ALKALINE PHOSPHATASE 129 U/L (46-116); ALT/SGPT < 9 U/L (7.0-40); AST/SGOT 12 U/L (<34); BILIRUBIN,TOTAL 0.3 MG/DL (0.3-1.2); BLOOD UREA NITROGEN 22 MG/DL (9-23); CALCIUM LEVEL 8.8 MG/DL (8.3-10.6); CARBON DIOXIDE LEVEL 26 MMOL/L (20-31); CHLORIDE LEVEL 107 MMOL/L (98-107); CHOLESTEROL LEVEL 113 MG/DL (<200); CHOLESTEROL RISK RATIO 2.84 (<5); CREATININE FOR GFR 0.87 MG/DL (0.55-1.30); GLOMERULAR FILTRATION RATE > 60.0 (>45); GLUCOSE, FASTING 128 MG/DL (74-106); HDL CHOLESTEROL 39.7 MG/DL (>40); LDL CHOLESTEROL 48.5 MG/DL (<100); NON-HDL-C 73.3 MG/DL; POTASSIUM SERUM 4.5 MMOL/L (3.5-5.1); SODIUM LEVEL 139 MMOL/L (136-145); THYROID STIMULATING HORMONE 1.654 uIU/ML (0.55-4.78); TOTAL 25(OH) VITAMIN D 56.9 NG/ML (20.0-100.0); TRIGLYCERIDES LEVEL 124 MG/DL (<150)
[2022-06-12 13:13] LABS: HEMOGLOBIN A1c 5.4 % (4.0-6.0)
== END ==
PROVIDERS: ATTEND Nurse Practitioner Adult Health
DX: E11.65 Type 2 diabetes mellitus with hyperglycemia (principal); E55.9 Vitamin D deficiency, unspecified; E78.2 Mixed hyperlipidemia; Z79.899 Other long term (current) drug therapy

== ENCOUNTER → 2022-06-19 | Outpatient (CLI) | payer MEDICARE, MEDICAID | LOC: M WHC 09:26 | PROVIDERS: ATTEND Nurse Practitioner Adult Health | DX: Z12.31 Encounter for screening mammogram for malignant neoplasm of breast (principal) ==

== ENCOUNTER → 2022-10-02 | Outpatient (CLI) | payer MEDICARE, MEDICAID ==
[~2022-10-02] MED LIST changes: +BACI28.417 TOP; -BACI28.43 TOP
[2022-10-02 14:37] LABS: BASO # 0.1 10^3/uL (0.0-0.2); BASO % 0.7 % (0.0-1.0); EOS # 0.1 10^3/uL (0.0-0.5); EOS % 0.5 % (0.0-3.0); HEMATOCRIT 40.4 % (36.0-47.0); HEMOGLOBIN 12.7 g/dl (12.0-15.5); LYMPH # 1.1 10^3/uL (1.5-5.0); LYMPH % 10.6 % (24.0-44.0); MEAN CORPUSCULAR HEMOGLOBIN 30.5 pg (27.0-33.0); MEAN CORPUSCULAR HGB CONC 31.4 g/dl (32.0-36.5); MEAN CORPUSCULAR VOLUME 96.9 fl (80.0-96.0); MONO # 0.8 10^3/uL (0.0-0.8); MONO % 7.7 % (2.0-8.0); NEUTROPHILS # 8.1 10^3/uL (1.5-8.5); NEUTROPHILS % 80.1 % (36.0-66.0); PLATELET COUNT, AUTOMATED 305 10^3/uL (150-450); RED BLOOD COUNT 4.17 10^6/uL (4.00-5.40); WHITE BLOOD COUNT 10.1 10^3/uL (4.0-10.0)
[2022-10-02 15:08] LABS: ERYTHROCYTE SEDIMENTATION RATE 84 mm/hr (0-30)
[2022-10-02 15:10] LABS: ALBUMIN 3.1 G/DL (3.2-5.2); ALKALINE PHOSPHATASE 123 U/L (46-116); ALT/SGPT < 9 U/L (7.0-40); AST/SGOT 10 U/L (<34); BILIRUBIN,TOTAL 0.4 MG/DL (0.3-1.2); BLOOD UREA NITROGEN 24 MG/DL (9-23); CALCIUM LEVEL 10.3 MG/DL (8.3-10.6); CARBON DIOXIDE LEVEL 24 MMOL/L (20-31); CHLORIDE LEVEL 105 MMOL/L (98-107); CREATININE FOR GFR 0.85 MG/DL (0.55-1.30); GLOMERULAR FILTRATION RATE > 60.0 (>45); GLUCOSE, FASTING 105 MG/DL (74-106); POTASSIUM SERUM 5.1 MMOL/L (3.5-5.1); SODIUM LEVEL 138 MMOL/L (136-145); TOTAL PROTEIN 6.2 G/DL (5.7-8.2)
== END ==
LOC: M PLALAB 11:10
PROVIDERS: ATTEND Internal Medicine Infectious Disease
DX: M00.062 Staphylococcal arthritis, left knee (principal)

== ENCOUNTER → 2022-12-08 | Outpatient (REF) | payer MEDICARE, MEDICAID ==
[2022-12-08 10:31] LABS: TOTAL 25(OH) VITAMIN D 47.9 NG/ML (20.0-100.0)
[2022-12-08 10:33] LABS: ALBUMIN 3.2 G/DL (3.2-5.2); ALKALINE PHOSPHATASE 120 U/L (46-116); ALT/SGPT 14 U/L (7.0-40); AST/SGOT < 8 U/L (<34); BILIRUBIN,TOTAL 0.4 MG/DL (0.3-1.2); BLOOD UREA NITROGEN 26 MG/DL (9-23); CALCIUM LEVEL 9.7 MG/DL (8.3-10.6); CARBON DIOXIDE LEVEL 27 MMOL/L (20-31); CHLORIDE LEVEL 106 MMOL/L (98-107); CHOLESTEROL LEVEL 127 MG/DL (<200); CHOLESTEROL RISK RATIO 3.34 (<5); CREATININE FOR GFR 0.95 MG/DL (0.55-1.30); GLOMERULAR FILTRATION RATE > 60.0 (>45); GLUCOSE, FASTING 130 MG/DL (74-106); LDL CHOLESTEROL 61.6 MG/DL (<100); POTASSIUM SERUM 4.5 MMOL/L (3.5-5.1); SODIUM LEVEL 141 MMOL/L (136-145); TOTAL PROTEIN 6.4 G/DL (5.7-8.2); TRIGLYCERIDES LEVEL 137 MG/DL (<150)
[2022-12-08 11:17] LABS: HEMOGLOBIN A1c 5.6 % (4.0-6.0)
== END ==
PROVIDERS: ATTEND Nurse Practitioner Adult Health
DX: E11.65 Type 2 diabetes mellitus with hyperglycemia (principal); E55.9 Vitamin D deficiency, unspecified; E78.2 Mixed hyperlipidemia; Z79.899 Other long term (current) drug therapy

== ENCOUNTER → 2023-04-06 | Outpatient (REF) | payer MEDICARE, MEDICAID ==
[2023-04-06 10:17] LABS: HEMATOCRIT 35.4 % (36.0-47.0); MEAN CORPUSCULAR HEMOGLOBIN 30.6 pg (27.0-33.0); MEAN CORPUSCULAR HGB CONC 31.1 g/dl (32.0-36.5); MEAN CORPUSCULAR VOLUME 98.6 fl (80.0-96.0); PLATELET COUNT, AUTOMATED 268 10^3/uL (150-450); RED BLOOD COUNT 3.59 10^6/uL (4.00-5.40); WHITE BLOOD COUNT 11.3 10^3/uL (4.0-10.0)
[2023-04-06 10:40] LABS: ERYTHROCYTE SEDIMENTATION RATE 64 mm/hr (0-30)
[2023-04-06 10:42] LABS: ALBUMIN 2.5 G/DL (3.2-5.2); ALKALINE PHOSPHATASE 115 U/L (46-116); ALT/SGPT < 9 U/L (7.0-40); AST/SGOT 9 U/L (<34); BILIRUBIN,TOTAL 0.3 MG/DL (0.3-1.2); BLOOD UREA NITROGEN 20 MG/DL (9-23); CALCIUM LEVEL 8.9 MG/DL (8.3-10.6); CARBON DIOXIDE LEVEL 25 MMOL/L (20-31); CHLORIDE LEVEL 110 MMOL/L (98-107); CREATININE FOR GFR 0.84 MG/DL (0.55-1.30); GLOMERULAR FILTRATION RATE > 60.0 (>45); GLUCOSE, FASTING 158 MG/DL (74-106); POTASSIUM SERUM 4.8 MMOL/L (3.5-5.1); SODIUM LEVEL 141 MMOL/L (136-145); TOTAL PROTEIN 5.5 G/DL (5.7-8.2)
== END ==
PROVIDERS: ATTEND Internal Medicine Infectious Disease
DX: Z09 Encounter for follow-up examination after completed treatment for conditions other than malignant neoplasm (principal); Z86.14 Personal history of Methicillin resistant Staphylococcus aureus infection

== ENCOUNTER → 2023-06-25 | Outpatient (REF) | payer MEDICARE, MEDICAID ==
[~2023-06-25] MED LIST changes: -POTA20EL PO; +POTA20LI16 PO
[2023-06-25 09:04] LABS: ALKALINE PHOSPHATASE 126 U/L (46-116); ALT/SGPT < 9 U/L (7.0-40); AST/SGOT < 8 U/L (<34); BILIRUBIN,TOTAL 0.4 MG/DL (0.3-1.2); BLOOD UREA NITROGEN 25 MG/DL (9-23); CALCIUM LEVEL 9.7 MG/DL (8.3-10.6); CARBON DIOXIDE LEVEL 23 MMOL/L (20-31); CHLORIDE LEVEL 109 MMOL/L (98-107); CHOLESTEROL LEVEL 110 MG/DL (<200); CHOLESTEROL RISK RATIO 3.05 (<5); CREATININE FOR GFR 0.94 MG/DL (0.55-1.30); GLOMERULAR FILTRATION RATE > 60.0 (>45); GLUCOSE, FASTING 110 MG/DL (74-106); IRON (FE) 41 UG/DL (50-170); POTASSIUM SERUM 4.1 MMOL/L (3.5-5.1); SODIUM LEVEL 141 MMOL/L (136-145); TOTAL PROTEIN 6.2 G/DL (5.7-8.2); TRIGLYCERIDES LEVEL 125 MG/DL (<150)
[2023-06-25 09:06] LABS: FERRITIN 109.2 NG/ML (7.3-270.7); FREE T4 1.06 NG/DL (0.89-1.76); THYROID STIMULATING HORMONE 2.946 uIU/ML (0.55-4.78)
[2023-06-25 09:21] LABS: HEMATOCRIT 39.2 % (36.0-47.0); HEMOGLOBIN 12.3 g/dl (12.0-15.5); MEAN CORPUSCULAR HEMOGLOBIN 30.4 pg (27.0-33.0); MEAN CORPUSCULAR HGB CONC 31.4 g/dl (32.0-36.5); MEAN CORPUSCULAR VOLUME 96.8 fl (80.0-96.0); PLATELET COUNT, AUTOMATED 294 10^3/uL (150-450); RED BLOOD COUNT 4.05 10^6/uL (4.00-5.40); WHITE BLOOD COUNT 10.7 10^3/uL (4.0-10.0)
[2023-06-25 10:16] LABS: HEMOGLOBIN A1c 5.5 % (4.0-6.0)
== END ==
PROVIDERS: ATTEND Nurse Practitioner Adult Health
DX: D50.9 Iron deficiency anemia, unspecified (principal); I10 Essential (primary) hypertension; E55.9 Vitamin D deficiency, unspecified; E11.65 Type 2 diabetes mellitus with hyperglycemia; E78.2 Mixed hyperlipidemia

== ENCOUNTER → 2023-06-27 | Outpatient (REF) | payer MEDICARE, MEDICAID ==
[2023-06-27 14:48] LABS: HEPATITIS B SURFACE ANTIBODY NEGATIVE (POSITIVE)
[2023-06-27 15:12] LABS: HIV SCREEN CENTAUR SOURCE NEGATIVE (NEGATIVE)
== END ==
PROVIDERS: ATTEND Nurse Practitioner Adult Health
DX: Z11.4 Encounter for screening for human immunodeficiency virus [HIV] (principal); Z11.59 Encounter for screening for other viral diseases; W46.0XXA Contact with hypodermic needle, initial encounter

== ENCOUNTER → 2023-08-27 | Outpatient (REF) | payer MEDICARE, MEDICAID ==
[2023-08-27 11:29] LABS: BASO # 0.1 10^3/uL (0.0-0.2); BASO % 0.6 % (0.0-1.0); EOS # 0.1 10^3/uL (0.0-0.5); EOS % 0.6 % (0.0-3.0); HEMATOCRIT 37.2 % (36.0-47.0); HEMOGLOBIN 11.7 g/dl (12.0-15.5); LYMPH # 0.8 10^3/uL (1.5-5.0); LYMPH % 7.2 % (24.0-44.0); MEAN CORPUSCULAR HEMOGLOBIN 30.6 pg (27.0-33.0); MEAN CORPUSCULAR HGB CONC 31.5 g/dl (32.0-36.5); MEAN CORPUSCULAR VOLUME 97.4 fl (80.0-96.0); MONO # 0.7 10^3/uL (0.0-0.8); MONO % 6.9 % (2.0-8.0); NEUTROPHILS # 8.7 10^3/uL (1.5-8.5); NEUTROPHILS % 84.4 % (36.0-66.0); PLATELET COUNT, AUTOMATED 270 10^3/uL (150-450); RED BLOOD COUNT 3.82 10^6/uL (4.00-5.40); WHITE BLOOD COUNT 10.4 10^3/uL (4.0-10.0)
[2023-08-27 11:36] LABS: ERYTHROCYTE SEDIMENTATION RATE 58 mm/hr (0-30)
== END ==
PROVIDERS: ATTEND Internal Medicine Infectious Disease
DX: M00.062 Staphylococcal arthritis, left knee (principal)

== ENCOUNTER → 2023-10-01 | Outpatient (CLI) | payer MEDICARE, MEDICAID | LOC: M PLAIMG 10:26 | PROVIDERS: ATTEND Internal Medicine Infectious Disease | DX: M00.062 Staphylococcal arthritis, left knee (principal); M17.12 Unilateral primary osteoarthritis, left knee ==

== ENCOUNTER → 2023-10-03 | Outpatient (REF) | payer MEDICARE, MEDICAID ==
[2023-10-03 10:54] LABS: HEMATOCRIT 38.5 % (36.0-47.0); HEMOGLOBIN 12.2 g/dl (12.0-15.5); MEAN CORPUSCULAR HEMOGLOBIN 30.6 pg (27.0-33.0); MEAN CORPUSCULAR HGB CONC 31.7 g/dl (32.0-36.5); MEAN CORPUSCULAR VOLUME 96.5 fl (80.0-96.0); PLATELET COUNT, AUTOMATED 277 10^3/uL (150-450); RED BLOOD COUNT 3.99 10^6/uL (4.00-5.40); WHITE BLOOD COUNT 12.2 10^3/uL (4.0-10.0)
[2023-10-03 11:11] LABS: HEMOGLOBIN A1c 5.5 % (4.0-6.0)
[2023-10-03 11:28] LABS: FERRITIN 96.9 NG/ML (7.3-270.7); THYROID STIMULATING HORMONE 1.751 uIU/ML (0.55-4.78)
[2023-10-03 11:29] LABS: ALKALINE PHOSPHATASE 130 U/L (46-116); ALT/SGPT 10 U/L (7.0-40); AST/SGOT < 8 U/L (<34); BILIRUBIN,TOTAL 0.3 MG/DL (0.3-1.2); BLOOD UREA NITROGEN 32 MG/DL (9-23); CALCIUM LEVEL 9.6 MG/DL (8.3-10.6); CARBON DIOXIDE LEVEL 24 MMOL/L (20-31); CHLORIDE LEVEL 108 MMOL/L (98-107); CHOLESTEROL LEVEL 120 MG/DL (<200); CREATININE FOR GFR 0.95 MG/DL (0.55-1.30); GLOMERULAR FILTRATION RATE > 60.0 (>45); GLUCOSE, FASTING 142 MG/DL (74-106); HDL CHOLESTEROL 33.3 MG/DL (>40); LDL CHOLESTEROL 59.5 MG/DL (<100); NON-HDL-C 86.7 MG/DL; POTASSIUM SERUM 4.5 MMOL/L (3.5-5.1); SODIUM LEVEL 139 MMOL/L (136-145); TOTAL PROTEIN 6.1 G/DL (5.7-8.2); TRIGLYCERIDES LEVEL 136 MG/DL (<150)
== END ==
PROVIDERS: ATTEND Nurse Practitioner Adult Health
DX: I10 Essential (primary) hypertension (principal); E11.65 Type 2 diabetes mellitus with hyperglycemia; E78.2 Mixed hyperlipidemia; D50.9 Iron deficiency anemia, unspecified

== ENCOUNTER → 2023-10-10 | Outpatient (REF) ==
[2023-10-10 11:37] LABS: HEMATOCRIT 40.2 % (36.0-47.0); HEMOGLOBIN 12.7 g/dl (12.0-15.5); MEAN CORPUSCULAR HEMOGLOBIN 30.9 pg (27.0-33.0); MEAN CORPUSCULAR HGB CONC 31.6 g/dl (32.0-36.5); MEAN CORPUSCULAR VOLUME 97.8 fl (80.0-96.0); PLATELET COUNT, AUTOMATED 321 10^3/uL (150-450); RED BLOOD COUNT 4.11 10^6/uL (4.00-5.40); WHITE BLOOD COUNT 11.8 10^3/uL (4.0-10.0)
[2023-10-10 12:00] LABS: BLOOD UREA NITROGEN 23 MG/DL (9-23); CARBON DIOXIDE LEVEL 26 MMOL/L (20-31); CHLORIDE LEVEL 107 MMOL/L (98-107); CREATININE FOR GFR 0.88 MG/DL (0.55-1.30); GLOMERULAR FILTRATION RATE > 60.0 (>45); GLUCOSE, FASTING 124 MG/DL (74-106); POTASSIUM SERUM 4.8 MMOL/L (3.5-5.1); SODIUM LEVEL 141 MMOL/L (136-145)
== END ==
PROVIDERS: ATTEND Physician Assistant
DX: E11.9 Type 2 diabetes mellitus without complications (principal)

== ENCOUNTER → 2023-10-17 | Outpatient (REF) ==
[2023-10-17 10:24] LABS: HEMATOCRIT 36.9 % (36.0-47.0); HEMOGLOBIN 11.7 g/dl (12.0-15.5); MEAN CORPUSCULAR HGB CONC 31.7 g/dl (32.0-36.5); MEAN CORPUSCULAR VOLUME 97.6 fl (80.0-96.0); PLATELET COUNT, AUTOMATED 270 10^3/uL (150-450); RED BLOOD COUNT 3.78 10^6/uL (4.00-5.40); WHITE BLOOD COUNT 10.4 10^3/uL (4.0-10.0)
[2023-10-17 10:51] LABS: CALCIUM LEVEL 9.2 MG/DL (8.3-10.6); CREATININE FOR GFR 1.08 MG/DL (0.55-1.30); GLOMERULAR FILTRATION RATE 54.7 (>45); POTASSIUM SERUM 4.4 MMOL/L (3.5-5.1)
== END ==
PROVIDERS: ATTEND Physician Assistant
DX: E11.9 Type 2 diabetes mellitus without complications (principal)

== ENCOUNTER → 2023-11-07 | Outpatient (REF) ==
[2023-11-07 09:10] LABS: BASO # 0.1 10^3/uL (0.0-0.2); BASO % 0.6 % (0.0-1.0); EOS # 0.1 10^3/uL (0.0-0.5); EOS % 1.4 % (0.0-3.0); HEMATOCRIT 36.5 % (36.0-47.0); HEMOGLOBIN 11.6 g/dl (12.0-15.5); LYMPH # 0.9 10^3/uL (1.5-5.0); LYMPH % 10.5 % (24.0-44.0); MEAN CORPUSCULAR HEMOGLOBIN 31.3 pg (27.0-33.0); MEAN CORPUSCULAR HGB CONC 31.8 g/dl (32.0-36.5); MEAN CORPUSCULAR VOLUME 98.4 fl (80.0-96.0); MONO # 0.8 10^3/uL (0.0-0.8); MONO % 9.6 % (2.0-8.0); NEUTROPHILS # 6.5 10^3/uL (1.5-8.5); NEUTROPHILS % 77.3 % (36.0-66.0); PLATELET COUNT, AUTOMATED 225 10^3/uL (150-450); RED BLOOD COUNT 3.71 10^6/uL (4.00-5.40); WHITE BLOOD COUNT 8.5 10^3/uL (4.0-10.0)
[2023-11-07 09:39] LABS: CALCIUM LEVEL 9.3 MG/DL (8.3-10.6); CREATININE FOR GFR 1.17 MG/DL (0.55-1.30); GLOMERULAR FILTRATION RATE 49.9 (>45); POTASSIUM SERUM 4.3 MMOL/L (3.5-5.1)
== END ==
PROVIDERS: ATTEND Physician Assistant
DX: N39.0 Urinary tract infection, site not specified (principal)

== ENCOUNTER → 2023-11-14 | Outpatient (REF) ==
[2023-11-14 10:19] LABS: HEMATOCRIT 35.1 % (36.0-47.0); HEMOGLOBIN 11.1 g/dl (12.0-15.5); MEAN CORPUSCULAR HEMOGLOBIN 31.2 pg (27.0-33.0); MEAN CORPUSCULAR HGB CONC 31.6 g/dl (32.0-36.5); MEAN CORPUSCULAR VOLUME 98.6 fl (80.0-96.0); PLATELET COUNT, AUTOMATED 238 10^3/uL (150-450); RED BLOOD COUNT 3.56 10^6/uL (4.00-5.40); WHITE BLOOD COUNT 11.3 10^3/uL (4.0-10.0)
[2023-11-14 10:46] LABS: CALCIUM LEVEL 9.1 MG/DL (8.3-10.6); CREATININE FOR GFR 1.01 MG/DL (0.55-1.30); GLOMERULAR FILTRATION RATE 59.1 (>45); POTASSIUM SERUM 4.2 MMOL/L (3.5-5.1)
== END ==
PROVIDERS: ATTEND Internal Medicine
DX: N18.9 Chronic kidney disease, unspecified (principal)

== ENCOUNTER → 2023-12-12 | Outpatient (REF) | payer BC, MEDICAID, MEDICARE ==
[2023-12-12 10:49] LABS: HEMATOCRIT 33.9 % (36.0-47.0); HEMOGLOBIN 10.9 g/dl (12.0-15.5); MEAN CORPUSCULAR HEMOGLOBIN 32.1 pg (27.0-33.0); MEAN CORPUSCULAR HGB CONC 32.2 g/dl (32.0-36.5); MEAN CORPUSCULAR VOLUME 99.7 fl (80.0-96.0); PLATELET COUNT, AUTOMATED 259 10^3/uL (150-450); WHITE BLOOD COUNT 11.2 10^3/uL (4.0-10.0)
[2023-12-12 11:23] LABS: CALCIUM LEVEL 9.1 MG/DL (8.3-10.6); CREATININE FOR GFR 1.13 MG/DL (0.55-1.30); GLOMERULAR FILTRATION RATE 51.9 (>45); POTASSIUM SERUM 4.4 MMOL/L (3.5-5.1)
== END ==
PROVIDERS: ATTEND Internal Medicine
DX: N18.9 Chronic kidney disease, unspecified (principal)

== ENCOUNTER → 2024-01-30 | Outpatient (REF) | payer MEDICARE, MEDICAID, BC | PROVIDERS: ATTEND Internal Medicine | DX: R05.9 Cough, unspecified (principal) ==

== ENCOUNTER → 2024-03-10 | Outpatient (REF) | payer MEDICARE, MEDICAID, BC ==
[~2024-03-10] MED LIST changes: +NYST1POW3 TOP; -NYST1POW9 TOP
[2024-03-10 10:29] LABS: HEMATOCRIT 33.7 % (36.0-47.0); HEMOGLOBIN 10.7 g/dl (12.0-15.5); MEAN CORPUSCULAR HEMOGLOBIN 30.9 pg (27.0-33.0); MEAN CORPUSCULAR HGB CONC 31.8 g/dl (32.0-36.5); MEAN CORPUSCULAR VOLUME 97.4 fl (80.0-96.0); PLATELET COUNT, AUTOMATED 238 10^3/uL (150-450); RED BLOOD COUNT 3.46 10^6/uL (4.00-5.40); WHITE BLOOD COUNT 11.8 10^3/uL (4.0-10.0)
[2024-03-10 11:01] LABS: CALCIUM LEVEL 9.4 MG/DL (8.3-10.6); GLOMERULAR FILTRATION RATE 59.8 (>45); POTASSIUM SERUM 4.6 MMOL/L (3.5-5.1)
== END ==
PROVIDERS: ATTEND Internal Medicine
DX: N18.9 Chronic kidney disease, unspecified (principal)

== ENCOUNTER → 2024-06-09 | Outpatient (REF) | payer MEDICARE, MEDICAID, BC ==
[2024-06-09 08:48] LABS: HEMATOCRIT 35.1 % (36.0-47.0); HEMOGLOBIN 11.4 g/dl (12.0-15.5); MEAN CORPUSCULAR HEMOGLOBIN 31.1 pg (27.0-33.0); MEAN CORPUSCULAR HGB CONC 32.5 g/dl (32.0-36.5); MEAN CORPUSCULAR VOLUME 95.9 fl (80.0-96.0); PLATELET COUNT, AUTOMATED 241 10^3/uL (150-450); RED BLOOD COUNT 3.66 10^6/uL (4.00-5.40); WHITE BLOOD COUNT 11.9 10^3/uL (4.0-10.0)
[2024-06-09 09:22] LABS: CREATININE FOR GFR 1.04 MG/DL (0.55-1.30); GLOMERULAR FILTRATION RATE 57.2 (>45); POTASSIUM SERUM 4.3 MMOL/L (3.5-5.1)
== END ==
PROVIDERS: ATTEND Internal Medicine
DX: N18.9 Chronic kidney disease, unspecified (principal)

== ENCOUNTER → 2024-07-16 | Outpatient (REF) | payer MEDICARE, MEDICAID, BC ==
[2024-07-16 09:01] LABS: HEMOGLOBIN A1c 5.7 % (4.0-6.0)
[2024-07-16 09:06] LABS: CHOLESTEROL RISK RATIO 4.16 (<5); HDL CHOLESTEROL 28.1 MG/DL (>40); LDL CHOLESTEROL 59.1 MG/DL (<100); NON-HDL-C 88.9 MG/DL
[2024-07-16 09:07] LABS: TOTAL 25(OH) VITAMIN D 55.7 NG/ML (20.0-100.0)
== END ==
PROVIDERS: ATTEND Internal Medicine
DX: E11.9 Type 2 diabetes mellitus without complications (principal); Z79.899 Other long term (current) drug therapy

== ENCOUNTER → 2024-10-15 | Outpatient (REF) | payer MEDICARE, MEDICAID, BC ==
[~2024-10-15] MED LIST changes: -GLUC1KIT IM; +GLUC1VIA14 IM
[2024-10-15 08:35] LABS: PLATELET COUNT, AUTOMATED 265 10^3/uL (150-450)
[2024-10-15 09:02] LABS: ERYTHROCYTE SEDIMENTATION RATE 44 mm/hr (0-30)
[2024-10-15 09:04] LABS: C REACTIVE PROTEIN QUANTITATIV 4.31 MG/DL (<1.0); CHOLESTEROL LEVEL 131.0 MG/DL (<200); CHOLESTEROL RISK RATIO 4.41 (<5); LDL CHOLESTEROL 76.5 MG/DL (<100); NON-HDL-C 101.3 MG/DL; TRIGLYCERIDES LEVEL 124.0 MG/DL (<150)
[2024-10-15 09:06] LABS: TOTAL 25(OH) VITAMIN D 61.8 NG/ML (20.0-100.0)
[2024-10-15 09:25] LABS: ESTIMATED AVERAGE GLUCOSE 128.0 MG/DL (60-110)
== END ==
PROVIDERS: ATTEND Internal Medicine
DX: E11.9 Type 2 diabetes mellitus without complications (principal); Z79.899 Other long term (current) drug therapy

== ENCOUNTER → 2024-10-23 | Outpatient (REF) | payer MEDICARE, MEDICAID | PROVIDERS: ATTEND Physician Assistant | DX: M25.562 Pain in left knee (principal) ==

== ENCOUNTER → 2024-11-10 | Outpatient (REF) | payer MEDICARE, MEDICAID ==
[2024-11-10 14:03] LABS: PLATELET COUNT, AUTOMATED 287 10^3/uL (150-450)
[2024-11-10 14:32] LABS: CALCIUM LEVEL 9.1 MG/DL (8.3-10.6); CARBON DIOXIDE LEVEL 20.0 MMOL/L (20-31); CHLORIDE LEVEL 107.0 MMOL/L (98-107); CREATININE FOR GFR 1.07 MG/DL (0.55-1.30); GLOMERULAR FILTRATION RATE 58.4 (>45); POTASSIUM SERUM 5.0 MMOL/L (3.5-5.1); SODIUM LEVEL 140.0 MMOL/L (136-145)
== END ==
PROVIDERS: ATTEND Physician Assistant
DX: R31.0 Gross hematuria (principal)

== ENCOUNTER → 2024-11-21 | Outpatient (CLI) | payer MEDICARE, MEDICAID | LOC: M RAD 15:09 | PROVIDERS: ATTEND Physician Assistant | DX: N93.9 Abnormal uterine and vaginal bleeding, unspecified (principal); I25.10 Atherosclerotic heart disease of native coronary artery without angina pectoris; K80.20 Calculus of gallbladder without cholecystitis without obstruction; K57.90 Diverticulosis of intestine, part unspecified, without perforation or abscess without bleeding; M16.0 Bilateral primary osteoarthritis of hip; K42.9 Umbilical hernia without obstruction or gangrene; D25.9 Leiomyoma of uterus, unspecified; N88.8 Other specified noninflammatory disorders of cervix uteri ==

== ENCOUNTER → 2024-12-01 | Outpatient (REF) | payer MEDICARE, MEDICAID | PROVIDERS: ATTEND Internal Medicine | DX: M25.562 Pain in left knee (principal); M25.551 Pain in right hip; M25.552 Pain in left hip ==

== ENCOUNTER → 2024-12-15 | Outpatient (REF) | payer MEDICARE, MEDICAID ==
[2024-12-15 12:53] LABS: PLATELET COUNT, AUTOMATED 501 10^3/uL (150-450)
[2024-12-15 13:16] LABS: CALCIUM LEVEL 9.4 MG/DL (8.3-10.6); CARBON DIOXIDE LEVEL 20.0 MMOL/L (20-31); CHLORIDE LEVEL 106.0 MMOL/L (98-107); CREATININE FOR GFR 0.88 MG/DL (0.55-1.30); GLOMERULAR FILTRATION RATE 73.8 (>45); POTASSIUM SERUM 4.8 MMOL/L (3.5-5.1); SODIUM LEVEL 137.0 MMOL/L (136-145)
== END ==
PROVIDERS: ATTEND Internal Medicine
DX: N18.9 Chronic kidney disease, unspecified (principal)

== ENCOUNTER → 2025-01-14 | Outpatient (REF) | payer MEDICARE, MEDICAID ==
[2025-01-14 12:25] LABS: TOTAL 25(OH) VITAMIN D 64.9 NG/ML (20.0-100.0)
[2025-01-14 12:38] LABS: CHOLESTEROL LEVEL 108.0 MG/DL (<200); CHOLESTEROL RISK RATIO 3.51 (<5); LDL CHOLESTEROL 54.3 MG/DL (<100); NON-HDL-C 77.3 MG/DL; TRIGLYCERIDES LEVEL 115.0 MG/DL (<150)
[2025-01-14 17:52] LABS: ESTIMATED AVERAGE GLUCOSE 108.0 MG/DL (60-110)
== END ==
PROVIDERS: ATTEND Internal Medicine
DX: E55.9 Vitamin D deficiency, unspecified (principal); E11.9 Type 2 diabetes mellitus without complications

== ENCOUNTER → 2025-01-29 | Outpatient (CLI) | payer MEDICARE, MEDICAID | LOC: M RAD 11:44 | PROVIDERS: ATTEND Physician Assistant | DX: N95.0 Postmenopausal bleeding (principal); D25.9 Leiomyoma of uterus, unspecified; R93.89 Abnormal findings on diagnostic imaging of other specified body structures ==

== ENCOUNTER → 2025-03-09 | Outpatient (REF) | payer MEDICARE, MEDICAID ==
[2025-03-09 13:09] LABS: PLATELET COUNT, AUTOMATED 289 10^3/uL (150-450)
[2025-03-09 13:33] LABS: CALCIUM LEVEL 9.3 MG/DL (8.3-10.6); CARBON DIOXIDE LEVEL 22.0 MMOL/L (20-31); CHLORIDE LEVEL 105.0 MMOL/L (98-107); CREATININE FOR GFR 0.98 MG/DL (0.55-1.30); GLOMERULAR FILTRATION RATE 64.9 (>45); POTASSIUM SERUM 4.6 MMOL/L (3.5-5.1); SODIUM LEVEL 138.0 MMOL/L (136-145)
== END ==
PROVIDERS: ATTEND Internal Medicine
DX: N18.9 Chronic kidney disease, unspecified (principal)